=== PATIENT | female | born 1950 | race Caucasian/White ===

== ENCOUNTER → 2016-06-14 | Outpatient (CLI) | payer OTHER ==
[2016-06-14 14:27] LABS: CH 29.3; CHCM 32.6; HCT 40.3 % (34.0-46.0); HDW 2.41; HGB 13.4 gm/dL (11.4-16.0); MCHC 33.2 g/dL (31.0-37.0); MCV 90.3 fL (80.0-100.0); Mean Platelet Volume 7.6; RBC 4.46 m/uL (3.80-5.40); RDW 13.7 % (11.5-15.5); WBC 10.2 k/uL (3.8-10.6)
[2016-06-14 14:44] LABS: Calcium 10.2 mg/dL (8.4-10.2); Potassium 5.1 mmol/L (3.5-5.1); Total Bilirubin 0.4 mg/dL (0.2-1.3)
[2016-06-14 14:48] LABS: Appearance,Urine Clear (Clear); Bilirubin,Urine Negative (Negative); Glucose,Urine (UA) Negative (Negative); Ketones,Urine Negative (Negative); Leukocyte Esterase,Urine Negative (Negative); Nitrite,Urine Negative (Negative); PH, Urine 6.5 (5.0-8.0); Protein,Urine Negative (Negative); Specific Gravity,Urine 1.012 (1.001-1.035); UA Billing (MACRO vs. MICRO) CHEM; Urobilinogen,Urine <2.0 mg/dL (<2.0)
== END | disposition home or self-care (01) ==
LOC: LABWHC1 13:50
PROVIDERS: ATTEND Internal Medicine Nephrology
DX: D64.9 Anemia, unspecified (principal); E83.39 Other disorders of phosphorus metabolism; N89.0 Mild vaginal dysplasia
CPT/HCPCS: 36415; 80053; 81003; 84100; 85027

== ENCOUNTER → 2016-09-05 | Outpatient (CLI) | payer OTHER ==
[2016-09-05 16:43] LABS: Calcium 10.8 mg/dL (8.4-10.2); Magnesium 1.5 mg/dL (1.6-2.3); Phosphorous 2.8 mg/dL (2.5-4.5); Potassium 4.1 mmol/L (3.5-5.1); Total Bilirubin 0.3 mg/dL (0.2-1.3); Total Protein 7.3 g/dL (6.3-8.2); Uric Acid 9.3 mg/dL (3.7-7.4)
== END | disposition home or self-care (01) ==
LOC: LABWHC1 16:04
PROVIDERS: ATTEND Internal Medicine
DX: N18.3 Chronic kidney disease, stage 3 (moderate) (principal); E21.3 Hyperparathyroidism, unspecified; E55.9 Vitamin D deficiency, unspecified; M10.9 Gout, unspecified
CPT/HCPCS: 36415; 80053; 82306; 83735; 83970; 84100; 84550

== ENCOUNTER → 2017-01-26 | Outpatient (CLI) | payer OTHER ==
[2017-01-26 16:27] LABS: Calcium 10.7 mg/dL (8.4-10.2); Magnesium 1.5 mg/dL (1.6-2.3); Phosphorous 3.4 mg/dL (2.5-4.5); Potassium 4.5 mmol/L (3.5-5.1); Uric Acid 8.9 mg/dL (3.7-7.4)
== END | disposition home or self-care (01) ==
LOC: LABWHC1 15:46
PROVIDERS: ATTEND Nurse Practitioner Family
DX: E55.9 Vitamin D deficiency, unspecified (principal); N18.3 Chronic kidney disease, stage 3 (moderate); E79.0 Hyperuricemia without signs of inflammatory arthritis and tophaceous disease
CPT/HCPCS: 36415; 80048; 82040; 82306; 83735; 83970; 84100; 84550

== ENCOUNTER → 2017-06-08 | Outpatient (CLI) | payer MEDICARE, OTHER ==
[2017-06-08 16:36] LABS: HCT 39.1 % (34.0-46.0); HGB 12.9 gm/dL (11.4-16.0); MCH 28.7 pg (25.0-35.0); MCHC 33.1 g/dL (31.0-37.0); MCV 86.9 fL (80.0-100.0); Mean Platelet Volume 8.1; Platelet Count 309 k/uL (150-450); RBC 4.49 m/uL (3.80-5.40); RDW 14.1 % (11.5-15.5); WBC 12.2 k/uL (3.8-10.6)
[2017-06-08 16:38] LABS: Appearance,Urine Clear (Clear); Bilirubin,Urine Negative (Negative); Blood,Urine Negative (Negative); Color,Urine Light Yellow; Glucose,Urine (UA) Negative (Negative); Ketones,Urine Negative (Negative); Leukocyte Esterase,Urine Negative (Negative); Nitrite,Urine Negative (Negative); PH, Urine 6.5 (5.0-8.0); Protein,Urine Negative (Negative); Specific Gravity,Urine 1.008 (1.001-1.035); Urobilinogen,Urine <2.0 mg/dL (<2.0)
[2017-06-08 16:56] LABS: Albumin 4.3 g/dL (3.5-5.0); Calcium 10.9 mg/dL (8.4-10.2); Magnesium 1.8 mg/dL (1.6-2.3); Potassium 4.4 mmol/L (3.5-5.1); Uric Acid 5.4 mg/dL (3.7-7.4)
[2017-06-09 01:36] LABS: Parathyroid Hormone Intact 31.3 pg/mL (14.0-72.0)
[2017-06-09 01:51] LABS: Vitamin D 25 Hydroxy 12.8 ng/mL (30.0-100.0)
== END | disposition home or self-care (01) ==
LOC: LABWHC1 15:48
PROVIDERS: ATTEND Nurse Practitioner Family
DX: N39.0 Urinary tract infection, site not specified (principal); D63.1 Anemia in chronic kidney disease; N18.3 Chronic kidney disease, stage 3 (moderate); R80.9 Proteinuria, unspecified; E55.9 Vitamin D deficiency, unspecified; E79.0 Hyperuricemia without signs of inflammatory arthritis and tophaceous disease; E11.22 Type 2 diabetes mellitus with diabetic chronic kidney disease
CPT/HCPCS: 36415; 80048; 81003; 82040; 82164; 82306; 83036; 83735; 83883; 83970; 84100; 84166; 84550; 85027; 86334; 86335

== ENCOUNTER → 2017-07-11 | Outpatient (CLI) | payer MEDICARE, OTHER ==
--- NOTE | 2017-07-11 16:28 | NM ---
EXAMINATION TYPE: NM parathyroid DATE OF EXAM: 07/11/2017 COMPARISON: NONE HISTORY: Hypercalcemia, E 83.52 TECHNIQUE: Following administration of 24.9 mCi Tc99m Sestamibi. Anterior projection images of the neck and ches t were obtained 10 minutes and 3 hours post injection FINDINGS: Exam is limited, SPECT exam was unable to be performed. Thyroid tracer washout: Delayed images demonstrate near-complete tracer washout from the thyroid. Parathyroid uptake: None. The two-hour delayed images do not demonstrate any focal abnormal persisten t uptake in the region of the parathyroid glands to suggest parathyroid adenoma. Normal uptake: There is physiological tracer uptake in the salivary glands and thyroid gland. IMPRESSION: Normal parathyroid imaging study. No evidence for mediastinal uptake to suggest mediastinal parathyro id adenoma
== END | disposition home or self-care (01) ==
LOC: RADNMMAIN 11:41
PROVIDERS: ATTEND Internal Medicine
DX: E83.52 Hypercalcemia (principal)
CPT/HCPCS: 78070; A9500

== ENCOUNTER → 2017-07-20 | Outpatient (CLI) | payer MEDICARE, OTHER ==
[2017-07-20 17:05] LABS: HCT 40.2 % (34.0-46.0); HGB 13.6 gm/dL (11.4-16.0); MCH 29.2 pg (25.0-35.0); MCHC 33.7 g/dL (31.0-37.0); MCV 86.5 fL (80.0-100.0); Mean Platelet Volume 7.9; Platelet Count 291 k/uL (150-450); RBC 4.65 m/uL (3.80-5.40); RDW 13.9 % (11.5-15.5); WBC 11.9 k/uL (3.8-10.6)
[2017-07-20 17:20] LABS: Albumin 4.2 g/dL (3.5-5.0); Calcium 10.8 mg/dL (8.4-10.2); Phosphorus 4.1 mg/dL (2.5-4.5); Total Bilirubin 0.2 mg/dL (0.2-1.3); Uric Acid 5.4 mg/dL (3.7-7.4)
[2017-07-20 17:26] LABS: Potassium 4.4 mmol/L (3.5-5.1)
[2017-07-20 17:34] LABS: Appearance,Urine Cloudy (Clear); Bacteria,Urine Occasional /hpf; Bilirubin,Urine Negative (Negative); Blood,Urine Negative (Negative); Color,Urine Yellow; Glucose,Urine (UA) Negative (Negative); Hyaline Casts,Urine 26 /lpf (0-2); Ketones,Urine Negative (Negative); Leukocyte Esterase,Urine Trace (Negative); Mucus,Urine Rare /hpf; Nitrite,Urine Negative (Negative); PH, Urine 5.5 (5.0-8.0); Protein,Urine Trace (Negative); RBC,Urine 1 /hpf (0-5); Specific Gravity,Urine 1.011 (1.001-1.035); Squamous Epithelial Cell,Urine 4 /hpf (0-4); Urobilinogen,Urine <2.0 mg/dL (<2.0); WBC,Urine 5 /hpf (0-5)
[2017-07-21 00:26] LABS: Iron Saturation 17.28 (12.00-45.00)
[2017-07-21 00:35] LABS: Vitamin D 25 Hydroxy 20.3 ng/mL (30.0-100.0)
[2017-07-21 01:07] LABS: Parathyroid Hormone Intact 37.9 pg/mL (14.0-72.0)
== END | disposition home or self-care (01) ==
LOC: LABWHC1 16:13
PROVIDERS: ATTEND Internal Medicine
DX: E83.52 Hypercalcemia (principal); D63.1 Anemia in chronic kidney disease; N18.3 Chronic kidney disease, stage 3 (moderate); M10.9 Gout, unspecified; E55.9 Vitamin D deficiency, unspecified
CPT/HCPCS: 36415; 80053; 81001; 82306; 82652; 82728; 83540; 83550; 83735; 83970; 84100; 84550; 85027

== ENCOUNTER → 2017-07-26 | Outpatient (CLI) | payer MEDICARE, OTHER ==
[2017-07-26 15:52] LABS: Calcium 10.4 mg/dL (8.4-10.2); Magnesium 2.1 mg/dL (1.6-2.3); Potassium 4.8 mmol/L (3.5-5.1)
== END | disposition home or self-care (01) ==
LOC: LABWHC1 14:54
PROVIDERS: ATTEND Internal Medicine
DX: D64.9 Anemia, unspecified (principal); N18.3 Chronic kidney disease, stage 3 (moderate); E83.52 Hypercalcemia
CPT/HCPCS: 36415; 80048; 83735

== ENCOUNTER → 2017-07-26 | Outpatient (CLI) | payer MEDICARE, OTHER ==
--- NOTE | 2017-07-26 15:41 | CT ---
EXAMINATION TYPE: CT chest wo con DATE OF EXAM: 07/26/2017 COMPARISON: Chest x-ray July 20, 2017 HISTORY: Hypercalcemia CT DLP: 731 mGycm. Automated Exposure Control for Dose Reduction was Utilized. TECHNIQUE: CT scan of the thorax is performed without IV contrast. FINDINGS: LUNGS: There are some scattered areas of linear scarring most pronounced anteriorly in both lung base s. Subcentimeter peripheral scarlike opacity in the right upper lobe anterolateral aspect axial image 21 is noted. No pleural effusion or pneumothorax is seen bilaterally. No suspicious greater than 5 m m parenchymal nodules are identified. Note is made of a 5 x 4 mm semisolid nodule right upper lobe ax ial image 19. Tracheobronchial tree is patent. MEDIASTINUM: Lack of IV contrast is noted to limit evaluation for mediastinal and especially hilar a denopathy. There are no definitive greater than 1 cm hilar or mediastinal lymph nodes. No cardiomeg jade or pericardial effusion is seen. Visualized portion of thyroid gland is unremarkable. Ascending a maribel measures 3.6 cm in diameter. Coronary artery calcification is present which is noted marker for coronary artery disease. OTHER: No adrenal masses are noted. No renal calculi are seen in visualized portion of both kidneys. There is slight S-shaped scoliotic curvature with moderate multilevel spurring. There is multilevel vacuum disc phenomenon in the lower thoracic spine. IMPRESSION: No suspicious mass or adenopathy is present. Incidental 5 mm right upper lobe nodule, con educational guidance counselor CT follow-up in one year's time to reassess.
== END | disposition home or self-care (01) ==
LOC: RADCTMAIN 14:22
PROVIDERS: ATTEND Internal Medicine Critical Care Medicine
DX: R91.1 Solitary pulmonary nodule (principal)
CPT/HCPCS: 71250

== ENCOUNTER → 2017-09-22 | Outpatient (CLI) | payer MEDICARE, OTHER ==
[2017-09-22 15:22] LABS: Appearance,Urine Clear (Clear); Bilirubin,Urine Negative (Negative); Blood,Urine Negative (Negative); Color,Urine Light Yellow; Glucose,Urine (UA) Negative (Negative); Ketones,Urine Negative (Negative); Leukocyte Esterase,Urine Negative (Negative); Nitrite,Urine Negative (Negative); PH, Urine 5.5 (5.0-8.0); Protein,Urine Negative (Negative); Specific Gravity,Urine 1.007 (1.001-1.035); Urobilinogen,Urine <2.0 mg/dL (<2.0)
[2017-09-22 15:23] LABS: HCT 43.8 % (34.0-46.0); MCH 28.2 pg (25.0-35.0); MCV 88.2 fL (80.0-100.0); Mean Platelet Volume 8.2; Platelet Count 269 k/uL (150-450); RBC 4.97 m/uL (3.80-5.40); WBC 9.9 k/uL (3.8-10.6)
[2017-09-22 15:39] LABS: Albumin 4.2 g/dL (3.5-5.0); Calcium 10.4 mg/dL (8.4-10.2); Magnesium 1.8 mg/dL (1.6-2.3); Phosphorus 3.8 mg/dL (2.5-4.5); Potassium 4.6 mmol/L (3.5-5.1); Total Bilirubin 0.2 mg/dL (0.2-1.3); Total Protein 6.9 g/dL (6.3-8.2); Uric Acid 5.1 mg/dL (3.7-7.4)
[2017-09-22 19:03] LABS: Iron Saturation 17.43 (12.00-45.00)
== END | disposition home or self-care (01) ==
LOC: LABWHC1 14:55
PROVIDERS: ATTEND Nurse Practitioner Family
DX: N18.3 Chronic kidney disease, stage 3 (moderate) (principal); D64.9 Anemia, unspecified; N39.0 Urinary tract infection, site not specified; E21.3 Hyperparathyroidism, unspecified; M10.9 Gout, unspecified
CPT/HCPCS: 36415; 80053; 81003; 82728; 83540; 83550; 83735; 83970; 84100; 84550; 85027

== ENCOUNTER → 2018-01-31 | Outpatient (CLI) | payer MEDICARE, OTHER ==
[2018-01-31 16:44] LABS: HCT 42.5 % (34.0-46.0); HGB 13.8 gm/dL (11.4-16.0); MCH 29.7 pg (25.0-35.0); MCHC 32.5 g/dL (31.0-37.0); MCV 91.3 fL (80.0-100.0); Mean Platelet Volume 7.9; Platelet Count 255 k/uL (150-450); RBC 4.66 m/uL (3.80-5.40); RDW 13.8 % (11.5-15.5); WBC 10.6 k/uL (3.8-10.6)
[2018-01-31 16:49] LABS: Appearance,Urine Clear (Clear); Bilirubin,Urine Negative (Negative); Blood,Urine Negative (Negative); Color,Urine Light Yellow; Glucose,Urine (UA) Trace (Negative); Ketones,Urine Negative (Negative); Leukocyte Esterase,Urine Negative (Negative); Nitrite,Urine Negative (Negative); PH, Urine 6.5 (5.0-8.0); Protein,Urine Negative (Negative); Specific Gravity,Urine 1.007 (1.001-1.035); Urobilinogen,Urine <2.0 mg/dL (<2.0)
[2018-01-31 17:00] LABS: Calcium 10.3 mg/dL (8.4-10.2); Magnesium 1.9 mg/dL (1.6-2.3); Potassium 4.4 mmol/L (3.5-5.1); Total Bilirubin 0.2 mg/dL (0.2-1.3); Total Protein 6.9 g/dL (6.3-8.2); Uric Acid 4.9 mg/dL (3.7-7.4)
[2018-02-01 04:21] LABS: Iron Saturation 25.36 (12.00-45.00)
== END ==
LOC: LABWHC1 15:49
PROVIDERS: ATTEND Nurse Practitioner Family
DX: N18.3 Chronic kidney disease, stage 3 (moderate) (principal); D63.1 Anemia in chronic kidney disease; N39.0 Urinary tract infection, site not specified; E21.3 Hyperparathyroidism, unspecified; M10.9 Gout, unspecified
CPT/HCPCS: 36415; 80053; 81003; 82728; 83540; 83550; 83735; 83970; 84100; 84550; 85027

== ENCOUNTER → 2018-08-08 | Outpatient (CLI) | payer MEDICARE ==
[2018-08-08 17:31] LABS: Appearance,Urine Clear (Clear); Bilirubin,Urine Negative (Negative); Blood,Urine Negative (Negative); Color,Urine Light Yellow; Glucose,Urine (UA) Negative (Negative); Ketones,Urine Negative (Negative); Leukocyte Esterase,Urine Negative (Negative); Nitrite,Urine Negative (Negative); Protein,Urine Negative (Negative); Specific Gravity,Urine 1.007 (1.001-1.035); Urobilinogen,Urine <2.0 mg/dL (<2.0)
[2018-08-08 17:35] LABS: HCT 41.1 % (34.0-46.0); HGB 13.9 gm/dL (11.4-16.0); MCH 29.2 pg (25.0-35.0); MCV 85.8 fL (80.0-100.0); Mean Platelet Volume 8.3; Platelet Count 302 k/uL (150-450); RBC 4.78 m/uL (3.80-5.40); RDW 13.7 % (11.5-15.5); WBC 11.4 k/uL (3.8-10.6)
[2018-08-09 01:41] LABS: Iron Saturation 20.67 (12.00-45.00)
[2018-08-09 02:01] LABS: Albumin 4.4 g/dL (3.80-4.90); Anion Gap 7.3 mmol/L (4.00-12.00); Calcium 9.8 mg/dL (8.7-10.3); Carbon Dioxide 28.7 mmol/L (21.6-31.8); Globulin 2.2 g/dL (1.6-3.3); Magnesium 1.8 mg/dL (1.5-2.4); Phosphorus 3.5 mg/dL (2.4-5.1); Potassium 4.2 mmol/L (3.5-5.5); Total Bilirubin 0.2 mg/dL (0.3-1.2); Total Protein 6.6 g/dL (6.2-8.2); Uric Acid 4.9 mg/dL (2.9-7.7)
== END ==
LOC: LABWHC1 16:53
PROVIDERS: ATTEND Internal Medicine
DX: N39.0 Urinary tract infection, site not specified (principal); E21.3 Hyperparathyroidism, unspecified; D63.1 Anemia in chronic kidney disease; N18.3 Chronic kidney disease, stage 3 (moderate)
CPT/HCPCS: 36415; 80053; 81003; 82728; 83540; 83550; 83735; 83970; 84100; 84550; 85027

== ENCOUNTER → 2018-08-22 | Outpatient (CLI) | payer MEDICARE ==
--- NOTE | 2018-08-23 11:57 | MM ---
Reason for exam: screening (asymptomatic). Last mammogram was performed 8 years ago. History: Patient is postmenopausal. Took estrogen for 4 years beginning at age 52. Took progesterone for 4 years beginning at age 52. Physical Findings: A clinical breast exam by your physician is recommended on an annual basis and results should be correlated with mammographic findings. MG Screening Mammo w CAD Bilateral CC and MLO view(s) were taken. Prior study comparison: August 25, 2010, bilateral digital screening mammo w/CAD. July 18, 2008, bilateral digital screening mammogram. The breast tissue is heterogeneously dense. This may lower the sensitivity of mammography. Nodule upper outer quadrant left breast 6.2cm from nipple. ASSESSMENT: Incomplete: need additional imaging evaluation, BI-RAD 0 RECOMMENDATION: Special view mammogram and ultrasound of the left breast. [facility] will attempt to contact patient to return for supplemental views and ultrasound.
== END ==
LOC: RADMAMWWP 14:43
PROVIDERS: ATTEND Family Medicine
DX: Z12.31 Encounter for screening mammogram for malignant neoplasm of breast (principal)
CPT/HCPCS: 77067

== ENCOUNTER → 2018-08-29 | Outpatient (CLI) | payer MEDICARE ==
--- NOTE | 2018-08-29 15:49 | US ---
EXAMINATION TYPE: US renals and bladder DATE OF EXAM: 08/29/2018 COMPARISON: NONE CLINICAL HISTORY: ABN MAMMO. EXAM MEASUREMENTS: Right Kidney: 10.3 X 3.9 X 4.4 cm Left Kidney: 10.6 X 5.2 X 4.6 cm Right Kidney: No hydronephrosis or masses seen Left Kidney: No hydronephrosis or masses seen Bladder: WNL Bilateral Jets seen: Yes There is no evidence for hydronephrosis at this point in time. No nephrolithiasis is seen. No jaspal s are identified. The urinary bladder is anechoic. Bilateral ureteral jets are seen. IMPRESSION: Unremarkable exam. No sonographic evidence of hydronephrosis or nephrolithiasis.
--- NOTE | 2018-08-30 08:37 | MM ---
Reason for exam: additional evaluation requested from abnormal screening. Last mammogram was performed less than 1 month ago. History: Patient is postmenopausal. Took estrogen for 4 years beginning at age 52. Took progesterone for 4 years beginning at age 52. Physical Findings: Nurse did not find any significant physical abnormalities on exam. MG 3D Work Up W/Cad LT Spot compression CC, spot compression MLO, and LM view(s) were taken of the left breast. Prior study comparison: August 22, 2018, bilateral MG screening mammo w CAD. August 25, 2010, bilateral digital screening mammo w/CAD. The breast tissue is heterogeneously dense. This may lower the sensitivity of mammography. The upper outer quadrant left mass is seen on the exam of 2010 on the CC view and appears similar. These results were verbally communicated with the patient and result sheet given to the patient on 08/29/18. ASSESSMENT: Benign, BI-RAD 2 RECOMMENDATION: Return to routine screening mammogram schedule for both breasts.
== END | disposition home or self-care (01) ==
LOC: RADUSWWP 14:26
PROVIDERS: ATTEND Internal Medicine Nephrology
DX: R92.8 Other abnormal and inconclusive findings on diagnostic imaging of breast (principal)
CPT/HCPCS: 77065; 76770; G0279; 77061

== ENCOUNTER → 2018-08-29 | Outpatient (CLI) | payer MEDICARE | END | disposition home or self-care (01) | LOC: RADMAMWWP 14:19 | PROVIDERS: ATTEND Family Medicine | DX: Z53.9 Procedure and treatment not carried out, unspecified reason (principal) ==

== ENCOUNTER → 2018-12-04 | Outpatient (CLI) | payer MEDICARE ==
[2018-12-04 16:37] LABS: Basophils # (A) 0.2 k/uL (0-0.2); Basophils % (A) 2 %; Eosinophils # (A) 0.2 k/uL (0-0.7); Eosinophils % (A) 2 %; HCT 43.7 % (34.0-46.0); HGB 13.9 gm/dL (11.4-16.0); Lymphocytes # (A) 3.3 k/uL (1.0-4.8); Lymphocytes % (A) 33 %; MCHC 31.8 g/dL (31.0-37.0); MCV 91.4 fL (80.0-100.0); Mean Platelet Volume 8.3; Monocytes # (A) 0.8 k/uL (0-1.0); Monocytes % (A) 8 %; Neutrophils # (A) 5.3 k/uL (1.3-7.7); Neutrophils % (A) 52 %; Platelet Count 249 k/uL (150-450); RBC 4.79 m/uL (3.80-5.40); RDW 14.6 % (11.5-15.5); WBC 10.1 k/uL (3.8-10.6)
[2018-12-04 16:49] LABS: Appearance,Urine Clear (Clear); Bilirubin,Urine Negative (Negative); Blood,Urine Negative (Negative); Color,Urine Light Yellow; Glucose,Urine (UA) 3+ (Negative); Ketones,Urine Negative (Negative); Leukocyte Esterase,Urine Negative (Negative); Nitrite,Urine Negative (Negative); Protein,Urine Negative (Negative); Specific Gravity,Urine 1.008 (1.001-1.035); Urobilinogen,Urine <2.0 mg/dL (<2.0)
[2018-12-05 03:19] LABS: African American GFR (CKD) 60.2 (60.0-200.0); Albumin 4.1 g/dL (3.80-4.90); Albumin/Globulin Ratio 2.05 (1.60-3.17); Anion Gap 9.6 mmol/L (4.00-12.00); BUN/Creat Ratio 17.27 Ratio (12.00-20.00); Calcium 9.7 mg/dL (8.7-10.3); Carbon Dioxide 27.4 mmol/L (21.6-31.8); Magnesium 1.8 mg/dL (1.5-2.4); Non-African American GFR(CKD) 51.9 (60.0-200.0); Phosphorus 2.7 mg/dL (2.4-5.1); Potassium 4.6 mmol/L (3.5-5.5); Total Bilirubin 0.2 mg/dL (0.3-1.2); Total Protein 6.1 g/dL (6.2-8.2)
[2018-12-05 03:25] LABS: Iron Saturation 26.71 (12.00-45.00)
[2018-12-05 03:34] LABS: Ferritin 146.4 ng/mL (10.0-291.0)
[2018-12-05 04:34] LABS: Vitamin D 25 Hydroxy 11.3 ng/mL (30.0-100.0)
== END ==
LOC: LABWHC1 15:49
PROVIDERS: ATTEND Nurse Practitioner Family
DX: N18.3 Chronic kidney disease, stage 3 (moderate) (principal); D63.1 Anemia in chronic kidney disease; N39.0 Urinary tract infection, site not specified; E83.39 Other disorders of phosphorus metabolism; N25.81 Secondary hyperparathyroidism of renal origin; E55.9 Vitamin D deficiency, unspecified; M10.9 Gout, unspecified
CPT/HCPCS: 36415; 80053; 81003; 82306; 82728; 83540; 83550; 83735; 83970; 84100; 84550; 85025

== ENCOUNTER 2019-09-06 09:59 | Emergency (ER) | payer MEDICARE ==
[2019-09-06 10:05] LABS: Glucose,Whole Blood 502 mg/dL (75-99)
[2019-09-06 10:09] VITALS: TEMP 98.3
[2019-09-06] MEDS ORDERED: INSULIN REGULAR 100 UNIT/ML VIAL IV ONE (10:20)
[2019-09-06] MEDS ORDERED: SODIUM CHLORIDE 0.9% 1,000 ML IV ONE (10:20)
[2019-09-06] MEDS ORDERED: SODIUM CHLORIDE 0.9% 500 ML 500 ML IV ONE (10:20)
[2019-09-06 10:52] LABS: Basophils # (A) 0.3 k/uL (0-0.2); Basophils % (A) 3 %; Eosinophils # (A) 0.3 k/uL (0-0.7); Eosinophils % (A) 3 %; HCT 50.1 % (34.0-46.0); HGB 16.3 gm/dL (11.4-16.0); Lymphocytes # (A) 3.7 k/uL (1.0-4.8); Lymphocytes % (A) 34 %; MCH 29.8 pg (25.0-35.0); MCHC 32.5 g/dL (31.0-37.0); MCV 91.6 fL (80.0-100.0); Mean Platelet Volume 9.9; Monocytes # (A) 0.6 k/uL (0-1.0); Monocytes % (A) 6 %; Neutrophils # (A) 5.6 k/uL (1.3-7.7); Neutrophils % (A) 52 %; Platelet Count 250 k/uL (150-450); RBC 5.47 m/uL (3.80-5.40); RDW 13.1 % (11.5-15.5); WBC 10.8 k/uL (3.8-10.6)
[2019-09-06 10:55] LABS: Appearance,Urine Clear (Clear); Bilirubin,Urine Negative (Negative); Blood,Urine Negative (Negative); Color,Urine Light Yellow; Glucose,Urine (UA) 4+ (Negative); Ketones,Urine 1+ (Negative); Leukocyte Esterase,Urine Negative (Negative); Nitrite,Urine Negative (Negative); Protein,Urine Negative (Negative); Specific Gravity,Urine 1.032 (1.001-1.035); Urobilinogen,Urine <2.0 mg/dL (<2.0)
--- NOTE | 2019-09-06 11:02 | ED ---
Recheck HPI - General Chief Complaint: Recheck/Abnormal Lab/Rx Stated Complaint: sugar is high Time Seen by Provider: 09/06/19 10:11 Source: patient, RN notes reviewed Mode of arrival: ambulatory Limitations: no limitations - History of Present Illness Initial Comments: 69-year-old female presents emergency Department chief complaint of hyperglycemia. Patient states that she received a phone call from her nephrologists stating that her blood sugar was severely elevated. Patient states she has not eaten today she did not take her diabetic meds today. She doesn't admit that she's had no recent dietary changes though she states that she needs a large amount of fruit, starches. Patient does not follow a strict diabetic diet. Patient is on Lantus and glipizide. Patient has no complaints of URI symptoms no fevers or chills no chest pain or shortness of breath. Has no abdominal discomfort. - Related Data Allergies Allergy/AdvReac Type Severity Reaction Status Date / Time Unable to Assess Allergy Verified 09/06/19 10:09 Review of Systems ROS Statement: Those systems with pertinent positive or pertinent negative responses have been documented in the HPI. ROS Other: All systems not noted in ROS Statement are negative. Past Medical History Past Medical History: Diabetes Mellitus, Hyperlipidemia, Hypertension, Osteoarthritis (OA) Additional Past Medical History / Comment(s): gout History of Any Multi-Drug Resistant Organisms: None Reported Past Surgical History: Section Additional Past Surgical History / Comment(s): D&C, hemerhoid, eye Past Psychological History: No Psychological Hx Reported Smoking Status: Current every day smoker Past Alcohol Use History: None Reported Past Drug Use History: None Reported General Exam Limitations: no limitations General appearance: alert, in no apparent distress Head exam: Present: atraumatic, normocephalic, normal inspection Eye exam: Present: normal appearance, PERRL, EOMI. Absent: scleral icterus, conjunctival injection, periorbital swelling ENT exam: Present: normal exam, normal oropharynx, mucous membranes moist, TM's normal bilaterally Neck exam: Present: normal inspection. Absent: tenderness, meningismus, lymphadenopathy Respiratory exam: Present: normal lung sounds bilaterally. Absent: respiratory distress, wheezes, rales, rhonchi, stridor Cardiovascular Exam: Present: normal rhythm, tachycardia (Heart rate 110), normal heart sounds. Absent: systolic murmur, diastolic murmur, rubs, gallop, clicks GI/Abdominal exam: Present: soft, normal bowel sounds. Absent: distended, tenderness, guarding, rebound, rigid Neurological exam: Present: alert, oriented X3, CN II-XII intact Skin exam: Present: warm, dry, intact, normal color. Absent: rash Course Vital Signs 09/06/19 10:00 Temperature 98.3 F Pulse Rate 110 H Respiratory 18 Rate Blood Pressure 103/62 O2 Sat by Pulse 95 Oximetry Medical Decision Making - Medical Decision Making 61-year-old female presented for hyperglycemia. Patient's blood sugar was over 500. Patient's blood sugar is under 300. Patient is requesting be discharged that she feels better this time. She is advised take oral medications. Patient stated on lab results return parameters were discussed. - Lab Data Result diagrams: 09/06/19 10:20 09/06/19 10:20 Lab Results 09/06/19 09/06/19 09/06/19 Range/Units 10:04 10:20 10:20 WBC 10.8 H (3.8-10.6) k/uL RBC 5.47 H (3.80-5.40) m/uL Hgb 16.3 H (11.4-16.0) gm/dL Hct 50.1 H (34.0-46.0) % MCV 91.6 (80.0-100.0) fL MCH 29.8 (25.0-35.0) pg MCHC 32.5 (31.0-37.0) g/dL RDW 13.1 (11.5-15.5) % Plt Count 250 (150-450) k/uL Neutrophils % 52 % Lymphocytes % 34 % Monocytes % 6 % Eosinophils % 3 % Basophils % 3 % Neutrophils # 5.6 (1.3-7.7) k/uL Lymphocytes # 3.7 (1.0-4.8) k/uL Monocytes # 0.6 (0-1.0) k/uL Eosinophils # 0.3 (0-0.7) k/uL Basophils # 0.3 H (0-0.2) k/uL Sodium 133 L (137-145) mmol/L Potassium 4.5 (3.5-5.1) mmol/L Chloride 98 (98-107) mmol/L Carbon Dioxide 23 (22-30) mmol/L Anion Gap 12 mmol/L BUN 23 H (7-17) mg/dL Creatinine 0.92 (0.52-1.04) mg/dL Est GFR (CKD-EPI)AfAm 74 (>60 ml/min/1.73 sqM) Est GFR (CKD-EPI)NonAf 64 (>60 ml/min/1.73 sqM) Glucose 403 H (74-99) mg/dL POC Glucose (mg/dL) 502 H (75-99) mg/dL POC Glu Hat Lining Paster ID Hannah Ramirez Plasma Lactic Acid Mario (0.7-2.0) mmol/L Calcium 9.4 (8.4-10.2) mg/dL Total Bilirubin 0.5 (0.2-1.3) mg/dL AST 36 (14-36) U/L ALT 29 (4-34) U/L Alkaline Phosphatase 119 (38-126) U/L Total Protein 7.0 (6.3-8.2) g/dL Albumin 4.2 (3.5-5.0) g/dL Urine Color Urine Appearance (Clear) Urine pH (5.0-8.0) Ur Specific Meally (1.001-1.035) Urine Protein (Negative) Urine Glucose (UA) (Negative) Urine Ketones (Negative) Urine Blood (Negative) Urine Nitrite (Negative) Urine Bilirubin (Negative) Urine Urobilinogen (<2.0) mg/dL Ur Leukocyte Esterase (Negative) Acetone, Qual Negative (Negative) 09/06/19 09/06/19 09/06/19 Range/Units 10:20 10:26 11:29 WBC (3.8-10.6) k/uL RBC (3.80-5.40) m/uL Hgb (11.4-16.0) gm/dL Hct (34.0-46.0) % MCV (80.0-100.0) fL MCH (25.0-35.0) pg MCHC (31.0-37.0) g/dL RDW (11.5-15.5) % Plt Count (150-450) k/uL Neutrophils % % Lymphocytes % % Monocytes % % Eosinophils % % Basophils % % Neutrophils # (1.3-7.7) k/uL Lymphocytes # (1.0-4.8) k/uL Monocytes # (0-1.0) k/uL Eosinophils # (0-0.7) k/uL Basophils # (0-0.2) k/uL Sodium (137-145) mmol/L Potassium (3.5-5.1) mmol/L Chloride (98-107) mmol/L Carbon Dioxide (22-30) mmol/L Anion Gap mmol/L BUN (7-17) mg/dL Creatinine (0.52-1.04) mg/dL Est GFR (CKD-EPI)AfAm (>60 ml/min/1.73 sqM) Est GFR (CKD-EPI)NonAf (>60 ml/min/1.73 sqM) Glucose (74-99) mg/dL POC Glucose (mg/dL) 342 H (75-99) mg/dL POC Glu Hat Lining Paster ID Radha Treviño Plasma Lactic Acid Mario 1.8 (0.7-2.0) mmol/L Calcium (8.4-10.2) mg/dL Total Bilirubin (0.2-1.3) mg/dL AST (14-36) U/L ALT (4-34) U/L Alkaline Phosphatase (38-126) U/L Total Protein (6.3-8.2) g/dL Albumin (3.5-5.0) g/dL Urine Color Light Yellow Urine Appearance Clear (Clear) Urine pH 5.0 (5.0-8.0) Ur Specific Meally 1.032 (1.001-1.035) Urine Protein Negative (Negative) Urine Glucose (UA) 4+ H (Negative) Urine Ketones 1+ H (Negative) Urine Blood Negative (Negative) Urine Nitrite Negative (Negative) Urine Bilirubin Negative (Negative) Urine Urobilinogen <2.0 (<2.0) mg/dL Ur Leukocyte Esterase Negative (Negative) Acetone, Qual (Negative) 09/06/19 Range/Units 12:08 WBC (3.8-10.6) k/uL RBC (3.80-5.40) m/uL Hgb (11.4-16.0) gm/dL Hct (34.0-46.0) % MCV (80.0-100.0) fL MCH (25.0-35.0) pg MCHC (31.0-37.0) g/dL RDW (11.5-15.5) % Plt Count (150-450) k/uL Neutrophils % % Lymphocytes % % Monocytes % % Eosinophils % % Basophils % % Neutrophils # (1.3-7.7) k/uL Lymphocytes # (1.0-4.8) k/uL Monocytes # (0-1.0) k/uL Eosinophils # (0-0.7) k/uL Basophils # (0-0.2) k/uL Sodium (137-145) mmol/L Potassium (3.5-5.1) mmol/L Chloride (98-107) mmol/L Carbon Dioxide (22-30) mmol/L Anion Gap mmol/L BUN (7-17) mg/dL Creatinine (0.52-1.04) mg/dL Est GFR (CKD-EPI)AfAm (>60 ml/min/1.73 sqM) Est GFR (CKD-EPI)NonAf (>60 ml/min/1.73 sqM) Glucose (74-99) mg/dL POC Glucose (mg/dL) 292 H (75-99) mg/dL POC Glu Hat Lining Paster ID Ese Guthrie Plasma Lactic Acid Mario (0.7-2.0) mmol/L Calcium (8.4-10.2) mg/dL Total Bilirubin (0.2-1.3) mg/dL AST (14-36) U/L ALT (4-34) U/L Alkaline Phosphatase (38-126) U/L Total Protein (6.3-8.2) g/dL Albumin (3.5-5.0) g/dL Urine Color Urine Appearance (Clear) Urine pH (5.0-8.0) Ur Specific Meally (1.001-1.035) Urine Protein (Negative) Urine Glucose (UA) (Negative) Urine Ketones (Negative) Urine Blood (Negative) Urine Nitrite (Negative) Urine Bilirubin (Negative) Urine Urobilinogen (<2.0) mg/dL Ur Leukocyte Esterase (Negative) Acetone, Qual (Negative) Disposition Clinical Impression: Hyperglycemia Disposition: HOME SELF-CARE Condition: Stable Instructions (If sedation given, give patient instructions): Diabetic Hyp erglycemia (ED) Additional Instructions: Please return to the Emergency Department if symptoms worsen or any other concerns. Is patient prescribed a controlled substance at d/c from ED?: No Referrals: Ángel Turner DO [Primary Care Provider] - 1-2 days Time of Disposition: 12:17
[2019-09-06 11:04] LABS: ALT 29 U/L (4-34); AST 36 U/L (14-36); African American GFR (CKD) 74 (>60 ml/min/1.73 sqM); Albumin 4.2 g/dL (3.5-5.0); Alkaline Phosphatase 119 U/L (38-126); Anion Gap 12 mmol/L; Blood Urea Nitrogen 23 mg/dL (7-17); Calcium 9.4 mg/dL (8.4-10.2); Carbon Dioxide 23 mmol/L (22-30); Chloride 98 mmol/L (98-107); Glucose 403 mg/dL (74-99); Non-African American GFR(CKD) 64 (>60 ml/min/1.73 sqM); Potassium 4.5 mmol/L (3.5-5.1); Sodium 133 mmol/L (137-145); Total Bilirubin 0.5 mg/dL (0.2-1.3)
[2019-09-06 11:30] LABS: Glucose,Whole Blood 342 mg/dL (75-99)
[2019-09-06] MEDS ORDERED: INSULIN ASPART (NovoLOG) 100 UNIT/ML VIAL SQ ONE (11:32)
[2019-09-06 12:10] LABS: Glucose,Whole Blood 292 mg/dL (75-99)
[2019-09-06 12:24] VITALS: BP 142/76; PULSE 80; RESP 16
== END 2019-09-06 12:22 | disposition home or self-care (01) ==
LOC: EC 09:59
DX: E11.65 Type 2 diabetes mellitus with hyperglycemia (principal); I10 Essential (primary) hypertension; F17.200 Nicotine dependence, unspecified, uncomplicated; Z79.4 Long term (current) use of insulin
CPT/HCPCS: 36415; 80053; 81003; 82009; 83605; 85025; 96360; 99283

== ENCOUNTER 2019-09-09 21:51 | Emergency (ER) | payer MEDICARE ==
[2019-09-09] MEDS ORDERED: PROPARACAINE 0.5% OPHTH DROPS 15 ML BTL RIGHT EYE STA (22:20)
[2019-09-09 22:26] LABS: Glucose,Whole Blood 471 mg/dL (75-99)
[2019-09-09] MEDS ORDERED: diphenhydrAMINE 50 MG/ML 1 ML VIAL IVP STA (22:26)
[2019-09-09] MEDS ORDERED: METOCLOPRAMIDE 5 MG/ML 2 ML VIAL IVP STA (22:26)
[2019-09-09] MEDS ORDERED: DEXAMETHASONE SOD PHOSPHATE 10 MG/ML 1 ML VIAL IV STA (22:27)
[2019-09-09 22:36] LABS: Basophils # (A) 0.3 k/uL (0-0.2); Basophils % (A) 2 %; Eosinophils # (A) 0.3 k/uL (0-0.7); Eosinophils % (A) 2 %; HCT 51.8 % (34.0-46.0); HGB 16.2 gm/dL (11.4-16.0); Lymphocytes % (A) 30 %; MCHC 31.3 g/dL (31.0-37.0); MCV 92.5 fL (80.0-100.0); Mean Platelet Volume 9.5; Monocytes # (A) 0.8 k/uL (0-1.0); Monocytes % (A) 6 %; Neutrophils # (A) 7.5 k/uL (1.3-7.7); Neutrophils % (A) 57 %; Platelet Count 258 k/uL (150-450); WBC 13.3 k/uL (3.8-10.6)
[2019-09-09 22:43] LABS: Appearance,Urine Clear (Clear); Bilirubin,Urine Negative (Negative); Blood,Urine Negative (Negative); Color,Urine Light Yellow; Glucose,Urine (UA) 4+ (Negative); Ketones,Urine Negative (Negative); Leukocyte Esterase,Urine Negative (Negative); Nitrite,Urine Negative (Negative); PH, Urine 6.5 (5.0-8.0); Protein,Urine Negative (Negative); Specific Gravity,Urine 1.028 (1.001-1.035); Urobilinogen,Urine <2.0 mg/dL (<2.0)
[2019-09-09 22:45] LABS: ALT 30 U/L (4-34); AST 30 U/L (14-36); African American GFR (CKD) 72 (>60 ml/min/1.73 sqM); Albumin 4.3 g/dL (3.5-5.0); Alkaline Phosphatase 118 U/L (38-126); Anion Gap 9 mmol/L; Blood Urea Nitrogen 23 mg/dL (7-17); Calcium 10.4 mg/dL (8.4-10.2); Carbon Dioxide 31 mmol/L (22-30); Chloride 92 mmol/L (98-107); Glucose 464 mg/dL (74-99); Non-African American GFR(CKD) 62 (>60 ml/min/1.73 sqM); Potassium 4.3 mmol/L (3.5-5.1); Sodium 132 mmol/L (137-145); Total Bilirubin 0.3 mg/dL (0.2-1.3); Total Protein 7.1 g/dL (6.3-8.2)
[2019-09-09 22:57] LABS: INR 0.9 (<1.2); Partial Thromboplastin Time 21.1 sec (22.0-30.0); Prothrombin Time 9.5 sec (9.0-12.0)
--- NOTE | 2019-09-09 23:03 | CT ---
EXAMINATION TYPE: CT brain wo con DATE OF EXAM: 09/09/2019 HISTORY: headache, nausea CT DLP: 1117.9 mGycm. Automated Exposure Control for Dose Reduction was Utilized. TECHNIQUE: CT scan of the head is performed without contrast. COMPARISON: None. FINDINGS: There is no acute intracranial hemorrhage or midline shift identified. There is diffuse v entricular and sulcal prominence consistent with diffuse age-related cerebral atrophy. There is low- attenuation in the periventricular white matter consistent with chronic small vessel ischemic change. Hyperostosis frontalis is present. The globes are intact and the visualized sinuses are clear. IMPRESSION: No acute intracranial hemorrhage or midline shift. There is mild diffuse age-related ce rebral atrophy and moderate probable chronic small vessel ischemic change noted.
[2019-09-09] MEDS ORDERED: SODIUM CHLORIDE 0.9% 1,000 ML IV ONE (23:19)
--- NOTE | 2019-09-09 23:23 | CT ---
EXAMINATION TYPE: CT angio head neck DATE OF EXAM: 09/09/2019 HISTORY: headache, nausea COMPARISON: NONE CT DLP: 505.4 mGycm. Automated Exposure Control for Dose Reduction was Utilized. TECHNIQUE: CTA scan of the head and neck are performed with IV Contrast, patient injected with 65cc mL of Isovue 370, axial images are obtained, coronal and sagittal reformatted images are reviewed. Th ree-D reconstructed images are created on an independent workstation and reviewed. FINDINGS: Carotid/Vascular Structures: Normal three-vessel origin from aortic arch. Right common carotid artery shows normal origin from right brachiocephalic artery. Mild plaque bilateral carotid bulb level with out significant stenosis in visualized portion of common or internal carotid arteries bilaterally. Mi ld calcified plaque supraclinoid segments bilaterally. Patent external carotid arteries without signi ficant stenosis bilaterally. Codominant vertebrobasilar system. Vertebral arteries are patent to basilar junction. Hypoplastic zully ateral posterior communicating arteries. No significant focal stenosis or aneurysmal change and poste rior circulation. Anterior circulation shows hypoplastic intercommunicating artery. No significant fo chantell stenosis or aneurysmal change and anterior circulation is seen. Other: No significant incidental finding is seen. IMPRESSION: No significant stenosis in common or internal carotid arteries bilaterally. No significa nt stenosis or aneurysmal change at the level of the [place].
[2019-09-09] MEDS ORDERED: acetaZOLAMIDE 250 MG TAB PO STA (23:41)
[2019-09-10 00:20] LABS: Glucose,Whole Blood 375 mg/dL (75-99)
--- NOTE | 2019-09-10 00:49 | ED ---
General Adult HPI - General Source: patient Mode of arrival: ambulatory Limitations: no limitations <Sherie Flower - Last Filed: 09/10/19 00:40> <Vinay Aiken - Last Filed: 09/10/19 08:34> <Elan Rosales - Last Filed: 09/11/19 00:19> - General Chief complaint: Neuro Symptoms/Deficit Stated complaint: High Blood Sugar - History of Present Illness Initial comments: The patient is a 69-year-old female with past history of hypertension, hyperlipidemia and diabetes who presents emergency room with reported right- sided headache and acute visual disturbance. The patient states her symptoms started around 8 PM. She had sudden onset of blurred vision in her right eye accompanied by a right-sided headache. No history of similar in the past. She does not take any medications for her symptoms prior to coming into the emergency room. She denies any ocular trauma. Denies frequent migraines. No neck pain or stiffness. Denies any fevers or chills. The patient also took her blood sugar measurement and it was noted to be 530 at home. She has been seen previously in the emergency department in the past several days for hyp erglycemia. States that she takes her insulin around 8 PM is also on oral medications. Denies any recent changes to her regimen. She denies unilateral numbness or weakness. No speech difficulties. There are no alleviating, Perceptin or modifying factors (Sherie Flower) - Related Data Allergies Allergy/AdvReac Type Severity Reaction Status Date / Time Unable to Assess Allergy Verified 09/09/19 21:59 Review of Systems ROS Other: All systems not noted in ROS Statement are negative. <Sherie Flower - Last Filed: 09/10/19 00:40> ROS Other: All systems not noted in ROS Statement are negative. <Vinay Aiken - Last Filed: 09/10/19 08:34> ROS Other: All systems not noted in ROS Statement are negative. <Elan Rosales - Last Filed: 09/11/19 00:19> ROS Statement: Those systems with pertinent positive or pertinent negative responses have been documented in the HPI. Past Medical History Past Medical History: Diabetes Mellitus, Hyperlipidemia, Hypertension, Osteoarthritis (OA) Additional Past Medical History / Comment(s): gout History of Any Multi-Drug Resistant Organisms: None Reported Past Surgical History: Section Additional Past Surgical History / Comment(s): D&C, hemerhoid, eye Past Psychological History: No Psychological Hx Reported Smoking Status: Current every day smoker Past Alcohol Use History: None Reported Past Drug Use History: None Reported <Sherie Flower - Last Filed: 09/10/19 00:40> General Exam Limitations: no limitations <Sherie Flower - Last Filed: 09/10/19 00:40> General appearance: alert, in no apparent distress Head exam: Present: atraumatic, normocephalic, normal inspection Eye exam: Present: normal appearance, PERRL, EOMI. Absent: scleral icterus, conjunctival injection, periorbital swelling ENT exam: Present: normal exam, mucous membranes moist Neck exam: Present: normal inspection. Absent: tenderness, meningismus, lymphadenopathy Respiratory exam: Present: normal lung sounds bilaterally. Absent: respiratory distress, wheezes, rales, rhonchi, stridor Cardiovascular Exam: Present: regular rate, normal rhythm, normal heart sounds. Absent: systolic murmur, diastolic murmur, rubs, gallop, clicks GI/Abdominal exam: Present: soft, normal bowel sounds. Absent: distended, tenderness, guarding, rebound, rigid Extremities exam: Present: normal inspection, full ROM, normal capillary refill. Absent: tenderness, pedal edema, joint swelling, calf tenderness Back exam: Present: normal inspection Neurological exam: Present: alert, oriented X3, CN II-XII intact Psychiatric exam: Present: normal affect, normal mood Skin exam: Present: warm, dry, intact, normal color. Absent: rash <Elan Rosales - Last Filed: 09/11/19 00:19> Course <Vinay Aiken - Last Filed: 09/10/19 08:34> <Elan Rosales - Last Filed: 09/11/19 00:19> Vital Signs 09/09/19 09/09/19 09/10/19 21:52 23:40 01:09 Temperature 98.4 F 98.0 F 99.4 F Pulse Rate 106 H 95 87 Respiratory 18 16 18 Rate Blood Pressure 159/102 140/99 126/82 O2 Sat by Pulse 96 99 94 L Oximetry 09/10/19 09/10/19 09/10/19 02:41 04:47 06:10 Temperature 97.8 F 98.6 F Pulse Rate 103 H 94 84 Respiratory 19 19 17 Rate Blood Pressure 145/92 145/80 126/83 O2 Sat by Pulse 94 L 95 96 Oximetry 09/10/19 08:50 Temperature 98.4 F Pulse Rate 94 Respiratory 18 Rate Blood Pressure 137/91 O2 Sat by Pulse 100 Oximetry - Reevaluation(s) Reevaluation #1: 09/10/19 05:23 Medical records reviewed (Elan Rosales) Reevaluation #2: 09/10/19 05:23 Patient reevaluated at 1 AM with significantly improved IOP, right eye at this time was 31, no headache, vision improved, vision changes resolved (Elan Rosales) Reevaluation #3: 09/10/19 05:24 Spoke with patient who is refusing transfer, patient understands possible loss of vision, decision is made to try and re-attempt to get ahold of ophthalmology in the morning (Elan Rosales) Reevaluation #4: 09/10/19 08:35 The patient was resting comfortably in the emergency department throughout the morning she was endorsed to me by Dr. Rosales who received the patient endorsed from Dr. Flower. Patient will follow-up with Dr. Begum the patient's patient will follow up immediately. The intraocular pressure initially was 73 days 3 went on to 31 after treatment. Sensation is vision has improved. aissatou this morning. He did call back. (Vinay Aiken) - Consultations Consultation #1: Spoke with Dr. valadez we'll continue to attempt ophthalmology (Lorne Rosales) Medical Decision Making - Lab Data Result diagrams: 09/09/19 22:26 09/09/19 22:26 <Sherie Flower - Last Filed: 09/10/19 00:40> - Lab Data Result diagrams: 09/09/19 22:26 09/09/19 22:26 <Vinay Aiken - Last Filed: 09/10/19 08:34> - Lab Data Result diagrams: 09/09/19 22:26 09/09/19 22:26 <Elan Rosales - Last Filed: 09/11/19 00:19> - Medical Decision Making Upon arrival the patient is placed into room 4. A thorough history and physical exam was performed. Visual acuity is performed and the patient does have 20/70 vision with both eyes, 20/50 in the left eye and 20/200 in the right eye. Peripheral IV was established patient was given 10 mg of Decadron, 10 mg of Reglan and 25 mg of Benadryl. The patient was sent over for CT of her brain which demonstrates no acute crit of hemorrhage or midline shift. Mild diffuse age-related cerebral atrophy and moderate probable chronic small vessel ischemic change. CT angios demonstrates no significant stenosis in the common or internal carotid arteries bilaterally. No significant stenosis or aneurysmal change. I did obtain pressures in the patient's bilateral eyes. Pressure in the left eye is 17-18 of the right eye measures 73-83. The patient was given a dose of Acetazolamide. Dr. Mercado has been paged and called multiple times, starting at 11:33 pm. We are currently awaiting callback. The case is transferred to Dr. 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, will attempt to admit for medicine with ophthalmology consult, patient does have significant improvement in both vision pain in symptoms here in the ER, did get ahold of Opthalmology and will see patient in the office immediately, patient discharged with reliable transport to the office (Elan Rosales) - Lab Data Lab Results 09/09/19 09/09/19 09/09/19 Range/Units 22:24 22:26 22:26 WBC 13.3 H (3.8-10.6) k/uL RBC 5.60 H (3.80-5.40) m/uL Hgb 16.2 H (11.4-16.0) gm/dL Hct 51.8 H (34.0-46.0) % MCV 92.5 (80.0-100.0) fL MCH 29.0 (25.0-35.0) pg MCHC 31.3 (31.0-37.0) g/dL RDW 13.0 (11.5-15.5) % Plt Count 258 (150-450) k/uL Neutrophils % 57 % Lymphocytes % 30 % Monocytes % 6 % Eosinophils % 2 % Basophils % 2 % Neutrophils # 7.5 (1.3-7.7) k/uL Lymphocytes # 4.0 (1.0-4.8) k/uL Monocytes # 0.8 (0-1.0) k/uL Eosinophils # 0.3 (0-0.7) k/uL Basophils # 0.3 H (0-0.2) k/uL PT (9.0-12.0) sec INR (<1.2) APTT (22.0-30.0) sec Sodium (137-145) mmol/L Potassium (3.5-5.1) mmol/L Chloride (98-107) mmol/L Carbon Dioxide (22-30) mmol/L Anion Gap mmol/L BUN (7-17) mg/dL Creatinine (0.52-1.04) mg/dL Est GFR (CKD-EPI)AfAm (>60 ml/min/1.73 sqM) Est GFR (CKD-EPI)NonAf (>60 ml/min/1.73 sqM) Glucose (74-99) mg/dL POC Glucose (mg/dL) 471 H (75-99) mg/dL POC Glu Environmental Maintenance Worker ID Em Hopkins Lactic Ac Sepsis Rflx Plasma Lactic Acid Mario (0.7-2.0) mmol/L Calcium (8.4-10.2) mg/dL Total Bilirubin (0.2-1.3) mg/dL AST (14-36) U/L ALT (4-34) U/L Alkaline Phosphatase (38-126) U/L Total Protein (6.3-8.2) g/dL Albumin (3.5-5.0) g/dL TSH (0.465-4.680) mIU/L Urine Color Light Yellow Urine Appearance Clear (Clear) Urine pH 6.5 (5.0-8.0) Ur Specific [place] 1.028 (1.001-1.035) Urine Protein Negative (Negative) Urine Glucose (UA) 4+ H (Negative) Urine Ketones Negative (Negative) Urine Blood Negative (Negative) Urine Nitrite Negative (Negative) Urine Bilirubin Negative (Negative) Urine Urobilinogen <2.0 (<2.0) mg/dL Ur Leukocyte Esterase Negative (Negative) Acetone, Qual (Negative) Coronavirus (PCR) (Not Detectd) 0509/09/19 09/09/19 Range/Units 22:26 22:26 22:26 WBC (3.8-10.6) k/uL RBC (3.80-5.40) m/uL Hgb (11.4-16.0) gm/dL Hct (34.0-46.0) % MCV (80.0-100.0) fL MCH (25.0-35.0) pg MCHC (31.0-37.0) g/dL RDW (11.5-15.5) % Plt Count (150-450) k/uL Neutrophils % % Lymphocytes % % Monocytes % % Eosinophils % % Basophils % % Neutrophils # (1.3-7.7) k/uL Lymphocytes # (1.0-4.8) k/uL Monocytes # (0-1.0) k/uL Eosinophils # (0-0.7) k/uL Basophils # (0-0.2) k/uL PT 9.5 (9.0-12.0) sec INR 0.9 (<1.2) APTT 21.1 L (22.0-30.0) sec Sodium 132 L (137-145) mmol/L Potassium 4.3 (3.5-5.1) mmol/L Chloride 92 L (98-107) mmol/L Carbon Dioxide 31 H (22-30) mmol/L Anion Gap 9 mmol/L BUN 23 H (7-17) mg/dL Creatinine 0.95 (0.52-1.04) mg/dL Est GFR (CKD-EPI)AfAm 72 (>60 ml/min/1.73 sqM) Est GFR (CKD-EPI)NonAf 62 (>60 ml/min/1.73 sqM) Glucose 464 H (74-99) mg/dL POC Glucose (mg/dL) (75-99) mg/dL POC Glu Environmental Maintenance Worker ID Lactic Ac Sepsis Rflx Plasma Lactic Acid Mario 2.1 H* (0.7-2.0) mmol/L Calcium 10.4 H (8.4-10.2) mg/dL Total Bilirubin 0.3 (0.2-1.3) mg/dL AST 30 (14-36) U/L ALT 30 (4-34) U/L Alkaline Phosphatase 118 (38-126) U/L Total Protein 7.1 (6.3-8.2) g/dL Albumin 4.3 (3.5-5.0) g/dL TSH 1.650 (0.465-4.680) mIU/L Urine Color Urine Appearance (Clear) Urine pH (5.0-8.0) Ur Specific [place] (1.001-1.035) Urine Protein (Negative) Urine Glucose (UA) (Negative) Urine Ketones (Negative) Urine Blood (Negative) Urine Nitrite (Negative) Urine Bilirubin (Negative) Urine Urobilinogen (<2.0) mg/dL Ur Leukocyte Esterase (Negative) Acetone, Qual Negative (Negative) Coronavirus (PCR) (Not Detectd) 09/09/19 09/10/19 09/10/19 Range/Units 22:46 00:18 01:23 WBC (3.8-10.6) k/uL RBC (3.80-5.40) m/uL Hgb (11.4-16.0) gm/dL Hct (34.0-46.0) % MCV (80.0-100.0) fL MCH (25.0-35.0) pg MCHC (31.0-37.0) g/dL RDW (11.5-15.5) % Plt Count (150-450) k/uL Neutrophils % % Lymphocytes % % Monocytes % % Eosinophils % % Basophils % % Neutrophils # (1.3-7.7) k/uL Lymphocytes # (1.0-4.8) k/uL Monocytes # (0-1.0) k/uL Eosinophils # (0-0.7) k/uL Basophils # (0-0.2) k/uL PT (9.0-12.0) sec INR (<1.2) APTT (22.0-30.0) sec Sodium (137-145) mmol/L Potassium (3.5-5.1) mmol/L Chloride (98-107) mmol/L Carbon Dioxide (22-30) mmol/L Anion Gap mmol/L BUN (7-17) mg/dL Creatinine (0.52-1.04) mg/dL Est GFR (CKD-EPI)AfAm (>60 ml/min/1.73 sqM) Est GFR (CKD-EPI)NonAf (>60 ml/min/1.73 sqM) Glucose (74-99) mg/dL POC Glucose (mg/dL) 375 H (75-99) mg/dL POC Glu Environmental Maintenance Worker ID Em Hopkins Lactic Ac Sepsis Rflx Y Plasma Lactic Acid Mario (0.7-2.0) mmol/L Calcium (8.4-10.2) mg/dL Total Bilirubin (0.2-1.3) mg/dL AST (14-36) U/L ALT (4-34) U/L Alkaline Phosphatase (38-126) U/L Total Protein (6.3-8.2) g/dL Albumin (3.5-5.0) g/dL TSH (0.465-4.680) mIU/L Urine Color Urine Appearance (Clear) Urine pH (5.0-8.0) Ur Specific [place] (1.001-1.035) Urine Protein (Negative) Urine Glucose (UA) (Negative) Urine Ketones (Negative) Urine Blood (Negative) Urine Nitrite (Negative) Urine Bilirubin (Negative) Urine Urobilinogen (<2.0) mg/dL Ur Leukocyte Esterase (Negative) Acetone, Qual (Negative) Coronavirus (PCR) Not Detected (Not Detectd) Critical Care Time Critical Care Time: Yes Total Critical Care Time: 31 <Elan Rosales - Last Filed: 09/11/19 00:19> Disposition <Sherie Flower - Last Filed: 09/10/19 00:40> Is patient prescribed a controlled substance at d/c from ED?: No <Vinay Aiken - Last Filed: 09/10/19 08:34> Is patient prescribed a controlled substance at d/c from ED?: No <Elan Rosales - Last Filed: 09/11/19 00:19> Clinical Impression: Acute angle-closure glaucoma, right eye, Hyperglycemia Disposition: HOME SELF-CARE Condition: Stable Instructions (If sedation given, give patient instructions): Glaucoma (ED) Additional Instructions: Go immediately to Dr. Mercado's office Referrals: Ángel Turner DO [Primary Care Provider] - 1-2 days Alec Mercado MD [STAFF PHYSICIAN] - 1-2 days
[2019-09-10] MEDS ORDERED: TIMOLOL 0.5% OPHTH DROPS 5 ML BTL RIGHT EYE STA (00:52)
[2019-09-10] MEDS ORDERED: PILOCARPINE 2% OPHTH DROPS 15 ML BTL RIGHT EYE STA (00:52)
[2019-09-10] MEDS ORDERED: APRACLONIDINE 1% RIGHT EYE STA (00:52)
[2019-09-10] MEDS ORDERED: PILOCARPINE 2% OPHTH DROPS 15 ML BTL RIGHT EYE SCH (04:00)
[2019-09-10 08:52] VITALS: BP 137/91; PULSE 94; RESP 18; TEMP 98.4
[2019-09-10] MEDS ORDERED: TIMOLOL 0.5% OPHTH DROPS 5 ML BTL RIGHT EYE SCH (09:00)
== END 2019-09-10 09:32 | disposition home or self-care (01) ==
LOC: EC 21:51
DX: E11.65 Type 2 diabetes mellitus with hyperglycemia (principal); E11.39 Type 2 diabetes mellitus with other diabetic ophthalmic complication; H40.211 Acute angle-closure glaucoma, right eye; H42 Glaucoma in diseases classified elsewhere; G31.1 Senile degeneration of brain, not elsewhere classified; F17.200 Nicotine dependence, unspecified, uncomplicated; Z20.828 Contact with and (suspected) exposure to other viral communicable diseases
CPT/HCPCS: 99285; 96374; 96375 ×2; 96361; 36415 ×2; 80053; 84443; 82009; 83605; 85025; 85610; 85730; 81003; 87635; 70496; 70450; 70498; J1200; J1100; J2765; Q9967

== ENCOUNTER 2021-01-04 14:07 | Observation (INO) | payer MEDICARE ==
--- NOTE | 2021-01-04 18:13 | ED ---
Lower Extremity Injury HPI - General Chief Complaint: Extremity Injury, Lower Stated Complaint: L leg swollen Time Seen by Provider: 01/04/21 17:41 Source: patient Mode of arrival: ambulatory Limitations: no limitations - History of Present Illness Initial Comments: 70-year-old female with history of chronic kidney disease presenting to the emergency department with a chief complaint of leg swelling. Patient reports she sees a research/program director and takes febuxostat daily but has not been able to take the medication for the last 3 months due to issues with the pharmacy. Patient reports now over the last 2 days she has developed swelling and redness in her left leg. Patient reports this is likely due to gout which she states that her research/program director advised that he may occur if she does not take that medication. She denies any fevers or chills at home. - Related Data Home Medications Medication Instructions Recorded Confirmed Cetirizine HCl [Zyrtec] 10 mg PO HS 01/04/21 01/04/21 Cholecalciferol [Vitamin D3 (25 50 mcg PO DAILY 01/04/21 01/04/21 Mcg = 1000 Iu)] Citrucel 500mg Tabs 1 tab PO BID 01/04/21 01/04/21 Dulaglutide [Trulicity] 1.5 mg SQ SA 01/04/21 01/04/21 Ezetimibe [Zetia] 10 mg PO DAILY 01/04/21 01/04/21 Febuxostat [Uloric] 40 mg PO DAILY 01/04/21 01/04/21 Ferrous Sulfate [Feosol] 325 mg PO DAILY 01/04/21 01/04/21 Furosemide [Lasix] 40 mg PO DAILY 01/04/21 01/04/21 Ginkgo Biloba Scammon Extract [Ginkgo] 120 mg PO DAILY 01/04/21 01/04/21 Glimepiride [Amaryl] 2 mg PO BID 01/04/21 01/04/21 Glucosamine/Msm 1500mg 1 tab PO DAILY 01/04/21 01/04/21 Icosapent Ethyl [Vascepa] 1 gm PO BID 01/04/21 01/04/21 Insulin Glargine,Hum.rec.anlog 22 units SQ HS 01/04/21 01/04/21 [Kaveh Armendariz] Losartan Potassium 50 mg PO DAILY 01/04/21 01/04/21 Magnesium Oxide [Kim] 500 mg PO BID 01/04/21 01/04/21 Vitamin C/Biotin [Hair, Skin and 1 tab PO DAILY 01/04/21 01/04/21 Nails Chew] Vitamin E (Dl,Tocopheryl Acet) 400 unit PO BID 01/04/21 01/04/21 [Vitamin E (400 Iu = 180 mg)] traMADol HCL 100 mg PO Q6H PRN 01/04/21 01/04/21 Allergies Allergy/AdvReac Type Severity Reaction Status Date / Time bee venom protein (honey bee) Allergy Rash/Hives Verified 01/04/21 18:50 Antihistamines - Piperidine AdvReac lethargic Verified 01/04/21 18:50 codeine AdvReac lethargic/h Verified 01/04/21 18:50 ot Review of Systems ROS Statement: Those systems with pertinent positive or pertinent negative responses have been documented in the HPI. ROS Other: All systems not noted in ROS Statement are negative. Past Medical History Past Medical History: Diabetes Mellitus, Hyperlipidemia, Hypertension, Osteoarthritis (OA) Additional Past Medical History / Comment(s): gout History of Any Multi-Drug Resistant Organisms: None Reported Past Surgical History: Section Additional Past Surgical History / Comment(s): D&C, hemerhoid, eye Past Psychological History: No Psychological Hx Reported Smoking Status: Current every day smoker Past Alcohol Use History: None Reported Past Drug Use History: None Reported General Exam Limitations: no limitations General appearance: alert, in no apparent distress, obese Head exam: Present: atraumatic, normocephalic, normal inspection Eye exam: Present: normal appearance Pupils: Present: normal accommodation ENT exam: Present: normal exam, normal oropharynx, mucous membranes moist Neck exam: Present: normal inspection, full ROM. Absent: tenderness Respiratory exam: Present: normal lung sounds bilaterally. Absent: respiratory distress, wheezes, rales, rhonchi, stridor Cardiovascular Exam: Present: regular rate, normal rhythm, normal heart sounds. Absent: systolic murmur Extremities exam: Present: full ROM, normal capillary refill, calf tenderness (Positive tenderness in the popliteal region and calf), other (. Palpable DP and PT bilaterally). Absent: normal inspection (Swelling of the entire left leg. Some erythema along the leg but does not appear to be infectious in nature.), tenderness, pedal edema, joint swelling Back exam: Present: normal inspection, full ROM. Absent: tenderness Neurological exam: Present: alert, oriented X3 Psychiatric exam: Present: normal affect, normal mood Skin exam: Present: warm, dry, intact, normal color Course Vital Signs 01/04/21 16:05 Temperature 98.1 F Pulse Rate 74 Respiratory 18 Rate Blood Pressure 121/69 O2 Sat by Pulse 98 Oximetry Medical Decision Making - Medical Decision Making 70-year-old female presenting to the emergency room with a chief complaint of left leg swelling. On physical examination there is swelling of the entire left lower extremity with some erythema but it does not appear to be infectious in nature. She has stable vital signs. No shortness of breath. Ultrasound reveals a DVT in the popliteal and femoral vein. Patient will be started on low intensity heparin per request of Ulises Mejia NP who will admit for Dr. Medrano. Case Discussed with Dr. Bucrh. Disposition Clinical Impression: DVT (deep venous thrombosis) Disposition: HOME SELF-CARE Condition: Fair Is patient prescribed a controlled substance at d/c from ED?: No Referrals: Ángel Turenr DO [Primary Care Provider] - 1-2 days Time of Disposition: 19:15
--- NOTE | 2021-01-04 18:51 | US ---
EXAMINATION TYPE: US venous doppler duplex LE LT DATE OF EXAM: 01/04/2021 6:46 PM COMPARISON: NONE CLINICAL HISTORY: left leg swelling. SIDE PERFORMED: Left TECHNIQUE: The lower extremity deep venous system is examined utilizing real time linear array sonog kev with graded compression, doppler sonography and color-flow sonography. VESSELS IMAGED: Common Femoral Vein Deep Femoral Vein Greater Saphenous Vein * Femoral Vein Popliteal Vein Small Saphenous Vein * (* superficial vessels) Left Leg: Positive for DVT from the CFV to the distal popliteal vein. Unable to visualized distal fe moral or prox calf veins IMPRESSION: There is evidence of acute deep vein thrombosis involving the left leg in the femoral vei n and popliteal vein.
[2021-01-04] MEDS ORDERED: HEPARIN SODIUM 1,000 UN/ML (10ML VL) IV ONE (19:12)
[2021-01-04] MEDS ORDERED: NALOXONE 0.4 MG/ML 1 ML VIAL IV PRN (19:17)
[2021-01-04] MEDS: SODIUM CHLORIDE 0.9% 1,000 ML IV SCH (20:08)
[2021-01-04] MEDS: HEPARIN SOD,PORK IN 0.45% NACL 25,000 UNIT in 0.45% NACL 1 250ML.BAG IV SCH (20:09)
[2021-01-04 20:22] LABS: Basophils # (A) 0.2 k/uL (0-0.2); Basophils % (A) 1 %; Eosinophils # (A) 0.4 k/uL (0-0.7); Eosinophils % (A) 3 %; HCT 43.4 % (34.0-46.0); HGB 14.5 gm/dL (11.4-16.0); Lymphocytes # (A) 2.8 k/uL (1.0-4.8); Lymphocytes % (A) 17 %; MCH 30.2 pg (25.0-35.0); MCHC 33.4 g/dL (31.0-37.0); MCV 90.4 fL (80.0-100.0); Mean Platelet Volume 9.1; Monocytes # (A) 0.7 k/uL (0-1.0); Monocytes % (A) 5 %; Neutrophils # (A) 12.1 k/uL (1.3-7.7); Neutrophils % (A) 73 %; Platelet Count 242 k/uL (150-450); WBC 16.6 k/uL (3.8-10.6)
[2021-01-04 20:39] LABS: INR 0.9 (<1.2); Partial Thromboplastin Time 23.3 sec (22.0-30.0); Prothrombin Time 10.2 sec (9.0-12.0)
[2021-01-05 01:41] LABS: Basophils # (A) 0.2 k/uL (0-0.2); Basophils % (A) 1 %; Eosinophils # (A) 0.4 k/uL (0-0.7); Eosinophils % (A) 2 %; HCT 41.4 % (34.0-46.0); HGB 13.7 gm/dL (11.4-16.0); Hypochromasia Slight; Lymphocytes # (A) 3.3 k/uL (1.0-4.8); Lymphocytes % (A) 19 %; Mean Platelet Volume 8.9; Monocytes # (A) 1.2 k/uL (0-1.0); Monocytes % (A) 7 %; Neutrophils # (A) 11.6 k/uL (1.3-7.7); Neutrophils % (A) 69 %; Platelet Count 219 k/uL (150-450); RBC 4.55 m/uL (3.80-5.40); RDW 14.2 % (11.5-15.5); WBC 16.9 k/uL (3.8-10.6)
[2021-01-05 01:51] LABS: INR 1.1 (<1.2); Prothrombin Time 11.1 sec (9.0-12.0)
[2021-01-05] MEDS: HEPARIN SODIUM 1,000 UN/ML (10ML VL) IV PRN ×2 (02:32→09:52)
[2021-01-05] MEDS: SODIUM CHLORIDE 0.9% 1,000 ML IV SCH (06:09)
[2021-01-05 06:54] LABS: Glucose,Whole Blood 161 mg/dL (75-99)
[2021-01-05] MEDS: EZETIMIBE 10 MG TAB PO SCH (08:04)
[2021-01-05] MEDS: LOSARTAN 50 MG TAB PO SCH (08:04)
[2021-01-05] MEDS: FUROSEMIDE 40 MG TAB PO SCH (08:04)
[2021-01-05] MEDS: traMADol 50 MG TAB PO PRN ×3 (08:04→22:18)
[2021-01-05] MEDS: MAGNESIUM OXIDE 400 MG TAB PO SCH ×2 (08:04→21:39)
[2021-01-05] MEDS: INSULIN ASPART (NovoLOG) 100 UNIT/ML VIAL SQ SCH ×4 (08:04→22:19)
[2021-01-05] MEDS: VITAMIN E (DL,TOCOPHERYL ACET) 400 UNIT (180 MG) CAP PO SCH ×2 (08:04→22:17)
[2021-01-05] MEDS: FERROUS SULFATE 325 MG TAB PO SCH (08:05)
[2021-01-05] MEDS: CHOLECALCIFEROL 25 MCG (1000 IU) TABLET PO SCH (08:05)
[2021-01-05] MEDS: allopurinoL 100 MG TAB PO SCH (08:05)
[2021-01-05] MEDS: GLIMEPIRIDE 2 MG TAB PO SCH ×2 (10:07→21:39)
[2021-01-05 11:25] LABS: Glucose,Whole Blood 140 mg/dL (75-99)
[2021-01-05] MEDS: HEPARIN SOD,PORK IN 0.45% NACL 25,000 UNIT in 0.45% NACL 1 250ML.BAG IV SCH (16:03)
[2021-01-05 16:51] LABS: Glucose,Whole Blood 124 mg/dL (75-99)
[2021-01-05 20:56] LABS: Glucose,Whole Blood 99 mg/dL (75-99)
[2021-01-05] MEDS: INSULIN DETEMIR (LEVEMIR) 100 UNIT/ML SYR SQ SCH (21:38)
[2021-01-05] MEDS: LORATADINE 10 MG TAB PO SCH (21:39)
--- NOTE | 2021-01-05 22:54 | P.HPIM ---
History of Present Illness H&P Date: 01/05/21 Chief Complaint: left leg swelling Patient is a 70-year-old female with a known history of hypertension, hyperlipidemia, diabetes type 2 insulin-dependent, osteoarthritis, gout and currently everyday smoker presents to ER with complaints left lower extremity swelling mainly in the thigh region worsening for the past 3 days. Also complaining of pain. Denies any complaints of fever or chills. Patient states that she used to take febuxostat for her gout and is on follow-up with her home care and home health aides teacher. Patient has not been taking this medication for the past 3 months and thought she is having gout exacerbation. Otherwise no complaints of chest pain or shortness of breath. No headache or dizziness or lightheadedness. Patient states that she is usually active. Denies any recent illnesses. Denies any recent Covid infection. Patient denied any hematemesis or melena. No change in bowel habits. Denied any unintentional weight loss. Patient states that she is trying to lose weight by diet control. Denies any taking medication for weight loss. Laboratory data showed WBC 16.6 hemoglobin 14.4 and platelets 242 Lower extremity duplex scan showed there is evidence of acute DVT involving the left leg in the femoral vein and popliteal vein. Review of Systems Constitutional: Patient denies any fever or chills . No generalized weakness or weight loss. Abdomen: Patient denied nausea vomiting and diarrhea and abdominal pain. Cardiovascular: Patient denies any chest pain or short of breath no palpitations. Respiratory: patient denied any cough or sputum production. No shortness of breath Neurologic: Patient denied any numbness or tingling headache. Musculoskeletal: Patient denies any complaints of joint swelling or deformity. l eft leg swelling Skin: Negative Psychiatric: Negative Endocrine: No heat or cold intolerance. No recent weight gain. Genitourinary: No dysuria or hematuria. All other 14 point ROS negative except the above Past Medical History Past Medical History: Diabetes Mellitus, Hyperlipidemia, Hypertension, Osteoarthritis (OA) Additional Past Medical History / Comment(s): gout History of Any Multi-Drug Resistant Organisms: None Reported Past Surgical History: Section Additional Past Surgical History / Comment(s): D&C, hemerhoid, eye Past Psychological History: No Psychological Hx Reported Smoking Status: Current every day smoker Past Alcohol Use History: None Reported Past Drug Use History: None Reported Medications and Allergies Home Medications Medication Instructions Recorded Confirmed Type Cetirizine HCl [Zyrtec] 10 mg PO HS 01/04/21 01/04/21 History Cholecalciferol [Vitamin D3 (25 50 mcg PO DAILY 01/04/21 01/04/21 History Mcg = 1000 Iu)] Citrucel 500mg Tabs 1 tab PO BID 01/04/21 01/04/21 History Dulaglutide [Trulicity] 1.5 mg SQ SA 01/04/21 01/04/21 History Ezetimibe [Zetia] 10 mg PO DAILY 01/04/21 01/04/21 History Febuxostat [Uloric] 40 mg PO DAILY 01/04/21 01/04/21 History Ferrous Sulfate [Feosol] 325 mg PO DAILY 01/04/21 01/04/21 History Furosemide [Lasix] 40 mg PO DAILY 01/04/21 01/04/21 History Ginkgo Biloba [place] Extract [Ginkgo] 120 mg PO DAILY 01/04/21 01/04/21 History Glimepiride [Amaryl] 2 mg PO BID 01/04/21 01/04/21 History Glucosamine/Msm 1500mg 1 tab PO DAILY 01/04/21 01/04/21 History Icosapent Ethyl [Vascepa] 1 gm PO BID 01/04/21 01/04/21 History Insulin Glargine,Hum.rec.anlog 22 units SQ 01/04/21 01/04/21 History [Tojohann Solostar] Losartan Potassium 50 mg PO DAILY 01/04/21 01/04/21 History Magnesium Oxide [Kim] 500 mg PO BID 01/04/21 01/04/21 History Vitamin C/Biotin [Hair, Skin and 1 tab PO DAILY 01/04/21 01/04/21 History Nails Chew] Vitamin E (Dl,Tocopheryl Acet) 400 unit PO BID 01/04/21 01/04/21 History [Vitamin E (400 Iu = 180 mg)] traMADol HCL 100 mg PO Q6H PRN 01/04/21 01/04/21 History Allergies Allergy/AdvReac Type Severity Reaction Status Date / Time bee venom protein (honey bee) Allergy Rash/Hives Verified 01/04/21 18:50 Antihistamines - Piperidine AdvReac lethargic Verified 08/30/21 18:50 codeine AdvReac lethargic/h Verified 01/04/21 18:50 ot Physical Exam Vitals: Vital Signs Temp Pulse Pulse Resp BP BP Pulse Ox 01/05/21 07:09 98.7 F 101 H 17 138/79 97 01/05/21 00:18 98.9 F 113 H 16 155/72 97 01/04/21 22:00 64 18 120/72 98 01/04/21 19:25 98.1 F 74 18 121/69 98 01/04/21 16:05 98.1 F 74 18 121/69 98 Intake and Output 01/04/21 01/05/21 01/05/21 22:59 06:59 14:59 Intake Total 140.184 Balance 140.184 Intake: Intake, IV Titration 140.184 Amount Heparin Sod,Pork in 0.45% 140.184 NaCl 25,000 unit In 0.45 % NaCl 1 250ml.bag @ 10. 021 UNITS/KG/HR 10 mls/hr IV .Q24H [facility] Rx#: [id number] Other: # Voids 1 Weight 99.79 kg 99.79 kg PHYSICAL EXAMINATION: Patient is lying in the bed comfortably, no acute distress, awake alert and oriented.. HEENT: Normocephalic. Neck is supple. Pupils reactive. Nostrils clear. Oral cavity is moist. Neck reveals no JVD, carotid bruits, or thyromegaly. CHEST EXAMINATION: Trachea is central. Symmetrical expansion. Lung menendez clear to auscultation and percussion. CARDIAC: Normal S1, S2 with no gallops. No murmurs ABDOMEN: Soft. Bowel sounds normal. No organomegaly. No abdominal bruits. Extremities: Left thigh swelling with minimal redness and tenderness.. No club dany or cyanosis Neurologically awake, alert, oriented x3 with well-coordinated movements. No focal deficits noted Skin: No rash or skin lesions. Psychiatric: Coperative. Nonsuicidal Musculoskeletal: No joint swelling or deformity. Normal range of motion. Results CBC & Chem 7: 01/05/21 01:21 Labs: Abnormal Lab Results - Last 24 Hours (Table) 01/04/21 01/05/21 01/05/21 Range/Units 20:15 01:21 01:21 WBC 16.6 H 16.9 H (3.8-10.6) k/uL Neutrophils # 12.1 H 11.6 H (1.3-7.7) k/uL Monocytes # 1.2 H (0-1.0) k/uL APTT 32.7 H (22.0-30.0) sec POC Glucose (mg/dL) (75-99) mg/dL 01/05/21 01/05/21 Range/Units 06:52 08:34 WBC (3.8-10.6) k/uL Neutrophils # (1.3-7.7) k/uL Monocytes # (0-1.0) k/uL APTT 34.6 H (22.0-30.0) sec POC Glucose (mg/dL) 161 H (75-99) mg/dL Thrombosis Risk Factor Assmnt - DVT/VTE Prophylaxis DVT/VTE Prophylaxis: Pharmacologic Prophylaxis ordered - Choose All That Apply Each Factor Represents 1 point: Swollen legs (current) Each Risk Factor Represents 2 Points: Age 61-74 years Each Risk Factor Represents 3 Points: History of DVT/PE Thrombosis Risk Factor Assessment Total Risk Factor Score: 6 Thrombosis Risk Factor Assessment Level: High Risk Assessment and Plan Assessment: Acute left lower extremity DVT likely unprovoked. Obesity Hypertension Hyperlipidemia Diabetes type 2 insulin-dependent History of gout Currently everyday smoker Osteoarthritis Plan: Patient will be continued on heparin drip. Monitor CBC and BMP daily. Continue with home medications and insulin regimen. Titrate insulin dose for better blood sugar control. Patient may need malignancy work-up as an outpatient. Continue to follow closely. Time with Patient: Greater than 30
[2021-01-06] MEDS: traMADol 50 MG TAB PO PRN ×3 (04:27→21:23)
[2021-01-06] MEDS: SODIUM CHLORIDE 0.9% 1,000 ML IV SCH (06:42)
[2021-01-06 07:11] LABS: Glucose,Whole Blood 79 mg/dL (75-99)
[2021-01-06] MEDS: INSULIN ASPART (NovoLOG) 100 UNIT/ML VIAL SQ SCH ×4 (07:44→21:26)
[2021-01-06] MEDS: HEPARIN SOD,PORK IN 0.45% NACL 25,000 UNIT in 0.45% NACL 1 250ML.BAG IV SCH ×2 (08:08→21:26)
[2021-01-06] MEDS: VITAMIN E (DL,TOCOPHERYL ACET) 400 UNIT (180 MG) CAP PO SCH ×2 (08:09→21:23)
[2021-01-06] MEDS: GLIMEPIRIDE 2 MG TAB PO SCH ×2 (08:09→21:23)
[2021-01-06] MEDS: FUROSEMIDE 40 MG TAB PO SCH (08:09)
[2021-01-06] MEDS: allopurinoL 100 MG TAB PO SCH (08:09)
[2021-01-06] MEDS: MAGNESIUM OXIDE 400 MG TAB PO SCH ×2 (08:09→21:23)
[2021-01-06] MEDS: CHOLECALCIFEROL 25 MCG (1000 IU) TABLET PO SCH (08:09)
[2021-01-06] MEDS: LOSARTAN 50 MG TAB PO SCH (08:09)
[2021-01-06] MEDS: EZETIMIBE 10 MG TAB PO SCH (08:09)
[2021-01-06] MEDS: FERROUS SULFATE 325 MG TAB PO SCH (08:09)
--- NOTE | 2021-01-06 09:25 | XR ---
EXAMINATION TYPE: XR chest 1V DATE OF EXAM: 01/06/2021 COMPARISON: Chest x-ray 07/20/[address] chest 07/26/2017 HISTORY: Shortness of breath TECHNIQUE: Single frontal view of the chest is obtained. FINDINGS: Ill-defined area of increased attenuation is present in the right upper lobe superimposed at the level of the anterior right third rib. There is no evident pneumothorax or pleural effusion. C ardiac mediastinal silhouette is within normal limits. IMPRESSION: Abnormal density as described, recommend chest CT or apical lordotic chest x-ray
[2021-01-06 10:56] LABS: HGB 11.6 g/dL (12.0-15.0); MCH 28.7 pg (27.0-32.0); MCHC 31.4 g/dL (32.0-37.0); MCV 91.6 fL (80.0-97.0); Mean Platelet Volume 11.8 fL (9.5-12.2); Platelet Count 241 X 10*3/uL (140-440); RBC 4.04 X 10*6/uL (4.10-5.20); RDW 14.3 % (11.5-14.5)
[2021-01-06 11:34] LABS: Glucose,Whole Blood 119 mg/dL (75-99)
[2021-01-06 11:49] LABS: Basophils # (A) 0.25 X 10*3/uL (0.00-0.10); Basophils % (A) 1.5 %; Eosinophils # (A) 0.39 X 10*3/uL (0.04-0.35); Eosinophils % (A) 2.4 %; Lymphocytes # (A) 3.77 X 10*3/uL (0.90-5.00); Monocytes # (A) 1.64 X 10*3/uL (0.20-1.00); Neutrophils # (A) 10.22 X 10*3/uL (1.80-7.70); Neutrophils % (A) 62.3 %
[2021-01-06 13:57] LABS: African American GFR (CKD) 66.6 (60.0-200.0); Anion Gap 6.9 mmol/L (4.00-12.00); Calcium 8.8 mg/dL (8.7-10.3); Carbon Dioxide 28.1 mmol/L (21.6-31.8); Non-African American GFR(CKD) 57.4 (60.0-200.0); Potassium 4.2 mmol/L (3.5-5.5)
[2021-01-06 16:28] LABS: Appearance,Urine Cloudy (Clear); Bacteria,Urine Moderate /hpf; Bilirubin,Urine Negative (Negative); Blood,Urine Negative (Negative); Color,Urine Light Yellow; Glucose,Urine (UA) Negative (Negative); Ketones,Urine Negative (Negative); Leukocyte Esterase,Urine Negative (Negative); Mucus,Urine Rare /hpf; Nitrite,Urine Negative (Negative); Protein,Urine Negative (Negative); RBC,Urine <1 /hpf (0-5); Squamous Epithelial Cell,Urine 4 /hpf (0-4); Urobilinogen,Urine <2.0 mg/dL (<2.0); WBC,Urine 2 /hpf (0-5)
[2021-01-06 16:50] LABS: Glucose,Whole Blood 147 mg/dL (75-99)
[2021-01-06 20:48] LABS: Glucose,Whole Blood 140 mg/dL (75-99)
[2021-01-06] MEDS: LORATADINE 10 MG TAB PO SCH (21:23)
[2021-01-06] MEDS: INSULIN DETEMIR (LEVEMIR) 100 UNIT/ML SYR SQ SCH (21:25)
--- NOTE | 2021-01-06 22:38 | P.PN ---
Subjective Progress Note Date: 01/06/21 Principal diagnosis: Acute left lower extremity DVT Patient is a 70-year-old female with a known history of hypertension, hyperlipidemia, diabetes type 2 insulin-dependent, osteoarthritis, gout and currently everyday smoker presents to ER with complaints left lower extremity swelling mainly in the thigh region worsening for the past 3 days. Also complaining of pain. Denies any complaints of fever or chills. Patient states that she used to take febuxostat for her gout and is on follow-up with her molecular genetic pathologist. Patient has not been taking this medication for the past 3 months and thought she is having gout exacerbation. Otherwise no complaints of chest pain or shortness of breath. No headache or dizziness or lightheadedness. Patient states that she is usually active. Denies any recent illnesses. Denies any recent Covid infection. Patient denied any hematemesis or melena. No change in bowel habits. Denied any unintentional weight loss. Patient states that she is trying to lose weight by diet control. Denies any taking medication for weight loss. Laboratory data showed WBC 16.6 hemoglobin 14.4 and platelets 242 Lower extremity duplex scan showed there is evidence of acute DVT involving the left leg in the femoral vein and popliteal vein. 01/06/2021 Patient is currently lying in the bed. Awake alert oriented x3. Left lower extremity swelling is still present but but patient states that it is more flexible compared to yesterday.. Denied any chest pain or shortness breath. Laboratory showed WBC 16.4 hemoglobin 11.6 and platelets 241 Patient is being continued heparin drip. Chest x-ray showed abnormal density ill-defined area of increased attenuation is present in the right upper lobe superimposed at the level of the anterior right third rib. No pneumothorax or pleural effusion. CT chest was recommended. Pulmonary was consulted for evaluation. Current medications reviewed. Objective - Vital Signs Vital signs: Vital Signs Temp 99.4 F 01/06/21 14:00 Pulse 93 01/06/21 14:00 Resp 18 01/06/21 14:00 BP 106/68 01/06/21 14:00 Pulse Ox 92 L 01/06/21 14:00 Intake & Output 01/06/21 01/06/21 01/07/21 06:59 18:59 06:59 Intake Total 836.933 212.8 Balance 836.933 212.8 Intake: Intake, IV Titration 836.933 212.8 Amount Heparin Sod,Pork in 0.45% 236.933 212.8 NaCl 25,000 unit In 0.45 % NaCl 1 250ml.bag @ 10. 021 UNITS/KG/HR 10 mls/hr IV .Q24H [facility] Rx#: [id number] Sodium Chloride 0.9% 1, 600 000 ml @ 75 mls/hr IV . [id number] [facility] Rx#:[id number] Other: Voiding Method Bedside Commode # Voids 3 1 # Bowel Movements 1 1 - Exam PHYSICAL EXAMINATION: Patient is lying in the bed comfortably, no acute distress, awake alert and oriented.. HEENT: Normocephalic. Neck is supple. Pupils reactive. Nostrils clear. Oral cavity is moist. Neck reveals no JVD, carotid bruits, or thyromegaly. CHEST EXAMINATION: Trachea is central. Symmetrical expansion. Lung menendez clear to auscultation and percussion. CARDIAC: Normal S1, S2 with no gallops. No murmurs ABDOMEN: Soft. Bowel sounds normal. No organomegaly. No abdominal bruits. Extremities: Left thigh swelling with minimal redness and tenderness.. No club dany or cyanosis Neurologically awake, alert, oriented x3 with well-coordinated movements. No focal deficits noted Skin: No rash or skin lesions. Psychiatric: Coperative. Nonsuicidal Musculoskeletal: No joint swelling or deformity. Normal range of motion. - Labs CBC & Chem 7: 01/06/21 06:54 01/06/21 06:54 Labs: Abnormal Lab Results - Last 24 Hours (Table) 01/06/21 01/06/21 01/06/21 Range/Units 06:54 06:54 06:54 WBC 16.40 H (4.50-10.00) X 10*3/uL RBC 4.04 L (4.10-5.20) X 10*6/uL Hgb 11.6 L (12.0-15.0) g/dL Hct 37.0 L (37.2-46.3) % MCHC 31.4 L (32.0-37.0) g/dL Immature Gran # 0.13 H (0.00-0.04) X 10*3/uL Neutrophils # 10.22 H (1.80-7.70) X 10*3/uL Monocytes # 1.64 H (0.20-1.00) X 10*3/uL Eosinophils # 0.39 H (0.04-0.35) X 10*3/uL Basophils # 0.25 H (0.00-0.10) X 10*3/uL APTT 49.1 H (22.0-30.0) sec Est GFR (CKD-EPI)NonAf 57.4 L (60.0-200.0) BUN/Creatinine Ratio 22.00 H (12.00-20.00) Ratio POC Glucose (mg/dL) (75-99) mg/dL Urine Appearance (Clear) Urine Bacteria (None) /hpf Urine Mucus (None) /hpf 01/06/21 01/06/21 01/06/21 Range/Units 11:33 16:16 16:49 WBC (4.50-10.00) X 10*3/uL RBC (4.10-5.20) X 10*6/uL Hgb (12.0-15.0) g/dL Hct (37.2-46.3) % MCHC (32.0-37.0) g/dL Immature Gran # (0.00-0.04) X 10*3/uL Neutrophils # (1.80-7.70) X 10*3/uL Monocytes # (0.20-1.00) X 10*3/uL Eosinophils # (0.04-0.35) X 10*3/uL Basophils # (0.00-0.10) X 10*3/uL APTT (22.0-30.0) sec Est GFR (CKD-EPI)NonAf (60.0-200.0) BUN/Creatinine Ratio (12.00-20.00) Ratio POC Glucose (mg/dL) 119 H 147 H (75-99) mg/dL Urine Appearance Cloudy H (Clear) Urine Bacteria Moderate H (None) /hpf Urine Mucus Rare H (None) /hpf 01/06/21 Range/Units 20:46 WBC (4.50-10.00) X 10*3/uL RBC (4.10-5.20) X 10*6/uL Hgb (12.0-15.0) g/dL Hct (37.2-46.3) % MCHC (32.0-37.0) g/dL Immature Gran # (0.00-0.04) X 10*3/uL Neutrophils # (1.80-7.70) X 10*3/uL Monocytes # (0.20-1.00) X 10*3/uL Eosinophils # (0.04-0.35) X 10*3/uL Basophils # (0.00-0.10) X 10*3/uL APTT (22.0-30.0) sec Est GFR (CKD-EPI)NonAf (60.0-200.0) BUN/Creatinine Ratio (12.00-20.00) Ratio POC Glucose (mg/dL) 140 H (75-99) mg/dL Urine Appearance (Clear) Urine Bacteria (None) /hpf Urine Mucus (None) /hpf Assessment and Plan Assessment: Acute left lower extremity DVT likely unprovoked. Right upper lobe abnormal density. Obesity Hypertension Hyperlipidemia Diabetes type 2 insulin-dependent History of gout Currently everyday smoker Osteoarthritis Plan: Patient will be continued on heparin drip. Monitor CBC and BMP daily. Continue with home medications and insulin regimen. Titrate insulin dose for better blood sugar control. Patient may need malignancy work-up as an outpatient. Continue to follow closely.
[2021-01-06] MEDS ORDERED: RX INFO: IV CONTRAST WAS GIVEN 1 EACH MISC MISCELLANE PRN (23:22)
[2021-01-07] MEDS: traMADol 50 MG TAB PO PRN ×2 (03:19→10:22)
[2021-01-07 06:55] LABS: Glucose,Whole Blood 76 mg/dL (75-99)
[2021-01-07] MEDS: INSULIN ASPART (NovoLOG) 100 UNIT/ML VIAL SQ SCH ×2 (07:00→12:04)
[2021-01-07 07:26] VITALS: BP 143/80; PULSE 94; RESP 18; TEMP 97.3
[2021-01-07] MEDS: LOSARTAN 50 MG TAB PO SCH (08:31)
[2021-01-07] MEDS: CHOLECALCIFEROL 25 MCG (1000 IU) TABLET PO SCH (08:31)
[2021-01-07] MEDS: allopurinoL 100 MG TAB PO SCH (08:31)
[2021-01-07] MEDS: EZETIMIBE 10 MG TAB PO SCH (08:31)
[2021-01-07] MEDS: GLIMEPIRIDE 2 MG TAB PO SCH (08:31)
[2021-01-07] MEDS: MAGNESIUM OXIDE 400 MG TAB PO SCH (08:31)
[2021-01-07] MEDS: VITAMIN E (DL,TOCOPHERYL ACET) 400 UNIT (180 MG) CAP PO SCH (08:31)
[2021-01-07] MEDS: FUROSEMIDE 40 MG TAB PO SCH (08:31)
[2021-01-07] MEDS: FERROUS SULFATE 325 MG TAB PO SCH (08:31)
[2021-01-07] MEDS ORDERED: APIXABAN 5 MG TAB PO SCH ×2 (09:00→21:00)
--- NOTE | 2021-01-07 10:43 | CT ---
EXAMINATION TYPE: CT chest w con DATE OF EXAM: 01/07/2021 COMPARISON: Chest CT July 26, 2017. Chest x-ray from yesterday. HISTORY: Right upper lobe density CT DLP: 411 mGycm. Automated Exposure Control for Dose Reduction was Utilized. TECHNIQUE: CT scan of the thorax is performed following with IV Contrast, patient injected with 100 ml mL of Isovue 370. FINDINGS: LUNGS: There is confirmation of new suspicious nodule or nodular consolidation, former is favored, sp iculated margins is present measuring 2.6 x 2.1 cm axial image 22. Craniocaudal dimension of 2.3 cm s agittal image 44. This extends or abuts the pleural surface. Stable mild bibasilar linear scarring an teriorly. Stable 3 to 4 mm anterior right upper lung nodule axial image 11. No pleural effusion or pn eumothorax seen bilaterally. MEDIASTINUM: There are no new greater than 1 cm hilar or mediastinal lymph nodes. No cardiomegaly o r pericardial effusion is seen. OTHER: There is S-shaped scoliosis. Multilevel spurring in the spine is present. IMPRESSION: Confirmation of new suspicious spiculated 2.6 cm inferior anterior right upper lobe nodul e or much less likely nodular consolidation. Finding worrisome for neoplasm. Advise PET CT follow-up to confirm.
--- NOTE | 2021-01-07 11:17 | P.CNPUL ---
History of Present Illness Consult date: 01/07/21 Requesting physician: Jovita Medrano Reason for consult: other Chief complaint: Left leg swelling. History of present illness: Pulmonary consult dated 01/07/2021. 70-year-old female with a history of chronic kidney disease, who presents to the emergency department complaining of left leg swelling and pain. It been going on for about 2-3 days prior to admission. Anyway, the patient was evaluated and found to have a DVT in the left leg. We were consulted primarily because of an abnormal chest x-ray. She apparently had a CAT scan a couple years ago which showed a small nodule about 5 mm in size in the right upper lobe. The chest x- ray done on this admission showed a abnormality in the right upper lobe, much larger than what was seen on the CAT scan a few years back. For that reason, we were consulted and we ordered a computed tomography scan of the chest. The patient does have a history of tobacco use. In addition, she has a history of diabetes, hyperlipidemia, hypertension, DJD, and gout. The patient really denies any pulmonary complaints including chest pain, chest pressure, shortness of breath, cough, wheezing, phlegm production, chest congestion, or hemoptysis. She smoked currently. She denies alcohol use or illicit drug use. White count 16.4, hemoglobin 11.6, hematocrit 37, and platelet count 241,000. PTT is 45. Sodium potassium chloride CO2 anion gap BUN and creatinine are all normal. Urine is cloudy with moderate bacteria. Leukocyte esterase and nitrite were negative. Doppler of the left leg showed a DVT from the common femoral vein to the popliteal vein. Chest x-ray showed a density in the right upper lobe. Computed tomography scan of the chest showed a speculated density in the right upper lobe measuring about 2-1/2 cm. Review of Systems REVIEW OF SYSTEMS: CONSTITUTIONAL: Pain and swelling in the left lower extremity. NEUROLOGIC: [ Negative.] HEENT: [ Negative.] CARDIAC: [Negative.] PULMONARY: [Negative.] GI: [Negative.] : [Negative.] RHEUMATOLOGIC: [ Negative.] IMMUNOLOGIC: [ Negative.] ENDOCRINE: [Negative. ] DERMATOLOGIC: [Negative.] Past Medical History Past Medical History: Diabetes Mellitus, Hyperlipidemia, Hypertension, Osteoarthritis (OA) Additional Past Medical History / Comment(s): gout History of Any Multi-Drug Resistant Organisms: None Reported Past Surgical History: Section Additional Past Surgical History / Comment(s): D&C, hemerhoid, eye Past Psychological History: No Psychological Hx Reported Smoking Status: Current every day smoker Past Alcohol Use History: None Reported Past Drug Use History: None Reported Medications and Allergies Home Medications Medication Instructions Recorded Confirmed Type Cetirizine HCl [Zyrtec] 10 mg PO HS 01/04/21 01/04/21 History Cholecalciferol [Vitamin D3 (25 50 mcg PO DAILY 01/04/21 01/04/21 History Mcg = 1000 Iu)] Citrucel 500mg Tabs 1 tab PO BID 01/04/21 01/04/21 History Dulaglutide [Trulicity] 1.5 mg SQ 01/04/21 01/04/21 History Ezetimibe [Zetia] 10 mg PO DAILY 01/04/21 01/04/21 History Febuxostat [Uloric] 40 mg PO DAILY 01/04/21 01/04/21 History Ferrous Sulfate [Feosol] 325 mg PO DAILY 01/04/21 01/04/21 History Furosemide [Lasix] 40 mg PO DAILY 01/04/21 01/04/21 History Ginkgo Biloba [place] Extract [Ginkgo] 120 mg PO DAILY 01/04/21 01/04/21 History Glimepiride [Amaryl] 2 mg PO BID 01/04/21 01/04/21 History Glucosamine/Msm 1500mg 1 tab PO DAILY 01/04/21 01/04/21 History Icosapent Ethyl [Vascepa] 1 gm PO BID 01/04/21 01/04/21 History Insulin Glargine,Hum.rec.anlog 22 units SQ 01/04/21 01/04/21 History [Toujeo Solostar] Losartan Potassium 50 mg PO DAILY 01/04/21 01/04/21 History Magnesium Oxide [Kim] 500 mg PO BID 01/04/21 01/04/21 History Vitamin C/Biotin [Hair, Skin and 1 tab PO DAILY 01/04/21 01/04/21 History Nails Chew] Vitamin E (Dl,Tocopheryl Acet) 400 unit PO BID 01/04/21 01/04/21 History [Vitamin E (400 Iu = 180 mg)] traMADol HCL 100 mg PO Q6H PRN 01/04/21 01/04/21 History Apixaban [Eliquis Starter Pack 5 - 10 mg PO DIRECTED 30 Days 01/07/21 Rx (for VTE)] #1 each Allergies Allergy/AdvReac Type Severity Reaction Status Date / Time bee venom protein (honey bee) Allergy Rash/Hives Verified 01/04/21 18:50 Antihistamines - Piperidine AdvReac lethargic Verified 01/04/21 18:50 codeine AdvReac lethargic/h Verified 01/04/21 18:50 ot Physical Exam Osteopathic Statement: *. No significant issues noted on an osteopathic structural exam other than those noted in the History and Physical/Consult. Vitals: Vital Signs Temp Pulse Resp BP Pulse Ox 01/07/21 07:25 97.3 F L 94 18 143/80 93 L 01/07/21 02:41 99.0 F 90 15 120/75 95 01/06/21 20:00 98.9 F 102 H 20 112/70 98 01/06/21 14:00 99.4 F 93 18 106/68 92 L Intake and Output 01/06/21 01/07/21 01/07/21 22:59 06:59 14:59 Intake Total 212.8 158.933 Output Total 225 125 Balance -12.2 -125 158.933 Intake: Intake, IV Titration 212.8 158.933 Amount Heparin Sod,Pork in 0.45% 212.8 158.933 NaCl 25,000 unit In 0.45 % NaCl 1 250ml.bag @ 10. 021 UNITS/KG/HR 10 mls/hr IV .Q24H [facility] Rx#: [id number] Output: Urine 225 125 Other: Voiding Method Bedside Commode # Voids 1 5 # Bowel Movements 1 1 No acute distress, oriented 3. HEENT examination is grossly unremarkable. Neck supple. Full range of motion. No adenopathy thyromegaly or neck vein distention. Cardiovascular examination reveals regular rhythm rate. S1-S2 normal. No S3 or S4. No discernible murmur noted. Heart rate 94 bpm. Lungs reveal clear breath sounds. Breath sounds are equal bilaterally. No adventitious lung sounds including wheezes rhonchi or crackles. Abdomen soft bowel sounds are heard. No masses or tenderness. Extremities reveal pain and swelling the left lower extremity. It goes from the mid thigh all the way down to the mid calf. There is tenderness on palpation. Skin is without rash or lesion. Neurologic examination is brief but nonfocal. Results - Laboratory Findings CBC and BMP: 01/06/21 06:54 01/06/21 06:54 PT/INR, D-dimer PT 11.1 sec (9.0-12.0) 01/05/21 01:21 INR 1.1 (<1.2) 01/05/21 01:21 Abnormal lab findings: Abnormal Labs 01/04/21 01/05/21 01/05/21 20:15 01:21 01:21 WBC 16.6 H 16.9 H RBC Hgb Hct MCHC Immature Gran # Neutrophils # 12.1 H 11.6 H Monocytes # 1.2 H Eosinophils # Basophils # APTT 32.7 H Est GFR (CKD-EPI)NonAf BUN/Creatinine Ratio POC Glucose (mg/dL) Urine Appearance Urine Bacteria Urine Mucus 01/05/21 01/05/21 01/05/21 06:52 08:34 11:23 WBC RBC Hgb Hct MCHC Immature Gran # Neutrophils # Monocytes # Eosinophils # Basophils # APTT 34.6 H Est GFR (CKD-EPI)NonAf BUN/Creatinine Ratio POC Glucose (mg/dL) 161 H 140 H Urine Appearance Urine Bacteria Urine Mucus 01/05/21 01/05/21 01/06/21 16:21 16:45 06:54 WBC RBC Hgb Hct MCHC Immature Gran # Neutrophils # Monocytes # Eosinophils # Basophils # APTT 48.9 H 49.1 H Est GFR (CKD-EPI)NonAf BUN/Creatinine Ratio POC Glucose (mg/dL) 124 H Urine Appearance Urine Bacteria Urine Mucus 01/06/21 01/06/21 01/06/21 06:54 06:54 11:33 WBC 16.40 H RBC 4.04 L Hgb 11.6 L Hct 37.0 L MCHC 31.4 L Immature Gran # 0.13 H Neutrophils # 10.22 H Monocytes # 1.64 H Eosinophils # 0.39 H Basophils # 0.25 H APTT Est GFR (CKD-EPI)NonAf 57.4 L BUN/Creatinine Ratio 22.00 H POC Glucose (mg/dL) 119 H Urine Appearance Urine Bacteria Urine Mucus 01/06/21 01/06/21 01/06/21 16:16 16:49 20:46 WBC RBC Hgb Hct MCHC Immature Gran # Neutrophils # Monocytes # Eosinophils # Basophils # APTT Est GFR (CKD-EPI)NonAf BUN/Creatinine Ratio POC Glucose (mg/dL) 147 H 140 H Urine Appearance Cloudy H Urine Bacteria Moderate H Urine Mucus Rare H 01/07/21 06:30 WBC RBC Hgb Hct MCHC Immature Gran # Neutrophils # Monocytes # Eosinophils # Basophils # APTT 45.0 H Est GFR (CKD-EPI)NonAf BUN/Creatinine Ratio POC Glucose (mg/dL) Urine Appearance Urine Bacteria Urine Mucus - Diagnostic Findings Chest x-ray: image reviewed CT scan - chest: image reviewed Assessment and Plan Assessment: Left lower extremity DVT, extending from the common femoral vein to the popliteal vein. Enlarging spiculated mass, right upper lobe, suspicious for bronchogenic carcinoma. History of ongoing tobacco use and nicotine addiction. History of diabetes mellitus. History of hyperlipidemia. History of hypertension. History of osteoarthritis. Plan: Plan dated 01/07/2021. We will go back and speak to the patient about possibly having a navigational bronchoscopy tomorrow. Therefore, we can keep the patient on IV heparin until the procedure. If she refuses, the patient will need an outpatient evaluation with PET scan, and subsequent biopsy. And suggestions are forthcoming. Prognosis is guarded. Computed tomography scan is reviewed. Time with Patient: Greater than 30
[2021-01-07] MEDS ORDERED: HEPARIN SODIUM 1,000 UN/ML (10ML VL) IV PRN (11:19)
[2021-01-07 11:24] LABS: Glucose,Whole Blood 123 mg/dL (75-99)
[2021-01-07] MEDS ORDERED: HEPARIN SOD,PORK IN 0.45% NACL 25,000 UNIT in 0.45% NACL 1 250ML.BAG IV SCH (11:30)
[2021-01-07 12:08] LABS: Basophils # (A) 0.24 X 10*3/uL (0.00-0.10); Basophils % (A) 1.6 %; Eosinophils # (A) 0.45 X 10*3/uL (0.04-0.35); HGB 11.7 g/dL (12.0-15.0); Lymphocytes # (A) 3.98 X 10*3/uL (0.90-5.00); Lymphocytes % (A) 26.9 %; MCH 28.3 pg (27.0-32.0); MCHC 31.6 g/dL (32.0-37.0); MCV 89.6 fL (80.0-97.0); Mean Platelet Volume 11.9 fL (9.5-12.2); Monocytes # (A) 1.55 X 10*3/uL (0.20-1.00); Monocytes % (A) 10.5 %; Neutrophils % (A) 56.8 %; Platelet Count 275 X 10*3/uL (140-440); RBC 4.13 X 10*6/uL (4.10-5.20)
[2021-01-07 18:37] LABS: African American GFR (CKD) 75.6 (60.0-200.0); BUN/Creat Ratio 18.89 Ratio (12.00-20.00); Calcium 8.6 mg/dL (8.7-10.3); Non-African American GFR(CKD) 65.2 (60.0-200.0); Potassium 4.4 mmol/L (3.5-5.5)
== END 2021-01-07 13:34 | disposition home or self-care (01) ==
LOC: EC 14:07 → 6NMEDSUR 21:01 → 4SSUR 23:04 → OBSVTOIN 01-05 10:19 → INTOOBSV 01-05 10:19 → UNDODISIN 01-07 13:34
PROVIDERS: ADMIT Hospitalist; ATTEND Hospitalist
DX: I82.412 Acute embolism and thrombosis of left femoral vein (principal); I12.9 Hypertensive chronic kidney disease with stage 1 through stage 4 chronic kidney disease, or unspecified chronic kidney disease; E11.22 Type 2 diabetes mellitus with diabetic chronic kidney disease; N18.9 Chronic kidney disease, unspecified; I82.432 Acute embolism and thrombosis of left popliteal vein; R91.8 Other nonspecific abnormal finding of lung field; M10.9 Gout, unspecified; M19.90 Unspecified osteoarthritis, unspecified site; E78.5 Hyperlipidemia, unspecified; E66.9 Obesity, unspecified; Z68.34 Body mass index [BMI] 34.0-34.9, adult; Z79.899 Other long term (current) drug therapy; Z79.4 Long term (current) use of insulin; Z91.030 Bee allergy status; Z88.5 Allergy status to narcotic agent; Z88.8 Allergy status to other drugs, medicaments and biological substances; Z98.891 History of uterine scar from previous surgery; Z98.890 Other specified postprocedural states; Z87.19 Personal history of other diseases of the digestive system
CPT/HCPCS: 96376 ×2; 96366 ×4; 96365; 99284; 36415; 80048 ×2; 85025 ×4; 85610 ×2; 85730 ×4; 81001; 71045; 93971; 71260; G0378 ×5; J1644 ×5; Q9967

== ENCOUNTER → 2021-04-09 | Outpatient (CLI) | payer MEDICARE ==
--- NOTE | 2021-04-12 07:45 | PE ---
EXAMINATION TYPE: PET CT fusion skull to thigh DATE OF EXAM: 04/09/2021 COMPARISON: Chest CT January 07, 2021 HISTORY: Solitary pulmonary nodule, abnormal CT TECHNIQUE: Following the intravenous administration of 7.83 mCi of F-18 FDG, whole body images are p erformed from the skull base to the midthigh. Images are reviewed on the computer in the coronal, ax ial, and sagittal planes. Reconstructed rotating images are created on independent workstation and r eviewed on the computer. A localization and attenuation correction CT is performed in conjunction w ith the PET scan. Blood glucose level equals 89. SCAN: Initial Scan FINDINGS: SKULL BASE AND NECK: Symmetric posterior and lateral cervical muscular uptake presumed postinflammat ory. No suspicious abnormal hypermetabolic uptake in the neck. CHEST, MEDIASTINUM, AND HILAR REGION: Enlarging lateral right upper to midlung mass now measures 4.9 x 4.3 cm versus 2.6 x 2.1 cm prior study with abnormal hypermetabolic uptake, max SUV is 14.72 on axi al image 84. There is some surrounding groundglass opacities present. There are new groundglass opacities in the medial aspect of the left upper lung and in the left lung apex. With mild hypermetabolic uptake. Developing infectious process or pneumonia needs to be conside red. Subcentimeter hypermetabolic right hilar lymph node anteriorly on axial image 96, max SUV is 3.57. Fi nding nonspecific. Neoplastic involvement at this level cannot be excluded. ABDOMEN AND PELVIS: No adrenal masses. Normal excretion. Anteverted uterus. Hypermetabolic uptake in the lower uterine segment/cervix axial image 223 could reflect artifact from adjacent bladder, follow -up pelvic exam and Pap smear correlation is advised to rule out neoplasm at this level. No additiona l abnormal hypermetabolic uptake. OSSEOUS STRUCTURES: No suspicious abnormal hypermetabolic uptake. OTHER CT: Visualized brain parenchyma shows age related cerebral atrophy. Mild to moderate calcified plaque bilateral carotid bulb level. There is ascending aortic aneurysm up to 3.8 cm. There is moderate coronary artery calcification. Gallbladder not seen suspected surgically absent. There are bilateral There are near 1.0 cm peripheral hyperdense round lesions in the kidneys favoring proteinaceous or he morrhagic cysts IMPRESSION: 1. Enlarged right lung mass from prior CT with doubling in size and has abnormal hypermetabolic uptak e consistent with neoplasm. Cannot exclude right hilar adenopathy as detailed above. 2. Abnormal uptake in the lower uterine segment/cervix should be correlated clinically and with pelvi c exam along with Pap smear to rule out second neoplasm at this level. 3. Developing left upper and apical lung infectious process is suspected, correlate clinically.
== END | disposition home or self-care (01) ==
LOC: RADPETMAIN 11:05
PROVIDERS: ATTEND Internal Medicine Critical Care Medicine
DX: R91.8 Other nonspecific abnormal finding of lung field (principal); R93.89 Abnormal findings on diagnostic imaging of other specified body structures
CPT/HCPCS: 78815; A9552

== ENCOUNTER 2021-04-22 08:24 | Day surgery (SDC) | payer MEDICARE ==
[2021-04-21 13:05] VITALS: BMI 36.0
[~2021-04-22 08:24] MED LIST: ALBUTEROL NEB (CONC) 2.5 MG/0.5 ML INHALATION ONE; ATROPINE SULFATE 0.4 MG/ML 1 ML VIAL IM ONE; LACTATED RINGERS 1,000 ML IV SCH; LIDOCAINE 1% (10MG/ML) FOR IV START INTRADERMA PRN; LIDOCAINE 2% (PF) 20 MG/ML 5 ML VIAL INHALATION ONE; LIDOCAINE VISCOUS 300 MG/15 ML CUP MUCOUS MEM ONE; SODIUM CHLORIDE 0.9% 1,000 ML IV SCH
[2021-04-22 09:08] LABS: Glucose,Whole Blood 135 mg/dL (75-99)
--- NOTE | 2021-04-22 10:17 | CT ---
EXAMINATION TYPE: CT Chest jaxon Petresen Protocol DATE OF EXAM: 04/22/2021 COMPARISON: 04/09/2021, 01/07/2021 HISTORY: Bronchial Navigation with Dr. Zak DEJESUS DLP: 509 mGycm Automated exposure control for dose reduction was used. FINDINGS: There is suspicious nodule or nodular consolidation, former is favored, spiculated margins is present measuring 4.9 x 4.3 cm. This extends or abuts the pleural surface. Stable mild bibasilar linear scar ring anteriorly. Stable 3 to 4 mm anterior right upper lung nodule axial image 11. No pleural effusio n or pneumothorax seen bilaterally. 5 mm nodule in the anterior segment left upper lobe axial image 2 8 could be postinflammatory. Subpleural nodule measuring 5 mm superior segment left lower lobe. Multilevel degenerative change with scoliosis. No definite pericardial effusion. The previously noted pathologic lymph nodes seen in the right hilum by PET scan again noted. Coronary artery calcificatio n. Heart size normal. IMPRESSION: 4.9 CM RIGHT UPPER LOBE MASS.
[2021-04-22] MEDS ORDERED: SUCCINYLCHOLINE CHLORIDE 100 MG/5 ML SYR IV ONE (10:36)
[2021-04-22] MEDS ORDERED: ROCURONIUM 10 MG/ML (5 ML VIAL) IV ONE (10:36)
[2021-04-22] MEDS ORDERED: LIDOCAINE 1% INJ 10MG/ML (20 ML MDV) ONE (10:36)
[2021-04-22] MEDS ORDERED: PROPOFOL 10 MG/ML 20 ML VIAL IV ONE (10:36)
[2021-04-22] MEDS ORDERED: .fentaNYL (PF) 50 MCG/ML 2 ML AMP ONE (10:36)
[2021-04-22] MEDS ORDERED: SODIUM CHLORIDE 0.9% 500 ML 500 ML IV ONE (11:14)
[2021-04-22 12:38] LABS: Glucose,Whole Blood 114 mg/dL (75-99)
--- NOTE | 2021-04-22 12:46 | XR ---
EXAMINATION TYPE: XR chest 1V portable DATE OF EXAM: 04/22/2021 COMPARISON: 01/06/2021 HISTORY: Post bronchoscopy TECHNIQUE: Single frontal view of the chest is obtained. FINDINGS: There is increasing density in size and mass right upper lobe. No sizable pneumothorax. He art size normal. No overt failure. IMPRESSION: Interval increase in size of the area of consolidation or mass in the right upper lobe c orrelate clinically. No pneumothorax.
[2021-04-22 12:55] VITALS: RESP 16
[2021-04-22 13:09] VITALS: BP 98/66; PULSE 90
--- NOTE | 2021-04-22 14:15 | PCN ---
PROCEDURE NOTE PULMONARY/CRITICAL CARE PROCEDURE: Navigational bronchoscopy. PREOPERATIVE DIAGNOSIS: Mass, right upper lobe. POSTOPERATIVE DIAGNOSIS: Mass, right upper lobe. There was informed consent. There was universal timeout. OPERATORS: 1. Dr. Crespo. 2. Dr. Vega. PROCEDURE DETAILS: The procedure took place [facility] Anesthesia provided general anesthesia for the patient. After the patient was intubated and connected to the anesthesia machine, the bronchoscope was inserted through the bronchoscope adapter connected to the endotracheal tube. We used the [email or web address] electromagnetic navigational system to isolate the lesion in the right upper lobe. Initially, we did transbronchial and endobronchial biopsies of the right upper lobe. Secondly, we did a needle biopsies in the right upper lobe. Next, we did brushes and biopsies in the right upper lobe. Finally, we did a BAL right upper lobe. The patient tolerated the procedure well. There was minimal bleeding. There was no major complication, and the patient was stable throughout the entire procedure on the anesthesia machine. The patient will have a chest x-ray post procedure. The patient will be recovered. There was no immediate complication. I will have a conversation with the patient's , who actually brought the patient to the hospital today. MMODL / IJN: [id number] /
[2021-04-22 19:26] LABS: Appearance,BF Hazy; Color,BF Pink; Nucleated Cells, Body Fluid 10 /uL; RBC, Body Fluid 10350 /uL
== END 2021-04-22 13:28 ==
LOC: ORWHC2ENDO 08:24
PROVIDERS: ATTEND Internal Medicine Critical Care Medicine
DX: R91.8 Other nonspecific abnormal finding of lung field (principal); E11.9 Type 2 diabetes mellitus without complications; E55.9 Vitamin D deficiency, unspecified; E78.5 Hyperlipidemia, unspecified; M10.9 Gout, unspecified; I10 Essential (primary) hypertension; Z86.718 Personal history of other venous thrombosis and embolism; I12.9 Hypertensive chronic kidney disease with stage 1 through stage 4 chronic kidney disease, or unspecified chronic kidney disease; E11.22 Type 2 diabetes mellitus with diabetic chronic kidney disease; N18.30 Chronic kidney disease, stage 3 unspecified; E83.52 Hypercalcemia; M19.90 Unspecified osteoarthritis, unspecified site; Z98.891 History of uterine scar from previous surgery; Z98.890 Other specified postprocedural states; E66.9 Obesity, unspecified; Z68.35 Body mass index [BMI] 35.0-35.9, adult; K21.9 Gastro-esophageal reflux disease without esophagitis; Z79.01 Long term (current) use of anticoagulants; Z79.899 Other long term (current) drug therapy; Z79.84 Long term (current) use of oral hypoglycemic drugs; Z88.8 Allergy status to other drugs, medicaments and biological substances; Z88.1 Allergy status to other antibiotic agents; Z91.038 Other insect allergy status; Z88.2 Allergy status to sulfonamides
CPT/HCPCS: 88104; 88108; 88305; 89050; 71045; 71250; 31629; 31625; 31623; 31624; 31627; J2001; J3010; J0330; J2704

== ENCOUNTER → 2021-05-20 | Outpatient (CLI) | payer MEDICARE ==
--- NOTE | 2021-05-20 15:41 | MR ---
EXAMINATION TYPE: MR brain wo/w con DATE OF EXAM: 05/20/2021 COMPARISON: Correlation PET/CT 04/09/2021 HISTORY: 70-year-old female C34.11, Headaches, lung ca TECHNIQUE: Multiplanar, multisequence images of the brain and brainstem were acquired before and aft er administration of 10 mL IV Gadavist. Diffusion weighted imaging is performed. FINDINGS: No evidence for acute infarction, hemorrhage, mass, mass effect, midline shift, herniation, effacemen t of basal cisterns, or extra-axial fluid collection. There is mild ventricular prominence with Man's ratio calculated at 0.33. Major intracranial flow voids are intact. T2/FLAIR weighted sequences show moderate scattered burden of T2 bright white matter change subcortic al, deep white matter, periventricular regions of both cerebral hemispheres. Additional patchy bright signal change within the bilateral paramedian girma. Midline structures demonstrate normal morphology. The craniocervical junction is normal. Post contrast images demonstrate no evidence of pathologic enhancement. Dural venous sinuses are pat ent. Mild mucosal thickening ethmoid air cells. Globes are intact. IMPRESSION: 1. No acute intracranial abnormality or evidence for brain metastases. 2. Mild ventriculomegaly probably due to central cerebral atrophy. Man's ratio 0.33. Correlate to ex clude NPH. 3. Chronic T2 bright white matter change with moderate overall burden. Findings may reflect changes o f chronic small vessel ischemic disease but can also be seen with chronic migraines. 4. Mild chronic ethmoid sinus disease.
== END | disposition home or self-care (01) ==
LOC: RADMRIMAIN 11:34
PROVIDERS: ATTEND Internal Medicine Hematology & Oncology
DX: C34.11 Malignant neoplasm of upper lobe, right bronchus or lung (principal); G31.89 Other specified degenerative diseases of nervous system; R90.82 White matter disease, unspecified; J32.2 Chronic ethmoidal sinusitis
CPT/HCPCS: 70553; A9585

== ENCOUNTER 2021-06-10 11:35 | Emergency (ER) | payer MEDICARE ==
[2021-06-10 11:56] VITALS: RESP 18; TEMP 98.1
[2021-06-10] MEDS ORDERED: SODIUM CHLORIDE 0.9% 500 ML 500 ML IV STA (12:20)
[2021-06-10 12:46] LABS: Appearance,Urine Clear (Clear); Bilirubin,Urine Negative (Negative); Blood,Urine Negative (Negative); Color,Urine Light Yellow; Glucose,Urine (UA) Negative (Negative); Ketones,Urine Negative (Negative); Leukocyte Esterase,Urine Negative (Negative); Nitrite,Urine Negative (Negative); Protein,Urine Negative (Negative); Specific Gravity,Urine 1.009 (1.001-1.035); Urobilinogen,Urine <2.0 mg/dL (<2.0)
[2021-06-10 12:53] LABS: Basophils # (A) 0.2 k/uL (0-0.2); Basophils % (A) 2 %; Eosinophils # (A) 0.7 k/uL (0-0.7); Eosinophils % (A) 6 %; HCT 40.6 % (34.0-46.0); Lymphocytes # (A) 1.8 k/uL (1.0-4.8); Lymphocytes % (A) 16 %; MCH 27.5 pg (25.0-35.0); MCV 86.1 fL (80.0-100.0); Mean Platelet Volume 8.3; Monocytes # (A) 0.7 k/uL (0-1.0); Monocytes % (A) 6 %; Neutrophils # (A) 7.6 k/uL (1.3-7.7); Neutrophils % (A) 68 %; Platelet Count 325 k/uL (150-450); RBC 4.72 m/uL (3.80-5.40); RDW 14.5 % (11.5-15.5); WBC 11.3 k/uL (3.8-10.6)
[2021-06-10 12:55] LABS: Albumin 3.7 g/dL (3.5-5.0); Calcium 9.5 mg/dL (8.4-10.2); INR 0.9 (<1.2); Partial Thromboplastin Time 24.1 sec (22.0-30.0); Potassium 4.5 mmol/L (3.5-5.1); Prothrombin Time 10.1 sec (9.0-12.0); Total Bilirubin 0.4 mg/dL (0.2-1.3); Total Protein 6.5 g/dL (6.3-8.2)
--- NOTE | 2021-06-10 13:38 | ED ---
General Adult HPI - General Chief complaint: Abdominal Pain Stated complaint: Poss Bladder Infection Time Seen by Provider: 06/10/21 12:00 Source: patient Mode of arrival: ambulatory Limitations: no limitations - History of Present Illness Initial comments: This 70-year-old female with past medical history of lung cancer presents to the emergency department with bilateral lower back pain x3 days. Patient states she has been experiencing lower back pain when going from lying to sitting or sitting to standing position over the last 2 days. Patient states that she started chemotherapy and radiation 1 week ago for lung cancer. Patient states she is here because she is worried she has a UTI because she has had back pain in the past with UTIs. Patient denies any chest pain, shortness of breath, abdominal pain, nausea, vomiting, dizziness, change in vision, headache, change in bowel or bladder, bowel or bladder retention/incontinence, saddle an esthesia.. - Related Data Home Medications Medication Instructions Recorded Confirmed Cholecalciferol [Vitamin D3 (25 50 mcg PO DAILY 01/04/21 04/22/21 Mcg = 1000 Iu)] Dulaglutide [Trulicity] 1.5 mg SQ SA 01/04/21 04/22/21 Ezetimibe [Zetia] 10 mg PO DAILY 01/04/21 04/22/21 Febuxostat [Uloric] 40 mg PO DAILY 01/04/21 04/22/21 Ferrous Sulfate [Iron (65 MG 325 mg PO DAILY 01/04/21 04/22/21 Elemental)] Furosemide [Lasix] 20 mg PO DAILY 01/04/21 04/22/21 Ginkgo Biloba Cavalero Extract [Ginkgo] 120 mg PO DAILY 01/04/21 04/22/21 Glimepiride [Amaryl] 2 mg PO BID 01/04/21 04/22/21 Icosapent Ethyl [Vascepa] 1 gm PO DAILY 01/04/21 04/22/21 Insulin Glargine,Hum.rec.anlog 28 units SQ HS 01/04/21 04/22/21 [Kaveh Armendariz] Losartan Potassium 50 mg PO DAILY 01/04/21 04/22/21 Vitamin C/Biotin [Hair, Skin and 1 tab PO DAILY 01/04/21 04/22/21 Nails Chew] Vitamin E (Dl,Tocopheryl Acet) 400 unit PO BID 01/04/21 04/22/21 [Vitamin E (400 Iu = 180 mg)] Allergy -24 Hr 1 tab PO HS 04/21/21 04/22/21 Apixaban [Eliquis Starter Pack 5 mg PO BID 04/21/21 04/22/21 (for VTE)] Fiber Supplement 1 tab PO BID 04/21/21 04/22/21 Magnesium 400 mg PO BID 04/21/21 04/22/21 Msm (Unknown Dose) 1 tab PO DAILY 04/21/21 04/22/21 Previous Rx's Medication Instructions Recorded traMADol HCL 50 mg PO Q6H PRN 3 Days #12 tab 01/07/21 Allergies Allergy/AdvReac Type Severity Reaction Status Date / Time bee venom protein (honey bee) Allergy Rash/Hives Verified 04/22/21 08:41 omeprazole [From Prilosec] AdvReac Unknown unable to Verified 04/22/21 08:41 take due to kidneys. Antihistamines - Piperidine AdvReac lethargic Verified 04/22/21 08:41 codeine AdvReac lethargic/h Verified 04/22/21 08:41 ot Review of Systems ROS Statement: Those systems with pertinent positive or pertinent negative responses have been documented in the HPI. ROS Other: All systems not noted in ROS Statement are negative. Past Medical History Past Medical History: Diabetes Mellitus, Deep Vein Thrombosis (DVT), GERD/Reflux, Hyperlipidemia, Hypertension, Osteoarthritis (OA), Renal Disease Additional Past Medical History / Comment(s): gout, DVT lower extremity December 2020 , states arthritis all over-knees,hips,shoulders & fingers, states kidney function 50%., spot on lung. History of Any Multi-Drug Resistant Organisms: None Reported Past Surgical History: Section Additional Past Surgical History / Comment(s): D&C, Hemorrhoids, belly button o peration as a baby., cataracts, eyelid surgery. Past Anesthesia/Blood Transfusion Reactions: No Reported Reaction Additional Past Anesthesia/Blood Transfusion Reaction / Comment(s): spinal with childbirth and paralized 36 hrs. Past Psychological History: No Psychological Hx Reported Smoking Status: Current every day smoker Past Alcohol Use History: None Reported Past Drug Use History: None Reported General Exam Limitations: no limitations General appearance: alert, in no apparent distress Head exam: Present: atraumatic, normocephalic Eye exam: Present: PERRL, EOMI Neck exam: Present: full ROM. Absent: tenderness, meningismus Respiratory exam: Present: normal lung sounds bilaterally. Absent: respiratory distress, wheezes, rales, rhonchi, stridor Cardiovascular Exam: Present: regular rate, normal rhythm, normal heart sounds. Absent: systolic murmur, diastolic murmur, rubs, gallop, clicks GI/Abdominal exam: Present: soft, normal bowel sounds, other (Mild abdominal distention, patient states that is her normal.). Absent: distended, tenderness, guarding, rebound, rigid Extremities exam: Present: full ROM, pedal edema (Patient states she has had bilateral leg edema for years.). Absent: tenderness, calf tenderness Back exam: Present: full ROM, paraspinal tenderness (Lumbar paraspinal tenderness to palpation). Absent: CVA tenderness (R), CVA tenderness (L), vertebral tenderness Neurological exam: Present: alert, oriented X3, CN II-XII intact Psychiatric exam: Present: normal affect, normal mood Skin exam: Present: warm, dry, intact, normal color. Absent: rash Course Vital Signs 06/10/21 11:54 Temperature 98.1 F Pulse Rate 110 H Respiratory 18 Rate Blood Pressure 139/79 O2 Sat by Pulse 96 Oximetry Medical Decision Making - Medical Decision Making This 70-year-old female with past medical history of lung cancer presents to the emergency department with lower back pain with movement [address] lumbar spine impression no acute findings evident and lumbar spine. Multilevel degenerative changes are present as detailed above. CT abdomen and pelvis showed suspicious bilateral adrenal masses worrisome for metastatic disease. Possible ingestion of metallic foreign body due to a new 1.2 cm metallic density present throughout dependently in the cecum, however, patient states she has not had any recent surgeries and does not recall swallowing anything metallic. After fluids were given patient states she is no longer in any pain. Patient stated she did not want to have any pain medication due to her back only hurting when she moved positions or when her back was palpated. Patient informed to follow-up with her oncologist and primary care provider next 24-48 hours. Strict return precautions were discussed and patient verbally agreed to the plan. Patient to return to emergency department with any concerning, new, or worsening symptoms. Patient sent home in stable condition. Discussed this case with my attending, Dr. Luevano. - Lab Data Result diagrams: 06/10/21 12:30 06/10/21 12:30 Lab Results 06/10/21 06/10/21 06/10/21 Range/Units 12:30 12:30 12:30 WBC 11.3 H (3.8-10.6) k/uL RBC 4.72 (3.80-5.40) m/uL Hgb 13.0 (11.4-16.0) gm/dL Hct 40.6 (34.0-46.0) % MCV 86.1 (80.0-100.0) fL MCH 27.5 (25.0-35.0) pg MCHC 32.0 (31.0-37.0) g/dL RDW 14.5 (11.5-15.5) % Plt Count 325 (150-450) k/uL MPV 8.3 Neutrophils % 68 % Lymphocytes % 16 % Monocytes % 6 % Eosinophils % 6 % Basophils % 2 % Neutrophils # 7.6 (1.3-7.7) k/uL Lymphocytes # 1.8 (1.0-4.8) k/uL Monocytes # 0.7 (0-1.0) k/uL Eosinophils # 0.7 (0-0.7) k/uL Basophils # 0.2 (0-0.2) k/uL PT 10.1 (9.0-12.0) sec INR 0.9 (<1.2) APTT 24.1 (22.0-30.0) sec Sodium (137-145) mmol/L Potassium (3.5-5.1) mmol/L Chloride (98-107) mmol/L Carbon Dioxide (22-30) mmol/L Anion Gap mmol/L BUN (7-17) mg/dL Creatinine (0.52-1.04) mg/dL Est GFR (CKD-EPI)AfAm (>60 ml/min/1.73 sqM) Est GFR (CKD-EPI)NonAf (>60 ml/min/1.73 sqM) Glucose (74-99) mg/dL Plasma Lactic Acid Mario (0.7-2.0) mmol/L Calcium (8.4-10.2) mg/dL Total Bilirubin (0.2-1.3) mg/dL AST (14-36) U/L ALT (4-34) U/L Alkaline Phosphatase (38-126) U/L Total Protein (6.3-8.2) g/dL Albumin (3.5-5.0) g/dL Lipase (23-300) U/L Urine Color Light Yellow Urine Appearance Clear (Clear) Urine pH 7.0 (5.0-8.0) Ur Specific [place] 1.009 (1.001-1.035) Urine Protein Negative (Negative) Urine Glucose (UA) Negative (Negative) Urine Ketones Negative (Negative) Urine Blood Negative (Negative) Urine Nitrite Negative (Negative) Urine Bilirubin Negative (Negative) Urine Urobilinogen <2.0 (<2.0) mg/dL Ur Leukocyte Esterase Negative (Negative) 06/10/21 06/10/21 Range/Units 12:30 12:30 WBC (3.8-10.6) k/uL RBC (3.80-5.40) m/uL Hgb (11.4-16.0) gm/dL Hct (34.0-46.0) % MCV (80.0-100.0) fL MCH (25.0-35.0) pg MCHC (31.0-37.0) g/dL RDW (11.5-15.5) % Plt Count (150-450) k/uL MPV Neutrophils % % Lymphocytes % % Monocytes % % Eosinophils % % Basophils % % Neutrophils # (1.3-7.7) k/uL Lymphocytes # (1.0-4.8) k/uL Monocytes # (0-1.0) k/uL Eosinophils # (0-0.7) k/uL Basophils # (0-0.2) k/uL PT (9.0-12.0) sec INR (<1.2) APTT (22.0-30.0) sec Sodium 132 L (137-145) mmol/L Potassium 4.5 (3.5-5.1) mmol/L Chloride 99 (98-107) mmol/L Carbon Dioxide 28 (22-30) mmol/L Anion Gap 5 mmol/L BUN 19 H (7-17) mg/dL Creatinine 1.02 (0.52-1.04) mg/dL Est GFR (CKD-EPI)AfAm 65 (>60 ml/min/1.73 sqM) Est GFR (CKD-EPI)NonAf 57 (>60 ml/min/1.73 sqM) Glucose 165 H (74-99) mg/dL Plasma Lactic Acid Mario 1.7 (0.7-2.0) mmol/L Calcium 9.5 (8.4-10.2) mg/dL Total Bilirubin 0.4 (0.2-1.3) mg/dL AST 22 (14-36) U/L ALT 17 (4-34) U/L Alkaline Phosphatase 92 (38-126) U/L Total Protein 6.5 (6.3-8.2) g/dL Albumin 3.7 (3.5-5.0) g/dL Lipase 190 (23-300) U/L Urine Color Urine Appearance (Clear) Urine pH (5.0-8.0) Ur Specific [place] (1.001-1.035) Urine Protein (Negative) Urine Glucose (UA) (Negative) Urine Ketones (Negative) Urine Blood (Negative) Urine Nitrite (Negative) Urine Bilirubin (Negative) Urine Urobilinogen (<2.0) mg/dL Ur Leukocyte Esterase (Negative) Disposition Clinical Impression: Adrenal mass, History of lung cancer, Low back pain, Degenerative lumbar disc Disposition: HOME SELF-CARE Condition: Stable Instructions (If sedation given, give patient instructions): Acute Low Back Pain (ED) Additional Instructions: Please follow up with primary care provider and oncologist in the next 24-48 hours. Please return to the emergency department with any concerning, new, worsening symptoms. Is patient prescribed a controlled substance at d/c from ED?: No Referrals: Ángel Turner DO [Primary Care Provider] - 1-2 days Time of Disposition: 15:13
--- NOTE | 2021-06-10 13:48 | CT ---
EXAMINATION TYPE: CT abdomen pelvis w con, CT lumbar spine w con DATE OF EXAM: 06/10/2021 HISTORY: pain, newly diagnosed lung cancer CT DLP: 3061.4mGycm Automated Exposure Control for Dose Reduction was Utilized. CONTRAST: CT scan of the abdomen and pelvis and lumbar spine are all11 performed without oral but with IV Contr ast, patient injected with 80 mL of Isovue 300. COMPARISON: PET/CT April 09, 2021 FINDINGS: LUNG BASES: No significant abnormality is appreciated. LIVER/GB: Gallbladder not identified presumed surgically absent. PANCREAS: No significant abnormality is seen. SPLEEN: No significant abnormality is seen. ADRENALS: New 1.8 x 1.5 cm left adrenal mass axial image 15. New 1.7 x 1.3 cm right adrenal mass axia l image 14. KIDNEYS: No significant abnormality is seen. BOWEL: New 1.2 cm metallic density causing streak artifact in the cecum axial image 56. There is art cent normal size appendix with central phlebolith on axial image 51 seen on current study. Some hyper density or phleboliths on recent PET/CT thought present. No surrounding fat stranding noted. UTERUS/ADNEXA: Anteverted uterus redemonstrated. LYMPH NODES: No greater than 1cm abdominal or pelvic lymph nodes are appreciated. OTHER: Mild atherosclerotic plaque of the distal abdominal aorta extends into iliac branch vessels. Lumbar spine: There are 5 lumbar type vertebra redemonstrated Moderate to severe disc space narrowing with vacuum disc phenomenon and spurring along with endplate sclerosis left L4-L5 level redemonstrat ed. [id number] disc space narrowing secondary phenomenon L1-L2 level redemonstrated. Vertebra l body heights are maintained. Review of axial images shows [id number] broad disc bulge effaces the anterior thecal sac at L1- L2 level with right foraminal component causing moderate inferior neural foraminal narrowing. Axial images at L3-L4 level show mild/moderate broad disc bulge effacing anterior thecal sac. There i s moderate facet degenerative changes and ligamentum flavum hypertrophy effacing posterior thecal sac . There is mild to moderate left greater than right bilateral anterior inferior neural foraminal narr owing. Axial images at L4-L5 level show poit-ax-ccxreyah facet arthropathy and ligamentum flavum hypertrophy effacing posterior lateral thecal sac. There is broad-based left paracentral/foraminal disc protrusi on effacing anterolateral thecal sac and causing moderate inferior neural foraminal narrowing. Right- sided neural foramina is patent. Axial images at L5-S1 level show mild/moderate facet arthropathy. IMPRESSION: 1. No acute findings evident in the lumbar spine. Multilevel degenerative changes are present as deta iled above. 2. No acute findings evident to account for new pain. New Suspicious bilateral adrenal masses worrisome for metastatic disease given history of newly diagnosed aggressive lung cancer.
[2021-06-10 15:37] VITALS: BP 134/67; PULSE 79
== END 2021-06-10 15:36 | disposition home or self-care (01) ==
LOC: EC 11:35
DX: M51.36 Other intervertebral disc degeneration, lumbar region (principal); E27.9 Disorder of adrenal gland, unspecified; Z85.118 Personal history of other malignant neoplasm of bronchus and lung; E11.9 Type 2 diabetes mellitus without complications; E78.5 Hyperlipidemia, unspecified; I10 Essential (primary) hypertension; M19.90 Unspecified osteoarthritis, unspecified site; M10.9 Gout, unspecified; F17.200 Nicotine dependence, unspecified, uncomplicated; Z86.718 Personal history of other venous thrombosis and embolism; Z79.4 Long term (current) use of insulin
CPT/HCPCS: 99284; 36415; 80053; 83605; 83690; 85025; 85610; 85730; 81003; 72132; 74177; Q9967

== ENCOUNTER → 2021-06-25 | Outpatient (CLI) | payer MEDICARE ==
--- NOTE | 2021-06-29 10:51 | PE ---
Nuclear medicine PET/CT HISTORY: C 34.11, right lung carcinoma, subsequent Correlation to nuclear medicine PET/CT 04/09/2021 Patient received 8.2 mCi F-18 FDG intravenously and delayed scanning was performed from the skull bas e to the mid thighs. Localization and attenuation correction CT scan was performed Chest and neck: There is a destructive mass involving the chest wall likely extension from patient's right upper lobe lung mass, there is extension of abnormal soft tissue from the right upper lobe with cortical destruction of the anterior right third rib, extensive abnormal soft tissue through the anupama st wall, overall the abnormal soft tissue somewhat irregular and measures approximately 5.2 x 6.8 cm but is irregular and extends somewhat medially more inferiorly. SUV 7.1. Internal mammary adenopathy is suspected, SUV 4. There is no mediastinal, axillary, or hilar adenopathy. Airspace disease is pres ent in the right upper lobe, progression compared to prior. No pleural, pericardial effusion evident. There is some abnormal soft tissue present at the medial left lower lobe, axial image #127, some ass ociated hypermetabolic uptake is present, SUV 5.2. Some new subpleural nodularity is present in the l eft lower lobe and I do not see associated hypermetabolic activity, subcentimeter nodules aren't inte rval finding. ABDOMEN: Bilateral adrenal nodules shows associated hypermetabolic uptake, SUV 4.1 on the left, 3.5 o n the right. There is no ascites. No pelvic adenopathy. No evident liver mass. There is no retroperit davis adenopathy. Osseous structures: Multiple foci of abnormal uptake are present within the bones to include the righ t sacrum, L4 the right third rib, sternum posterior elements of T2 on the left. Some muscular uptake is noted within the neck. IMPRESSION: Metastatic disease.
== END | disposition home or self-care (01) ==
LOC: RADPETMAIN 09:35
PROVIDERS: ATTEND Internal Medicine Hematology & Oncology
DX: C34.11 Malignant neoplasm of upper lobe, right bronchus or lung (principal)
CPT/HCPCS: 78815; A9552

== ENCOUNTER 2021-07-23 20:43 | Inpatient (IN) | payer MEDICARE ==
[2021-07-23] MEDS ORDERED: ACETAMINOPHEN TAB 500 MG TAB PO STA (21:49)
[2021-07-23] MEDS ORDERED: IBUPROFEN 600 MG TAB PO STA (21:49)
[2021-07-23] MEDS ORDERED: SODIUM CHLORIDE 0.9% 1,000 ML IV STA (21:49)
--- NOTE | 2021-07-23 21:50 | ED ---
Fever HPI - General Chief Complaint: Extremity Problem,Nontraumatic Stated Complaint: knee pain hip pain Time Seen by Provider: 07/23/21 21:46 Source: patient, EMS, RN notes reviewed, old records reviewed Mode of arrival: EMS Limitations: physical limitation - History of Present Illness Initial Comments: This is a 71-year-old female to the emergency department with multiple complaints joint pain hip pain leg pain knee pain generalized body aches and p ains back pain. Symptoms for a few days now. Symptoms worse today. Lower extremity swelling as well. No travel history no sick contacts no nausea no vomiting. No shortness of breath cough no congestion MD Complaint: fever, malaise, weakness -: week(s) Temperature Source: subjective Context: multiple patients with similar symptoms Associated Symptoms: denies other symptoms Treatments Prior to Arrival: none - Related Data Home Medications Medication Instructions Recorded Confirmed Cholecalciferol [Vitamin D3 (25 50 mcg PO DAILY 01/04/21 07/24/21 Mcg = 1000 Iu)] Dulaglutide [Trulicity] 1.5 mg SQ 01/04/21 07/24/21 Ezetimibe [Zetia] 10 mg PO DAILY 01/04/21 07/24/21 Febuxostat [Uloric] 40 mg PO DAILY 01/04/21 07/24/21 Ferrous Sulfate [Iron (65 MG 325 mg PO DAILY 01/04/21 07/24/21 Elemental)] Furosemide [Lasix] 40 mg PO DAILY 01/04/21 07/24/21 Ginkgo Biloba [place] Extract [Ginkgo] 120 mg PO DAILY 01/04/21 07/24/21 Glimepiride [Amaryl] 2 mg PO BID 01/04/21 07/24/21 Insulin Glargine,Hum.rec.anlog 26 units SQ HS 01/04/21 07/24/21 [[place] Solostar] Losartan Potassium 50 mg PO DAILY 01/04/21 07/24/21 Vitamin C/Biotin [Hair, Skin and 1 tab PO DAILY 01/04/21 07/24/21 Nails Chew] Fiber Supplement 1 tab PO BID 04/21/21 07/24/21 Acetaminophen [Tylenol 8 Hour] 650 mg PO HS 07/24/21 07/24/21 Apixaban [Eliquis] 5 mg PO BID 07/24/21 07/24/21 Calcium Carbonate [Calcium] 600 mg PO BID 07/24/21 07/24/21 Cetirizine HCl [Zyrtec] 10 mg PO DAILY 07/24/21 07/24/21 Cyclobenzaprine [Flexeril] 10 mg PO HS 07/24/21 07/24/21 Docusate [Colace] 100 mg PO DAILY 07/24/21 07/24/21 Glucosamine 1500mg 1,500 mg PO DAILY 07/24/21 07/24/21 Magnesium Oxide [Mag-Ox] 400 mg PO BID 07/24/21 07/24/21 Melatonin 3 mg PO HS PRN 07/24/21 07/24/21 Vitamin E [Vitamin E (1000 Iu = 1,000 unit PO BID 07/24/21 07/24/21 450 MG)] icosapent ethyL [Icosapent Ethyl] 1 gm PO BID 07/24/21 07/24/21 traMADol HCL 100 mg PO Q6H PRN 07/24/21 07/24/21 Allergies Allergy/AdvReac Type Severity Reaction Status Date / Time bee venom protein (honey bee) Allergy Rash/Hives Verified 07/24/21 11:38 omeprazole [From Prilosec] AdvReac Unknown unable to Verified 07/24/21 11:38 take due to kidneys. Antihistamines - Piperidine AdvReac lethargic Verified 07/24/21 11:38 codeine AdvReac lethargic/h Verified 07/24/21 11:38 ot Review of Systems ROS Statement: Those systems with pertinent positive or pertinent negative responses have been documented in the HPI. ROS Other: All systems not noted in ROS Statement are negative. Past Medical History Past Medical History: Diabetes Mellitus, Deep Vein Thrombosis (DVT), NEL D/Reflux, Hyperlipidemia, Hypertension, Osteoarthritis (OA), Renal Disease Additional Past Medical History / Comment(s): gout, DVT lower extremity December 2020 , states arthritis all over-knees,hips,shoulders & fingers, states kidney function 50%., spot on lung. History of Any Multi-Drug Resistant Organisms: None Reported Past Surgical History: Section Additional Past Surgical History / Comment(s): D&C, Hemorrhoids, belly button operation as a baby., cataracts, eyelid surgery. Past Anesthesia/Blood Transfusion Reactions: No Reported Reaction Additional Past Anesthesia/Blood Transfusion Reaction / Comment(s): spinal with childbirth and paralized 36 hrs. Past Psychological History: No Psychological Hx Reported Smoking Status: Current every day smoker Past Alcohol Use History: None Reported Past Drug Use History: None Reported General Exam Limitations: physical limitation General appearance: alert, in no apparent distress Head exam: Present: atraumatic, normocephalic, normal inspection Eye exam: Present: normal appearance, PERRL, EOMI. Absent: scleral icterus, conjunctival injection, periorbital swelling ENT exam: Present: normal exam, mucous membranes moist Neck exam: Present: normal inspection. Absent: tenderness, meningismus, lymphadenopathy Respiratory exam: Present: normal lung sounds bilaterally. Absent: respiratory distress, wheezes, rales, rhonchi, stridor Cardiovascular Exam: Present: normal rhythm, tachycardia, normal heart sounds. Absent: systolic murmur, diastolic murmur, rubs, gallop, clicks GI/Abdominal exam: Present: soft, normal bowel sounds. Absent: distended, tenderness, guarding, rebound, rigid Extremities exam: Present: normal inspection, full ROM, normal capillary refill. Absent: tenderness, pedal edema, joint swelling, calf tenderness Back exam: Present: normal inspection Neurological exam: Present: alert, oriented X3, CN II-XII intact Psychiatric exam: Present: normal affect, normal mood Skin exam: Present: warm, dry, intact, normal color. Absent: rash Course Vital Signs 07/23/21 07/24/21 07/24/21 20:48 00:02 06:48 Temperature 100.9 F H 98.2 F 98.3 F Pulse Rate 128 H 102 H 85 Respiratory 18 18 19 Rate Blood Pressure 135/77 105/65 109/67 O2 Sat by Pulse 94 L 96 96 Oximetry - Reevaluation(s) Reevaluation #1: 07/24/21 Medical records reviewed Reevaluation #2: 07/24/21 Patient informed of results and questions are answered Reevaluation #3: 07/24/21 Patient symptoms are improved here in the ER - Consultations Consultation #1: Spoke with sound physicians agreeable to admit this patient Medical Decision Making - Medical Decision Making 71 female to the emergency department with chronic pain. Positive fever positive pneumonia. Patient be admitted for pain control and treatment of fever and pneumonia - Lab Data Result diagrams: 07/23/21 22:35 07/23/21 22:35 Lab Results 07/23/21 07/23/21 07/23/21 Range/Units 22:35 22:35 22:35 WBC 10.0 (3.8-10.6) k/uL RBC 4.40 (3.80-5.40) m/uL Hgb 12.5 (11.4-16.0) gm/dL Hct 38.4 (34.0-46.0) % MCV 87.2 (80.0-100.0) fL MCH 28.3 (25.0-35.0) pg MCHC 32.5 (31.0-37.0) g/dL RDW 17.1 H (11.5-15.5) % Plt Count 169 (150-450) k/uL MPV 7.8 Neutrophils % Not Reportable Neutrophils % (Manual) 60 % Band Neuts % (Manual) 26 % Lymphocytes % Not Reportable Lymphocytes % (Manual) 7 % Monocytes % Not Reportable Monocytes % (Manual) 5 % Eosinophils % Not Reportable Eosinophils % (Manual) 2 % Basophils % Not Reportable Neutrophils # Not Reportable Neutrophils # (Manual) 8.60 H (1.3-7.7) k/uL Lymphocytes # Not Reportable Lymphocytes # (Manual) 0.70 L (1.0-4.8) k/uL Monocytes # Not Reportable Monocytes # (Manual) 0.50 (0-1.0) k/uL Eosinophils # Not Reportable Eosinophils # (Manual) 0.20 (0-0.7) k/uL Basophils # Not Reportable Nucleated RBCs 0 (0-0) /100 WBC Manual Slide Review Performed Toxic Granulation Present Toxic Vacuolation Present Anisocytosis Slight PT 10.5 (9.0-12.0) sec INR 1.0 (<1.2) APTT 23.6 (22.0-30.0) sec Sodium (137-145) mmol/L Potassium (3.5-5.1) mmol/L Chloride (98-107) mmol/L Carbon Dioxide (22-30) mmol/L Anion Gap mmol/L BUN (7-17) mg/dL Creatinine (0.52-1.04) mg/dL Est GFR (CKD-EPI)AfAm (>60 ml/min/1.73 sqM) Est GFR (CKD-EPI)NonAf (>60 ml/min/1.73 sqM) Glucose (74-99) mg/dL Calcium (8.4-10.2) mg/dL Phosphorus (2.5-4.5) mg/dL Magnesium (1.6-2.3) mg/dL Total Bilirubin (0.2-1.3) mg/dL AST (14-36) U/L ALT (4-34) U/L Alkaline Phosphatase (38-126) U/L Troponin I (0.000-0.034) ng/mL NT-Pro-B Natriuret Pep pg/mL Total Protein (6.3-8.2) g/dL Albumin (3.5-5.0) g/dL Urine Color Yellow Urine Appearance Clear (Clear) Urine pH 7.5 (5.0-8.0) Ur Specific [place] 1.014 (1.001-1.035) Urine Protein Trace H (Negative) Urine Glucose (UA) 2+ H (Negative) Urine Ketones 1+ H (Negative) Urine Blood Negative (Negative) Urine Nitrite Negative (Negative) Urine Bilirubin Negative (Negative) Urine Urobilinogen <2.0 (<2.0) mg/dL Ur Leukocyte Esterase Small H (Negative) Urine RBC 2 (0-5) /hpf Urine WBC 13 H (0-5) /hpf Ur Squamous Epith Cells 3 (0-4) /hpf Urine Bacteria Rare H (None) /hpf Influenza Type A (PCR) (Not Detectd) Influenza Type B (PCR) (Not Detectd) RSV (PCR) (Not Detectd) SARS-CoV-2 (PCR) (Not Detectd) 07/23/21 07/23/21 07/23/21 Range/Units 22:35 22:35 22:35 WBC (3.8-10.6) k/uL RBC (3.80-5.40) m/uL Hgb (11.4-16.0) gm/dL Hct (34.0-46.0) % MCV (80.0-100.0) fL MCH (25.0-35.0) pg MCHC (31.0-37.0) g/dL RDW (11.5-15.5) % Plt Count (150-450) k/uL MPV Neutrophils % Neutrophils % (Manual) % Band Neuts % (Manual) % Lymphocytes % Lymphocytes % (Manual) % Monocytes % Monocytes % (Manual) % Eosinophils % Eosinophils % (Manual) % Basophils % Neutrophils # Neutrophils # (Manual) (1.3-7.7) k/uL Lymphocytes # Lymphocytes # (Manual) (1.0-4.8) k/uL Monocytes # Monocytes # (Manual) (0-1.0) k/uL Eosinophils # Eosinophils # (Manual) (0-0.7) k/uL Basophils # Nucleated RBCs (0-0) /100 WBC Manual Slide Review Toxic Granulation Toxic Vacuolation Anisocytosis PT (9.0-12.0) sec INR (<1.2) APTT (22.0-30.0) sec Sodium 131 L (137-145) mmol/L Potassium 4.2 (3.5-5.1) mmol/L Chloride 102 (98-107) mmol/L Carbon Dioxide 24 (22-30) mmol/L Anion Gap 5 mmol/L BUN 17 (7-17) mg/dL Creatinine 0.80 (0.52-1.04) mg/dL Est GFR (CKD-EPI)AfAm 87 (>60 ml/min/1.73 sqM) Est GFR (CKD-EPI)NonAf 75 (>60 ml/min/1.73 sqM) Glucose 147 H (74-99) mg/dL Calcium 7.6 L (8.4-10.2) mg/dL Phosphorus 2.2 L (2.5-4.5) mg/dL Magnesium 1.9 (1.6-2.3) mg/dL Total Bilirubin 0.4 (0.2-1.3) mg/dL AST 24 (14-36) U/L ALT 28 (4-34) U/L Alkaline Phosphatase 110 (38-126) U/L Troponin I 0.013 (0.000-0.034) ng/mL NT-Pro-B Natriuret Pep 520 pg/mL Total Protein 5.3 L (6.3-8.2) g/dL Albumin 2.8 L (3.5-5.0) g/dL Urine Color Urine Appearance (Clear) Urine pH (5.0-8.0) Ur Specific [place] (1.001-1.035) Urine Protein (Negative) Urine Glucose (UA) (Negative) Urine Ketones (Negative) Urine Blood (Negative) Urine Nitrite (Negative) Urine Bilirubin (Negative) Urine Urobilinogen (<2.0) mg/dL Ur Leukocyte Esterase (Negative) Urine RBC (0-5) /hpf Urine WBC (0-5) /hpf Ur Squamous Epith Cells (0-4) /hpf Urine Bacteria (None) /hpf Influenza Type A (PCR) (Not Detectd) Influenza Type B (PCR) (Not Detectd) RSV (PCR) (Not Detectd) SARS-CoV-2 (PCR) (Not Detectd) 07/24/21 Range/Units 00:07 WBC (3.8-10.6) k/uL RBC (3.80-5.40) m/uL Hgb (11.4-16.0) gm/dL Hct (34.0-46.0) % MCV (80.0-100.0) fL MCH (25.0-35.0) pg MCHC (31.0-37.0) g/dL RDW (11.5-15.5) % Plt Count (150-450) k/uL MPV Neutrophils % Neutrophils % (Manual) % Band Neuts % (Manual) % Lymphocytes % Lymphocytes % (Manual) % Monocytes % Monocytes % (Manual) % Eosinophils % Eosinophils % (Manual) % Basophils % Neutrophils # Neutrophils # (Manual) (1.3-7.7) k/uL Lymphocytes # Lymphocytes # (Manual) (1.0-4.8) k/uL Monocytes # Monocytes # (Manual) (0-1.0) k/uL Eosinophils # Eosinophils # (Manual) (0-0.7) k/uL Basophils # Nucleated RBCs (0-0) /100 WBC Manual Slide Review Toxic Granulation Toxic Vacuolation Anisocytosis PT (9.0-12.0) sec INR (<1.2) APTT (22.0-30.0) sec Sodium (137-145) mmol/L Potassium (3.5-5.1) mmol/L Chloride (98-107) mmol/L Carbon Dioxide (22-30) mmol/L Anion Gap mmol/L BUN (7-17) mg/dL Creatinine (0.52-1.04) mg/dL Est GFR (CKD-EPI)AfAm (>60 ml/min/1.73 sqM) Est GFR (CKD-EPI)NonAf (>60 ml/min/1.73 sqM) Glucose (74-99) mg/dL Calcium (8.4-10.2) mg/dL Phosphorus (2.5-4.5) mg/dL Magnesium (1.6-2.3) mg/dL Total Bilirubin (0.2-1.3) mg/dL AST (14-36) U/L ALT (4-34) U/L Alkaline Phosphatase (38-126) U/L Troponin I (0.000-0.034) ng/mL NT-Pro-B Natriuret Pep pg/mL Total Protein (6.3-8.2) g/dL Albumin (3.5-5.0) g/dL Urine Color Urine Appearance (Clear) Urine pH (5.0-8.0) Ur Specific [place] (1.001-1.035) Urine Protein (Negative) Urine Glucose (UA) (Negative) Urine Ketones (Negative) Urine Blood (Negative) Urine Nitrite (Negative) Urine Bilirubin (Negative) Urine Urobilinogen (<2.0) mg/dL Ur Leukocyte Esterase (Negative) Urine RBC (0-5) /hpf Urine WBC (0-5) /hpf Ur Squamous Epith Cells (0-4) /hpf Urine Bacteria (None) /hpf Influenza Type A (PCR) Not Detected (Not Detectd) Influenza Type B (PCR) Not Detected (Not Detectd) RSV (PCR) Not Detected (Not Detectd) SARS-CoV-2 (PCR) Not Detected (Not Detectd) - EKG Data -: EKG Interpreted by Me (EKG is sinus tachycardia 123 MA 167 QRS 72 QTC 368) - Radiology Data Radiology results: report reviewed (CT abdomen and pelvis was pleural effusions left LL pneumoina), image reviewed Disposition Clinical Impression: Pleural effusion on left, Fever, Chronic pain, Left lower lobe pneumonia Disposition: ADMITTED IP TO THIS HOSP Condition: Good Is patient prescribed a controlled substance at d/c from ED?: No
--- NOTE | 2021-07-23 22:27 | XR ---
EXAMINATION TYPE: XR chest 1V portable DATE OF EXAM: 07/23/2021 COMPARISON: 04/22/2021 HISTORY: Short of breath TECHNIQUE: Single view FINDINGS: There is some airspace infiltrate right upper lobe and also left lower lobe. There is no he art failure. Heart size is normal. There is no definite pleural effusion. There are chest leads. Medi astinum is normal. IMPRESSION: Bilateral pneumonia is increased compared to old exam. No heart failure.
--- NOTE | 2021-07-23 22:28 | XR ---
EXAMINATION TYPE: XR pelvis AP view DATE OF EXAM: 07/23/2021 COMPARISON: NONE HISTORY: Pain TECHNIQUE: Single view FINDINGS: Pelvic ring is intact. Proximal femurs are intact. Sacroiliac joints appear normal. No frac ture seen. Hip joint spaces are fairly normal IMPRESSION: Negative pelvis x-ray exam.
[2021-07-23 22:52] LABS: Anisocytosis Slight; HCT 38.4 % (34.0-46.0); HGB 12.5 gm/dL (11.4-16.0); MCH 28.3 pg (25.0-35.0); MCHC 32.5 g/dL (31.0-37.0); MCV 87.2 fL (80.0-100.0); Mean Platelet Volume 7.8; Platelet Count 169 k/uL (150-450); RDW 17.1 % (11.5-15.5)
[2021-07-23 22:55] LABS: Partial Thromboplastin Time 23.6 sec (22.0-30.0); Prothrombin Time 10.5 sec (9.0-12.0)
[2021-07-23 23:06] LABS: Albumin 2.8 g/dL (3.5-5.0); Calcium 7.6 mg/dL (8.4-10.2); Magnesium 1.9 mg/dL (1.6-2.3); Phosphorus 2.2 mg/dL (2.5-4.5); Potassium 4.2 mmol/L (3.5-5.1); Total Bilirubin 0.4 mg/dL (0.2-1.3); Total Protein 5.3 g/dL (6.3-8.2)
[2021-07-23 23:10] LABS: Appearance,Urine Clear (Clear); Bacteria,Urine Rare /hpf; Bilirubin,Urine Negative (Negative); Blood,Urine Negative (Negative); Color,Urine Yellow; Glucose,Urine (UA) 2+ (Negative); Ketones,Urine 1+ (Negative); Leukocyte Esterase,Urine Small (Negative); Nitrite,Urine Negative (Negative); PH, Urine 7.5 (5.0-8.0); Protein,Urine Trace (Negative); RBC,Urine 2 /hpf (0-5); Specific Gravity,Urine 1.014 (1.001-1.035); Squamous Epithelial Cell,Urine 3 /hpf (0-4); Urobilinogen,Urine <2.0 mg/dL (<2.0); WBC,Urine 13 /hpf (0-5)
[2021-07-23 23:21] LABS: Band Neutrophils % 26 %; Neutrophils % (M) 60 %; Nucleated Red Blood Cells 0 /100 WBC (0-0); Total Cells Counted 200
[2021-07-23 23:22] LABS: Toxic Granulation Present; Toxic Vacuolation Present
[2021-07-23] MEDS ORDERED: cefTRIAXone IN SWFI 1,000 MG/10 ML SYRINGE IVP STA (23:30)
[2021-07-23] MEDS ORDERED: HYDROmorphone 1 MG/ML 1 ML SYRINGE IVP STA (23:31)
[2021-07-24 01:25] LABS: Influenza A Not Detected (Not Detectd); Influenza B Not Detected (Not Detectd)
--- NOTE | 2021-07-24 02:19 | CT ---
EXAMINATION TYPE: CT abdomen pelvis w con DATE OF EXAM: 07/24/2021 COMPARISON: PET CT scan 06/25/2021 HISTORY: pain CT DLP: 1346.3 mGycm Automated exposure control for dose reduction was used. CONTRAST: Performed with IV Contrast, patient injected with 100 mL of Isovue 300. Images obtained from the diaphragm to the floor of the pelvis with IV contrast. There is left pleural effusion. There is some infiltrate and atelectasis left lower lobe. There is 4 x 3 cm irregular low-density mass in the posterior wall and right lateral wall of the right atrium. H eart size is normal. The liver is intact. The bile ducts are not dilated. There are multiple cholesterol gallstones. Splee n is intact. There is no pancreatic mass. The stomach is intact. The bile ducts are not dilated. There are bilateral 3 cm intermediate density adrenal masses. The kidneys have normal size. There is no hydronephrosis. Ureters are not dilated. Delayed images show normal renal excretion. There is no r etroperitoneal adenopathy. Bladder distends smoothly. There is no inguinal hernia. Uterus is antevert ed. There is no free fluid in the pelvis. There is some osteosclerosis in the L4 vertebral body with mild compression deformity. There is some posterior mild expansion into the spinal canal. There is mi ld depression of the T11 vertebral body superior endplate of 15%. The bony pelvis is intact. The prox imal femurs and hip joints are intact. Sacroiliac joints appear normal. There is a mild relative spin al stenosis. There is no bowel obstruction. Appendix appears normal. There is no mesenteric edema. There is no asc ites or free air. IMPRESSION: Osteoblastic changes with mild pathologic fracture of L4 vertebral body and mild spinal stenosis due to posterior extension. This is probably slightly worse than last CT scan. Bilateral adrenal metastatic disease. Left pleural effusion and mild infiltrate and atelectasis left lower lobe which is mostly new compared to last exam.
[2021-07-24] MEDS ORDERED: PNEUMONIA PROTOCOL UTILIZED 1 EACH MISC PO PRN (03:23)
[2021-07-24] MEDS ORDERED: IPRATROPIUM-ALBUTEROL 3 ML NEB INHALATION PRN (03:23)
[2021-07-24] MEDS ORDERED: HYDROmorphone 1 MG/ML 1 ML SYRINGE IVP STA (04:11)
[2021-07-24 11:16] LABS: Glucose,Whole Blood 207 mg/dL (75-99)
[2021-07-24] MEDS: INSULIN ASPART (NovoLOG) 100 UNIT/ML VIAL SQ SCH ×3 (11:20→21:06)
[2021-07-24] MEDS ORDERED: MELATONIN 3 MG TABLET PO PRN (12:22)
[2021-07-24] MEDS: ACETAMINOPHEN TAB 325 MG TAB PO PRN (12:41)
[2021-07-24] MEDS: traMADol 50 MG TAB PO PRN ×2 (12:41→22:40)
[2021-07-24] MEDS: AZITHROMYCIN 500 MG TAB PO SCH (13:44)
[2021-07-24] MEDS: HYDROmorphone 0.5 MG/0.5 ML SYRINGE IVP PRN ×2 (14:58→21:32)
[2021-07-24 16:03] LABS: Glucose,Whole Blood 160 mg/dL (75-99)
[2021-07-24] MEDS: HYDROcodone/APAP 5-325MG 1 EACH TAB PO PRN (17:45)
[2021-07-24 21:00] LABS: Glucose,Whole Blood 126 mg/dL (75-99)
[2021-07-24] MEDS: CYCLOBENZAPRINE 10 MG TAB PO SCH (21:31)
[2021-07-24] MEDS: CALCIUM CARBONATE 500 MG CHEWABLE PO SCH (21:31)
[2021-07-24] MEDS: APIXABAN 5 MG TAB PO SCH (21:31)
[2021-07-24] MEDS: MAGNESIUM OXIDE 400 MG TAB PO SCH (21:31)
[2021-07-24] MEDS: INSULIN DETEMIR (LEVEMIR) 100 UNIT/ML SYR SQ SCH (21:32)
[2021-07-25] MEDS: ACETAMINOPHEN TAB 325 MG TAB PO PRN (00:40)
[2021-07-25] MEDS: HYDROmorphone 0.5 MG/0.5 ML SYRINGE IVP PRN ×5 (00:51→21:44)
[2021-07-25 07:00] LABS: Glucose,Whole Blood 96 mg/dL (75-99)
[2021-07-25] MEDS: MAGNESIUM OXIDE 400 MG TAB PO SCH ×2 (07:02→20:40)
[2021-07-25] MEDS: FUROSEMIDE 40 MG TAB PO SCH (07:02)
[2021-07-25] MEDS: FERROUS SULFATE 325 MG TAB PO SCH (07:02)
[2021-07-25] MEDS: LOSARTAN 50 MG TAB PO SCH (07:02)
[2021-07-25] MEDS: CHOLECALCIFEROL 25 MCG (1000 IU) TABLET PO SCH (07:02)
[2021-07-25] MEDS: EZETIMIBE 10 MG TAB PO SCH (07:03)
[2021-07-25] MEDS: LORATADINE 10 MG TAB PO SCH (07:03)
[2021-07-25] MEDS: allopurinoL 100 MG TAB PO SCH (07:03)
[2021-07-25] MEDS: DOCUSATE 100 MG CAP PO SCH (07:03)
[2021-07-25] MEDS: AZITHROMYCIN 500 MG TAB PO SCH (07:04)
[2021-07-25] MEDS: HYDROcodone/APAP 5-325MG 1 EACH TAB PO PRN ×3 (07:04→19:40)
[2021-07-25] MEDS: APIXABAN 5 MG TAB PO SCH ×2 (07:04→20:40)
--- NOTE | 2021-07-25 07:11 | XR ---
EXAMINATION TYPE: XR chest 2V DATE OF EXAM: 07/25/2021 COMPARISON: Chest x-ray 2 days ago and older studies including PET/CT June 25, 2021. HISTORY: Pneumonia. History of right lung cancer. TECHNIQUE: Frontal and lateral views of the chest are obtained. FINDINGS: There is persistent anterior inferior right upper lung opacity. Stable left basilar opacit y corresponds to small left pleural effusion on lateral x-ray The cardiac silhouette size is stable a nd upper limits of normal. The osseous structures are intact. IMPRESSION: New small left pleural effusion. There is associated left basilar atelectasis and/or infi ltrate. Background chronic emphysematous change with persistent anterior-inferior right upper lung op acity corresponds to site of known neoplasm, associated atelectasis and/or infiltrate cannot be exclu ded. No new infiltrate identified. No significant change from most recent chest x-ray.
[2021-07-25] MEDS: INSULIN ASPART (NovoLOG) 100 UNIT/ML VIAL SQ SCH ×4 (07:41→20:40)
[2021-07-25] MEDS: CALCIUM CARBONATE 500 MG CHEWABLE PO SCH ×2 (09:00→19:38)
--- NOTE | 2021-07-25 10:14 | P.CONS ---
History of Present Illness - Reason for Consult Consult date: 07/25/21 Progressive low back pain, pneumonia - History of Present Illness The patient is a 71-year-old white female well known to our service. She follows with Dr. See in the office. Her oncology history is as follows: She initially presented with extensive LLE DVT in 12/2020,at that time,she had a CT scan of chest which revealed a suspicious RUL lung nodule. PET scan done on 04/09/2021 revealed suspicious uptake in 5.9 cm RUL mass,which increased in size compared to 01/07/2021 CT scan of chest,a suspicious uptake in a small right hilar node. On 04/22/2021,she had navigational bronchoscopy,transbronchial biopsy of RUL was positive for poorly differentiated carcinoma consistent with lung primary. She was evaluated by Dr Crespo and felt not a surgical candidate due to co- morbidities and PS. Brain MRI on 05/20/2021 was negative for metastatic disease. PDL-1 was 99%. NGS revealed KRAS G12C mutation. On 06/03/2021,she started concurrent chemoradiation therapy with weekly taxol/carboplatin. However,on 06/09/2021,she developed significant acute lower back pain after her XRT,went to ER on 06/10/2021,had a CT of lumbar spine which revealed degenerative disc disease,CT scan of abdomen/pelvis revealed new small bilateral adrenal lesions.(were not present on prior PET scan). Chemoradiation was stopped. Repeat PET scan on 06/25/2021 revealed evidence of disease progression,multiple osseous lesions,bilateral adrenal gland lesions. She started Keytruda on 07/16/21, and is s/p 1 cycle The patient did receive radiation to the back as she was having significant pain in that area. She states that she completed that last week. However her back pain subsequently became worse with radiation down the right leg to the knee. She states that this was the main reason for her coming to the ER. She is also complaining of bilateral hip pain and left for her pain. In the ER showed a fever of 100.9. Chest x-ray showed left lower lobe pleural effusion with possible adjacent infiltrate. Pelvis x-ray was negative. Her computed tomography scan of the abdomen and pelvis showed possible progression of pathologic fracture in L4. She was admitted for further management, and consult placed. Review of Systems Constitutional: Reports chronic pain, Reports weakness Eyes: denies blurred vision, denies pain Ears: deny: decreased hearing, ear discharge, earache, tinnitus Ears, nose, mouth and throat: Denies headache, Denies sore throat Cardiovascular: Reports decreased exercise tolerance Respiratory: Reports dyspnea Gastrointestinal: Denies abdominal pain, Denies diarrhea, Denies nausea, Denies vomiting Genitourinary: Denies dysuria, Denies hematuria Menstruation: Reports postmenopausal Musculoskeletal: Reports as per HPI, Reports shooting leg pain Musculoskeletal: left: shoulder pain, bilateral: hip pain Integumentary: Denies pruritus, Denies rash Neurological: Denies numbness, Denies weakness Psychiatric: Denies anxiety, Denies depression Endocrine: Reports fatigue Hematologic/Lymphatic: Reports as per HPI Past Medical History Past Medical History: Diabetes Mellitus, Deep Vein Thrombosis (DVT), GERD/Reflux, Hyperlipidemia, Hypertension, Osteoarthritis (OA), Renal Disease Additional Past Medical History / Comment(s): gout, DVT lower extremity December 2020 , states arthritis all over-knees,hips,shoulders & fingers, states kidney function 50%., spot on lung. History of Any Multi-Drug Resistant Organisms: None Reported Past Surgical History: Section Additional Past Surgical History / Comment(s): D&C, Hemorrhoids, belly button operation as a baby., cataracts, eyelid surgery. Past Anesthesia/Blood Transfusion Reactions: No Reported Reaction Additional Past Anesthesia/Blood Transfusion Reaction / Comm: spinal with childbirth and paralized 36 hrs. Past Psychological History: No Psychological Hx Reported Smoking Status: Current every day smoker Past Alcohol Use History: None Reported Past Drug Use History: None Reported Medications and Allergies Home Medications Medication Instructions Recorded Confirmed Type Cholecalciferol [Vitamin D3 (25 50 mcg PO DAILY 01/04/21 07/24/21 History Mcg = 1000 Iu)] Dulaglutide [Trulicity] 1.5 mg SQ SA 01/04/21 07/24/21 History Ezetimibe [Zetia] 10 mg PO DAILY 01/04/21 07/24/21 History Febuxostat [Uloric] 40 mg PO DAILY 01/04/21 07/24/21 History Ferrous Sulfate [Iron (65 MG 325 mg PO DAILY 01/04/21 07/24/21 History Elemental)] Furosemide [Lasix] 40 mg PO DAILY 01/04/21 07/24/21 History Ginkgo Biloba [place] Extract [Ginkgo] 120 mg PO DAILY 01/04/21 07/24/21 History Glimepiride [Amaryl] 2 mg PO BID 01/04/21 07/24/21 History Insulin Glargine,Hum.rec.anlog 26 units SQ HS 01/04/21 07/24/21 History [Tourosalioo Solostar] Losartan Potassium 50 mg PO DAILY 01/04/21 07/24/21 History Vitamin C/Biotin [Hair, Skin and 1 tab PO DAILY 01/04/21 07/24/21 History Nails Chew] Fiber Supplement 1 tab PO BID 04/21/21 07/24/21 History Acetaminophen [Tylenol 8 Hour] 650 mg PO HS 07/24/21 07/24/21 History Apixaban [Eliquis] 5 mg PO BID 07/24/21 07/24/21 History Calcium Carbonate [Calcium] 600 mg PO BID 07/24/21 07/24/21 History Cetirizine HCl [Zyrtec] 10 mg PO DAILY 07/24/21 07/24/21 History Cyclobenzaprine [Flexeril] 10 mg PO HS 07/24/21 07/24/21 History Docusate [Colace] 100 mg PO DAILY 07/24/21 07/24/21 History Glucosamine 1500mg 1,500 mg PO DAILY 07/24/21 07/24/21 History Magnesium Oxide [Mag-Ox] 400 mg PO BID 07/24/21 07/24/21 History Melatonin 3 mg PO HS PRN 07/24/21 07/24/21 History Vitamin E [Vitamin E (1000 Iu = 1,000 unit PO BID 07/24/21 07/24/21 History 450 MG)] icosapent ethyL [Icosapent Ethyl] 1 gm PO BID 07/24/21 07/24/21 History traMADol HCL 100 mg PO Q6H PRN 07/24/21 07/24/21 History Allergies Allergy/AdvReac Type Severity Reaction Status Date / Time bee venom protein (honey bee) Allergy Rash/Hives Verified 07/24/21 11:38 omeprazole [From Prilosec] AdvReac Unknown unable to Verified 07/24/21 11:38 take due to kidneys. Antihistamines - Piperidine AdvReac lethargic Verified 07/24/21 11:38 codeine AdvReac lethargic/h Verified 07/24/21 11:38 ot Physical Exam Vitals: Vital Signs Temp Pulse Pulse Resp BP BP Pulse Ox 07/24/21 20:00 98.9 F 111 H 16 149/82 95 07/24/21 19:13 16 07/24/21 14:00 111 H 18 146/79 96 07/24/21 07:41 97.5 F L 96 12 140/74 100 07/24/21 06:48 98.3 F 85 19 109/67 96 Intake and Output 07/24/21 07/24/21 07/25/21 14:59 22:59 06:59 Other: Voiding Method Bedside Commode # Voids 1 2 # Bowel Movements 1 Weight 99.337 kg - Constitutional General appearance: no acute distress - EENT Eyes: EOMI, PERRLA ENT: hearing grossly normal, normal oropharynx - Neck Neck: no lymphadenopathy Thyroid: bilateral: normal size - Respiratory Respiratory: left: diminished, rales - Cardiovascular Rhythm: regular Heart sounds: normal: S1, S2 - Gastrointestinal General gastrointestinal: normal bowel sounds, soft - Integumentary Integumentary: normal - Neurologic Neurologic: CNII-XII intact - Musculoskeletal Strength and sensation in right lower extremity is maintained Musculoskeletal: generalized weakness, strength equal bilaterally - Psychiatric Psychiatric: A&O x's 3, appropriate affect Results CBC & Chem 7: 07/23/21 22:35 07/23/21 22:35 Labs: Abnormal Lab Results - Last 24 Hours (Table) 07/24/21 07/24/21 07/24/21 Range/Units 11:14 16:01 20:58 POC Glucose (mg/dL) 207 H 160 H 126 H (75-99) mg/dL Microbiology - Last 24 Hours (Table) 07/23/21 22:35 Blood Culture - Preliminary Blood No Growth after 24 hours 07/23/21 22:35 Urine Culture - Preliminary Urine,Voided Comments: pelvic xray report reviewed Chest x-ray: report reviewed CT scan - abdomen: report reviewed CT scan - pelvis: report reviewed Assessment and Plan (1) Left lower lobe pneumonia Narrative/Plan: This is somewhat of an incidental finding, as the patient denied any fever or change in respiratory status at home. She remains fairly stable in terms of her respiratory status and symptoms. Continue treatment per the admitting service. The patient has no neutropenia Current Visit: Yes Status: Acute Code(s): J18.9 - PNEUMONIA, UNSPECIFIED ORGANISM SNOMED Code(s): 192166784 (2) Chronic pain Narrative/Plan: This is due to bony metastatic disease, as well as fairly extensive benign degenerative joint disease. The patient states that she received radiation to her lower back, but pain has worsened since then with radicular symptoms involving the right lower extremity. CT of the abdomen and pelvis shows possible worsening at L4. Orthopedic spine surgery will be consulted. Patient states that she has seen Dr. Sanchez previously - Continue when necessary pain medications Current Visit: Yes Status: Acute Code(s): G89.29 - OTHER CHRONIC PAIN SNOMED Code(s): 85949177 (3) Non-small cell carcinoma of right lung, stage 4 Narrative/Plan: Therapeutic and diagnosis circumstances as described. The patient has just started on new treatment. She will continue on the same post discharge Current Visit: Yes Status: Acute Code(s): C34.91 - MALIGNANT NEOPLASM OF UNSP PART OF RIGHT BRONCHUS OR LUNG SNOMED Code(s): 092988777
[2021-07-25 11:47] LABS: Glucose,Whole Blood 155 mg/dL (75-99)
[2021-07-25 12:36] LABS: HCT 37.7 % (37.2-46.3); HGB 11.5 g/dL (12.0-15.0); MCH 27.2 pg (27.0-32.0); MCHC 30.5 g/dL (32.0-37.0); MCV 89.1 fL (80.0-97.0); Mean Platelet Volume 10.8 fL (9.5-12.2); NRBC Per 100 WBC 0.2 /100 WBCS (0.0-0.0); Platelet Count 195 X 10*3/uL (140-440); RBC 4.23 X 10*6/uL (4.10-5.20); RDW 18.6 % (11.5-14.5); WBC 8.01 X 10*3/uL (4.50-10.00)
[2021-07-25 12:47] LABS: African American GFR (CKD) 92.9 (60.0-200.0); Anion Gap 11.2 mmol/L (10.00-18.00); BUN/Creat Ratio 13.64 Ratio (12.00-20.00); Blood Urea Nitrogen 10.3 mg/dL (9.0-27.0); Calcium 7.8 mg/dL (8.7-10.3); Carbon Dioxide 21.6 mmol/L (20.0-27.5); Non-African American GFR(CKD) 80.1 (60.0-200.0); Potassium 4.3 mmol/L (3.5-5.5)
[2021-07-25 13:50] LABS: Basophils # (A) 0.03 X 10*3/uL (0.00-0.10); Basophils % (A) 0.4 %; Eosinophils # (A) 0.39 X 10*3/uL (0.04-0.35); Eosinophils % (A) 4.9 %; Lymphocytes # (A) 0.88 X 10*3/uL (0.90-5.00); Monocytes # (A) 0.23 X 10*3/uL (0.20-1.00); Monocytes % (A) 2.9 %; Neutrophils % (A) 79.8 %; RBC Morphology NORMAL
--- NOTE | 2021-07-25 15:29 | P.HPIM ---
History of Present Illness H&P Date: 07/24/21 Chief Complaint: Uncontrolled pain 71-year-old female with history of diabetes mellitus, hypertension, hyperlipidemia and DVT, presents to the emergency department with multiple complaints joint pain hip pain leg pain knee pain generalized body aches and pains back pain. Symptoms for a few days now. Symptoms worse today. Lower extremity swelling as well. No travel history no sick contacts no nausea no vomiting. No shortness of breath cough no congestion She initially presented with extensive LLE DVT in 12/2020,at that time,she had a CT scan of chest which revealed a suspicious RUL lung nodule. PET scan done on 04/09/2021 revealed suspicious uptake in 5.9 cm RUL mass,which increased in size compared to 01/07/2021 CT scan of chest,a suspicious uptake in a small right hilar node. On 04/22/2021,she had navigational bronchoscopy,transbronchial biopsy of RUL was positive for poorly differentiated carcinoma consistent with lung primary. She was evaluated by Dr Crespo and felt not a surgical candidate due to co- morbidities Workup in ED reveals Chest x-ray showed left lower lobe pleural effusion with possible adjacent infiltrate. Pelvis x-ray was negative. Her computed tomography scan of the abdomen and pelvis showed possible progression of pathologic fracture in L4. Review of Systems REVIEW OF SYSTEMS: CONSTITUTIONAL: No fever, no malaise, no fatigue. HEENT: No recent visual problems or hearing problems. Denied any sore throat. CARDIOVASCULAR: No chest pain, orthopnea, PND, no palpitations, no syncope. PULMONARY: No shortness of breath, no cough, no hemoptysis. GASTROINTESTINAL: No diarrhea, no nausea, no vomiting, no abdominal pain. NEUROLOGICAL: No headaches, no weakness, no numbness. HEMATOLOGICAL: Denies any bleeding or petechiae. GENITOURINARY: Denies any burning micturition, frequency, or urgency. MUSCULOSKELETAL/RHEUMATOLOGICAL: Denies any joint pain, swelling, or any muscle pain. ENDOCRINE: Denies any polyuria or polydipsia. The rest of the 14-point review of systems is negative. Past Medical History Past Medical History: Diabetes Mellitus, Deep Vein Thrombosis (DVT), GERD/Reflux, Hyperlipidemia, Hypertension, Osteoarthritis (OA), Renal Disease Additional Past Medical History / Comment(s): gout, DVT lower extremity December 2020 , states arthritis all over-knees,hips,shoulders & fingers, states kidney function 50%., spot on lung. History of Any Multi-Drug Resistant Organisms: None Reported Past Surgical History: Section Additional Past Surgical History / Comment(s): D&C, Hemorrhoids, belly button op eration as a baby., cataracts, eyelid surgery. 3 c sections Past Anesthesia/Blood Transfusion Reactions: No Reported Reaction Additional Past Anesthesia/Blood Transfusion Reaction / Comment(s): spinal with childbirth and paralized 36 hrs. Past Psychological History: No Psychological Hx Reported Smoking Status: Current every day smoker Past Alcohol Use History: None Reported Additional Past Alcohol Use History / Comment(s): quit smoking this year, hx of 8 cigarettes /day, started smoking as teenager Past Drug Use History: None Reported Medications and Allergies Home Medications Medication Instructions Recorded Confirmed Type Cholecalciferol [Vitamin D3 (25 50 mcg PO DAILY 01/04/21 07/24/21 History Mcg = 1000 Iu)] Dulaglutide [Trulicity] 1.5 mg SQ SA 01/04/21 07/24/21 History Ezetimibe [Zetia] 10 mg PO DAILY 01/04/21 07/24/21 History Febuxostat [Uloric] 40 mg PO DAILY 01/04/21 07/24/21 History Ferrous Sulfate [Iron (65 MG 325 mg PO DAILY 01/04/21 07/24/21 History Elemental)] Furosemide [Lasix] 40 mg PO DAILY 01/04/21 07/24/21 History Ginkgo Biloba [place] Extract [Ginkgo] 120 mg PO DAILY 01/04/21 07/24/21 History Glimepiride [Amaryl] 2 mg PO BID 01/04/21 07/24/21 History Insulin Glargine,Hum.rec.anlog 26 units SQ HS 01/04/21 07/24/21 History [Toujeo Solostar] Losartan Potassium 50 mg PO DAILY 01/04/21 07/24/21 History Vitamin C/Biotin [Hair, Skin and 1 tab PO DAILY 01/04/21 07/24/21 History Nails Chew] Fiber Supplement 1 tab PO BID 04/21/21 07/24/21 History Acetaminophen [Tylenol 8 Hour] 650 mg PO HS 07/24/21 07/24/21 History Apixaban [Eliquis] 5 mg PO BID 07/24/21 07/24/21 History Calcium Carbonate [Calcium] 600 mg PO BID 07/24/21 07/24/21 History Cetirizine HCl [Zyrtec] 10 mg PO DAILY 07/24/21 07/24/21 History Cyclobenzaprine [Flexeril] 10 mg PO HS 07/24/21 07/24/21 History Docusate [Colace] 100 mg PO DAILY 07/24/21 07/24/21 History Glucosamine 1500mg 1,500 mg PO DAILY 07/24/21 07/24/21 History Magnesium Oxide [Mag-Ox] 400 mg PO BID 07/24/21 07/24/21 History Melatonin 3 mg PO HS PRN 07/24/21 07/24/21 History Vitamin E [Vitamin E (1000 Iu = 1,000 unit PO BID 07/24/21 07/24/21 History 450 MG)] icosapent ethyL [Icosapent Ethyl] 1 gm PO BID 07/24/21 07/24/21 History traMADol HCL 100 mg PO Q6H PRN 07/24/21 07/24/21 History Allergies Allergy/AdvReac Type Severity Reaction Status Date / Time bee venom protein (honey bee) Allergy Rash/Hives Verified 07/24/21 11:38 omeprazole [From Prilosec] AdvReac Unknown unable to Verified 07/24/21 11:38 take due to kidneys. Antihistamines - Piperidine AdvReac lethargic Verified 07/24/21 11:38 codeine AdvReac lethargic/h Verified 07/24/21 11:38 ot Physical Exam Vitals: Vital Signs Temp Pulse Pulse Resp BP BP Pulse Ox 07/24/21 07:41 97.5 F L 96 12 140/74 100 07/24/21 06:48 98.3 F 85 19 109/67 96 07/24/21 00:02 98.2 F 102 H 18 105/65 96 07/23/21 20:48 100.9 F H 128 H 18 135/77 94 L Intake and Output 07/23/21 07/24/21 07/24/21 22:59 06:59 14:59 Other: Weight 99.337 kg 99.337 kg General appearance: alert, in no apparent distress Head exam: Present: atraumatic, normocephalic, normal inspection Eye exam: Present: normal appearance, PERRL, EOMI. Absent: scleral icterus, conjunctival injection, periorbital swelling ENT exam: Present: normal exam, mucous membranes moist Neck exam: Present: normal inspection. Absent: tenderness, meningismus, lymphadenopathy Respiratory exam: Present: normal lung sounds bilaterally. Absent: respiratory distress, wheezes, rales, rhonchi, stridor Cardiovascular Exam: Present: normal rhythm, tachycardia, normal heart sounds. Absent: systolic murmur, diastolic murmur, rubs, gallop, clicks GI/Abdominal exam: Present: soft, normal bowel sounds. Absent: distended, tenderness, guarding, rebound, rigid Extremities exam: Present: normal inspection, full ROM, normal capillary refill. Absent: tenderness, pedal edema, joint swelling, calf tenderness Back exam: Present: normal inspection Neurological exam: Present: alert, oriented X3, CN II-XII intact Psychiatric exam: Present: normal affect, normal mood Skin exam: Present: warm, dry, intact, normal color. Absent: rash Results CBC & Chem 7: 07/25/21 04:53 07/25/21 04:53 Labs: Abnormal Lab Results - Last 24 Hours (Table) 07/23/21 07/23/21 07/23/21 Range/Units 22:35 22:35 22:35 RDW 17.1 H (11.5-15.5) % Neutrophils # (Manual) 8.60 H (1.3-7.7) k/uL Lymphocytes # (Manual) 0.70 L (1.0-4.8) k/uL Sodium 131 L (137-145) mmol/L Glucose 147 H (74-99) mg/dL Calcium 7.6 L (8.4-10.2) mg/dL Phosphorus 2.2 L (2.5-4.5) mg/dL Total Protein 5.3 L (6.3-8.2) g/dL Albumin 2.8 L (3.5-5.0) g/dL Urine Protein Trace H (Negative) Urine Glucose (UA) 2+ H (Negative) Urine Ketones 1+ H (Negative) Ur Leukocyte Esterase Small H (Negative) Urine WBC 13 H (0-5) /hpf Urine Bacteria Rare H (None) /hpf Thrombosis Risk Factor Assmnt - Choose All That Apply Any of the Below Risk Factors Present?: Yes Each Factor Represents 1 point: Obesity (BMI >25) Other Risk Factors: Yes Each Risk Factor Represents 2 Points: Age 61-74 years Each Risk Factor Represents 3 Points: History of DVT/PE Other congenital or acquired thrombophilia - If yes, enter type in comment: Yes Thrombosis Risk Factor Assessment Total Risk Factor Score: 6 Thrombosis Risk Factor Assessment Level: High Risk Assessment and Plan Assessment: 1. Left lower lobe pneumonia - Patient has been placed on IV Rocephin 2 g daily along with azithromycin; we will monitor CBC, CRP and pro-calcitonin - Consult pulmonary for further recommendations 2. Pathological fracture at L4; continue with pain control as indicated; Orthopedic spine surgery will be consulted. Patient states that she has seen Dr. Sanchez previously 3. Uncontrolled pain; patient has been placed on Ultram 100 mg by mouth every 6 hours along with IV Dilaudid for breakthrough pain 4. Non-small cell carcinoma of right lung; stage IV 5. Hypertension; losartan 50 mg daily 6. Hyperlipidemia; Zetia 10 mg daily 7. Diabetes mellitus; continue with home dose of Levemir 26 units subcu daily at bedtime; monitor Accu-Cheks every before meals and at bedtime with insulin sliding scale 8. History of DVT; patient remains on Eliquis 5 mg by mouth twice a day DVT prophylaxis; SCDs/systemic anticoagulation CODE STATUS; full code
[2021-07-25 16:26] LABS: Glucose,Whole Blood 141 mg/dL (75-99)
--- NOTE | 2021-07-25 16:41 | P.CNPUL ---
History of Present Illness Consult date: 07/25/21 Reason for consult: pneumonia History of present illness: The patient is a 71-year-old white female with known history of metastatic lung cancer. The patient has been followed up through our service and oncology. I was estimated at this patient because of a pneumonia. The most recent CAT scan of the abdomen and pelvis showed some atelectatic changes and small effusion the lung bases bilaterally. For that reason, Pulmicort station was requested suspecting pneumonia. In summary, the patient initially presented with extensive LLE DVT in 12/2020,at that time,she had a CT scan of chest which revealed a suspicious RUL lung nodule. PET scan done on 04/09/2021 revealed suspicious uptake in 5.9 cm RUL mass,which increased in size compared to 01/07/2021 CT scan of chest,a suspicious uptake in a small right hilar node.On 04/22/2021,she had navigational bronchoscopy,transbronchial biopsy of RUL was positive for poorly differentiated carcinoma consistent with lung primary. She was evaluated by Dr Crespo and felt not a surgical candidate due to co- morbidities and PS.Brain MRI on 05/20/2021 was negative for metastatic disease. PDL-1 was 99%. NGS revealed KRAS G12C mutation. On 06/03/2021,she started concurrent chemoradiation therapy with weekly taxol/carboplatin. However,on 06/09/2021,she developed significant acute lower back pain after her XRT,went to ER on 06/10/2021,had a CT of lumbar spine which revealed degenerative disc disease,CT scan of abdomen/pelvis revealed new small bilateral adrenal lesions.(were not present on prior PET scan). Chemoradiation was stopped. Repeat PET scan on 06/25/2021 revealed evidence of disease progression,multiple osseous lesions,bilateral adrenal gland lesions. She started Keytruda on 07/16/21, and is s/p 1 cycle For now, the patient denies having any significant shortness of breath. No c ough sputum production chest answer wheezing. Nevertheless, the patient is having pain in her back radiating to her left lower extremity and she is having difficulty with mobility. This may be related to recent finding of a pathologic fracture of the L4 vertebral body and mild spinal stenosis due to posterior extension. As evident, the patient also has bilateral adrenal metastases and a left-sided pleural effusion with some atelectatic changes and left lower lobe. She did have a bout of fever at time of admission, currently afebrile. Pelvic x-ray is negative. The patient is currently on room air oxygen. White cell count is at 8.0. Resident the blood work and electrodes are all within normal limits. Pro-calcitonin level is at 0.45. The patient was started on examination Rocephin and Zithromax. Review of Systems CONSTITUTIONAL: No fever, no malaise, no fatigue. HEENT: No recent visual problems or hearing problems. Denied any sore throat. CARDIOVASCULAR: No chest pain, orthopnea, PND, no palpitations, no syncope. PULMONARY: No shortness of breath, no cough, no hemoptysis. GASTROINTESTINAL: No diarrhea, no nausea, no vomiting, no abdominal pain. NEUROLOGICAL: No headaches, no weakness, no numbness. HEMATOLOGICAL: Denies any bleeding or petechiae. GENITOURINARY: Denies any burning micturition, patient is having back pain radiating to her left lower extremity and difficulty with mobility and gait and difficulty with applying weight on her hips bilaterally. ENDOCRINE: Denies any polyuria or polydipsia. Past Medical History Past Medical History: Diabetes Mellitus, Deep Vein Thrombosis (DVT), GERD/Reflux, Hyperlipidemia, Hypertension, Osteoarthritis (OA), Renal Disease Additional Past Medical History / Comment(s): gout, DVT lower extremity December 2020 , states arthritis all over-knees,hips,shoulders & fingers, states kidney function 50%., spot on lung. History of Any Multi-Drug Resistant Organisms: None Reported Past Surgical History: Section Additional Past Surgical History / Comment(s): D&C, Hemorrhoids, belly button operation as a baby., cataracts, eyelid surgery. 3 c sections Past Anesthesia/Blood Transfusion Reactions: No Reported Reaction Additional Past Anesthesia/Blood Transfusion Reaction / Comment(s): spinal with childbirth and paralized 36 hrs. Past Psychological History: No Psychological Hx Reported Smoking Status: Current every day smoker Past Alcohol Use History: None Reported Additional Past Alcohol Use History / Comment(s): quit smoking this year, hx of 8 cigarettes /day, started smoking as teenager Past Drug Use History: None Reported Medications and Allergies Home Medications Medication Instructions Recorded Confirmed Type Cholecalciferol [Vitamin D3 (25 50 mcg PO DAILY 01/04/21 07/24/21 History Mcg = 1000 Iu)] Dulaglutide [Trulicity] 1.5 mg SQ SA 01/04/21 07/24/21 History Ezetimibe [Zetia] 10 mg PO DAILY 01/04/21 07/24/21 History Febuxostat [Uloric] 40 mg PO DAILY 01/04/21 07/24/21 History Ferrous Sulfate [Iron (65 MG 325 mg PO DAILY 01/04/21 07/24/21 History Elemental)] Furosemide [Lasix] 40 mg PO DAILY 01/04/21 07/24/21 History Ginkgo Biloba Neshanic Extract [Ginkgo] 120 mg PO DAILY 01/04/21 07/24/21 History Glimepiride [Amaryl] 2 mg PO BID 01/04/21 07/24/21 History Insulin Glargine,Hum.rec.anlog 26 units SQ HS 01/04/21 07/24/21 History [Toujeo Solostar] Losartan Potassium 50 mg PO DAILY 01/04/21 07/24/21 History Vitamin C/Biotin [Hair, Skin and 1 tab PO DAILY 01/04/21 07/24/21 History Nails Chew] Fiber Supplement 1 tab PO BID 04/21/21 07/24/21 History Acetaminophen [Tylenol 8 Hour] 650 mg PO HS 07/24/21 07/24/21 History Apixaban [Eliquis] 5 mg PO BID 07/24/21 07/24/21 History Calcium Carbonate [Calcium] 600 mg PO BID 07/24/21 07/24/21 History Cetirizine HCl [Zyrtec] 10 mg PO DAILY 07/24/21 07/24/21 History Cyclobenzaprine [Flexeril] 10 mg PO HS 07/24/21 07/24/21 History Docusate [Colace] 100 mg PO DAILY 07/24/21 07/24/21 History Glucosamine 1500mg 1,500 mg PO DAILY 07/24/21 07/24/21 History Magnesium Oxide [Mag-Ox] 400 mg PO BID 07/24/21 07/24/21 History Melatonin 3 mg PO HS PRN 07/24/21 07/24/21 History Vitamin E [Vitamin E (1000 Iu = 1,000 unit PO BID 07/24/21 07/24/21 History 450 MG)] icosapent ethyL [Icosapent Ethyl] 1 gm PO BID 07/24/21 07/24/21 History traMADol HCL 100 mg PO Q6H PRN 07/24/21 07/24/21 History Allergies Allergy/AdvReac Type Severity Reaction Status Date / Time bee venom protein (honey bee) Allergy Rash/Hives Verified 07/24/21 11:38 omeprazole [From Prilosec] AdvReac Unknown unable to Verified 07/24/21 11:38 take due to kidneys. Antihistamines - Piperidine AdvReac lethargic Verified 07/24/21 11:38 codeine AdvReac lethargic/h Verified 07/24/21 11:38 ot Physical Exam Vitals: Vital Signs Temp Pulse Resp BP Pulse Ox 07/25/21 14:00 97.8 F 106 H 19 104/71 95 07/25/21 08:33 97.8 F 115 H 18 130/83 95 07/25/21 02:00 99.3 F 130 H 17 116/73 94 L 07/24/21 20:00 98.9 F 111 H 16 149/82 95 07/24/21 19:13 16 Intake and Output 07/25/21 07/25/21 07/25/21 06:59 14:59 22:59 Other: # Voids 7 General appearance: alert, in no apparent distress the patient is a currently on room air oxygen. The patient does not look toxic. The patient is not having any significant respiratory difficulties., Head exam: Present: atraumatic, normocephalic, normal inspection Eye exam: Present: normal appearance, PERRL, EOMI. Absent: scleral icterus, conjunctival injection, periorbital swelling ENT exam: Present: normal exam, mucous membranes moist Neck exam: Present: normal inspection. Absent: tenderness, meningismus, lymphadenopathy Respiratory exam: Present: normal lung sounds bilaterally. Absent: respiratory distress, wheezes, rales, rhonchi, stridor Cardiovascular Exam: Present: normal rhythm, tachycardia, normal heart sounds. Absent: systolic murmur, diastolic murmur, rubs, gallop, clicks GI/Abdominal exam: Present: soft, normal bowel sounds. Absent: distended, tenderness, guarding, rebound, rigid Extremities exam: Present: normal inspection, full ROM, normal capillary refill. Absent: tenderness, pedal edema, joint swelling, calf tenderness Back exam: Present: normal inspection Neurological exam: Present: alert, oriented X3, CN II-XII intact Psychiatric exam: Present: normal affect, normal mood Skin exam: Present: warm, dry, intact, normal color. Absent: rash Results - Laboratory Findings CBC and BMP: 07/25/21 04:53 07/25/21 04:53 PT/INR, D-dimer PT 10.5 sec (9.0-12.0) 07/23/21 22:35 INR 1.0 (<1.2) 07/23/21 22:35 Abnormal lab findings: Abnormal Labs 07/23/21 07/23/21 07/23/21 22:35 22:35 22:35 Hgb MCHC RDW 17.1 H Absolute Nucleated RBC Immature Gran # Neutrophils # (Manual) 8.60 H Lymphocytes # Lymphocytes # (Manual) 0.70 L Eosinophils # NRBC/100 WBC Diff Sodium 131 L Glucose 147 H POC Glucose (mg/dL) Calcium 7.6 L Phosphorus 2.2 L Total Protein 5.3 L Albumin 2.8 L Procalcitonin Urine Protein Trace H Urine Glucose (UA) 2+ H Urine Ketones 1+ H Ur Leukocyte Esterase Small H Urine WBC 13 H Urine Bacteria Rare H 07/24/21 07/24/21 07/24/21 11:14 16:01 20:58 Hgb MCHC RDW Absolute Nucleated RBC Immature Gran # Neutrophils # (Manual) Lymphocytes # Lymphocytes # (Manual) Eosinophils # NRBC/100 WBC Diff Sodium Glucose POC Glucose (mg/dL) 207 H 160 H 126 H Calcium Phosphorus Total Protein Albumin Procalcitonin Urine Protein Urine Glucose (UA) Urine Ketones Ur Leukocyte Esterase Urine WBC Urine Bacteria 07/25/21 07/25/21 07/25/21 04:53 04:53 04:53 Hgb 11.5 L MCHC 30.5 L RDW 18.6 H Absolute Nucleated RBC 0.02 H Immature Gran # 0.08 H Neutrophils # (Manual) Lymphocytes # 0.88 L Lymphocytes # (Manual) Eosinophils # 0.39 H NRBC/100 WBC Diff 0.2 H Sodium 134 L Glucose POC Glucose (mg/dL) Calcium 7.8 L Phosphorus Total Protein Albumin Procalcitonin 0.45 H Urine Protein Urine Glucose (UA) Urine Ketones Ur Leukocyte Esterase Urine WBC Urine Bacteria 07/25/21 07/25/21 11:45 16:24 Hgb MCHC RDW Absolute Nucleated RBC Immature Gran # Neutrophils # (Manual) Lymphocytes # Lymphocytes # (Manual) Eosinophils # NRBC/100 WBC Diff Sodium Glucose POC Glucose (mg/dL) 155 H 141 H Calcium Phosphorus Total Protein Albumin Procalcitonin Urine Protein Urine Glucose (UA) Urine Ketones Ur Leukocyte Esterase Urine WBC Urine Bacteria - Diagnostic Findings Chest x-ray: image reviewed Assessment and Plan Plan: 1 metastatic non-small cell lung cancer, currently on immunotherapy with Keytruda 2 small left-sided pleural effusion/compressive atelectasis. Highly doubt pneumonia. Based on fever and mildly progressed on a level, treatment with antibiotics is reasonable 3 back pain and pathologic fracture of the L4 spine. The patient is having difficulty with mobility. The patient has received radiation therapy to her spine, Exact treatment, dose unknown location is not known. Nevertheless, the patient seems to have had progression of the pathologic fractures and she would benefit from orthopedic spine surgery evaluation. She is having ongoing pain currently on a combination of Ultram and Dilaudid. 4 hypertension 5 hyperlipidemia 6 diabetes mellitus 7 previous history of DVT maintained on long-term anticoagulation with Eliquis. Plan Agree on the current treatment Consult spine surgery May need to consult also radiation therapy regarding this pathologic bone involvement Consult medical oncology Patient is not toxic. Patient is currently on room air oxygen. Monitor the pleural effusion on the left. Based on my review of the images, this looks to be more subacute compressive atelectasis small effusion. Pneumonia is less likely. Reasonable to cover with antibiotics for a brief period of time based on her comorbidities. We'll continue to follow.
--- NOTE | 2021-07-25 20:21 | P.PN ---
Subjective Progress Note Date: 07/25/21 Principal diagnosis: Left-sided pleural effusion/pneumonia Metastatic non-small cell lung cancer Back pain/pathological fracture of L4 spine 71-year-old female with history of diabetes mellitus, hypertension, hyperlipidemia and DVT, presents to the emergency department with multiple complaints joint pain hip pain leg pain knee pain generalized body aches and pains back pain. Symptoms for a few days now. Symptoms worse today. Lower extremity swelling as well. No travel history no sick contacts no nausea no vomiting. No shortness of breath cough no congestion She initially presented with extensive LLE DVT in 12/2020,at that time,she had a CT scan of chest which revealed a suspicious RUL lung nodule. PET scan done on 04/09/2021 revealed suspicious uptake in 5.9 cm RUL mass,which increased in size compared to 01/07/2021 CT scan of chest,a suspicious uptake in a small right hilar node. On 04/22/2021,she had navigational bronchoscopy,transbronchial biopsy of RUL was positive for poorly differentiated carcinoma consistent with lung primary. She was evaluated by Dr Crespo and felt not a surgical candidate due to co- morbidities Workup in ED reveals Chest x-ray showed left lower lobe pleural effusion with possible adjacent infiltrate. Pelvis x-ray was negative. Her computed tomography scan of the abdomen and pelvis showed possible progression of pathologic fracture in L4. Objective - Vital Signs Vital signs: Vital Signs Temp 97.8 F 07/25/21 14:00 Pulse 106 H 07/25/21 14:00 Resp 19 07/25/21 14:00 BP 104/71 07/25/21 14:00 Pulse Ox 95 07/25/21 14:00 Intake & Output 07/24/21 07/25/21 07/25/21 18:59 06:59 18:59 Weight 99.337 kg Other: Voiding Method Bedside Commode # Voids 2 7 # Bowel Movements 1 - Exam General appearance: alert, in no apparent distress Head exam: Present: atraumatic, normocephalic, normal inspection Eye exam: Present: normal appearance, PERRL, EOMI. Absent: scleral icterus, con junctival injection, periorbital swelling ENT exam: Present: normal exam, mucous membranes moist Neck exam: Present: normal inspection. Absent: tenderness, meningismus, lymphadenopathy Respiratory exam: Present: normal lung sounds bilaterally. Absent: respiratory distress, wheezes, rales, rhonchi, stridor Cardiovascular Exam: Present: normal rhythm, tachycardia, normal heart sounds. Absent: systolic murmur, diastolic murmur, rubs, gallop, clicks GI/Abdominal exam: Present: soft, normal bowel sounds. Absent: distended, tenderness, guarding, rebound, rigid Extremities exam: Present: normal inspection, full ROM, normal capillary refill. Absent: tenderness, pedal edema, joint swelling, calf tenderness Back exam: Present: normal inspection Neurological exam: Present: alert, oriented X3, CN II-XII intact Psychiatric exam: Present: normal affect, normal mood Skin exam: Present: warm, dry, intact, normal color. Absent: rash - Labs CBC & Chem 7: 07/25/21 04:53 07/25/21 04:53 Labs: Abnormal Lab Results - Last 24 Hours (Table) 07/24/21 07/24/21 07/25/21 Range/Units 16:01 20:58 04:53 Hgb (12.0-15.0) g/dL MCHC (32.0-37.0) g/dL RDW (11.5-14.5) % Absolute Nucleated RBC (0.00-0.00) X 10*3/uL Immature Gran # (0.00-0.04) X 10*3/uL Lymphocytes # (0.90-5.00) X 10*3/uL Eosinophils # (0.04-0.35) X 10*3/uL NRBC/100 WBC Diff (0.0-0.0) /100 WBCS Sodium (135-145) mmol/L POC Glucose (mg/dL) 160 H 126 H (75-99) mg/dL Calcium (8.7-10.3) mg/dL Procalcitonin 0.45 H (0.02-0.09) ng/mL 07/25/21 07/25/21 07/25/21 Range/Units 04:53 04:53 11:45 Hgb 11.5 L (12.0-15.0) g/dL MCHC 30.5 L (32.0-37.0) g/dL RDW 18.6 H (11.5-14.5) % Absolute Nucleated RBC 0.02 H (0.00-0.00) X 10*3/uL Immature Gran # 0.08 H (0.00-0.04) X 10*3/uL Lymphocytes # 0.88 L (0.90-5.00) X 10*3/uL Eosinophils # 0.39 H (0.04-0.35) X 10*3/uL NRBC/100 WBC Diff 0.2 H (0.0-0.0) /100 WBCS Sodium 134 L (135-145) mmol/L POC Glucose (mg/dL) 155 H (75-99) mg/dL Calcium 7.8 L (8.7-10.3) mg/dL Procalcitonin (0.02-0.09) ng/mL Microbiology - Last 24 Hours (Table) 07/23/21 22:35 Urine Culture - Final Urine,Voided 07/23/21 22:35 Blood Culture - Preliminary Blood No Growth after 24 hours Assessment and Plan Assessment: 1. Left lower lobe pneumonia - Patient has been placed on IV Rocephin 2 g daily along with azithromycin; we will monitor CBC, CRP and pro-calcitonin - Consult pulmonary for further recommendations 2. Pathological fracture at L4; continue with pain control as indicated; Orthopedic spine surgery will be consulted. Patient states that she has seen Dr. Sanchez previously 3. Uncontrolled pain; patient has been placed on Ultram 100 mg by mouth every 6 hours along with IV Dilaudid for breakthrough pain 4. Non-small cell carcinoma of right lung; stage IV 5. Hypertension; losartan 50 mg daily 6. Hyperlipidemia; Zetia 10 mg daily 7. Diabetes mellitus; continue with home dose of Levemir 26 units subcu daily at bedtime; monitor Accu-Cheks every before meals and at bedtime with insulin sliding scale 8. History of DVT; patient remains on Eliquis 5 mg by mouth twice a day DVT prophylaxis; SCDs/systemic anticoagulation CODE STATUS; full code
[2021-07-25 20:32] LABS: Glucose,Whole Blood 209 mg/dL (75-99)
[2021-07-25] MEDS: CYCLOBENZAPRINE 10 MG TAB PO SCH (20:40)
[2021-07-25] MEDS: INSULIN DETEMIR (LEVEMIR) 100 UNIT/ML SYR SQ SCH (20:40)
[2021-07-26] MEDS: HYDROmorphone 0.5 MG/0.5 ML SYRINGE IVP PRN ×4 (02:43→21:40)
[2021-07-26 05:16] LABS: Glucose,Whole Blood 224 mg/dL (75-99)
[2021-07-26] MEDS: HYDROcodone/APAP 5-325MG 1 EACH TAB PO PRN ×3 (06:04→16:46)
[2021-07-26 06:54] LABS: Glucose,Whole Blood 174 mg/dL (75-99)
[2021-07-26] MEDS: CALCIUM CARBONATE 500 MG CHEWABLE PO SCH ×2 (07:40→21:39)
[2021-07-26] MEDS: FUROSEMIDE 40 MG TAB PO SCH (07:40)
[2021-07-26] MEDS: LORATADINE 10 MG TAB PO SCH (07:41)
[2021-07-26] MEDS: APIXABAN 5 MG TAB PO SCH ×2 (07:41→21:39)
[2021-07-26] MEDS: MAGNESIUM OXIDE 400 MG TAB PO SCH ×2 (07:41→21:39)
[2021-07-26] MEDS: LOSARTAN 50 MG TAB PO SCH (07:41)
[2021-07-26] MEDS: allopurinoL 100 MG TAB PO SCH (07:41)
[2021-07-26] MEDS: CHOLECALCIFEROL 25 MCG (1000 IU) TABLET PO SCH (07:42)
[2021-07-26] MEDS: EZETIMIBE 10 MG TAB PO SCH (07:42)
[2021-07-26] MEDS: DOCUSATE 100 MG CAP PO SCH (07:42)
[2021-07-26] MEDS: FERROUS SULFATE 325 MG TAB PO SCH (07:42)
[2021-07-26] MEDS: AZITHROMYCIN 500 MG TAB PO SCH (07:43)
[2021-07-26] MEDS: INSULIN ASPART (NovoLOG) 100 UNIT/ML VIAL SQ SCH ×4 (07:43→21:40)
[2021-07-26 09:02] LABS: Basophils # (A) 0.05 X 10*3/uL (0.00-0.10); Basophils % (A) 0.6 %; Eosinophils % (A) 5.1 %; HCT 35.6 % (37.2-46.3); HGB 10.9 g/dL (12.0-15.0); Immature Grans, Automated 0.6 %; Lymphocytes # (A) 0.84 X 10*3/uL (0.90-5.00); Lymphocytes % (A) 10.7 %; MCH 26.9 pg (27.0-32.0); MCHC 30.6 g/dL (32.0-37.0); MCV 87.9 fL (80.0-97.0); Mean Platelet Volume 10.2 fL (9.5-12.2); Monocytes % (A) 3.8 %; NRBC Per 100 WBC 0 /100 WBCS (0.0-0.0); Neutrophils % (A) 79.2 %; Platelet Count 216 X 10*3/uL (140-440); RBC 4.05 X 10*6/uL (4.10-5.20); RDW 18.4 % (11.5-14.5); WBC 7.84 X 10*3/uL (4.50-10.00)
[2021-07-26 09:31] LABS: Anion Gap 8.5 mmol/L (10.00-18.00); BUN/Creat Ratio 14.17 Ratio (12.00-20.00); Blood Urea Nitrogen 8.5 mg/dL (9.0-27.0); Calcium 8.2 mg/dL (8.7-10.3); Carbon Dioxide 24.5 mmol/L (20.0-27.5); Non-African American GFR(CKD) 92.4 (60.0-200.0)
[2021-07-26 11:14] LABS: Glucose,Whole Blood 125 mg/dL (75-99)
--- NOTE | 2021-07-26 12:11 | P.CNOR ---
History of Present Illness - HPI Consult date: 07/26/21 Consult reason: low back pain History of present illness: Patient is very pleasant 71-year-old female who has been having see if it back pain over the past several weeks. Patient denies any specific injury or trauma to her lower back. She says the pain extends from her lower back onto her left gluteal area and behind her left thigh. She denies prior symptoms like this in the past. She denies any specific trauma or change to her lower back. She says she has history of lung cancer and has had radiation to her back but she is unsure of which specific area. She says she is awaiting chemotherapy. She den ies changes in her bowel bladder function. She feels it is very difficult for her to move around as her back is giving her significant pain. She denies any chest pain. Denies any nausea or vomiting currently. Review of Systems As stated per HPI. Denies any acute trauma at her lower back. Denies any recent falls. She feels globally weak in her lower extremities but is difficult to determine if it is due to pain. Past Medical History Past Medical History: Cancer, Diabetes Mellitus, Deep Vein Thrombosis (DVT), GERD/Reflux, Hyperlipidemia, Hypertension, Osteoarthritis (OA), Renal Disease Additional Past Medical History / Comment(s): gout, DVT lower extremity December 2020 , states arthritis all over-knees,hips,shoulders & fingers, states kidney function 50%., spot on lung. History of non-small cell lung cancer with metastasis History of Any Multi-Drug Resistant Organisms: None Reported Past Surgical History: Section Additional Past Surgical History / Comment(s): D&C, Hemorrhoids, belly button operation as a baby., cataracts, eyelid surgery. 3 c sections Past Anesthesia/Blood Transfusion Reactions: No Reported Reaction Additional Past Anesthesia/Blood Transfusion Reaction / Comm: spinal with childbirth and paralized 36 hrs. Past Psychological History: No Psychological Hx Reported Smoking Status: Current every day smoker Past Alcohol Use History: None Reported Additional Past Alcohol Use History / Comment(s): quit smoking this year, hx of 8 cigarettes /day, started smoking as teenager Past Drug Use History: None Reported Medications and Allergies Home Medications Medication Instructions Recorded Confirmed Type Cholecalciferol [Vitamin D3 (25 50 mcg PO DAILY 01/04/21 07/24/21 History Mcg = 1000 Iu)] Dulaglutide [Trulicity] 1.5 mg SQ SA 01/04/21 07/24/21 History Ezetimibe [Zetia] 10 mg PO DAILY 01/04/21 07/24/21 History Febuxostat [Uloric] 40 mg PO DAILY 01/04/21 07/24/21 History Ferrous Sulfate [Iron (65 MG 325 mg PO DAILY 01/04/21 07/24/21 History Elemental)] Furosemide [Lasix] 40 mg PO DAILY 01/04/21 07/24/21 History Ginkgo Biloba [place] Extract [Ginkgo] 120 mg PO DAILY 01/04/21 07/24/21 History Glimepiride [Amaryl] 2 mg PO BID 01/04/21 07/24/21 History Insulin Glargine,Hum.rec.anlog 26 units SQ HS 01/04/21 07/24/21 History [Toujeo Solostar] Losartan Potassium 50 mg PO DAILY 01/04/21 07/24/21 History Vitamin C/Biotin [Hair, Skin and 1 tab PO DAILY 01/04/21 07/24/21 History Nails Chew] Fiber Supplement 1 tab PO BID 04/21/21 07/24/21 History Acetaminophen [Tylenol 8 Hour] 650 mg PO HS 07/24/21 07/24/21 History Apixaban [Eliquis] 5 mg PO BID 07/24/21 07/24/21 History Calcium Carbonate [Calcium] 600 mg PO BID 07/24/21 07/24/21 History Cetirizine HCl [Zyrtec] 10 mg PO DAILY 07/24/21 07/24/21 History Cyclobenzaprine [Flexeril] 10 mg PO HS 07/24/21 07/24/21 History Docusate [Colace] 100 mg PO DAILY 07/24/21 07/24/21 History Glucosamine 1500mg 1,500 mg PO DAILY 07/24/21 07/24/21 History Magnesium Oxide [Mag-Ox] 400 mg PO BID 07/24/21 07/24/21 History Melatonin 3 mg PO HS PRN 07/24/21 07/24/21 History Vitamin E [Vitamin E (1000 Iu = 1,000 unit PO BID 07/24/21 07/24/21 History 450 MG)] icosapent ethyL [Icosapent Ethyl] 1 gm PO BID 07/24/21 07/24/21 History traMADol HCL 100 mg PO Q6H PRN 07/24/21 07/24/21 History Allergies Allergy/AdvReac Type Severity Reaction Status Date / Time bee venom protein (honey bee) Allergy Rash/Hives Verified 07/24/21 11:38 omeprazole [From Prilosec] AdvReac Unknown unable to Verified 07/24/21 11:38 take due to kidneys. Antihistamines - Piperidine AdvReac lethargic Verified 07/24/21 11:38 codeine AdvReac lethargic/h Verified 07/24/21 11:38 ot Physical Examination Osteopathic Statement: *. No significant issues noted on an osteopathic struc tural exam other than those noted in the History and Physical/Consult. - L Spine: dermatomal strength & reflexes bilateral Strength: hip flexion: 5/5 (Her legs have good motion with dorsal flexion plantar flexion and extensor hallucis longus in flexion-extension with fiber 5 strength. There is no pain with internal/external rotation of her hips. Her thighs nontender. She has pain in her back with mobilization and rolling and sitting up) Strength: hip extension: 5/5 (There is no specific skin breakdown at her back. Her abdomen is soft nontender.) Results - Labs Labs: Abnormal Lab Results - Last 24 Hours (Table) 07/25/21 07/25/21 07/25/21 Range/Units 04:53 04:53 04:53 RBC (4.10-5.20) X 10*6/uL Hgb 11.5 L (12.0-15.0) g/dL Hct (37.2-46.3) % MCH (27.0-32.0) pg MCHC 30.5 L (32.0-37.0) g/dL RDW 18.6 H (11.5-14.5) % Absolute Nucleated RBC 0.02 H (0.00-0.00) X 10*3/uL Immature Gran # 0.08 H (0.00-0.04) X 10*3/uL Lymphocytes # 0.88 L (0.90-5.00) X 10*3/uL Eosinophils # 0.39 H (0.04-0.35) X 10*3/uL NRBC/100 WBC Diff 0.2 H (0.0-0.0) /100 WBCS Sodium 134 L (135-145) mmol/L Anion Gap (10.00-18.00) mmol/L BUN (9.0-27.0) mg/dL Glucose (70-110) mg/dL POC Glucose (mg/dL) (75-99) mg/dL Calcium 7.8 L (8.7-10.3) mg/dL Procalcitonin 0.45 H (0.02-0.09) ng/mL 07/25/21 07/25/21 07/26/21 Range/Units 16:24 20:29 05:12 RBC (4.10-5.20) X 10*6/uL Hgb (12.0-15.0) g/dL Hct (37.2-46.3) % MCH (27.0-32.0) pg MCHC (32.0-37.0) g/dL RDW (11.5-14.5) % Absolute Nucleated RBC (0.00-0.00) X 10*3/uL Immature Gran # (0.00-0.04) X 10*3/uL Lymphocytes # (0.90-5.00) X 10*3/uL Eosinophils # (0.04-0.35) X 10*3/uL NRBC/100 WBC Diff (0.0-0.0) /100 WBCS Sodium (135-145) mmol/L Anion Gap (10.00-18.00) mmol/L BUN (9.0-27.0) mg/dL Glucose (70-110) mg/dL POC Glucose (mg/dL) 141 H 209 H 224 H (75-99) mg/dL Calcium (8.7-10.3) mg/dL Procalcitonin (0.02-0.09) ng/mL 07/26/21 07/26/21 07/26/21 Range/Units 06:01 06:01 06:52 RBC 4.05 L (4.10-5.20) X 10*6/uL Hgb 10.9 L (12.0-15.0) g/dL Hct 35.6 L (37.2-46.3) % MCH 26.9 L (27.0-32.0) pg MCHC 30.6 L (32.0-37.0) g/dL RDW 18.4 H (11.5-14.5) % Absolute Nucleated RBC (0.00-0.00) X 10*3/uL Immature Gran # 0.05 H (0.00-0.04) X 10*3/uL Lymphocytes # 0.84 L (0.90-5.00) X 10*3/uL Eosinophils # 0.40 H (0.04-0.35) X 10*3/uL NRBC/100 WBC Diff (0.0-0.0) /100 WBCS Sodium 133 L (135-145) mmol/L Anion Gap 8.50 L (10.00-18.00) mmol/L BUN 8.5 L (9.0-27.0) mg/dL Glucose 173 H (70-110) mg/dL POC Glucose (mg/dL) 174 H (75-99) mg/dL Calcium 8.2 L (8.7-10.3) mg/dL Procalcitonin (0.02-0.09) ng/mL 07/26/21 Range/Units 11:13 RBC (4.10-5.20) X 10*6/uL Hgb (12.0-15.0) g/dL Hct (37.2-46.3) % MCH (27.0-32.0) pg MCHC (32.0-37.0) g/dL RDW (11.5-14.5) % Absolute Nucleated RBC (0.00-0.00) X 10*3/uL Immature Gran # (0.00-0.04) X 10*3/uL Lymphocytes # (0.90-5.00) X 10*3/uL Eosinophils # (0.04-0.35) X 10*3/uL NRBC/100 WBC Diff (0.0-0.0) /100 WBCS Sodium (135-145) mmol/L Anion Gap (10.00-18.00) mmol/L BUN (9.0-27.0) mg/dL Glucose (70-110) mg/dL POC Glucose (mg/dL) 125 H (75-99) mg/dL Calcium (8.7-10.3) mg/dL Procalcitonin (0.02-0.09) ng/mL Microbiology - Last 24 Hours (Table) 07/23/21 22:35 Blood Culture - Preliminary Blood No Growth after 48 hours 07/23/21 22:35 Urine Culture - Final Urine,Voided H & H 07/23/21 07/25/21 07/26/21 Range/Units 22:35 04:53 06:01 Hgb 12.5 11.5 L 10.9 L (11.4-16.0) gm/dL Hct 38.4 37.7 35.6 L (34.0-46.0) % Coagulation 07/23/21 Range/Units 22:35 INR 1.0 (<1.2) Result Diagrams: 07/26/21 06:01 07/26/21 06:01 - Diagnostic results CT Scan - lumbar: report reviewed (Prior computed tomography scan in June 2021 shows the endplate compression deformity at L4 with about 10% height loss. There is also compression deformity at T11 with about 10% height loss. Her new computed tomography scan shows progression of the deformity at L4 and stable deformity at T11), image reviewed (Computed tomography scan lumbar spine. In terms of her lower back. She has evidence of a compression deformity on her July computed tomography scan with decompression at L4 about 40%. There is some bony sclerosis at the area and evidence of stenosis L3 4 L4 5. Prior computed tomography scan in ) Assessment and Plan Assessment: L4 compression fracture with further collapse over the past 6 weeks Low back pain with history of metastatic lung cancer Lower extremity radiculopathy with stenosis L3 4 L4 5 T 11 superior endplate compression deformity which appears stable Non-small cell lung cancer with metastasis Plan: L4 compression fracture with further collapse over the past 6 weeks Low back pain with history of metastatic lung cancer Lower extremity radiculopathy with stenosis L3 4 L4 5 T 11 superior endplate compression deformity which appears stable Non-small cell lung cancer with metastasis The patient's low back pain has been worsening over the past few weeks and she has evidence of further collapse of her L4 vertebral compression fracture. There is no specific trauma and with her history of metastatic lung cancer this is certainly very specific suspicious for pathologic fracture. I think that she we need an MRI to further evaluate the fracture and potential bony change as well as the stenosis L3 4 and L4 5. This can also help show the fracture at T11. She does not seem to be having acute neurologic change. I think she could be a candidate for conservative treatment as well as surgical intervention. We will order her an LSO brace to see if this gives her some stability for her low back and pelvis alleviate some of her pain symptoms. She can start to try to mobilize with the brace on. She would be a candidate for possibility of vertebral kyphoplasty with cement augmentation which could help alleviate pain at her lower back. We'll have to evaluate further with imaging particular at the MRI L3 4 L4 5 to see if further surgery be warranted at this point as well. I discussed this with her and answered her questions as well as her . We'll continue to follow them closely particularly with new MRI.
--- NOTE | 2021-07-26 16:09 | P.PN ---
Subjective Progress Note Date: 07/26/21 Principal diagnosis: Metastatic non-small cell lung cancer, small left-sided pleural effusion and compressive atelectasis The patient is a 71-year-old white female with known history of metastatic lung cancer. The patient has been followed up through our service and oncology. I was estimated at this patient because of a pneumonia. The most recent CAT scan of the abdomen and pelvis showed some atelectatic changes and small effusion the lung bases bilaterally. For that reason, Pulmicort station was requested suspecting pneumonia. In summary, the patient initially presented with extensive LLE DVT in 12/2020,at that time,she had a CT scan of chest which revealed a suspicious RUL lung nodule. PET scan done on 04/09/2021 revealed suspicious uptake in 5.9 cm RUL mass,which increased in size compared to 01/07/2021 CT scan of chest,a suspicious uptake in a small right hilar node.On 04/22/2021,she had navigational bronchoscopy,transbronchial biopsy of RUL was positive for poorly differentiated carcinoma consistent with lung primary. She was evaluated by Dr Crespo and felt not a surgical candidate due to co- morbidities and PS.Brain MRI on 05/20/2021 was negative for metastatic disease. PDL-1 was 99%. NGS revealed KRAS G12C mutation. On 06/03/2021,she started concu rrent chemoradiation therapy with weekly taxol/carboplatin. However,on 06/09/2021,she developed significant acute lower back pain after her XRT,went to ER on 06/10/2021,had a CT of lumbar spine which revealed degenerative disc disease,CT scan of abdomen/pelvis revealed new small bilateral adrenal lesions.(were not present on prior PET scan). Chemoradiation was stopped. Repeat PET scan on 06/25/2021 revealed evidence of disease progression,multiple osseous lesions,bilateral adrenal gland lesions. She started Keytruda on 07/16/21, and is s/p 1 cycle For now, the patient denies having any significant shortness of breath. No cough sputum production chest answer wheezing. Nevertheless, the patient is having pain in her back radiating to her left lower extremity and she is having difficulty with mobility. This may be related to recent finding of a pathologic fracture of the L4 vertebral body and mild spinal stenosis due to posterior extension. As evident, the patient also has bilateral adrenal metastases and a left-sided pleural effusion with some atelectatic changes and left lower lobe. She did have a bout of fever at time of admission, currently afebrile. Pelvic x-ray is negative. The patient is currently on room air oxygen. White cell count is at 8.0. Resident the blood work and electrodes are all within normal limits. Pro-calcitonin level is at 0.45. The patient was started on examination Rocephin and Zithromax. On 07/26/2021 patient seen in follow-up on medical surgical floor, she is awake and alert, in no acute distress, room air pulse ox is 95%, she denies any difficulty breathing, no cough, no chest discomfort. She is oriented 3, her lungs are clear to auscultation. She states her thoracic spine pain is better. She is awaiting MRI of the lumbar spine. No fever or chills, no cough, no chest congestion. No wheezing. Remains on Rocephin and azithromycin for empiric antibody coverage. Pro-calcitonin level was 0.45. Objective - Vital Signs Vital signs: Vital Signs Temp 97.8 F 07/26/21 14:00 Pulse 106 H 07/26/21 14:00 Resp 17 07/26/21 14:00 BP 112/71 07/26/21 14:00 Pulse Ox 95 07/26/21 14:00 Intake & Output 07/25/21 07/26/21 07/26/21 18:59 06:59 18:59 Intake Total 1080 Balance 1080 Intake: Oral 1080 Other: Voiding Method Bedside Commode Bedside Commode Bedpan Bedpan # Voids 6 5 # Bowel Movements 1 0 - Exam GENERAL EXAM: Alert, very pleasant, 71-year-old white female, resting comfortably in bed, on room air with pulse ox of 95% comfortable in no apparent distress. HEAD: Normocephalic/atraumatic. EYES: Normal reaction of pupils, equal size. Conjunctiva pink, sclera white. NOSE: Clear with pink turbinates. THROAT: No erythema or exudates. NECK: No masses, no JVD, no thyroid enlargement, no adenopathy. CHEST: No chest wall deformity. Symmetrical expansion. LUNGS: Equal air entry with no crackles, wheeze, rhonchi or dullness. CVS: Regular rate and rhythm, normal S1 and S2, no gallops, no murmurs, no rubs ABDOMEN: Soft, nontender. No hepatosplenomegaly, normal bowel sounds, no guarding or rigidity. EXTREMITIES: No clubbing, no edema, no cyanosis, 2+ pulses and upper and lower extremities. MUSCULOSKELETAL: Muscle strength and tone normal. SPINE: No scoliosis or deformity SKIN: No rashes CENTRAL NERVOUS SYSTEM: Alert and oriented -3. No focal deficits, tone is normal in all 4 extremities. PSYCHIATRIC: Alert and oriented -3. Appropriate affect. Intact judgment and insight. - Labs CBC & Chem 7: 07/26/21 06:01 07/26/21 06:01 Labs: Abnormal Lab Results - Last 24 Hours (Table) 07/25/21 07/25/21 07/26/21 Range/Units 16:24 20:29 05:12 RBC (4.10-5.20) X 10*6/uL Hgb (12.0-15.0) g/dL Hct (37.2-46.3) % MCH (27.0-32.0) pg MCHC (32.0-37.0) g/dL RDW (11.5-14.5) % Immature Gran # (0.00-0.04) X 10*3/uL Lymphocytes # (0.90-5.00) X 10*3/uL Eosinophils # (0.04-0.35) X 10*3/uL Sodium (135-145) mmol/L Anion Gap (10.00-18.00) mmol/L BUN (9.0-27.0) mg/dL Glucose (70-110) mg/dL POC Glucose (mg/dL) 141 H 209 H 224 H (75-99) mg/dL Calcium (8.7-10.3) mg/dL 07/26/21 07/26/21 07/26/21 Range/Units 06:01 06:01 06:52 RBC 4.05 L (4.10-5.20) X 10*6/uL Hgb 10.9 L (12.0-15.0) g/dL Hct 35.6 L (37.2-46.3) % MCH 26.9 L (27.0-32.0) pg MCHC 30.6 L (32.0-37.0) g/dL RDW 18.4 H (11.5-14.5) % Immature Gran # 0.05 H (0.00-0.04) X 10*3/uL Lymphocytes # 0.84 L (0.90-5.00) X 10*3/uL Eosinophils # 0.40 H (0.04-0.35) X 10*3/uL Sodium 133 L (135-145) mmol/L Anion Gap 8.50 L (10.00-18.00) mmol/L BUN 8.5 L (9.0-27.0) mg/dL Glucose 173 H (70-110) mg/dL POC Glucose (mg/dL) 174 H (75-99) mg/dL Calcium 8.2 L (8.7-10.3) mg/dL 07/26/21 Range/Units 11:13 RBC (4.10-5.20) X 10*6/uL Hgb (12.0-15.0) g/dL Hct (37.2-46.3) % MCH (27.0-32.0) pg MCHC (32.0-37.0) g/dL RDW (11.5-14.5) % Immature Gran # (0.00-0.04) X 10*3/uL Lymphocytes # (0.90-5.00) X 10*3/uL Eosinophils # (0.04-0.35) X 10*3/uL Sodium (135-145) mmol/L Anion Gap (10.00-18.00) mmol/L BUN (9.0-27.0) mg/dL Glucose (70-110) mg/dL POC Glucose (mg/dL) 125 H (75-99) mg/dL Calcium (8.7-10.3) mg/dL Microbiology - Last 24 Hours (Table) 07/23/21 22:35 Blood Culture - Preliminary Blood No Growth after 48 hours Assessment and Plan Plan: Assessment: #1. Metastatic non-small cell lung cancer, currently on immunotherapy with Keytruda #2. Small left-sided pleural effusion/compressive atelectasis. Highly doubt pneumonia. Based on fever and mildly progressed on a level, treatment with antibiotics is reasonable #3. Back pain and pathologic fracture of the L4 spine. The patient is having difficulty with mobility. The patient has received radiation therapy to her spine, Exact treatment, dose unknown location is not known. Nevertheless, the patient seems to have had progression of the pathologic fractures and she would benefit from orthopedic spine surgery evaluation. She is having ongoing pain currently on a combination of Ultram and Dilaudid. #4. Hypertension #5. Hyperlipidemia #6. Diabetes mellitus #7. Previous history of DVT maintained on long-term anticoagulation with Eliquis. Plan: Labs, and procalcitonin level noted Patient is nontoxic, denies any shortness of breath, no cough, patient is afebrile She continues on antibiotics Send sputum culture if able Continue current medical treatment Orthopedic surgery recommendations Continue to follow I have personally seen and examined the patient, performed the documentation and the assessment and plan as written. Number of minutes spent on the visit: [10] Time with Patient: Less than 30
[2021-07-26 16:27] LABS: Glucose,Whole Blood 124 mg/dL (75-99)
[2021-07-26 20:45] LABS: Glucose,Whole Blood 199 mg/dL (75-99)
[2021-07-26] MEDS: CYCLOBENZAPRINE 10 MG TAB PO SCH (21:39)
[2021-07-26] MEDS: INSULIN DETEMIR (LEVEMIR) 100 UNIT/ML SYR SQ SCH (21:39)
--- NOTE | 2021-07-26 22:59 | P.PN ---
Subjective Progress Note Date: 07/26/21 07/26/2021 Patient evaluated today resting in bed. Plan for MRI lumbar spine at some time today. She was evaluated by orthopedics, LSO brace will be ordered and will make further recommendations regarding surgical intervention after review of MRI. Pulmonary is also on the case. Hemoglobin stable at 10.9. Sodium today 133, BUN 8.5, creatinine 0.6, blood glucose in the 120s. Pro-calcitonin level was checked and it is 0.45. She continues on no complaints of shortness of breath or cough today pressure maintained afebrile, heart 92, blood pressure on the lower side at 99/63, 95% room air. IV Rocephin. She did complete 5 days of oral azithromycin. Monitor blood pressure closely and changed losartan to 25 mg po daily from 50. Review of Systems Constitutional: Denied any fatigue denied any fever. Cardio vascular: denied any chest pain, palpitations Gastrointestinal: denied any nausea, vomiting, diarrhea Pulmonary: Denied any shortness of breath cough Neurologic denied any new focal deficits All inpatient medications were reviewed and appropriate changes in these medications as dictated in the interval history and assessment and plan. PHYSICAL EXAMINATION: GENERAL: The patient is alert and oriented x3, not in any acute distress. Well developed, well nourished. HEENT: Pupils are round and equally reacting to light. EOMI. No scleral icterus. No conjunctival pallor. Normocephalic, atraumatic. No pharyngeal erythema. No thyromegaly. CARDIOVASCULAR: S1 and S2 present. No murmurs, rubs, or gallops. PULMONARY: Chest is clear to auscultation, no wheezing or crackles. ABDOMEN: Soft, nontender, nondistended, normoactive bowel sounds. No palpable organomegaly. MUSCULOSKELETAL: No joint swelling or deformity. EXTREMITIES: No cyanosis, clubbing, or pedal edema. NEUROLOGICAL: Gross neurological examination did not reveal any focal deficits. SKIN: No rashes. Assessment and plan Assessment Left lower lobe pneumonia Pathological fracture at L4, pain control, MRI pending Uncontrolled pain Non-small cell carcinoma of right lung stage IV Hypertension Hyperlipidemia Diabetes mellitus History of DVT GI prophylaxis DVT prophylaxis Full code Plan Continue IV antibiotics Continue pain management Adjust blood pressure medications MRI pending Recommendations from surgery and pulmonary Repeat labs in a.m. The impression and plan of care has been dictated by Shahida Kim, Nurse Practitioner as directed. Dr. Naun MD I have performed a history and physical examination and medical decision making of this patient, discussed the same with the dictator, and agree with the dictators assessment and plan as written, documented as a scribe. Based on total visit time, I have performed more than 50% of this visit. Objective - Vital Signs Vital signs: Vital Signs Temp 98.7 F 07/26/21 08:00 Pulse 92 07/26/21 08:00 Resp 17 07/26/21 08:00 BP 99/63 07/26/21 08:00 Pulse Ox 95 07/26/21 08:00 Intake & Output 07/25/21 07/26/21 07/26/21 18:59 06:59 18:59 Intake Total 1080 Balance 1080 Intake: Oral 1080 Other: Voiding Method Bedside Commode Bedside Commode Bedpan Bedpan # Voids 6 5 # Bowel Movements 1 0 - Labs CBC & Chem 7: 07/26/21 06:01 07/26/21 06:01 Labs: Abnormal Lab Results - Last 24 Hours (Table) 07/25/21 07/25/21 07/25/21 Range/Units 04:53 16:24 20:29 RBC (4.10-5.20) X 10*6/uL Hgb (12.0-15.0) g/dL Hct (37.2-46.3) % MCH (27.0-32.0) pg MCHC (32.0-37.0) g/dL RDW (11.5-14.5) % Immature Gran # 0.08 H (0.00-0.04) X 10*3/uL Lymphocytes # 0.88 L (0.90-5.00) X 10*3/uL Eosinophils # 0.39 H (0.04-0.35) X 10*3/uL Sodium (135-145) mmol/L Anion Gap (10.00-18.00) mmol/L BUN (9.0-27.0) mg/dL Glucose (70-110) mg/dL POC Glucose (mg/dL) 141 H 209 H (75-99) mg/dL Calcium (8.7-10.3) mg/dL 07/26/21 07/26/21 07/26/21 Range/Units 05:12 06:01 06:01 RBC 4.05 L (4.10-5.20) X 10*6/uL Hgb 10.9 L (12.0-15.0) g/dL Hct 35.6 L (37.2-46.3) % MCH 26.9 L (27.0-32.0) pg MCHC 30.6 L (32.0-37.0) g/dL RDW 18.4 H (11.5-14.5) % Immature Gran # 0.05 H (0.00-0.04) X 10*3/uL Lymphocytes # 0.84 L (0.90-5.00) X 10*3/uL Eosinophils # 0.40 H (0.04-0.35) X 10*3/uL Sodium 133 L (135-145) mmol/L Anion Gap 8.50 L (10.00-18.00) mmol/L BUN 8.5 L (9.0-27.0) mg/dL Glucose 173 H (70-110) mg/dL POC Glucose (mg/dL) 224 H (75-99) mg/dL Calcium 8.2 L (8.7-10.3) mg/dL 07/26/21 07/26/21 Range/Units 06:52 11:13 RBC (4.10-5.20) X 10*6/uL Hgb (12.0-15.0) g/dL Hct (37.2-46.3) % MCH (27.0-32.0) pg MCHC (32.0-37.0) g/dL RDW (11.5-14.5) % Immature Gran # (0.00-0.04) X 10*3/uL Lymphocytes # (0.90-5.00) X 10*3/uL Eosinophils # (0.04-0.35) X 10*3/uL Sodium (135-145) mmol/L Anion Gap (10.00-18.00) mmol/L BUN (9.0-27.0) mg/dL Glucose (70-110) mg/dL POC Glucose (mg/dL) 174 H 125 H (75-99) mg/dL Calcium (8.7-10.3) mg/dL Microbiology - Last 24 Hours (Table) 07/23/21 22:35 Blood Culture - Preliminary Blood No Growth after 48 hours 07/23/21 22:35 Urine Culture - Final Urine,Voided Assessment and Plan Time with Patient: Less than 30
[2021-07-27] MEDS: HYDROcodone/APAP 5-325MG 1 EACH TAB PO PRN ×4 (00:04→19:11)
[2021-07-27] MEDS: HYDROmorphone 0.5 MG/0.5 ML SYRINGE IVP PRN ×4 (01:13→21:44)
[2021-07-27 07:21] LABS: Glucose,Whole Blood 80 mg/dL (75-99)
[2021-07-27] MEDS: INSULIN ASPART (NovoLOG) 100 UNIT/ML VIAL SQ SCH ×4 (07:28→21:20)
--- NOTE | 2021-07-27 08:02 | P.PN ---
Progress Note - Text Progress Note Date: 07/27/21 The patient is seen and examined at bedside. She says she feels okay as long she does not move. She tried using her LSO brace yesterday while sitting up in bed. She had great pain sitting up in bed and the brace was not giving her any relief. She denies any problems in her lower extremities. She says the pain is mainly at her back and radiates down her left gluteal to the back of her thigh but does not couple her knee. She denies any weakness in her legs. On exam she has sustained dorsal flexion plantar flexion and EHL. She has significant pain in his lower back with any sort of motion at her back. Her thighs and calves soft nontender. Assessment and plan L4 vertebral compression fracture, possibly pathologic Severe low back pain with motion with some left lower extremity radiculopathy Stenosis L3 4 L4 5 Metastatic lung cancer The patient is scheduled to have her MRI of her lumbar spine done today. This will help determine the potential chronicity of the fracture L4 as well as the degree of stenosis around the area. I think the patient is a candidate for a lumbar L4 kyphoplasty which could help alleviate significant portions of her back pain but would not particularly address the radicular symptoms. If stabilization of the fracture does not alleviate all of her symptoms she would be a candidate for other intervention and possibly interventional pain management or even further surgical intervention but we would need to have stability of the fracture initially. I discussed this with her again this morning. We will await the MRI results and have further conditions to follow. We could consider vertebral kyphoplasty of L4 as early as tomorrow on Monday if the MRI confirms our suspicion.
[2021-07-27 10:00] LABS: African American GFR (CKD) 103.5 (60.0-200.0); BUN/Creat Ratio 18.22 Ratio (12.00-20.00); Blood Urea Nitrogen 12.1 mg/dL (9.0-27.0); Calcium 8.5 mg/dL (8.7-10.3); Carbon Dioxide 22.9 mmol/L (20.0-27.5); Non-African American GFR(CKD) 89.3 (60.0-200.0)
[2021-07-27] MEDS: APIXABAN 5 MG TAB PO SCH ×2 (10:01→16:33)
[2021-07-27] MEDS: allopurinoL 100 MG TAB PO SCH (10:01)
[2021-07-27] MEDS: CALCIUM CARBONATE 500 MG CHEWABLE PO SCH ×2 (10:02→19:12)
[2021-07-27] MEDS: DOCUSATE 100 MG CAP PO SCH (10:02)
[2021-07-27] MEDS: CHOLECALCIFEROL 25 MCG (1000 IU) TABLET PO SCH (10:02)
[2021-07-27] MEDS: EZETIMIBE 10 MG TAB PO SCH (10:02)
[2021-07-27] MEDS: FERROUS SULFATE 325 MG TAB PO SCH (10:03)
[2021-07-27] MEDS: FUROSEMIDE 40 MG TAB PO SCH (10:03)
[2021-07-27] MEDS: MAGNESIUM OXIDE 400 MG TAB PO SCH ×2 (10:10→19:12)
[2021-07-27] MEDS: LOSARTAN 25 MG TAB PO SCH (10:10)
[2021-07-27] MEDS: LORATADINE 10 MG TAB PO SCH (10:10)
--- NOTE | 2021-07-27 10:40 | P.PN ---
Subjective Progress Note Date: 07/27/21 Principal diagnosis: Metastatic non-small cell lung cancer, small left-sided pleural effusion and compressive atelectasis The patient is a 71-year-old white female with known history of metastatic lung cancer. The patient has been followed up through our service and oncology. I was estimated at this patient because of a pneumonia. The most recent CAT scan of the abdomen and pelvis showed some atelectatic changes and small effusion the lung bases bilaterally. For that reason, Pulmicort station was requested suspecting pneumonia. In summary, the patient initially presented with extensive LLE DVT in 12/2020,at that time,she had a CT scan of chest which revealed a suspicious RUL lung nodule. PET scan done on 04/09/2021 revealed suspicious uptake in 5.9 cm RUL mass,which increased in size compared to 01/07/2021 CT scan of chest,a suspicious uptake in a small right hilar node.On 04/22/2021,she had navigational bronchoscopy,transbronchial biopsy of RUL was positive for poorly differentiated carcinoma consistent with lung primary. She was evaluated by Dr Crespo and felt not a surgical candidate due to co- morbidities and PS.Brain MRI on 05/20/2021 was negative for metastatic disease. PDL-1 was 99%. NGS revealed KRAS G12C mutation. On 06/03/2021,she started concu rrent chemoradiation therapy with weekly taxol/carboplatin. However,on 06/09/2021,she developed significant acute lower back pain after her XRT,went to ER on 06/10/2021,had a CT of lumbar spine which revealed degenerative disc disease,CT scan of abdomen/pelvis revealed new small bilateral adrenal lesions.(were not present on prior PET scan). Chemoradiation was stopped. Repeat PET scan on 06/25/2021 revealed evidence of disease progression,multiple osseous lesions,bilateral adrenal gland lesions. She started Keytruda on 07/16/21, and is s/p 1 cycle For now, the patient denies having any significant shortness of breath. No cough sputum production chest answer wheezing. Nevertheless, the patient is having pain in her back radiating to her left lower extremity and she is having difficulty with mobility. This may be related to recent finding of a pathologic fracture of the L4 vertebral body and mild spinal stenosis due to posterior extension. As evident, the patient also has bilateral adrenal metastases and a left-sided pleural effusion with some atelectatic changes and left lower lobe. She did have a bout of fever at time of admission, currently afebrile. Pelvic x-ray is negative. The patient is currently on room air oxygen. White cell count is at 8.0. Resident the blood work and electrodes are all within normal limits. Pro-calcitonin level is at 0.45. The patient was started on examination Rocephin and Zithromax. On 07/26/2021 patient seen in follow-up on medical surgical floor, she is awake and alert, in no acute distress, room air pulse ox is 95%, she denies any difficulty breathing, no cough, no chest discomfort. She is oriented 3, her lungs are clear to auscultation. She states her thoracic spine pain is better. She is awaiting MRI of the lumbar spine. No fever or chills, no cough, no chest congestion. No wheezing. Remains on Rocephin and azithromycin for empiric antibody coverage. Pro-calcitonin level was 0.45. On 07/27/2021 patient seen in follow-up on medical surgical floor. She is awake and alert, in no acute distress, denies any dyspnea, no cough no chest pain. She still complains of thoracic spine pain. She is awaiting MRI of the lumbar spine today possibly at 1240. Her lungs are clear to auscultation, she is on room air with pulse ox of 95%, breathing is nonlabored. No fever or chills, her pro-calcitonin level was a bit elevated to 0.45, and for that reason patient is on empiric antibiotics with Rocephin. Urine and blood cultures have been negative. Today's labs have been reviewed, electrolytes and renal profile are all within normal limits. Objective - Vital Signs Vital signs: Vital Signs Temp 98.2 F 07/27/21 07:33 Pulse 99 07/27/21 07:33 Resp 16 07/27/21 07:33 BP 123/76 07/27/21 07:33 Pulse Ox 95 07/27/21 07:18 Intake & Output 07/26/21 07/27/21 07/27/21 18:59 06:59 18:59 Other: Voiding Method Bedside Commode Bedside Commode Toilet Bedpan Bedpan # Voids 8 7 # Bowel Movements 1 0 - Exam GENERAL EXAM: Alert, very pleasant, 71-year-old white female, resting comfortably in bed, on room air with pulse ox of 95% comfortable in no apparent distress. HEAD: Normocephalic/atraumatic. EYES: Normal reaction of pupils, equal size. Conjunctiva pink, sclera white. NOSE: Clear with pink turbinates. THROAT: No erythema or exudates. NECK: No masses, no JVD, no thyroid enlargement, no adenopathy. CHEST: No chest wall deformity. Symmetrical expansion. LUNGS: Equal air entry with no crackles, wheeze, rhonchi or dullness. CVS: Regular rate and rhythm, normal S1 and S2, no gallops, no murmurs, no rubs ABDOMEN: Soft, nontender. No hepatosplenomegaly, normal bowel sounds, no guarding or rigidity. EXTREMITIES: No clubbing, no edema, no cyanosis, 2+ pulses and upper and lower extremities. MUSCULOSKELETAL: Muscle strength and tone normal. SPINE: No scoliosis or deformity SKIN: No rashes CENTRAL NERVOUS SYSTEM: Alert and oriented -3. No focal deficits, tone is normal in all 4 extremities. PSYCHIATRIC: Alert and oriented -3. Appropriate affect. Intact judgment and insight. - Labs CBC & Chem 7: 07/26/21 06:01 07/27/21 04:52 Labs: Abnormal Lab Results - Last 24 Hours (Table) 07/26/21 07/26/21 07/26/21 Range/Units 11:13 16:23 20:43 POC Glucose (mg/dL) 125 H 124 H 199 H (75-99) mg/dL Calcium (8.7-10.3) mg/dL 07/27/21 Range/Units 04:52 POC Glucose (mg/dL) (75-99) mg/dL Calcium 8.5 L (8.7-10.3) mg/dL Microbiology - Last 24 Hours (Table) 07/23/21 22:35 Blood Culture - Preliminary Blood No Growth after 72 hours Assessment and Plan Plan: Assessment: #1. Metastatic non-small cell lung cancer, currently on immunotherapy with Keytruda #2. Small left-sided pleural effusion/compressive atelectasis. Highly doubt pneumonia. Based on fever and mildly progressed on a level, treatment with antibiotics is reasonable #3. Back pain and pathologic fracture of the L4 spine. The patient is having difficulty with mobility. The patient has received radiation therapy to her spine, Exact treatment, dose unknown location is not known. Nevertheless, the patient seems to have had progression of the pathologic fractures and she would benefit from orthopedic spine surgery evaluation. She is having ongoing pain currently on a combination of Ultram and Dilaudid. #4. Hypertension #5. Hyperlipidemia #6. Diabetes mellitus #7. Previous history of DVT maintained on long-term anticoagulation with Eliquis. Plan: Patient continues to deny any pulmonary complaints She is on room air Breathing comfortably Continues on empiric antibiotics Provide incentive spirometer Further recommendations from orthopedic surgery for possibility of lumbar spine kyphoplasty We'll follow the patient in the postoperative period I have personally seen and examined the patient, performed the documentation and the assessment and plan as written. Number of minutes spent on the visit: [10] Time with Patient: Less than 30
[2021-07-27 11:43] LABS: Glucose,Whole Blood 162 mg/dL (75-99)
--- NOTE | 2021-07-27 13:39 | MR ---
EXAMINATION TYPE: MR lumbar spine wo con DATE OF EXAM: 07/27/2021 COMPARISON: CT abdomen and pelvis from 3 days ago and older studies HISTORY: L4 compression fracture with history of lung cancer TECHNIQUE: Multiplanar, multisequence imaging of the lumbar spine is performed without IV contrast. FINDINGS: Sagittal images of the lumbar spine shows [id number] compression type fracture at the L4 vertebra with slight posterior retropulsion measuring up to 6 mm sagittal image 9. There is diffu se decreased T1 and T2 signal at this level. There is some extension into the left pedicle at this le gus. Multilevel disc desiccation is present. Moderate disc space narrowing L4-L5 level is redemonstra zachary. Mild to moderate disc space narrowing L1-L2 level again seen.. The conus medullaris is normal i n position and signal ending at superior L1 level. Additional round foci of low T1 and T2 signal invo lving the superior L1 vertebra sagittal image 10 and posterior-superior T11 vertebra sagittal image 9 are noted suspicious for additional metastatic lesions. Axial images show T12-L1 level to appear within normal limits. Axial images at L1-L2 level show mild/moderate broad disc bulge mildly effaces the anterior thecal sa c. Patent bilateral neural foramina. Axial images at L2-L3 level show mild broad disc bulge along with facet arthropathy with ligamentum f lavum hypertrophy. Minimal effacement of anterior thecal sac and mild effacement of the posterior lat eral thecal sac bilaterally. Axial images at the L3-L4 level shows mild to moderate broad disc bulge effacing anterior thecal sac with moderate facet arthropathy and ligament flavum hypertrophy effacing posterior lateral thecal sac . In addition posterior retropulsion causes more prominent spinal canal stenosis at the superior to m id L4 vertebral body level. Bilateral neural foramina are patent. Axial images at the L4-L5 level show mild/moderate facet arthropathy and ligamentous hypertrophy effa cing posterior lateral thecal sac. There is mild to moderate broad-based posterior disc protrusion ef facing the anterior thecal sac. There is asymmetric moderate to severe left-sided neural foraminal na rrowing due to left-sided bony retropulsion and degenerative changes. Right-sided neural foramen is p atent. Axial images at L5-S1 level show [id number] facet arthropathy bilaterally. Focal central disc p rotrusion is seen but spinal canal is preserved. Patent bilateral neural foramina. Dependent gallstones are seen in gallbladder. Paraspinal muscle bulk is preserved. IMPRESSION: Suspected pathologic fracture L4 level with most prominent spinal canal stenosis at this level confirmed as detailed above. Findings correlate with rapidly progressive metastatic lung cancer when correlating with most recent CTs and PET CTs.
[2021-07-27] MEDS ORDERED: chlorproMAZINE 25 MG TAB PO SCH (16:15)
--- NOTE | 2021-07-27 16:23 | P.PN ---
Subjective Progress Note Date: 07/27/21 07/26/2021 Patient evaluated today resting in bed. Plan for MRI lumbar spine at some time today. She was evaluated by orthopedics, LSO brace will be ordered and will make further recommendations regarding surgical intervention after review of MRI. Pulmonary is also on the case. Hemoglobin stable at 10.9. Sodium today 133, BUN 8.5, creatinine 0.6, blood glucose in the 120s. Pro-calcitonin level was checked and it is 0.45. She continues on no complaints of shortness of breath or cough today pressure maintained afebrile, heart 92, blood pressure on the lower side at 99/63, 95% room air. IV Rocephin. She did complete 5 days of oral azithromycin. Monitor blood pressure closely and changed losartan to 25 mg po daily from 50. 07/27/2021 Patient evaluated today resting in bed. MRI lumbar spine showed suspected pathologic fracture L4 level with most prominent spinal canal stenosis at this level confirmed. Findings clear with rapidly progressive metastatic lung cancer when correlating with most recent CTs and PET CTs. Patient does not tolerate LSO brace very well states that she had a significant back pain while wearing. Currently she rates pain a 5 out of 10 while she is moving it as a 10 out of 10. It is sharp and radiates down her thigh. Sodium improved to 136. Afebrile, heart rate 115, blood pressure 121/81, 98% room air. Continues on IV antibiotics. Tramadol, norco, and dilaudid for pain control. Per Dr Cook note would consider surgery as early as tomorrow, which it is scheduled for tomorrow at 4pm for kyphoplasty and biopsy of L4. Discuss with surgery about holding el iquis, which she is on for history of DVT. Review of Systems Constitutional: Denied any fatigue denied any fever. Cardio vascular: denied any chest pain, palpitations Gastrointestinal: denied any nausea, vomiting, diarrhea Pulmonary: Denied any shortness of breath cough Neurologic denied any new focal deficits All inpatient medications were reviewed and appropriate changes in these medications as dictated in the interval history and assessment and plan. PHYSICAL EXAMINATION: GENERAL: The patient is alert and oriented x3, not in any acute distress. Well developed, well nourished. HEENT: Pupils are round and equally reacting to light. EOMI. No scleral icterus. No conjunctival pallor. Normocephalic, atraumatic. No pharyngeal erythema. No thyromegaly. CARDIOVASCULAR: S1 and S2 present. No murmurs, rubs, or gallops. PULMONARY: Chest is clear to auscultation, no wheezing or crackles. ABDOMEN: Soft, nontender, nondistended, normoactive bowel sounds. No palpable organomegaly. MUSCULOSKELETAL: No joint swelling or deformity. Limited range of motion with pain lumbar spine. EXTREMITIES: No cyanosis, clubbing, or pedal edema. NEUROLOGICAL: Gross neurological examination did not reveal any focal deficits. SKIN: No rashes. Assessment and plan Assessment Left lower lobe pneumonia, elevated procalcitonin on IV rocephin Pathological fracture at L4, scheduled to undergo kyphoplasty and biopsy of L4 tomorrow with Dr Sanchez Uncontrolled pain Non-small cell carcinoma of right lung stage IV, metastatic currently on keytruda Hypertension Hyperlipidemia Diabetes mellitus History of DVT on eliquis GI prophylaxis DVT prophylaxis Full code Plan Continue IV antibiotics Continue pain management Adjust blood pressure medications Surgery with Dr Sanchez tomorrow Incentive spirometry PT/OT consult The impression and plan of care has been dictated by Shahida Kim, Nurse Practitioner as directed. Dr. Naun MD I have performed a history and physical examination and medical decision making of this patient, discussed the same with the dictator, and agree with the dictators assessment and plan as written, documented as a scribe. Based on total visit time, I have performed more than 50% of this visit. Objective - Vital Signs Vital signs: Vital Signs Temp 98.2 F 07/27/21 07:33 Pulse 99 07/27/21 07:33 Resp 16 07/27/21 07:33 BP 123/76 07/27/21 07:33 Pulse Ox 95 07/27/21 07:18 Intake & Output 07/26/21 07/27/21 07/27/21 18:59 06:59 18:59 Other: Voiding Method Bedside Commode Bedside Commode Toilet Bedpan Bedpan # Voids 8 7 # Bowel Movements 1 0 - Labs CBC & Chem 7: 07/26/21 06:01 07/27/21 04:52 Labs: Abnormal Lab Results - Last 24 Hours (Table) 07/26/21 07/26/21 07/27/21 Range/Units 16:23 20:43 04:52 POC Glucose (mg/dL) 124 H 199 H (75-99) mg/dL Calcium 8.5 L (8.7-10.3) mg/dL 07/27/21 Range/Units 11:40 POC Glucose (mg/dL) 162 H (75-99) mg/dL Calcium (8.7-10.3) mg/dL Microbiology - Last 24 Hours (Table) 07/23/21 22:35 Blood Culture - Preliminary Blood No Growth after 72 hours Assessment and Plan Time with Patient: Less than 30
[2021-07-27 16:29] LABS: Glucose,Whole Blood 273 mg/dL (75-99)
--- NOTE | 2021-07-27 16:37 | P.PN ---
Subjective Progress Note Date: 07/27/21 Principal diagnosis: intractable back pain in follow-up today patient has no complaints other than back pain. The back pain at times can radiate down the legs. She denies any incontinence of urine or stool, she does maintain the strength in her lower extremities. Objective - Vital Signs Vital signs: Vital Signs Temp 98.7 F 07/27/21 14:00 Pulse 115 H 07/27/21 14:00 Resp 19 07/27/21 14:00 BP 121/81 07/27/21 14:00 Pulse Ox 95 07/27/21 14:00 Intake & Output 07/26/21 07/27/21 07/27/21 18:59 06:59 18:59 Other: Voiding Method Bedside Commode Bedside Commode Toilet Bedpan Bedpan # Voids 8 7 # Bowel Movements 1 0 - Constitutional General appearance: Present: average body habitus, cooperative, no acute distress - EENT Eyes: Present: anicteric sclerae, EOMI ENT: Present: hearing grossly normal - Respiratory Respiratory: bilateral: CTA - Cardiovascular Rhythm: regular Heart sounds: normal: S1, S2 Abnormal Heart Sounds: Absent: systolic murmur, diastolic murmur, rub, S3 Gallop, S4 Gallop, click, other - Peripheral edema leg Peripheral Edema: bilateral: None - Gastrointestinal General gastrointestinal: Present: normal bowel sounds, soft - Integumentary Integumentary: Present: normal - Neurologic Neurologic: Present: CNII-XII intact - Musculoskeletal Musculoskeletal Comment(s): flexion of the thigh, extension at the knee and plantar flexion of the feet-mild weakness but strength equal bilaterally - Psychiatric Psychiatric: Present: A&O x's 3, appropriate affect, intact judgment & insight - Labs CBC & Chem 7: 07/26/21 06:01 07/27/21 04:52 Labs: Abnormal Lab Results - Last 24 Hours (Table) 07/26/21 07/27/21 07/27/21 Range/Units 20:43 04:52 11:40 POC Glucose (mg/dL) 199 H 162 H (75-99) mg/dL Calcium 8.5 L (8.7-10.3) mg/dL 07/27/21 Range/Units 16:27 POC Glucose (mg/dL) 273 H (75-99) mg/dL Calcium (8.7-10.3) mg/dL Microbiology - Last 24 Hours (Table) 07/23/21 22:35 Blood Culture - Preliminary Blood No Growth after 72 hours Assessment and Plan (1) Intractable back pain Narrative/Plan: Secondary to malignancy. Patient has had radiation to the spine. She is on bisphosphonate therapy. Patient has been seen by Ortho Spine. Pending MRI results and recommendations. Current Visit: Yes Status: Acute Priority: High Code(s): M54.9 - DORSALG IA, UNSPECIFIED SNOMED Code(s): 720370511 (2) Non-small cell carcinoma of right lung, stage 4 Narrative/Plan: Recent imaging studies showing progression of disease. She has had 1 dose of palliative pembrolizumab. Due early August for cycle 2. Will cont with this plan for now. Will see if pt has any procedures or needs rehab that treatment dates would have to be adjusted. Current Visit: No Status: Chronic Priority: Medium Code(s): C34.91 - MALIGNANT NEOPLASM OF UNSP PART OF RIGHT BRONCHUS OR LUNG SNOMED Code(s): 774169510
[2021-07-27] MEDS: CYCLOBENZAPRINE 10 MG TAB PO SCH (19:12)
[2021-07-27 21:14] LABS: Glucose,Whole Blood 202 mg/dL (75-99)
[2021-07-27] MEDS: INSULIN DETEMIR (LEVEMIR) 100 UNIT/ML SYR SQ SCH (21:21)
[2021-07-28] MEDS: HYDROcodone/APAP 5-325MG 1 EACH TAB PO PRN ×3 (01:22→23:22)
[2021-07-28] MEDS: HYDROmorphone 0.5 MG/0.5 ML SYRINGE IVP PRN ×4 (03:06→14:37)
[2021-07-28] MEDS: ACETAMINOPHEN TAB 325 MG TAB PO PRN (05:01)
[2021-07-28 06:57] LABS: Glucose,Whole Blood 137 mg/dL (75-99)
[2021-07-28] MEDS: INSULIN ASPART (NovoLOG) 100 UNIT/ML VIAL SQ SCH ×4 (08:05→22:40)
[2021-07-28] MEDS: CALCIUM CARBONATE 500 MG CHEWABLE PO SCH ×2 (08:07→22:41)
[2021-07-28] MEDS: APIXABAN 5 MG TAB PO SCH ×2 (08:07→22:30)
[2021-07-28] MEDS: CHOLECALCIFEROL 25 MCG (1000 IU) TABLET PO SCH (08:08)
[2021-07-28] MEDS: MAGNESIUM OXIDE 400 MG TAB PO SCH ×2 (08:08→22:40)
[2021-07-28] MEDS: LORATADINE 10 MG TAB PO SCH (08:08)
[2021-07-28] MEDS: DOCUSATE 100 MG CAP PO SCH (08:08)
[2021-07-28] MEDS: FERROUS SULFATE 325 MG TAB PO SCH (08:08)
[2021-07-28] MEDS: LOSARTAN 25 MG TAB PO SCH (08:22)
[2021-07-28] MEDS: allopurinoL 100 MG TAB PO SCH (08:22)
[2021-07-28] MEDS: EZETIMIBE 10 MG TAB PO SCH (08:22)
[2021-07-28] MEDS: FUROSEMIDE 40 MG TAB PO SCH (08:22)
[2021-07-28] MEDS ORDERED: HYDROmorphone 0.5 MG/0.5 ML SYRINGE IVP ONE ×6 (09:21→21:31)
[2021-07-28 11:30] LABS: Glucose,Whole Blood 141 mg/dL (75-99)
--- NOTE | 2021-07-28 11:48 | P.PN ---
Subjective Progress Note Date: 07/28/21 Principal diagnosis: Metastatic non-small cell lung cancer, small left pleural effusion and compressive atelectasis The patient is a 71-year-old white female with known history of metastatic lung cancer. The patient has been followed up through our service and oncology. I was estimated at this patient because of a pneumonia. The most recent CAT scan of the abdomen and pelvis showed some atelectatic changes and small effusion the lung bases bilaterally. For that reason, Pulmicort station was requested suspecting pneumonia. In summary, the patient initially presented with extensive LLE DVT in 12/2020,at that time,she had a CT scan of chest which revealed a suspicious RUL lung nodule. PET scan done on 04/09/2021 revealed suspicious uptake in 5.9 cm RUL mass,which increased in size compared to 01/07/2021 CT scan of chest,a suspicious uptake in a small right hilar node.On 04/22/2021,she had navigational bronchoscopy,transbronchial biopsy of RUL was positive for poorly differentiated carcinoma consistent with lung primary. She was evaluated by Dr Crespo and felt not a surgical candidate due to co- morbidities and PS.Brain MRI on 05/20/2021 was negative for metastatic disease. PDL-1 was 99%. NGS revealed KRAS G12C mutation. On 06/03/2021,she started concurrent chemoradiation therapy with weekly taxol/carboplatin. However,on 06/09/2021,she developed significant acute lower back pain after her XRT,went to ER on 06/10/2021,had a CT of lumbar spine which revealed degenerative disc disease,CT scan of abdomen/pelvis revealed new small bilateral adrenal lesions.(were not present on prior PET scan). Chemoradiation was stopped. Repeat PET scan on 06/25/2021 revealed evidence of disease progression,multiple osseous lesions,bilateral adrenal gland lesions. She started Keytruda on 07/16/21, and is s/p 1 cycle For now, the patient denies having any significant shortness of breath. No cough sputum production chest answer wheezing. Nevertheless, the patient is having pain in her back radiating to her left lower extremity and she is having difficulty with mobility. This may be related to recent finding of a pathologic fracture of the L4 vertebral body and mild spinal stenosis due to posterior extension. As evident, the patient also has bilateral adrenal metastases and a left-sided pleural effusion with some atelectatic changes and left lower lobe. She did have a bout of fever at time of admission, currently afebrile. Pelvic x-ray is negative. The patient is currently on room air oxygen. White cell count is at 8.0. Resident the blood work and electrodes are all within normal limits. Pro-calcitonin level is at 0.45. The patient was started on examination Rocephin and Zithromax. On 07/26/2021 patient seen in follow-up on medical surgical floor, she is awake and alert, in no acute distress, room air pulse ox is 95%, she denies any diffic ulty breathing, no cough, no chest discomfort. She is oriented 3, her lungs are clear to auscultation. She states her thoracic spine pain is better. She is awaiting MRI of the lumbar spine. No fever or chills, no cough, no chest congestion. No wheezing. Remains on Rocephin and azithromycin for empiric antibody coverage. Pro-calcitonin level was 0.45. On 07/27/2021 patient seen in follow-up on medical surgical floor. She is awake and alert, in no acute distress, denies any dyspnea, no cough no chest pain. She still complains of thoracic spine pain. She is awaiting MRI of the lumbar spine today possibly at 1240. Her lungs are clear to auscultation, she is on room air with pulse ox of 95%, breathing is nonlabored. No fever or chills, her pro-calcitonin level was a bit elevated to 0.45, and for that reason patient is on empiric antibiotics with Rocephin. Urine and blood cultures have been negative. Today's labs have been reviewed, electrolytes and renal profile are all within normal limits. The patient is seen today 07/28/2021 in follow-up on the regular medical floor. She is currently resting fairly comfortably in bed. Awake and alert in no acute distress. She denies any worsening shortness of breath, cough or congestion. She is maintaining O2 saturations in the 90s on room air. MRI of the spine from yesterday revealed suspected pathologic fracture at L4 level with most prominent spinal canal stenosis. Correlate with rapidly progressive metastatic lung can cer. Blood culture reveals no growth. Urine culture reveals no growth. Blood glucose 141. She remains on DuoNeb inhalations, antibiotics in the form of ceftriaxone. Anticoagulated with all of chest. Pain is well controlled. Objective - Vital Signs Vital signs: Vital Signs Temp 98.4 F 07/28/21 07:20 Pulse 108 H 07/28/21 07:20 Resp 18 07/28/21 07:20 BP 111/74 07/28/21 07:20 Pulse Ox 94 L 07/28/21 07:20 Intake & Output 07/27/21 07/28/21 07/28/21 18:59 06:59 18:59 Intake Total 480 Balance 480 Intake: Oral 480 Other: Voiding Method Toilet Toilet # Voids 3 8 # Bowel Movements 1 0 - Exam GENERAL EXAM: Alert, very pleasant, 71-year-old female, resting comfortably in bed, on room air with pulse ox of 94% comfortable in no apparent distress. HEAD: Normocephalic/atraumatic. EYES: Normal reaction of pupils, equal size. Conjunctiva pink, sclera white. NOSE: Clear with pink turbinates. THROAT: No erythema or exudates. NECK: No masses, no JVD, no thyroid enlargement, no adenopathy. CHEST: No chest wall deformity. Symmetrical expansion. LUNGS: Equal air entry with no crackles, wheeze, rhonchi or dullness. CVS: Regular rate and rhythm, normal S1 and S2, no gallops, no murmurs, no rubs ABDOMEN: Soft, nontender. No hepatosplenomegaly, normal bowel sounds, no guarding or rigidity. EXTREMITIES: No clubbing, no edema, no cyanosis, 2+ pulses and upper and lower extremities. MUSCULOSKELETAL: Muscle strength and tone normal. SPINE: No scoliosis or deformity SKIN: No rashes CENTRAL NERVOUS SYSTEM: No focal deficits, tone is normal in all 4 extremities. PSYCHIATRIC: Alert and oriented -3. Appropriate affect. Intact judgment and insight. - Labs CBC & Chem 7: 07/26/21 06:01 07/27/21 04:52 Labs: Abnormal Lab Results - Last 24 Hours (Table) 07/27/21 07/27/21 07/27/21 Range/Units 11:40 16:27 21:11 POC Glucose (mg/dL) 162 H 273 H 202 H (75-99) mg/dL 07/28/21 07/28/21 Range/Units 06:55 11:28 POC Glucose (mg/dL) 137 H 141 H (75-99) mg/dL Microbiology - Last 24 Hours (Table) 07/23/21 22:35 Blood Culture - Preliminary Blood No Growth after 96 hours Assessment and Plan Assessment: 1 Metastatic non-small cell lung cancer, currently on immunotherapy with Keytruda 2 Small left-sided pleural effusion/compressive atelectasis. Highly doubt pneumonia. Based on fever and mildly progressed on a level, treatment with antibiotics is reasonable 3 Back pain and pathologic fracture of the L4 spine. The patient is having difficulty with mobility. The patient has received radiation therapy to her spine, Exact treatment, dose unknown location is not known. Nevertheless, the patient seems to have had progression of the pathologic fractures and she has been evaluated by orthopedics. She is having ongoing pain currently on a combination of Ultram and Dilaudid. 4 Hypertension 5 Hyperlipidemia 6 Diabetes mellitus 7 Previous history of DVT maintained on long-term anticoagulation with Eliquis. Plan: The patient was seen and evaluated Stable from the pulmonary standpoint MRI and labs reviewed Plan is for possible kyphoplasty of L4 We will continue to follow I have personally seen and examined the patient, performed the documentation and the assessment and plan as written. Number of minutes spent on the visit: 10.
--- NOTE | 2021-07-28 12:46 | P.PN ---
Subjective Progress Note Date: 07/28/21 Principal diagnosis: Metastatic Lung Cancer, back pain Awaiting Kypho today Objective - Vital Signs Vital signs: Vital Signs Temp 98.4 F 07/28/21 07:20 Pulse 108 H 07/28/21 07:20 Resp 18 07/28/21 07:20 BP 111/74 07/28/21 07:20 Pulse Ox 94 L 07/28/21 07:20 Intake & Output 07/27/21 07/28/21 07/28/21 18:59 06:59 18:59 Intake Total 480 Balance 480 Intake: Oral 480 Other: Voiding Method Toilet Toilet # Voids 3 8 # Bowel Movements 1 0 - Exam - Constitutional General appearance: Present: average body habitus, cooperative, no acute distress - EENT Eyes: Present: anicteric sclerae, EOMI ENT: Present: hearing grossly normal - Respiratory Respiratory: bilateral: CTA - Cardiovascular Rhythm: regular Heart sounds: normal: S1, S2 Abnormal Heart Sounds: Absent: systolic murmur, diastolic murmur, rub, S3 Gallop, S4 Gallop, click, other - Peripheral edema leg Peripheral Edema: bilateral: None - Gastrointestinal General gastrointestinal: Present: normal bowel sounds, soft - Integumentary Integumentary: Present: normal - Neurologic Neurologic: Present: CNII-XII intact - Musculoskeletal Musculoskeletal Comment(s): flexion of the thigh, extension at the knee and plantar flexion of the feet-mild weakness but strength equal bilaterally - Psychiatric Psychiatric: Present: A&O x's 3, appropriate affect, intact judgment & insight - Labs CBC & Chem 7: 07/26/21 06:01 07/27/21 04:52 Labs: Abnormal Lab Results - Last 24 Hours (Table) 07/27/21 07/27/21 07/28/21 Range/Units 16:27 21:11 06:55 POC Glucose (mg/dL) 273 H 202 H 137 H (75-99) mg/dL 07/28/21 Range/Units 11:28 POC Glucose (mg/dL) 141 H (75-99) mg/dL Microbiology - Last 24 Hours (Table) 07/23/21 22:35 Blood Culture - Preliminary Blood No Growth after 96 hours Assessment and Plan (1) Chronic pain Current Visit: Yes Status: Acute Code(s): G89.29 - OTHER CHRONIC PAIN SNOMED Code(s): 41922331 (2) Intractable back pain Current Visit: Yes Status: Acute Priority: High Code(s): M54.9 - DORSALGIA, UNSPECIFIED SNOMED Code(s): 652423201 (3) DVT (deep venous thrombosis) Current Visit: No Status: Acute Code(s): I82.409 - ACUTE EMBOLISM AND THOMBOS UNSP DEEP VN UNSP LOWER EXTREMITY SNOMED Code(s): 090850546 (4) Non-small cell carcinoma of right lung, stage 4 Current Visit: No Status: Chronic Priority: Medium Code(s): C34.91 - MALIGNANT NEOPLASM OF UNSP PART OF RIGHT BRONCHUS OR LUNG SNOMED Code(s): 781175632 Plan: Assessment and Plan (1) Intractable back pain Narrative/Plan: Secondary to malignancy. Patient has had radiation to the spine. She is on bisphosphonate therapy. Patient has been seen by Ortho Spine. - Plan is for kypho today Current Visit: Yes Status: Acute Priority: High Code(s): M54.9 - DORSALGIA, UNSPECIFIED SNOMED Code(s): 259466785 (2) Non-small cell carcinoma of right lung, stage 4 Narrative/Plan: Recent imaging studies showing progression of disease. She has had 1 dose of palliative pembrolizumab. Due early August for cycle 2. Will cont with this plan for now. Will see if pt has any procedures or needs rehab that treatment dates would have to be adjusted. Current Visit: No Status: Chronic Priority: Medium Code(s): C34.91 - MALIGNANT NEOPLASM OF UNSP PART OF RIGHT BRONCHUS OR LUNG SNOMED Code(s): 837534695
--- NOTE | 2021-07-28 15:48 | P.PN ---
Subjective Progress Note Date: 07/28/21 07/26/2021 Patient evaluated today resting in bed. Plan for MRI lumbar spine at some time today. She was evaluated by orthopedics, LSO brace will be ordered and will make further recommendations regarding surgical intervention after review of MRI. Pulmonary is also on the case. Hemoglobin stable at 10.9. Sodium today 133, BUN 8.5, creatinine 0.6, blood glucose in the 120s. Pro-calcitonin level was checked and it is 0.45. She continues on no complaints of shortness of breath or cough today pressure maintained afebrile, heart 92, blood pressure on the lower side at 99/63, 95% room air. IV Rocephin. She did complete 5 days of oral azithromycin. Monitor blood pressure closely and changed losartan to 25 mg po daily from 50. 07/27/2021 Patient evaluated today resting in bed. MRI lumbar spine showed suspected pathologic fracture L4 level with most prominent spinal canal stenosis at this level confirmed. Findings clear with rapidly progressive metastatic lung cancer when correlating with most recent CTs and PET CTs. Patient does not tolerate LSO brace very well states that she had a significant back pain while wearing. Currently she rates pain a 5 out of 10 while she is moving it as a 10 out of 10. It is sharp and radiates down her thigh. Sodium improved to 136. Afebrile, heart rate 115, blood pressure 121/81, 98% room air. Continues on IV antibiotics. Tramadol, norco, and dilaudid for pain control. Per Dr Cook note would consider surgery as early as tomorrow, which it is scheduled for tomorrow at 4pm for kyphoplasty and biopsy of L4. Discuss with surgery about holding el iquis, which she is on for history of DVT. 07/28/2021 Patient evaluated earlier today pending surgery with Dr Sanchez. Denies pain at time of my assessment. Denies cough or shortness of breath. Incentive spirometer at the bedside. Patient is being followed closely by pulmonary and hematology. Continues on IV rocephin. Cultures are all negative. Blood pressure more controlled today 111/74, HR 108, afebrile. 95% on room air. Eliquis has been on hold for surgery today. Review of Systems Constitutional: Denied any fatigue denied any fever. Cardio vascular: denied any chest pain, palpitations Gastrointestinal: denied any nausea, vomiting, diarrhea Pulmonary: Denied any shortness of breath cough Neurologic denied any new focal deficits All inpatient medications were reviewed and appropriate changes in these medications as dictated in the interval history and assessment and plan. PHYSICAL EXAMINATION: GENERAL: The patient is alert and oriented x3, not in any acute distress. Well developed, well nourished. HEENT: Pupils are round and equally reacting to light. EOMI. No scleral icterus. No conjunctival pallor. Normocephalic, atraumatic. No pharyngeal erythema. No thyromegaly. CARDIOVASCULAR: S1 and S2 present. No murmurs, rubs, or gallops. PULMONARY: Chest is clear to auscultation, no wheezing or crackles. ABDOMEN: Soft, nontender, nondistended, normoactive bowel sounds. No palpable organomegaly. MUSCULOSKELETAL: No joint swelling or deformity. Limited range of motion with pain lumbar spine. EXTREMITIES: No cyanosis, clubbing, or pedal edema. NEUROLOGICAL: Gross neurological examination did not reveal any focal deficits. SKIN: No rashes. Assessment and plan Assessment Left lower lobe pneumonia, elevated procalcitonin on IV rocephin Pathological fracture at L4, scheduled to undergo kyphoplasty and biopsy of L4 today Pain management Non-small cell carcinoma of right lung stage IV, metastatic currently on keytruda Hypertension Hyperlipidemia Diabetes mellitus History of DVT on eliquis GI prophylaxis DVT prophylaxis Full code Plan Continue IV antibiotics Continue pain management Adjust blood pressure medications Kyphoplasty today Incentive spirometry PT/OT consult The impression and plan of care has been dictated by Shahida Kim, Nurse Practitioner as directed. Dr. Naun MD I have performed a history and physical examination and medical decision making of this patient, discussed the same with the dictator, and agree with the dictators assessment and plan as written, documented as a scribe. Based on total visit time, I have performed more than 50% of this visit. Objective - Vital Signs Vital signs: Vital Signs Temp 98.4 F 07/28/21 07:20 Pulse 108 H 07/28/21 07:20 Resp 18 07/28/21 07:20 BP 111/74 07/28/21 07:20 Pulse Ox 94 L 07/28/21 07:20 Intake & Output 07/27/21 07/28/21 07/28/21 18:59 06:59 18:59 Intake Total 480 Balance 480 Intake: Oral 480 Other: Voiding Method Toilet Toilet # Voids 3 8 # Bowel Movements 1 0 - Labs CBC & Chem 7: 07/26/21 06:01 07/27/21 04:52 Labs: Abnormal Lab Results - Last 24 Hours (Table) 07/27/21 07/27/21 07/28/21 Range/Units 16:27 21:11 06:55 POC Glucose (mg/dL) 273 H 202 H 137 H (75-99) mg/dL 07/28/21 Range/Units 11:28 POC Glucose (mg/dL) 141 H (75-99) mg/dL Microbiology - Last 24 Hours (Table) 07/23/21 22:35 Blood Culture - Preliminary Blood No Growth after 96 hours Assessment and Plan Time with Patient: Less than 30
[2021-07-28 16:37] LABS: Glucose,Whole Blood 133 mg/dL (75-99)
[2021-07-28] MEDS ORDERED: LIDOCAINE 1% INJ 10MG/ML (20 ML MDV) ONE (20:07)
[2021-07-28] MEDS ORDERED: fentaNYL (PF) 50 MCG/ML 2 ML AMP ONE (20:07)
[2021-07-28] MEDS ORDERED: ONDANSETRON 4 MG/2 ML VIAL ONE (20:07)
[2021-07-28] MEDS ORDERED: SODIUM CHLORIDE 0.9% 100 ML BAG ONE (20:07)
[2021-07-28] MEDS ORDERED: ceFAZolin 1,000 MG VIAL ONE (20:07)
[2021-07-28] MEDS ORDERED: MIDAZOLAM 2 MG/2 ML VIAL ONE (20:07)
[2021-07-28] MEDS ORDERED: PROPOFOL 10 MG/ML 20 ML VIAL IV ONE (20:07)
[2021-07-28] MEDS ORDERED: SUCCINYLCHOLINE CHLORIDE 100 MG/5 ML SYR IV ONE (20:07)
[2021-07-28] MEDS ORDERED: LACTATED RINGERS 1,000 ML IV ONE ×2 (20:10→20:53)
[2021-07-28] MEDS ORDERED: IOPAMIDOL M200 10 ML VIAL MISCELLANE ONE ×2 (20:10→20:35)
[2021-07-28] MEDS ORDERED: SODIUM CHLORIDE 0.9% 50 ML IV ONE (20:25)
[2021-07-28] MEDS ORDERED: BUPIVACAIN-EPI 0.25%-1:200,000 30 ML VIAL SQ ONE (20:35)
[2021-07-28] MEDS ORDERED: BENZOCAINE/MENTHOL LOZENG 1 EACH LOZENGE MUCOUS MEM PRN (21:25)
--- NOTE | 2021-07-28 21:32 | P.OP ---
Date of Procedure: 07/28/21 Preoperative Diagnosis: L4 pathologic compression fracture, low back pain, failed conservative treatment, metastatic lung cancer Postoperative Diagnosis: Same Anesthesia: GETA Pathology: other (L4 vertebral body sent to pathology) Condition: stable Disposition: PACU Description of Procedure: BRIEF OPERATIVE NOTE Preoperative Diagnosis: L4 pathologic compression fracture, low back pain, failed conservative treatment, metastatic lung cancer Postoperative Diagnosis: Same Procedure: Kyphoplasty L4 Vertebral body biopsy L4 Use of biplanar fluoroscopic guidance Surgeon: Dr. Sanchez Circuit Tester: Anesthesia: General anesthesia Estimated blood loss: Less than 10 mL Specimen: Vertebral body of L4 biopsy sent to pathology in formalin Complications: None apparent Components implanted: Bone cement approximately 10-1/2 mL Disposition: To recovery room in good stable condition. OPERATIVE INDICATIONS The patient has been having issues in their back over the past couple weeks. The pain has been getting worse despite conservative treatment and bracing. Patient has history of metastatic cancer and his presumptive pathologic fracture at L4. She's not having particular neurologic dysfunction but she is having some radicular symptoms. She is having most significant pain whenever she tries to mobilize her sit up and walk with pain in her lower back which we believe is due to the fracture L4. There has been some further collapse of the fracture on imaging recently.. The patient has been through conservative treatment. They attempted conservative care with bracing however they're not having any benefit despite brace use. They continue to have significant pain and debility due to their fracture. We discussed various treatment options including surgery, and the patient wishes to proceed with surgery We discussed the risk, patient's alternatives and benefits of surgery including but not limited to, risk of bleeding risk of infection, risk of need for further surgery, risk of decreased, loss of motion, loss of function, cement extravasation, nerve damage, paralysis, heart attack, blindness and . OPERATIVE SUMMARY After discussing all the risks, patient alternatives and benefits at length, the patient elected to proceed with surgical intervention, signed informed consent, and presented for their procedure. The patient was seen and examined in the preoperative holding area and the surgical site was marked. The patient was given antibiotics and brought to the operating room. The patient was sedated and intubated by anesthesia in standard fashion. The patient was positioned on to the operating room table in a prone position on the appropriate well-padded and well molded bilateral chest rolls. We were careful to pad any bony prominences and pressure points. We were careful to maintain the patient's cervical spine and good neutral alignment and position throughout. We used 2 C-arm machines to establish biplanar fluoroscopic guidance in AP and lateral positions. We were able to localize the fractures appropriately. The patient was prepped and draped in a normal standard fashion. An appropriate timeout and keystone protocol performed. We were able to proceed with the surgery. The local wound area was infiltrated with local anesthetic. An incision was made over the lateral aspect of the pedicle over the appropriate levels at L4 bilaterally with a small 2 mm stab incision. Intraoperative fluoroscopy was taken which showed a marker at the appropriate level. With the appropriate level positively confirmed, I was able to position a sharp trocar over the lateral aspect of the pedicle. As able to advance the trocar into the pedicle and into the posterior aspect of vertebral body being careful to avoid penetration cephalad caudad or medially. The trocar was placed appropriately into the posterior aspect of vertebral body at the appropriate levels bila terally at L4. This was confirmed with C-arm guidance. With the trocar intact I was then able to take a bone biopsy with a biopsy punch or a bony drill. The biopsy specimen was passed off to be sent to pathology in formalin. I was then able to place the kyphoplasty balloons within the vertebral body. The position was checked on C-arm. I was able to inflate the balloon under low pressure and visualization with C-arm. The balloons were well enclosed within the vertebral body. The cement was prepared. With the cement at appropriate working condition the balloons were deflated and removed. I was able to place bony cement with trocar with the cement delivery device under low pressure. It had good fill within the vertebral body bilaterally. There is no evidence of any extravasation of the cement posteriorly toward the canal. The cement was well contained at the appropriate levels. The cement was allowed to cure appropriately. The trochars removed and final images were taken on C-arm. This showed the cement at the appropriate levels at L4. We were able to proceed with closure. The wound was cleaned and dried and dressed with the appropriate dressing. The drapes were broken down. The patient was gently rolled back onto their hospital bed being careful to maintain their cervical spine and good neutral alignment and position. They were woken up by anesthesia, extubated, and brought to the recovery room in good stable condition. The patient will be admitted to the hospital for observation and for appropriate postoperative care, medical management and monitoring. We will continue to follow them closely about the postoperative course.
--- NOTE | 2021-07-28 21:45 | XR ---
EXAMINATION TYPE: XR lumbar spine 2 or 3V DATE OF EXAM: 07/28/2021 9:28 PM INDICATION: Patient age:Female; 71 years old; Reason for study: L4 Kyphoplasty; [facility]. Intraoperative fluoroscopic services were provided for kyphoplasty. Total fluoroscopy time of 27.2 se conds and 23.9 seconds with a total of #4 submitted images to PACS. Please see the operative note for further details.
[2021-07-28 21:46] LABS: Glucose,Whole Blood 195 mg/dL (75-99)
[2021-07-28] MEDS ORDERED: HALOPERIDOL LACTATE 5 MG/ML 1 ML VIAL IVP STA (21:53)
[2021-07-28 22:38] LABS: Glucose,Whole Blood 161 mg/dL (75-99)
[2021-07-28] MEDS: CYCLOBENZAPRINE 10 MG TAB PO SCH (22:40)
[2021-07-28] MEDS: INSULIN DETEMIR (LEVEMIR) 100 UNIT/ML SYR SQ SCH (22:41)
[2021-07-28] MEDS: SODIUM CHLORIDE 0.9% 1,000 ML IV SCH (22:50)
[2021-07-29] MEDS: HYDROmorphone 1 MG/ML 1 ML SYRINGE IVP PRN ×2 (01:56→08:55)
[2021-07-29] MEDS: HYDROcodone/APAP 5-325MG 1 EACH TAB PO PRN ×3 (04:49→21:32)
[2021-07-29 06:57] LABS: Glucose,Whole Blood 165 mg/dL (75-99)
[2021-07-29] MEDS: SODIUM CHLORIDE 0.9% 1,000 ML IV SCH (07:58)
[2021-07-29] MEDS: INSULIN ASPART (NovoLOG) 100 UNIT/ML VIAL SQ SCH ×4 (08:09→21:31)
[2021-07-29] MEDS: SENNOSIDES-DOCUSATE SODIUM 1 EACH TAB PO SCH (08:10)
[2021-07-29] MEDS: CHOLECALCIFEROL 25 MCG (1000 IU) TABLET PO SCH (08:10)
[2021-07-29] MEDS: CALCIUM CARBONATE 500 MG CHEWABLE PO SCH ×2 (08:10→21:31)
[2021-07-29] MEDS: DOCUSATE 100 MG CAP PO SCH (08:10)
[2021-07-29] MEDS: allopurinoL 100 MG TAB PO SCH (08:10)
[2021-07-29] MEDS: APIXABAN 5 MG TAB PO SCH ×2 (08:10→21:31)
[2021-07-29] MEDS: LORATADINE 10 MG TAB PO SCH (08:10)
[2021-07-29] MEDS: FERROUS SULFATE 325 MG TAB PO SCH (08:10)
[2021-07-29] MEDS: MAGNESIUM OXIDE 400 MG TAB PO SCH ×2 (08:10→21:31)
[2021-07-29] MEDS: EZETIMIBE 10 MG TAB PO SCH (08:11)
[2021-07-29] MEDS: FUROSEMIDE 40 MG TAB PO SCH (08:11)
[2021-07-29] MEDS: LOSARTAN 25 MG TAB PO SCH (08:11)
[2021-07-29 09:03] LABS: Basophils # (A) 0.07 X 10*3/uL (0.00-0.10); Basophils % (A) 0.8 %; Eosinophils # (A) 0.47 X 10*3/uL (0.04-0.35); Eosinophils % (A) 5.7 %; HCT 38.5 % (37.2-46.3); HGB 11.6 g/dL (12.0-15.0); Immature Grans, Automated 0.8 %; Lymphocytes # (A) 1.07 X 10*3/uL (0.90-5.00); Lymphocytes % (A) 12.9 %; MCH 26.9 pg (27.0-32.0); MCHC 30.1 g/dL (32.0-37.0); MCV 89.1 fL (80.0-97.0); Mean Platelet Volume 10.1 fL (9.5-12.2); Monocytes # (A) 0.46 X 10*3/uL (0.20-1.00); Monocytes % (A) 5.5 %; NRBC Per 100 WBC 0 /100 WBCS (0.0-0.0); Neutrophils # (A) 6.16 X 10*3/uL (1.80-7.70); Neutrophils % (A) 74.3 %; Platelet Count 351 X 10*3/uL (140-440); RBC 4.32 X 10*6/uL (4.10-5.20); RDW 18.1 % (11.5-14.5)
--- NOTE | 2021-07-29 09:25 | FL ---
EXAMINATION TYPE: FL guidance operating room DATE OF EXAM: 07/28/2021 HISTORY: Fluoroscopy time 50 seconds of fluoroscopy provided. IMPRESSION: 1. Fluoroscopy time.
[2021-07-29 09:41] LABS: African American GFR (CKD) 86.6 (60.0-200.0); Albumin 3.2 g/dL (3.8-4.9); Albumin/Globulin Ratio 1.19 (1.60-3.17); Anion Gap 11.8 mmol/L (10.00-18.00); BUN/Creat Ratio 20.25 Ratio (12.00-20.00); Blood Urea Nitrogen 16.2 mg/dL (9.0-27.0); Calcium 8.4 mg/dL (8.7-10.3); Carbon Dioxide 25.2 mmol/L (20.0-27.5); Globulin 2.7 g/dL (1.6-3.3); Non-African American GFR(CKD) 74.7 (60.0-200.0); Potassium 4.3 mmol/L (3.5-5.5); Total Bilirubin 0.2 mg/dL (0.30-1.20); Total Protein 5.9 g/dL (6.2-8.2)
--- NOTE | 2021-07-29 11:17 | P.PN ---
Progress Note - Text Progress Note Date: 07/29/21 Postoperative day #1 Patient is seen and examined today at bedside. The patient has some pain around the surgical site as expected, but says that her back is feeling much better and not having any significant problems. She has a little bit of tingling in her left leg but that is improved as well. She is happy with results from surgery thus far. Pain is being controlled with medication. Physical Exam Afebrile with stable vital signs Abdomen is soft nontender. Chest has good excursion deep and space expiration The incision site is clean dry and intact. No erythema there is no purulence. Extremities have not had neurologic change from prior to surgery. She has sustained dorsal to plantar flexion and EHL at her lower extremities Calves and thighs were soft nontender without evidence of DVT. Assessment/Plan Postoperative day #1 status post L4 vertebral body biopsy and kyphoplasty cement augmentation Patient is progressing as expected from the surgery. She has had significant improvement in her back pain and leg pain with her surgery and is happy with results thus far. Her incision site seems to be healing appropriately. She has been ambulatory in her room and is planning to go home today. From a spine standpoint it is okay for her to be discharged home today if she is cleared with medicine and I can see her back in approximately 2 weeks or sooner if she is having problems. Usage of a brace with the optional for her. She may use a brace for comfort. The biopsy taken from the time of surgery has been sent to pathology and we will notify her for results as they become available over the next several days or at her follow-up. She may do light mobility and ambulation as she tolerates. She should avoid any heavy work or repetitive bending twisting or lifting
[2021-07-29 11:54] LABS: Glucose,Whole Blood 148 mg/dL (75-99)
--- NOTE | 2021-07-29 12:37 | P.PN ---
Subjective Progress Note Date: 07/29/21 Principal diagnosis: Metastatic Lung Cancer, back pain Status Post Kyphoplasty, seen in followup and feeling much better. No back pain Objective - Vital Signs Vital signs: Vital Signs Temp 98.5 F 07/29/21 06:58 Pulse 108 H 07/29/21 06:58 Resp 16 07/29/21 06:58 BP 132/83 07/29/21 06:58 Pulse Ox 94 L 07/29/21 06:58 Intake & Output 07/28/21 07/29/21 07/29/21 18:59 06:59 18:59 Intake Total 1650 Output Total 4 6 Balance -4 1644 Intake: IV 1650 Output: Urine 3 Stool 1 Estimated Blood Loss 6 Other: # Voids 1 - Exam - Constitutional General appearance: Present: average body habitus, cooperative, no acute distress - EENT Eyes: Present: anicteric sclerae, EOMI ENT: Present: hearing grossly normal - Respiratory Respiratory: bilateral: CTA - Cardiovascular Rhythm: regular Heart sounds: normal: S1, S2 Abnormal Heart Sounds: Absent: systolic murmur, diastolic murmur, rub, S3 Gallop, S4 Gallop, click, other - Peripheral edema leg Peripheral Edema: bilateral: None - Gastrointestinal General gastrointestinal: Present: normal bowel sounds, soft - Integumentary Integumentary: Present: normal - Neurologic Neurologic: Present: CNII-XII intact - Musculoskeletal Musculoskeletal Comment(s): flexion of the thigh, extension at the knee and plantar flexion of the feet-mild weakness but strength equal bilaterally - Psychiatric Psychiatric: Present: A&O x's 3, appropriate affect, intact judgment & insight - Labs CBC & Chem 7: 07/29/21 04:21 07/29/21 04:21 Labs: Abnormal Lab Results - Last 24 Hours (Table) 07/28/21 07/28/21 07/28/21 Range/Units 16:35 21:44 22:36 Hgb (12.0-15.0) g/dL MCH (27.0-32.0) pg MCHC (32.0-37.0) g/dL RDW (11.5-14.5) % Immature Gran # (0.00-0.04) X 10*3/uL Eosinophils # (0.04-0.35) X 10*3/uL BUN/Creatinine Ratio (12.00-20.00) Ratio Glucose (70-110) mg/dL POC Glucose (mg/dL) 133 H 195 H 161 H (75-99) mg/dL Calcium (8.7-10.3) mg/dL Total Bilirubin (0.30-1.20) mg/dL Alkaline Phosphatase (41-126) U/L Total Protein (6.2-8.2) g/dL Albumin (3.8-4.9) g/dL Albumin/Globulin Ratio (1.60-3.17) g/dL Vitamin D 25-Hydroxy (30.0-100.0) ng/mL 07/29/21 07/29/21 07/29/21 Range/Units 04:21 04:21 06:56 Hgb 11.6 L (12.0-15.0) g/dL MCH 26.9 L (27.0-32.0) pg MCHC 30.1 L (32.0-37.0) g/dL RDW 18.1 H (11.5-14.5) % Immature Gran # 0.07 H (0.00-0.04) X 10*3/uL Eosinophils # 0.47 H (0.04-0.35) X 10*3/uL BUN/Creatinine Ratio 20.25 H (12.00-20.00) Ratio Glucose 123 H (70-110) mg/dL POC Glucose (mg/dL) 165 H (75-99) mg/dL Calcium 8.4 L (8.7-10.3) mg/dL Total Bilirubin 0.20 L (0.30-1.20) mg/dL Alkaline Phosphatase 133 H (41-126) U/L Total Protein 5.9 L (6.2-8.2) g/dL Albumin 3.2 L (3.8-4.9) g/dL Albumin/Globulin Ratio 1.19 L (1.60-3.17) g/dL Vitamin D 25-Hydroxy 26.3 L (30.0-100.0) ng/mL 07/29/21 Range/Units 11:52 Hgb (12.0-15.0) g/dL MCH (27.0-32.0) pg MCHC (32.0-37.0) g/dL RDW (11.5-14.5) % Immature Gran # (0.00-0.04) X 10*3/uL Eosinophils # (0.04-0.35) X 10*3/uL BUN/Creatinine Ratio (12.00-20.00) Ratio Glucose (70-110) mg/dL POC Glucose (mg/dL) 148 H (75-99) mg/dL Calcium (8.7-10.3) mg/dL Total Bilirubin (0.30-1.20) mg/dL Alkaline Phosphatase (41-126) U/L Total Protein (6.2-8.2) g/dL Albumin (3.8-4.9) g/dL Albumin/Globulin Ratio (1.60-3.17) g/dL Vitamin D 25-Hydroxy (30.0-100.0) ng/mL Microbiology - Last 24 Hours (Table) 07/23/21 22:35 Blood Culture - Preliminary Blood No Growth after 120 hours Assessment and Plan (1) Chronic pain Current Visit: Yes Status: Acute Code(s): G89.29 - OTHER CHRONIC PAIN SNOMED Code(s): 22950921 (2) Intractable back pain Current Visit: Yes Status: Acute Priority: High Code(s): M54.9 - DORSALGIA, UNSPECIFIED SNOMED Code(s): 306692122 (3) DVT (deep venous thrombosis) Current Visit: No Status: Acute Code(s): I82.409 - ACUTE EMBOLISM AND THOMBOS UNSP DEEP VN UNSP LOWER EXTREMITY SNOMED Code(s): 087826516 (4) Non-small cell carcinoma of right lung, stage 4 Current Visit: No Status: Chronic Priority: Medium Code(s): C34.91 - MALIGNANT NEOPLASM OF UNSP PART OF RIGHT BRONCHUS OR LUNG SNOMED Code(s): 644727389 Plan: Assessment and Plan (1) Intractable back pain Narrative/Plan: Secondary to malignancy. Patient has had radiation to the spine. She is on bisphosphonate therapy. Patient has been seen by Ortho Spine. - Status post kypho 07/28/21 Current Visit: Yes Status: Acute Priority: High Code(s): M54.9 - DORSALGIA, UNSPECIFIED SNOMED Code(s): 060973472 (2) Non-small cell carcinoma of right lung, stage 4 Narrative/Plan: Recent imaging studies showing progression of disease. She has had 1 dose of palliative pembrolizumab. Due early August for cycle 2. Will cont with this plan for now. Will see if pt has any procedures or needs rehab that treatment dates would have to be adjusted. Current Visit: No Status: Chronic Priority: Medium Code(s): C34.91 - MALIGNANT NEOPLASM OF UNSP PART OF RIGHT BRONCHUS OR LUNG SNOMED Code(s): 304115229 Much better pain control since back procedure Plan to follow-up after discharge in 1-2 weeks to continue treatment plan Dr. Kennedy: I have completed the full history and physical and agree with above dictation, dictated as a scribe.
--- NOTE | 2021-07-29 13:46 | P.PN ---
Subjective Progress Note Date: 07/29/21 07/26/2021 Patient evaluated today resting in bed. Plan for MRI lumbar spine at some time today. She was evaluated by orthopedics, LSO brace will be ordered and will make further recommendations regarding surgical intervention after review of MRI. Pulmonary is also on the case. Hemoglobin stable at 10.9. Sodium today 133, BUN 8.5, creatinine 0.6, blood glucose in the 120s. Pro-calcitonin level was checked and it is 0.45. She continues on no complaints of shortness of breath or cough today pressure maintained afebrile, heart 92, blood pressure on the lower side at 99/63, 95% room air. IV Rocephin. She did complete 5 days of oral azithromycin. Monitor blood pressure closely and changed losartan to 25 mg po daily from 50. 07/27/2021 Patient evaluated today resting in bed. MRI lumbar spine showed suspected pathologic fracture L4 level with most prominent spinal canal stenosis at this level confirmed. Findings clear with rapidly progressive metastatic lung cancer when correlating with most recent CTs and PET CTs. Patient does not tolerate LSO brace very well states that she had a significant back pain while wearing. Currently she rates pain a 5 out of 10 while she is moving it as a 10 out of 10. It is sharp and radiates down her thigh. Sodium improved to 136. Afebrile, heart rate 115, blood pressure 121/81, 98% room air. Continues on IV antibiotics. Tramadol, norco, and dilaudid for pain control. Per Dr Cook note would consider surgery as early as tomorrow, which it is scheduled for tomorrow at 4pm for kyphoplasty and biopsy of L4. Discuss with surgery about holding el iquis, which she is on for history of DVT. 07/28/2021 Patient evaluated earlier today pending surgery with Dr Sanchez. Denies pain at time of my assessment. Denies cough or shortness of breath. Incentive spirometer at the bedside. Patient is being followed closely by pulmonary and hematology. Continues on IV rocephin. Cultures are all negative. Blood pressure more controlled today 111/74, HR 108, afebrile. 95% on room air. Eliquis has been on hold for surgery today. 07/29/2021 Patient is post op day 1 L4 kyphoplasty with cement augmentation. Reviewing notes she was agitated in post op but has since been alert and appropriate with no further episodes. Patient today states she had a bowel movement yesterday evening, has been passing gas. Overall states pain has improved and she is tolerating activitly fairly well. No chest pain, no shortness of breath. No numbness or tingling bilateral lower extremity, positive peripheral pulses. Plan to continue cancer treatment early august, oncology following. PT/OT on for possible rehab needs. Blood glucose in the 140s. Afebrile, slightly tachycardic 108, blood pressure 132/83. 94% on 2L nasal cannula. Continues on IV rocephin. Incentive spirometry at bedside. Review of Systems Constitutional: Denied any fatigue denied any fever. Cardio vascular: denied any chest pain, palpitations Gastrointestinal: denied any nausea, vomiting, diarrhea Pulmonary: Denied any shortness of breath cough Neurologic denied any new focal deficits All inpatient medications were reviewed and appropriate changes in these medications as dictated in the interval history and assessment and plan. PHYSICAL EXAMINATION: GENERAL: The patient is alert and oriented x3, not in any acute distress. Well developed, well nourished. HEENT: Pupils are round and equally reacting to light. EOMI. No scleral icterus. No conjunctival pallor. Normocephalic, atraumatic. No pharyngeal erythema. No thyromegaly. CARDIOVASCULAR: S1 and S2 present. No murmurs, rubs, or gallops. PULMONARY: Chest is clear to auscultation, no wheezing or crackles. ABDOMEN: Soft, nontender, nondistended, normoactive bowel sounds. No palpable organomegaly. MUSCULOSKELETAL: No joint swelling or deformity. Limited range of motion with pain lumbar spine. EXTREMITIES: No cyanosis, clubbing, or pedal edema. NEUROLOGICAL: Gross neurological examination did not reveal any focal deficits. SKIN: No rashes. Assessment and plan Assessment Left lower lobe pneumonia, elevated procalcitonin on IV rocephin Pathological fracture at L4, Post op day # 1 kyphoplasty with cementing and biopsy of L4 today, pain improved and patient has been able to tolerate more activity today Pain management Non-small cell carcinoma of right lung stage IV, metastatic currently on keytruda Hypertension Hyperlipidemia Diabetes mellitus History of DVT on eliquis GI prophylaxis DVT prophylaxis Full code Plan Continue IV antibiotics Eliquis resumed Continue pain management Incentive spirometry PT/OT consult Home with Homecare on discharge possibly next 24 to 48 hours The impression and plan of care has been dictated by Shahida Kim Nurse Practitioner as directed. Dr. Naun MD I have performed a history and physical examination and medical decision making of this patient, discussed the same with the dictator, and agree with the dictators assessment and plan as written, documented as a scribe. Based on total visit time, I have performed more than 50% of this visit. Objective - Vital Signs Vital signs: Vital Signs Temp 98.5 F 07/29/21 06:58 Pulse 108 H 07/29/21 06:58 Resp 16 07/29/21 06:58 BP 132/83 07/29/21 06:58 Pulse Ox 94 L 07/29/21 06:58 Intake & Output 07/28/21 07/29/21 07/29/21 18:59 06:59 18:59 Intake Total 1650 Output Total 4 6 Balance -4 1644 Intake: IV 1650 Output: Urine 3 Stool 1 Estimated Blood Loss 6 Other: # Voids 1 - Labs CBC & Chem 7: 07/29/21 04:21 07/29/21 04:21 Labs: Abnormal Lab Results - Last 24 Hours (Table) 07/28/21 07/28/21 07/28/21 Range/Units 16:35 21:44 22:36 Hgb (12.0-15.0) g/dL MCH (27.0-32.0) pg MCHC (32.0-37.0) g/dL RDW (11.5-14.5) % Immature Gran # (0.00-0.04) X 10*3/uL Eosinophils # (0.04-0.35) X 10*3/uL BUN/Creatinine Ratio (12.00-20.00) Ratio Glucose (70-110) mg/dL POC Glucose (mg/dL) 133 H 195 H 161 H (75-99) mg/dL Calcium (8.7-10.3) mg/dL Total Bilirubin (0.30-1.20) mg/dL Alkaline Phosphatase (41-126) U/L Total Protein (6.2-8.2) g/dL Albumin (3.8-4.9) g/dL Albumin/Globulin Ratio (1.60-3.17) g/dL Vitamin D 25-Hydroxy (30.0-100.0) ng/mL 07/29/21 07/29/21 07/29/21 Range/Units 04:21 04:21 06:56 Hgb 11.6 L (12.0-15.0) g/dL MCH 26.9 L (27.0-32.0) pg MCHC 30.1 L (32.0-37.0) g/dL RDW 18.1 H (11.5-14.5) % Immature Gran # 0.07 H (0.00-0.04) X 10*3/uL Eosinophils # 0.47 H (0.04-0.35) X 10*3/uL BUN/Creatinine Ratio 20.25 H (12.00-20.00) Ratio Glucose 123 H (70-110) mg/dL POC Glucose (mg/dL) 165 H (75-99) mg/dL Calcium 8.4 L (8.7-10.3) mg/dL Total Bilirubin 0.20 L (0.30-1.20) mg/dL Alkaline Phosphatase 133 H (41-126) U/L Total Protein 5.9 L (6.2-8.2) g/dL Albumin 3.2 L (3.8-4.9) g/dL Albumin/Globulin Ratio 1.19 L (1.60-3.17) g/dL Vitamin D 25-Hydroxy 26.3 L (30.0-100.0) ng/mL 07/29/21 Range/Units 11:52 Hgb (12.0-15.0) g/dL MCH (27.0-32.0) pg MCHC (32.0-37.0) g/dL RDW (11.5-14.5) % Immature Gran # (0.00-0.04) X 10*3/uL Eosinophils # (0.04-0.35) X 10*3/uL BUN/Creatinine Ratio (12.00-20.00) Ratio Glucose (70-110) mg/dL POC Glucose (mg/dL) 148 H (75-99) mg/dL Calcium (8.7-10.3) mg/dL Total Bilirubin (0.30-1.20) mg/dL Alkaline Phosphatase (41-126) U/L Total Protein (6.2-8.2) g/dL Albumin (3.8-4.9) g/dL Albumin/Globulin Ratio (1.60-3.17) g/dL Vitamin D 25-Hydroxy (30.0-100.0) ng/mL Microbiology - Last 24 Hours (Table) 07/23/21 22:35 Blood Culture - Preliminary Blood No Growth after 120 hours Assessment and Plan Time with Patient: Less than 30
[2021-07-29 14:08] VITALS: BMI 34.2
--- NOTE | 2021-07-29 14:23 | P.PN ---
Subjective Progress Note Date: 07/29/21 Principal diagnosis: Metastatic non-small cell lung cancer with pleural effusion and compressive atelectasis. The patient is a 71-year-old white female with known history of metastatic lung cancer. The patient has been followed up through our service and oncology. I was estimated at this patient because of a pneumonia. The most recent CAT scan of the abdomen and pelvis showed some atelectatic changes and small effusion the lung bases bilaterally. For that reason, Pulmicort station was requested suspecting pneumonia. In summary, the patient initially presented with e xtensive LLE DVT in 12/2020,at that time,she had a CT scan of chest which revealed a suspicious RUL lung nodule. PET scan done on 04/09/2021 revealed suspicious uptake in 5.9 cm RUL mass,which increased in size compared to 01/07/2021 CT scan of chest,a suspicious uptake in a small right hilar node.On 04/22/2021,she had navigational bronchoscopy,transbronchial biopsy of RUL was positive for poorly differentiated carcinoma consistent with lung primary. She was evaluated by Dr Crespo and felt not a surgical candidate due to co- morbidities and PS.Brain MRI on 05/20/2021 was negative for metastatic disease. PDL-1 was 99%. NGS revealed KRAS G12C mutation. On 06/03/2021,she started concurrent chemoradiation therapy with weekly taxol/carboplatin. However,on 06/09/2021,she developed significant acute lower back pain after her XRT,went to ER on 06/10/2021,had a CT of lumbar spine which revealed deg enerative disc disease,CT scan of abdomen/pelvis revealed new small bilateral adrenal lesions.(were not present on prior PET scan). Chemoradiation was stopped. Repeat PET scan on 06/25/2021 revealed evidence of disease progression,multiple osseous lesions,bilateral adrenal gland lesions. She started Keytruda on 07/16/21, and is s/p 1 cycle For now, the patient denies having any significant shortness of breath. No cough sputum production chest answer wheezing. Nevertheless, the patient is having pain in her back radiating to her left lower extremity and she is having difficulty with mobility. This may be related to recent finding of a pathologic fracture of the L4 vertebral body and mild spinal stenosis due to posterior extension. As evident, the patient also has bilateral adrenal metastases and a left-sided pleural effusion with some atelectatic changes and left lower lobe. She did have a bout of fever at time of admission, currently afebrile. Pelvic x-ray is negative. The patient is currently on room air oxygen. White cell count is at 8.0. Resident the blood work and electrodes are all within normal limits. Pro-calcitonin level is at 0.45. The patient was started on exa mination Rocephin and Zithromax. On 07/26/2021 patient seen in follow-up on medical surgical floor, she is awake and alert, in no acute distress, room air pulse ox is 95%, she denies any difficulty breathing, no cough, no chest discomfort. She is oriented 3, her lungs are clear to auscultation. She states her thoracic spine pain is better. She is awaiting MRI of the lumbar spine. No fever or chills, no cough, no chest congestion. No wheezing. Remains on Rocephin and azithromycin for empiric antibody coverage. Pro-calcitonin level was 0.45. On 07/27/2021 patient seen in follow-up on medical surgical floor. She is awake and alert, in no acute distress, denies any dyspnea, no cough no chest pain. She still complains of thoracic spine pain. She is awaiting MRI of the lumbar spine today possibly at 1240. Her lungs are clear to auscultation, she is on room air with pulse ox of 95%, breathing is nonlabored. No fever or chills, her pro-calcitonin level was a bit elevated to 0.45, and for that reason patient is on empiric antibiotics with Rocephin. Urine and blood cultures have been negative. Today's labs have been reviewed, electrolytes and renal profile are all within normal limits. The patient is seen today 07/28/2021 in follow-up on the regular medical floor. She is currently resting fairly comfortably in bed. Awake and alert in no acute distress. She denies any worsening shortness of breath, cough or congestion. She is maintaining O2 saturations in the 90s on room air. MRI of the spine from yesterday revealed suspected pathologic fracture at L4 level with most prominent spinal canal stenosis. Correlate with rapidly progressive metastatic lung cancer. Blood culture reveals no growth. Urine culture reveals no growth. Blood glucose 141. She remains on DuoNeb inhalations, antibiotics in the form of ceftriaxone. Anticoagulated . Pain is well controlled. Reevaluated today on 07/29/2021, patient is doing well, she underwent kyphoplasty of L4, vertebral body biopsy of L4 postoperative day #1. Pulmonary-barnes the patient continues to do well, denies any shortness of breath or cough or wheezing, patient is on room air. He remains on bronchodilators, remains on antibiotics. Objective - Vital Signs Vital signs: Vital Signs Temp 98.5 F 07/29/21 06:58 Pulse 108 H 07/29/21 06:58 Resp 16 07/29/21 06:58 BP 132/83 07/29/21 06:58 Pulse Ox 94 L 07/29/21 06:58 Intake & Output 07/28/21 07/29/21 07/29/21 18:59 06:59 18:59 Intake Total 1650 Output Total 4 6 Balance -4 1644 Weight 99.337 kg Intake: IV 1650 Output: Urine 3 Stool 1 Estimated Blood Loss 6 Other: # Voids 1 - Exam Physical Exam: Revealed 71-year-old female in no distress. Head: Atraumatic normocephalic. HEENT:[Neck is supple.] [No neck masses.] [No thyromegaly.] [No JVD.] Chest: [Clear throughout, no crackles, no rhonchi, no wheezes.] Cardiac Exam: [Normal S1 and S2, no S3 gallop, no murmur.] Abdomen: [Soft, nontender, no megaly, no rebound, no guarding, normal bowel sounds.] Extremities: [No clubbing, no edema, no cyanosis.] Neurological Exam: [No focal neurologic deficit.] Psychiatric: Normal mood affect and normal mental status examination. Skin: No rashes. - Labs CBC & Chem 7: 07/29/21 04:21 07/29/21 04:21 Labs: Abnormal Lab Results - Last 24 Hours (Table) 07/28/21 07/28/21 07/28/21 Range/Units 16:35 21:44 22:36 Hgb (12.0-15.0) g/dL MCH (27.0-32.0) pg MCHC (32.0-37.0) g/dL RDW (11.5-14.5) % Immature Gran # (0.00-0.04) X 10*3/uL Eosinophils # (0.04-0.35) X 10*3/uL BUN/Creatinine Ratio (12.00-20.00) Ratio Glucose (70-110) mg/dL POC Glucose (mg/dL) 133 H 195 H 161 H (75-99) mg/dL Calcium (8.7-10.3) mg/dL Total Bilirubin (0.30-1.20) mg/dL Alkaline Phosphatase (41-126) U/L Total Protein (6.2-8.2) g/dL Albumin (3.8-4.9) g/dL Albumin/Globulin Ratio (1.60-3.17) g/dL Vitamin D 25-Hydroxy (30.0-100.0) ng/mL 07/29/21 07/29/21 07/29/21 Range/Units 04:21 04:21 06:56 Hgb 11.6 L (12.0-15.0) g/dL MCH 26.9 L (27.0-32.0) pg MCHC 30.1 L (32.0-37.0) g/dL RDW 18.1 H (11.5-14.5) % Immature Gran # 0.07 H (0.00-0.04) X 10*3/uL Eosinophils # 0.47 H (0.04-0.35) X 10*3/uL BUN/Creatinine Ratio 20.25 H (12.00-20.00) Ratio Glucose 123 H (70-110) mg/dL POC Glucose (mg/dL) 165 H (75-99) mg/dL Calcium 8.4 L (8.7-10.3) mg/dL Total Bilirubin 0.20 L (0.30-1.20) mg/dL Alkaline Phosphatase 133 H (41-126) U/L Total Protein 5.9 L (6.2-8.2) g/dL Albumin 3.2 L (3.8-4.9) g/dL Albumin/Globulin Ratio 1.19 L (1.60-3.17) g/dL Vitamin D 25-Hydroxy 26.3 L (30.0-100.0) ng/mL 07/29/21 Range/Units 11:52 Hgb (12.0-15.0) g/dL MCH (27.0-32.0) pg MCHC (32.0-37.0) g/dL RDW (11.5-14.5) % Immature Gran # (0.00-0.04) X 10*3/uL Eosinophils # (0.04-0.35) X 10*3/uL BUN/Creatinine Ratio (12.00-20.00) Ratio Glucose (70-110) mg/dL POC Glucose (mg/dL) 148 H (75-99) mg/dL Calcium (8.7-10.3) mg/dL Total Bilirubin (0.30-1.20) mg/dL Alkaline Phosphatase (41-126) U/L Total Protein (6.2-8.2) g/dL Albumin (3.8-4.9) g/dL Albumin/Globulin Ratio (1.60-3.17) g/dL Vitamin D 25-Hydroxy (30.0-100.0) ng/mL Microbiology - Last 24 Hours (Table) 07/23/21 22:35 Blood Culture - Preliminary Blood No Growth after 120 hours Assessment and Plan Assessment: Impression: Metastatic non-small cell lung cancer Small left pleural effusion, no clear-cut evidence of pneumonia however the patient does have slight compressive atelectasis. Chronic back pain and pathological fracture of L4 requiring kyphoplasty and biopsy. Postoperative day #1 Benign essential hypertension Previous history of DVT maintained on anticoagulation therapy Dyslipidemia Type 2 diabetes. Recommendation: Continue present supportive care measures Continue bronchodilators Pain control post kyphoplasty We will continue to follow. We will clear the patient for discharge once she is cleared by other consultants. Time with Patient: Less than 30
[2021-07-29 16:55] LABS: Glucose,Whole Blood 177 mg/dL (75-99)
[2021-07-29 21:26] LABS: Glucose,Whole Blood 163 mg/dL (75-99)
[2021-07-29] MEDS: CYCLOBENZAPRINE 10 MG TAB PO SCH (21:31)
[2021-07-29] MEDS: INSULIN DETEMIR (LEVEMIR) 100 UNIT/ML SYR SQ SCH (22:12)
[2021-07-30] MEDS: SODIUM CHLORIDE 0.9% 1,000 ML IV SCH (02:13)
[2021-07-30] MEDS: HYDROcodone/APAP 5-325MG 1 EACH TAB PO PRN ×2 (02:29→11:06)
[2021-07-30] MEDS: HYDROmorphone 1 MG/ML 1 ML SYRINGE IVP PRN (04:49)
[2021-07-30] MEDS: traMADol 50 MG TAB PO PRN (05:47)
[2021-07-30] MEDS ORDERED: LACTATED RINGERS 1,000 ML IV SCH (06:37)
[2021-07-30] MEDS ORDERED: LIDOCAINE 1% (10MG/ML) FOR IV START INTRADERMA PRN (06:37)
[2021-07-30] MEDS ORDERED: fentaNYL (PF) 50 MCG/ML 2 ML AMP IV PRN (06:37)
[2021-07-30] MEDS ORDERED: ONDANSETRON 4 MG/2 ML VIAL IVP ONE (07:00)
[2021-07-30] MEDS ORDERED: DEXAMETHASONE SOD PHOSPHATE 4 MG/ML 1 ML VIAL IV ONE (07:00)
[2021-07-30 07:03] LABS: Glucose,Whole Blood 99 mg/dL (75-99)
[2021-07-30] MEDS: INSULIN ASPART (NovoLOG) 100 UNIT/ML VIAL SQ SCH ×2 (08:20→11:07)
[2021-07-30 08:27] VITALS: BP 134/65; PULSE 107; RESP 16
[2021-07-30] MEDS: FERROUS SULFATE 325 MG TAB PO SCH (08:27)
[2021-07-30] MEDS: LORATADINE 10 MG TAB PO SCH (08:27)
[2021-07-30] MEDS: allopurinoL 100 MG TAB PO SCH (08:27)
[2021-07-30] MEDS: FUROSEMIDE 40 MG TAB PO SCH (08:27)
[2021-07-30] MEDS: CHOLECALCIFEROL 25 MCG (1000 IU) TABLET PO SCH (08:27)
[2021-07-30] MEDS: DOCUSATE 100 MG CAP PO SCH (08:27)
[2021-07-30] MEDS: LOSARTAN 25 MG TAB PO SCH (08:27)
[2021-07-30] MEDS: SENNOSIDES-DOCUSATE SODIUM 1 EACH TAB PO SCH (08:27)
[2021-07-30] MEDS: EZETIMIBE 10 MG TAB PO SCH (08:27)
[2021-07-30] MEDS: CALCIUM CARBONATE 500 MG CHEWABLE PO SCH (08:27)
[2021-07-30] MEDS: APIXABAN 5 MG TAB PO SCH (08:27)
[2021-07-30] MEDS: MAGNESIUM OXIDE 400 MG TAB PO SCH (08:27)
--- NOTE | 2021-07-30 09:47 | P.PN ---
Subjective Progress Note Date: 07/30/21 Principal diagnosis: Metastatic non-small cell lung cancer, small left pleural effusion and compressive atelectasis The patient is a 71-year-old white female with known history of metastatic lung cancer. The patient has been followed up through our service and oncology. I was estimated at this patient because of a pneumonia. The most recent CAT scan of the abdomen and pelvis showed some atelectatic changes and small effusion the lung bases bilaterally. For that reason, Pulmicort station was requested suspecting pneumonia. In summary, the patient initially presented with extensive LLE DVT in 12/2020,at that time,she had a CT scan of chest which revealed a suspicious RUL lung nodule. PET scan done on 04/09/2021 revealed suspicious uptake in 5.9 cm RUL mass,which increased in size compared to 01/07/2021 CT scan of chest,a suspicious uptake in a small right hilar node.On 04/22/2021,she had navigational bronchoscopy,transbronchial biopsy of RUL was positive for poorly differentiated carcinoma consistent with lung primary. She was evaluated by Dr Crespo and felt not a surgical candidate due to co- morbidities and PS.Brain MRI on 05/20/2021 was negative for metastatic disease. PDL-1 was 99%. NGS revealed KRAS G12C mutation. On 06/03/2021,she started concurrent chemoradiation therapy with weekly taxol/carboplatin. However,on 06/09/2021,she developed significant acute lower back pain after her XRT,went to ER on 06/10/2021,had a CT of lumbar spine which revealed degenerative disc disease,CT scan of abdomen/pelvis revealed new small bilateral adrenal lesions.(were not present on prior PET scan). Chemoradiation was stopped. Repeat PET scan on 06/25/2021 revealed evidence of disease progression,multiple osseous lesions,bilateral adrenal gland lesions. She started Keytruda on 07/16/21, and is s/p 1 cycle For now, the patient denies having any significant shortness of breath. No cough sputum production chest answer wheezing. Nevertheless, the patient is having pain in her back radiating to her left lower extremity and she is having difficulty with mobility. This may be related to recent finding of a pathologic fracture of the L4 vertebral body and mild spinal stenosis due to posterior extension. As evident, the patient also has bilateral adrenal metastases and a left-sided pleural effusion with some atelectatic changes and left lower lobe. She did have a bout of fever at time of admission, currently afebrile. Pelvic x-ray is negative. The patient is currently on room air oxygen. White cell count is at 8.0. Resident the blood work and electrodes are all within normal limits. Pro-calcitonin level is at 0.45. The patient was started on examination Rocephin and Zithromax. On 07/26/2021 patient seen in follow-up on medical surgical floor, she is awake and alert, in no acute distress, room air pulse ox is 95%, she denies any diffic ulty breathing, no cough, no chest discomfort. She is oriented 3, her lungs are clear to auscultation. She states her thoracic spine pain is better. She is awaiting MRI of the lumbar spine. No fever or chills, no cough, no chest congestion. No wheezing. Remains on Rocephin and azithromycin for empiric antibody coverage. Pro-calcitonin level was 0.45. On 07/27/2021 patient seen in follow-up on medical surgical floor. She is awake and alert, in no acute distress, denies any dyspnea, no cough no chest pain. She still complains of thoracic spine pain. She is awaiting MRI of the lumbar spine today possibly at 1240. Her lungs are clear to auscultation, she is on room air with pulse ox of 95%, breathing is nonlabored. No fever or chills, her pro-calcitonin level was a bit elevated to 0.45, and for that reason patient is on empiric antibiotics with Rocephin. Urine and blood cultures have been negative. Today's labs have been reviewed, electrolytes and renal profile are all within normal limits. The patient is seen today 07/28/2021 in follow-up on the regular medical floor. She is currently resting fairly comfortably in bed. Awake and alert in no acute distress. She denies any worsening shortness of breath, cough or congestion. She is maintaining O2 saturations in the 90s on room air. MRI of the spine from yesterday revealed suspected pathologic fracture at L4 level with most prominent spinal canal stenosis. Correlate with rapidly progressive metastatic lung can cer. Blood culture reveals no growth. Urine culture reveals no growth. Blood glucose 141. She remains on DuoNeb inhalations, antibiotics in the form of ceftriaxone. Anticoagulated with Eliquis. Pain is well controlled. The patient is seen today 07/30/2021 in follow-up on the regular medical floor. She is currently sitting up in bed. Awake and alert in no acute distress. Continues to maintain good O2 saturations in the 90s on room air. She did undergo L4 kyphoplasty with biopsy secondary to an L4 pathologic compression fracture. Postoperative day #2. Pathology is pending. She does have metastatic lung cancer. She remains afebrile. Hemodynamically stable. The culture reveals no growth. Urine culture revealed no growth. Blood glucose 99. She remains anticoagulated with Eliquis. Objective - Vital Signs Vital signs: Vital Signs Temp 99.1 F 07/30/21 03:19 Pulse 107 H 07/30/21 08:26 Resp 16 07/30/21 08:26 BP 134/65 07/30/21 08:26 Pulse Ox 96 07/30/21 08:26 Intake & Output 07/29/21 07/30/21 07/30/21 18:59 06:59 18:59 Weight 99.337 kg Other: # Voids 1 1 - Exam GENERAL EXAM: Alert, very pleasant, 71-year-old female, resting comfortably in bed, on room air with pulse ox of 96% comfortable in no apparent distress. HEAD: Normocephalic/atraumatic. EYES: Normal reaction of pupils, equal size. Conjunctiva pink, sclera white. NOSE: Clear with pink turbinates. THROAT: No erythema or exudates. NECK: No masses, no JVD, no thyroid enlargement, no adenopathy. CHEST: No chest wall deformity. Symmetrical expansion. LUNGS: Equal air entry with no crackles, wheeze, rhonchi or dullness. CVS: Regular rate and rhythm, normal S1 and S2, no gallops, no murmurs, no rubs ABDOMEN: Soft, nontender. No hepatosplenomegaly, normal bowel sounds, no guarding or rigidity. EXTREMITIES: No clubbing, no edema, no cyanosis, 2+ pulses and upper and lower extremities. MUSCULOSKELETAL: Muscle strength and tone normal. SPINE: Surgical site clean dry and well approximated SKIN: No rashes CENTRAL NERVOUS SYSTEM: No focal deficits, tone is normal in all 4 extremities. PSYCHIATRIC: Alert and oriented -3. Appropriate affect. Intact judgment and insight. - Labs CBC & Chem 7: 07/29/21 04:21 07/29/21 04:21 Labs: Abnormal Lab Results - Last 24 Hours (Table) 07/29/21 07/29/21 07/29/21 Range/Units 04:21 11:52 16:54 BUN/Creatinine Ratio 20.25 H (12.00-20.00) Ratio Glucose 123 H (70-110) mg/dL POC Glucose (mg/dL) 148 H 177 H (75-99) mg/dL Calcium 8.4 L (8.7-10.3) mg/dL Total Bilirubin 0.20 L (0.30-1.20) mg/dL Alkaline Phosphatase 133 H (41-126) U/L Total Protein 5.9 L (6.2-8.2) g/dL Albumin 3.2 L (3.8-4.9) g/dL Albumin/Globulin Ratio 1.19 L (1.60-3.17) g/dL Vitamin D 25-Hydroxy 26.3 L (30.0-100.0) ng/mL 07/29/21 Range/Units 21:16 BUN/Creatinine Ratio (12.00-20.00) Ratio Glucose (70-110) mg/dL POC Glucose (mg/dL) 163 H (75-99) mg/dL Calcium (8.7-10.3) mg/dL Total Bilirubin (0.30-1.20) mg/dL Alkaline Phosphatase (41-126) U/L Total Protein (6.2-8.2) g/dL Albumin (3.8-4.9) g/dL Albumin/Globulin Ratio (1.60-3.17) g/dL Vitamin D 25-Hydroxy (30.0-100.0) ng/mL Microbiology - Last 24 Hours (Table) 07/23/21 22:35 Blood Culture - Final Blood No Growth after 144 hours Assessment and Plan Assessment: 1 Metastatic non-small cell lung cancer, currently on immunotherapy with Keytruda 2 Small left-sided pleural effusion/compressive atelectasis. Highly doubt pneumonia. Based on fever and mildly progressed on a level, treatment with antibiotics is reasonable 3 Back pain and pathologic fracture of the L4 spine. The patient is having difficulty with mobility. The patient has received radiation therapy to her spine, Exact treatment, dose unknown location is not known. Nevertheless, the patient seems to have had progression of the pathologic fractures. She did undergo kyphoplasty of L4 on 07/28/2021 secondary to compression fracture and pain. 4 Hypertension 5 Hyperlipidemia 6 Diabetes mellitus 7 Previous history of DVT maintained on long-term anticoagulation with Eliquis. Plan: The patient was seen and evaluated Stable from the pulmonary standpoint On room air and doing well Home once cleared by orthopedics I have personally seen and examined the patient, performed the documentation and the assessment and plan as written. Number of minutes spent on the visit: 10.
[2021-07-30 10:14] VITALS: TEMP 98.6
[2021-07-30 11:03] LABS: Glucose,Whole Blood 168 mg/dL (75-99)
--- NOTE | 2021-07-31 18:23 | P.DS ---
Providers Date of admission: 07/24/21 03:24 Expected date of discharge: 07/30/21 Attending physician: Jovita Medrano Consults: 07/24/21 18:16 Consult Physician Routine Consulting Provider: Vinay Crespo Consult Reason/Comments: Pneumonia/lung CA Do you want consulting provider notified?: Yes 07/24/21 18:17 Consult Physician Routine Consulting Provider: Silvino See Consult Reason/Comments: Lung mass/adrenal metastases Do you want consulting provider notified?: Yes 07/25/21 10:14 Consult Physician Routine Consulting Provider: Camille Sanchez Consult Reason/Comments: path compr fx L4, increasing radicluar pain Do you want consulting provider notified?: Yes Primary care physician: Ángel Turner [facility] Course: Final diagnosis Left lower lobe pneumonia Pathological fracture at L4, status post kyphoplasty with cementing and biopsy of L4 Pain management Non-small cell carcinoma of right lung stage IV, metastatic currently on keytruda Hypertension Hyperlipidemia Diabetes mellitus History of DVT on eliquis GI prophylaxis DVT prophylaxis Full code Discharge disposition Patient is being discharged in a stable condition with guarded prognosis to home. Patient will follow-up with Dr. Mehnaz Turner in the outpatient setting upon discharge. Patient is to also follow up with oncology and orthopedics as scheduled. Patient will continue on oral Ceftin 500mg BID for the next 4 days to complete the course. Total time taken is greater than 35 minutes. Hospital Course This is a 71-year-old male who was recently admitted with shortness of breath and found to have LLL pneumonia and was being closely monitored by pulmonary and oncology. Patient also followed by orthopedics and underwent kyphoplasty with biopsy of the L4. Patient is scheduled to receive another dose of chemotherapy soon and will follow with oncology this week. Patient is feeling much better and pain in the back is more manageable. Patient to continue with LSO brace while out of bed and will also follow up with orthopedics in 1-2 weeks. Patient is asking is she can go home today. Currently no reports of chest pain, shortness of breath, or palpitations. Patient is afebrile. No reports of nausea or vomiting and patient is tolerating diet. Patient will be discharged home today. Guarded prognosis. On exam vital signs are stable. Cardio S1, S2 are muffled. Respiratory system shows diminished breath sounds at the bases with no wheezing or rhonchi noted. Abdomen is soft and obese, and nontender. Nervous system shows no focal deficits. Please refer to medication reconciliation sheet for a list of medications. The impression and plan of care has been dictated by Cathryn Villanueva, Nurse Practitioner as directed. Dr. Mitchell MD I have performed a history and examination and MDM of this patient, discussed the same with the dictator, and agree with the dictator's assessment and plan as written ,documented as a scribe. Based on total visit time, I have performed more than 50% of the visit. Patient Condition at Discharge: Good Plan - Discharge Summary New Discharge Prescriptions: New HYDROcodone/APAP 5-325MG [[place] 5] 1 each PO Q6HR PRN #12 tab PRN Reason: Pain Cefuroxime Axetil [Ceftin] 500 mg PO BID 4 Days #8 tab Losartan [Cozaar] 25 mg PO DAILY 30 Days #30 tab Continue Cholecalciferol [Vitamin D3 (25 Mcg = 1000 Iu)] 50 mcg PO DAILY Dulaglutide [Trulicity] 1.5 mg SQ SA Ezetimibe [Zetia] 10 mg PO DAILY Ginkgo Biloba [place] Extract [Ginkgo] 120 mg PO DAILY Glimepiride [Amaryl] 2 mg PO BID Vitamin C/Biotin [Hair, Skin and Nails Chew] 1 tab PO DAILY Fiber Supplement 1 tab PO BID Apixaban [Eliquis] 5 mg PO BID Cetirizine HCl [Zyrtec] 10 mg PO DAILY Cyclobenzaprine [Flexeril] 10 mg PO HS Docusate [Colace] 100 mg PO DAILY icosapent ethyL [Icosapent Ethyl] 1 gm PO BID Magnesium Oxide [Mag-Ox] 400 mg PO BID Melatonin 3 mg PO HS PRN PRN Reason: Insomnia Vitamin E [Vitamin E (1000 Iu = 450 MG)] 1,000 unit PO BID Febuxostat [Uloric] 40 mg PO DAILY Ferrous Sulfate [Iron (65 MG Elemental)] 325 mg PO DAILY Furosemide [Lasix] 40 mg PO DAILY Insulin Glargine,Hum.rec.anlog [[place] Solostar] 26 units SQ HS Glucosamine 1500mg 1,500 mg PO DAILY Acetaminophen [Tylenol 8 Hour] 650 mg PO HS Calcium Carbonate [Calcium] 600 mg PO BID traMADol HCL 100 mg PO Q6H PRN PRN Reason: Pain Discontinued Losartan Potassium 50 mg PO DAILY Discharge Medication List Cholecalciferol [Vitamin D3 (25 Mcg = 1000 Iu)] 50 mcg PO DAILY 01/04/21 [History] Dulaglutide [Trulicity] 1.5 mg SQ SA 01/04/21 [History] Ezetimibe [Zetia] 10 mg PO DAILY 01/04/21 [History] Febuxostat [Uloric] 40 mg PO DAILY 01/04/21 [History] Ferrous Sulfate [Iron (65 MG Elemental)] 325 mg PO DAILY 01/04/21 [History] Furosemide [Lasix] 40 mg PO DAILY 01/04/21 [History] Ginkgo Biloba [place] Extract [Ginkgo] 120 mg PO DAILY 01/04/21 [History] Glimepiride [Amaryl] 2 mg PO BID 01/04/21 [History] Insulin Glargine,Hum.rec.anlog [[place] Solostar] 26 units SQ HS 01/04/21 [History] Vitamin C/Biotin [Hair, Skin and Nails Chew] 1 tab PO DAILY 01/04/21 [History] Fiber Supplement 1 tab PO BID 04/21/21 [History] Acetaminophen [Tylenol 8 Hour] 650 mg PO HS 07/24/21 [History] Apixaban [Eliquis] 5 mg PO BID 07/24/21 [History] Calcium Carbonate [Calcium] 600 mg PO BID 07/24/21 [History] Cetirizine HCl [Zyrtec] 10 mg PO DAILY 07/24/21 [History] Cyclobenzaprine [Flexeril] 10 mg PO HS 07/24/21 [History] Docusate [Colace] 100 mg PO DAILY 07/24/21 [History] Glucosamine 1500mg 1,500 mg PO DAILY 07/24/21 [History] Magnesium Oxide [Mag-Ox] 400 mg PO BID 07/24/21 [History] Melatonin 3 mg PO HS PRN 07/24/21 [History] Vitamin E [Vitamin E (1000 Iu = 450 MG)] 1,000 unit PO BID 07/24/21 [History] icosapent ethyL [Icosapent Ethyl] 1 gm PO BID 07/24/21 [History] traMADol HCL 100 mg PO Q6H PRN 07/24/21 [History] HYDROcodone/APAP 5-325MG [[place] 5] 1 each PO Q6HR PRN #12 tab 07/29/21 [Rx] Cefuroxime Axetil [Ceftin] 500 mg PO BID 4 Days #8 tab 07/30/21 [Rx] Losartan [Cozaar] 25 mg PO DAILY 30 Days #30 tab 07/30/21 [Rx] Follow up Appointment(s)/Referral(s): Tamara Charles NPC [Nurse Practitioner] - 08/04/21 2:15 pm Camille Sanchez DO [Doctor of Osteopathic Medicine] - 08/13/21 8:00 am () Ángel Turner DO [Primary Care Provider] - 08/06/21 1:00 pm Jesus Concepcion [NON-STAFF] - As Needed (LSO back brace ) Patient Instructions/Handouts: Community Acquired Pneumonia (DC), Kyphoplasty (DC) Activity/Diet/Wound Care/Special Instructions: Keep site clean. May shower with waterproof Tegaderm intact. Do not soak in a tub. After 72 hours postoperatively, patient May remove dressing and then may shower with area uncovered. Leave glue intact and allow it to fray off on its own. May ambulate as tolerated. Avoid heavy or rigorous activity. No repetitive bending twisting or lifting. No overhead work. Activity Limited until follow-up Follow-up primary care provider on discharge Follow-up with pulmonary outpatient Follow-up with oncology outpatient Follow-up orthopedics as scheduled Recommend continuing current diet of consistent carb and monitoring blood sugars closely Discharge Disposition: HOME SELF-CARE
== END 2021-07-30 14:14 | disposition home or self-care (01) | DRG 982 ==
LOC: EC 20:43 → 4SSUR 07-24 03:24
PROVIDERS: ADMIT Hospitalist; ATTEND Hospitalist
PROC: 0QB03ZX Excision of Lumbar Vertebra, Percutaneous Approach, Diagnostic (ICD-10-PCS; principal; 2021-07-28 07:30)
PROC: 0QS03ZZ Reposition Lumbar Vertebra, Percutaneous Approach (ICD-10-PCS; principal; 2021-07-28 07:30)
PROC: 0QU03JZ Supplement Lumbar Vertebra with Synthetic Substitute, Percutaneous Approach (ICD-10-PCS; principal; 2021-07-28 07:30)
DX: J18.9 Pneumonia, unspecified organism (principal); C79.51 Secondary malignant neoplasm of bone; C79.72 Secondary malignant neoplasm of left adrenal gland; C79.71 Secondary malignant neoplasm of right adrenal gland; J90 Pleural effusion, not elsewhere classified; M84.58XA Pathological fracture in neoplastic disease, other specified site, initial encounter for fracture; C34.11 Malignant neoplasm of upper lobe, right bronchus or lung; J98.11 Atelectasis; E11.9 Type 2 diabetes mellitus without complications; Z79.4 Long term (current) use of insulin; Z20.822 Contact with and (suspected) exposure to COVID-19; M48.061 Spinal stenosis, lumbar region without neurogenic claudication; M54.16 Radiculopathy, lumbar region; M51.36 Other intervertebral disc degeneration, lumbar region; K21.9 Gastro-esophageal reflux disease without esophagitis; E78.5 Hyperlipidemia, unspecified; I10 Essential (primary) hypertension; G89.29 Other chronic pain; M10.9 Gout, unspecified; R26.9 Unspecified abnormalities of gait and mobility; M15.9 Polyosteoarthritis, unspecified; E66.9 Obesity, unspecified; N28.9 Disorder of kidney and ureter, unspecified; Z68.34 Body mass index [BMI] 34.0-34.9, adult; F17.210 Nicotine dependence, cigarettes, uncomplicated; Z79.01 Long term (current) use of anticoagulants; Z79.84 Long term (current) use of oral hypoglycemic drugs; Z79.899 Other long term (current) drug therapy; Z86.718 Personal history of other venous thrombosis and embolism; Z98.891 History of uterine scar from previous surgery; Z98.42 Cataract extraction status, left eye; Z98.41 Cataract extraction status, right eye; Z87.42 Personal history of other diseases of the female genital tract; Z87.19 Personal history of other diseases of the digestive system; Z86.69 Personal history of other diseases of the nervous system and sense organs; Z92.3 Personal history of irradiation; Z98.890 Other specified postprocedural states; Z71.3 Dietary counseling and surveillance; Z88.5 Allergy status to narcotic agent; Z88.8 Allergy status to other drugs, medicaments and biological substances; Z91.030 Bee allergy status
CPT/HCPCS: 36415; 71045; 71046; 72100; 72148; 72170; 74177; 80048; 80053; 81001; 82306; 83605; 83735; 83880; 84100; 84145; 84484; 85025; 85610; 85730; 87040; 87086; 87636; 88307; 88311; 88341; 88342; 93005; 94760; 96361; 96374; 96375; 96376; 99285

== ENCOUNTER → 2021-09-03 | Outpatient (CLI) | payer MEDICARE ==
--- NOTE | 2021-09-07 14:23 | PE ---
Nuclear medicine PET/CT HISTORY: C 34.11, lung cancer right, subsequent Patient received 10.7 mCi F-18 FDG intravenously and delayed scanning was performed from the skull ba se to the mid thighs. A localization and attenuation correction CT scan was performed. Correlation to prior nuclear medicine PET/CT 06/25/2021 Average mediastinal uptake SUV is 1, average liver uptake SUV is 2.2. Chest and neck: The abnormal uptake associated with the anterior third rib lytic lesion and associate d soft tissue mass is present as decreased compared to prior, the abnormal soft tissue now only measu res approximately 4.6 x 3.3 cm as compared to prior when it was measured at 6.8 x 5.2 cm. SUV is 8.6. There is extension toward the fourth rib immediately adjacent which shows a lytic lesion and some as sociated uptake SUV 3.9. There is no evident pleural effusion. No pericardial effusion or evident maren g mass. No mediastinal, axillary, or hilar uptake. No cervical or supraclavicular adenopathy. ABDOMEN: The previously identified adrenal masses are no longer seen. There is no associated uptake. There is no retroperitoneal adenopathy. There is questionable hypodense lesion within the liver on ax ial image 126, there is associated hypermetabolic uptake, SUV is 3.1. There is no ascites. No pelvic adenopathy or free fluid. Osseous structures: The sternum shows sclerosis and associated uptake SUV 7.4. The right sacrum show foci of hypermetabolic uptake, SUV is 4.7, 4.3. Vertebral plasty changes present at L4, no associate d uptake. There is a focus of uptake present at the L1 vertebral body not seen on prior. IMPRESSION: Response as described
== END | disposition home or self-care (01) ==
LOC: RADPETMAIN 15:18
PROVIDERS: ATTEND Internal Medicine Hematology & Oncology
DX: C34.11 Malignant neoplasm of upper lobe, right bronchus or lung (principal); R22.2 Localized swelling, mass and lump, trunk
CPT/HCPCS: 78815; A9552

== ENCOUNTER 2021-09-13 14:39 | Emergency (ER) | payer MEDICARE ==
[2021-09-13 15:32] VITALS: TEMP 97.6
[2021-09-13] MEDS ORDERED: ONDANSETRON 4 MG/2 ML VIAL IVP STA (19:09)
[2021-09-13] MEDS ORDERED: MORPHINE SULFATE 4 MG/ML SYRINGE IV STA ×3 (19:09→21:24)
[2021-09-13] MEDS ORDERED: SODIUM CHLORIDE 0.9% 1,000 ML IV STA (19:09)
[2021-09-13] MEDS ORDERED: SODIUM CHLORIDE 0.9% 1,000 ML IV ONE (19:14)
--- NOTE | 2021-09-13 19:16 | ED ---
Lower Extremity Injury HPI - General Chief Complaint: Extremity Injury, Lower Stated Complaint: Right Knee Pain Time Seen by Provider: 09/13/21 19:01 Source: patient, EMS, RN notes reviewed Mode of arrival: EMS Limitations: no limitations - History of Present Illness Initial Comments: Patient was coming down some steps into her garage and felt a pop in her right thigh area and immediately sat down on her buttocks. There was no head or neck injury. Patient is on blood thinners. Patient complaining pain to the mid and distal aspect of the right femur area. Pain is sharp, exacerbated by any movement and palpation. Patient has no distal or proximal pain or abnormality. No distal numbness or tingling. No headache, no fever or chills, no changes in vision or hearing, no sore throat or difficulty with speech, no neck pain, no chest pain or shortness of breath, no abdominal pain, no nausea or vomiting, no changes in urination or bowel movements, no numbness or tingling, no skin rashes or lesions. - Related Data Home Medications Medication Instructions Recorded Confirmed Dulaglutide [Trulicity] 1.5 mg SQ SA 01/04/21 07/24/21 Ezetimibe [Zetia] 10 mg PO DAILY 01/04/21 07/24/21 Febuxostat [Uloric] 40 mg PO DAILY 01/04/21 07/24/21 Ferrous Sulfate [Iron (65 MG 325 mg PO DAILY 01/04/21 07/24/21 Elemental)] Ginkgo Biloba [place] Extract [Ginkgo] 120 mg PO DAILY 01/04/21 07/24/21 Glimepiride [Amaryl] 2 mg PO BID 01/04/21 07/24/21 Vitamin C/Biotin [Hair, Skin and 1 tab PO DAILY 01/04/21 07/24/21 Nails Chew] Fiber Supplement 1 tab PO BID 04/21/21 07/24/21 Apixaban [Eliquis] 5 mg PO BID 07/24/21 07/24/21 Calcium Carbonate [Calcium] 600 mg PO BID 07/24/21 07/24/21 Vitamin E [Vitamin E (1000 Iu = 1,000 unit PO BID 07/24/21 07/24/21 450 MG)] icosapent ethyL [Icosapent Ethyl] 1 gm PO BID 07/24/21 07/24/21 traMADol HCL 100 mg PO Q6H PRN 07/24/21 07/24/21 Ferrous Sulfate [Feosol] 325 mg PO DAILY 09/13/21 09/13/21 Furosemide [Lasix] 40 mg PO DAILY 09/13/21 09/13/21 Glucosam/Damir-Msm1/C/Oj/Bosw 1 tab PO DAILY 09/13/21 09/13/21 [Uexrcdmkdnm-Ldrnzmhiawx-OVL Tb] Insulin Glargine,Hum.rec.anlog 26 unit SQ HS 09/13/21 09/13/21 [Lantus Solostar Pen] Losartan [Cozaar] 50 mg PO DAILY 09/13/21 09/13/21 Ondansetron [Zofran ODT] 4 mg PO Q6H PRN 09/13/21 09/13/21 bisacodyL [Dulcolax] 5 mg PO DAILY 09/13/21 09/13/21 Allergies Allergy/AdvReac Type Severity Reaction Status Date / Time bee venom protein (honey bee) Allergy Rash/Hives Verified 09/13/21 20:55 omeprazole [From Prilosec] AdvReac Unknown unable to Verified 09/13/21 20:55 take due to kidneys. Antihistamines - Piperidine AdvReac lethargic Verified 09/13/21 20:55 codeine AdvReac lethargic/h Verified 09/13/21 20:55 ot Review of Systems ROS Statement: Those systems with pertinent positive or pertinent negative responses have been documented in the HPI. ROS Other: All systems not noted in ROS Statement are negative. Past Medical History Past Medical History: Cancer, Diabetes Mellitus, Deep Vein Thrombosis (DVT), GERD/Reflux, Hyperlipidemia, Hypertension, Osteoarthritis (OA), Renal Disease Additional Past Medical History / Comment(s): gout, DVT lower extremity December 2020 , states arthritis all over-knees,hips,shoulders & fingers, states kidney function 50%., spot on lung. History of non-small cell lung cancer with metastasis History of Any Multi-Drug Resistant Organisms: None Reported Past Surgical History: Section Additional Past Surgical History / Comment(s): D&C, Hemorrhoids, belly button operation as a baby., cataracts, eyelid surgery. 3 c sections Past Anesthesia/Blood Transfusion Reactions: No Reported Reaction Additional Past Anesthesia/Blood Transfusion Reaction / Comment(s): spinal with childbirth and paralized 36 hrs. Past Psychological History: No Psychological Hx Reported Smoking Status: Current every day smoker Past Alcohol Use History: None Reported Past Drug Use History: None Reported General Exam - General Exam Comments Initial Comments: This is a 71-year-old female who is in significant distress secondary to a right leg injury. Vital signs noted. Patient does not appear to be ill or toxic. Cranial nerves II through XII are intact.Alert and oriented 4, Noam Coma Scale is 15 Limitations: no limitations General appearance: alert, in distress Head exam: Present: atraumatic, normocephalic, normal inspection Eye exam: Present: normal appearance, PERRL, EOMI. Absent: scleral icterus, conjunctival injection, periorbital swelling ENT exam: Present: normal exam, normal oropharynx, mucous membranes dry, mucous membranes moist Neck exam: Present: normal inspection, full ROM. Absent: tenderness, meningismus, lymphadenopathy Respiratory exam: Present: normal lung sounds bilaterally. Absent: respiratory distress, wheezes, rales, rhonchi, stridor Cardiovascular Exam: Present: regular rate, normal rhythm, normal heart sounds. Absent: systolic murmur, diastolic murmur, rubs, gallop, clicks GI/Abdominal exam: Present: soft, normal bowel sounds. Absent: distended, tenderness, guarding, rebound, rigid Extremities exam: Present: tenderness, normal capillary refill. Absent: pedal edema, joint swelling, calf tenderness Right Hip exam: Present: normal inspection, full ROM. Absent: tenderness, swelling, abrasion, laceration, ecchymosis, deformity, crepitus, dislocation, erythema, external rotation, shortening, pelvic stability (Pelvic stability is normal) Upper Leg exam: Present: tenderness, swelling, deformity. Absent: ecchymosis, crepitus, dislocation, erythema Knee exam: Present: normal inspection. Absent: tenderness, swelling, ecchymosis, dislocation, erythema, effusion Lower Leg exam: Present: normal inspection. Absent: full ROM, tenderness, swel ling Ankle exam: Present: normal inspection. Absent: full ROM, tenderness, swelling Foot/Toe exam: Present: normal inspection, full ROM. Absent: tenderness, swelling, abrasion, laceration Neurovascular tendon exam: Present: no vascular compromise. Absent: pulse deficit, abnormal cap refill, motor deficit, sensory deficit, tendon deficit, extremity cold to touch, pallor, decreased fine/light touch, foot drop, peroneal nerve deficit Gait: not tested/not observed Back exam: Present: normal inspection Neurological exam: Present: alert, oriented X3, CN II-XII intact Psychiatric exam: Present: normal affect, normal mood Skin exam: Present: warm, dry, intact, normal color. Absent: rash Course Vital Signs 09/13/21 09/13/21 15:29 21:07 Temperature 97.6 F Pulse Rate 120 H 105 H Respiratory 16 18 Rate Blood Pressure 166/87 O2 Sat by Pulse 99 94 L Oximetry - Reevaluation(s) Reevaluation #1: 09/13/21 20:14 Noted the patient had been here for several hours by the time I saw her in the room. I discussed the case with the orthopedic physician assistant general manager and will discuss that with his on-call orthopedic surgeon. This was 8:14 PM. Reevaluation #2: 09/13/21 20:15 Medical record is reviewed Symptoms are unchanged no rashes status intact- Patient is informed of results and questions answered Patient in no distress Reevaluation #3: 09/13/21 21:01 ABC for orthopedics call back. 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 Reevaluated, neurovascular intact, pain much better. Reevaluation #4: 09/13/21 21:26 Patient was initially triaged to the waiting room. We then discussed the case with orthopedics intelligence operations specialist here who suggested transfer. Call was placed to [facility], they called back about 20 minutes later and said to transfer. Procedures - Orthopedic Splinting/Casting Injury #1 Side: right Lower Extremity Injury Location: long leg (Posterior splint to right leg from the proximal thigh to the foot, distal neurovascular status intact) Lower Extremity Immobilizer: Qasim wrap (Splint applied by Channing Canas PA-C), synthetic pre-padded splint Medical Decision Making - Medical Decision Making Patient presents with obvious deformity to the right femur area. Likely a femur fracture. Distal neurovascular status intact. No other apparent injuries. Patient to be transferred to [facility] trauma service for mid shaft, closed femur fracture. [facility] the patient. The case was discussed in detail with ED attending physician. Presentation, findings, treatment plan discussed in detail. Supervising physician is Dr. Luevano - Lab Data Result diagrams: 09/13/21 19:33 09/13/21 19:33 Lab Results 09/13/21 09/13/21 09/13/21 Range/Units 19:33 19:33 19:33 WBC 14.9 H (3.8-10.6) k/uL RBC 4.89 (3.80-5.40) m/uL Hgb 13.5 (11.4-16.0) gm/dL Hct 42.5 (34.0-46.0) % MCV 86.9 (80.0-100.0) fL MCH 27.6 (25.0-35.0) pg MCHC 31.7 (31.0-37.0) g/dL RDW 17.3 H (11.5-15.5) % Plt Count 404 D (150-450) k/uL MPV 7.9 Neutrophils % 76 % Lymphocytes % 14 % Monocytes % 5 % Eosinophils % 2 % Basophils % 1 % Neutrophils # 11.4 H (1.3-7.7) k/uL Lymphocytes # 2.1 (1.0-4.8) k/uL Monocytes # 0.7 (0-1.0) k/uL Eosinophils # 0.2 (0-0.7) k/uL Basophils # 0.1 (0-0.2) k/uL Hypochromasia Slight Anisocytosis Slight PT 10.3 (9.0-12.0) sec INR 0.9 (<1.2) APTT 24.1 (22.0-30.0) sec Sodium 134 L (137-145) mmol/L Potassium 5.0 (3.5-5.1) mmol/L Chloride 103 (98-107) mmol/L Carbon Dioxide 22 (22-30) mmol/L Anion Gap 9 mmol/L BUN 14 (7-17) mg/dL Creatinine 0.82 (0.52-1.04) mg/dL Est GFR (CKD-EPI)AfAm 84 (>60 ml/min/1.73 sqM) Est GFR (CKD-EPI)NonAf 73 (>60 ml/min/1.73 sqM) Glucose 134 H (74-99) mg/dL Calcium 10.1 (8.4-10.2) mg/dL Total Bilirubin 0.5 (0.2-1.3) mg/dL AST 28 (14-36) U/L ALT 16 (4-34) U/L Alkaline Phosphatase 164 H (38-126) U/L Total Protein 7.6 (6.3-8.2) g/dL Albumin 4.1 (3.5-5.0) g/dL Blood Type Blood Type Confirm Blood Type Recheck Bld Type Recheck Status Antibody Screen Spec Expiration Date 09/13/21 09/13/21 Range/Units 19:33 20:30 WBC (3.8-10.6) k/uL RBC (3.80-5.40) m/uL Hgb (11.4-16.0) gm/dL Hct (34.0-46.0) % MCV (80.0-100.0) fL MCH (25.0-35.0) pg MCHC (31.0-37.0) g/dL RDW (11.5-15.5) % Plt Count (150-450) k/uL MPV Neutrophils % % Lymphocytes % % Monocytes % % Eosinophils % % Basophils % % Neutrophils # (1.3-7.7) k/uL Lymphocytes # (1.0-4.8) k/uL Monocytes # (0-1.0) k/uL Eosinophils # (0-0.7) k/uL Basophils # (0-0.2) k/uL Hypochromasia Anisocytosis PT (9.0-12.0) sec INR (<1.2) APTT (22.0-30.0) sec Sodium (137-145) mmol/L Potassium (3.5-5.1) mmol/L Chloride (98-107) mmol/L Carbon Dioxide (22-30) mmol/L Anion Gap mmol/L BUN (7-17) mg/dL Creatinine (0.52-1.04) mg/dL Est GFR (CKD-EPI)AfAm (>60 ml/min/1.73 sqM) Est GFR (CKD-EPI)NonAf (>60 ml/min/1.73 sqM) Glucose (74-99) mg/dL Calcium (8.4-10.2) mg/dL Total Bilirubin (0.2-1.3) mg/dL AST (14-36) U/L ALT (4-34) U/L Alkaline Phosphatase (38-126) U/L Total Protein (6.3-8.2) g/dL Albumin (3.5-5.0) g/dL Blood Type O Positive Blood Type Confirm O Positive Blood Type Recheck No Previous Record Bld Type Recheck Status CABO Indicated Antibody Screen NEGATIVE Spec Expiration Date 09/16/20212332 Disposition Clinical Impression: Closed displaced transverse fracture of shaft of right femur Disposition: OTHER INSTITUTION NOT DEFINED Referrals: Ángel Turner DO [Primary Care Provider] - 1-2 days Time of Disposition: 21:02 - Out of Hospital Transfer - Req. Specs Out of Hospital Transfer - Requested Specifics: Other Emergency Center
[2021-09-13 19:47] LABS: Anisocytosis Slight; Basophils # (A) 0.1 k/uL (0-0.2); Basophils % (A) 1 %; Eosinophils # (A) 0.2 k/uL (0-0.7); Eosinophils % (A) 2 %; HCT 42.5 % (34.0-46.0); HGB 13.5 gm/dL (11.4-16.0); Hypochromasia Slight; Lymphocytes # (A) 2.1 k/uL (1.0-4.8); Lymphocytes % (A) 14 %; MCH 27.6 pg (25.0-35.0); MCHC 31.7 g/dL (31.0-37.0); MCV 86.9 fL (80.0-100.0); Mean Platelet Volume 7.9; Monocytes # (A) 0.7 k/uL (0-1.0); Monocytes % (A) 5 %; Neutrophils # (A) 11.4 k/uL (1.3-7.7); Neutrophils % (A) 76 %; RBC 4.89 m/uL (3.80-5.40); RDW 17.3 % (11.5-15.5); WBC 14.9 k/uL (3.8-10.6)
[2021-09-13 19:59] LABS: INR 0.9 (<1.2); Partial Thromboplastin Time 24.1 sec (22.0-30.0); Prothrombin Time 10.3 sec (9.0-12.0)
[2021-09-13 20:00] LABS: Platelet Count 404 k/uL (150-450)
--- NOTE | 2021-09-13 20:09 | XR ---
EXAMINATION TYPE: XR chest 1V DATE OF EXAM: 09/13/2021 COMPARISON: NONE HISTORY: Pneumonia TECHNIQUE: 2 view FINDINGS: Heart is normal. There are no hilar masses. Costophrenic angles are clear. There is a 4 cm infiltrate lateral aspect right upper lobe. The other lung menendez are clear. There is a small infiltr ate lateral left lung base. There are no hilar masses. No heart failure. IMPRESSION: There is a chronic infiltrate right upper lobe without change. There is small infiltrate left lower lobe mostly cleared compared to old exam. Follow-up is recommended.
[2021-09-13] MEDS ORDERED: DIAZEPAM 5 MG/ML 2 ML INJ IVP STA (20:10)
--- NOTE | 2021-09-13 20:11 | XR ---
EXAMINATION TYPE: XR pelvis AP view DATE OF EXAM: 09/13/2021 COMPARISON: 07/23/2021 HISTORY: Leg pain TECHNIQUE: Single view FINDINGS: Pelvic ring is intact. Proximal femurs and hip joints are intact. Sacroiliac joints are int act. IMPRESSION: No fracture seen. Normal hip joint spaces. No adverse change.
--- NOTE | 2021-09-13 20:13 | XR ---
EXAMINATION TYPE: XR femur RT DATE OF EXAM: 09/13/2021 COMPARISON: NONE HISTORY: Pain TECHNIQUE: 4 views FINDINGS: There is acute transverse fracture of the right femur between middle and distal thirds. The re is overriding of the fragments. There is posterior 100% displacement of the distal fragment on the lateral view. The knee joint is anatomic. Hip joint is intact. IMPRESSION: Acute displaced femoral shaft fracture.
--- NOTE | 2021-09-13 20:14 | XR ---
EXAMINATION TYPE: XR knee limited RT DATE OF EXAM: 09/13/2021 COMPARISON: NONE HISTORY: Pain TECHNIQUE: 2 views FINDINGS: I see no fracture nor dislocation. Knee joint spaces appear fairly normal. Exam limited by the projections. No sign of knee joint effusion. There is some spurring at the tibial tubercle. IMPRESSION: No acute abnormality of the right knee.
[2021-09-13 20:22] LABS: Albumin 4.1 g/dL (3.5-5.0); Calcium 10.1 mg/dL (8.4-10.2); Total Bilirubin 0.5 mg/dL (0.2-1.3); Total Protein 7.6 g/dL (6.3-8.2)
[2021-09-13 21:09] VITALS: BP 166/87; PULSE 105; RESP 18
== END 2021-09-13 22:01 | disposition other institution (70) ==
LOC: EC 14:39
DX: S72.321A Displaced transverse fracture of shaft of right femur, initial encounter for closed fracture (principal); E11.9 Type 2 diabetes mellitus without complications; I10 Essential (primary) hypertension; K21.9 Gastro-esophageal reflux disease without esophagitis; E78.5 Hyperlipidemia, unspecified; M19.90 Unspecified osteoarthritis, unspecified site; M10.9 Gout, unspecified; F17.200 Nicotine dependence, unspecified, uncomplicated; Z86.718 Personal history of other venous thrombosis and embolism; Z79.4 Long term (current) use of insulin; Z79.01 Long term (current) use of anticoagulants; Z79.84 Long term (current) use of oral hypoglycemic drugs; Z79.899 Other long term (current) drug therapy; X50.1XXA Overexertion from prolonged static or awkward postures, initial encounter
CPT/HCPCS: 36415; 86900; 86901; 80053; 85025; 85610; 85730; 86850; 87635; 72170; 73552; 73560; 71045; 29505; 99285; 96374; 96375 ×2; 96376 ×2; 96361 ×3; J2270; J3360; J2405

== ENCOUNTER → 2021-12-24 | Outpatient (CLI) | payer MEDICARE ==
--- NOTE | 2021-12-25 11:29 | PE ---
EXAMINATION TYPE: PET CT fusion skull to thigh DATE OF EXAM: 12/24/2021 CLINICAL INDICATION:Female, 71 years old with history of C34.11 Lung CA; TECHNIQUE: Following the intravenous administration of 12.5 mCi of F-18 FDG, whole body images are performed from the skull base to the midthigh. Images are reviewed on the computer in the coronal, a xial, and sagittal planes. Reconstructed rotating images are created on independent workstation and reviewed on the computer. A non-contrast CT is performed in conjunction with the PET scan. Glucose level 66 mg/dL COMPARISON: CT 07/24/2021, PET/CT 09/03/2021, FINDINGS: Mediastinal SUV maximum is 1.8. Hepatic parenchyma SUV maximum is 2.3. SKULL BASE AND NECK: * No suspicious FDG activity. * FDG uptake within the left neck max SUV 3.8 likely representing muscle strain/injury. * Increased FDG activity within the palatine tonsils bilaterally with max SUV 5.7 CHEST, MEDIASTINUM, AND HILAR REGION: * Right upper lobe nodule measuring 2.3 x 1.9 cm as a more rounded morphology in today's exam with m ax SUV of 1.4, previously hard to get an exact value given its close proximity to the rib lesion. * Focus of FDG uptake within the soft tissues of the back just slightly left of midline max SUV 2.0 previously 0.4. ABDOMEN AND PELVIS: No suspicious FDG activity. There remains no uptake within the adrenal glands. OSSEOUS STRUCTURES: * Uptake within the sternum with max SUV 2.7, previously 7.4. * Right Rib 3 Lesion on prior max SUV 1.4, previously 8.6. OTHER CT: Bilateral renal hyperdense cysts consistent with proteinaceous cyst. Right hip fixation ray dware which appears intact. Postsurgical changes to the lumbar spine. IMPRESSION: 1. Mixed response with decrease in FDG activity involving the sternum and right rib lesion however t here is an increase in size of the right upper lobe nodule with a more rounded morphology in today's exam. The nodule does not demonstrate increased FDG activity above background levels. Attention on ort-term follow-up CT of the chest. 2. Posterior upper back just left of midline, focus of increased FDG activity likely representing in fected sebaceous cyst. Correlate with physical exam. 3. Bilateral palatine tonsil FDG uptake likely representing tonsillitis.
== END | disposition home or self-care (01) ==
LOC: RADPETMAIN 11:13
PROVIDERS: ATTEND Internal Medicine Hematology & Oncology
DX: C34.11 Malignant neoplasm of upper lobe, right bronchus or lung (principal)
CPT/HCPCS: 78815; A9552

== ENCOUNTER → 2022-04-08 | Outpatient (CLI) | payer MEDICARE ==
--- NOTE | 2022-04-11 19:34 | PE ---
EXAMINATION TYPE: PET CT fusion skull to thigh DATE OF EXAM: 04/08/2022 CLINICAL INDICATION:Female, 71 years old with history of C34.11 lung ca; TECHNIQUE: Following the intravenous administration of 10.4 mCi of F-18 FDG, whole body images are performed from the skull base to the midthigh. Images are reviewed on the computer in the coronal, a xial, and sagittal planes. Reconstructed rotating images are created on independent workstation and reviewed on the computer. A non-contrast CT is performed in conjunction with the PET scan. Glucose level 91 mg/dL COMPARISON: CT None, PET/CT August 1921, FINDINGS: Mediastinal SUV mean is 1.6. Hepatic parenchyma SUV mean is 2.3. SKULL BASE AND NECK: No suspicious FDG activity. * FDG activity within the palatine tonsils max SUV 5.5. CHEST, MEDIASTINUM, AND HILAR REGION: * Right upper lobe peripheral pleural-based mass measuring similarly at 2.0 x 1.8 cm max SUV 1.8 pre viously 1.4. * Unchanged right 4 mm satellite nodules is below the sensitivity of PET/CT. ABDOMEN AND PELVIS: No suspicious FDG activity. OSSEOUS STRUCTURES: * Right rib 3 max SUV 1.7 previously 1.3. * Right rib 4 max SUV 1.9 previously 1.1. * Sternal FDG activity max SUV 3.0, previously 2.7. OTHER CT: Coronary artery atherosclerosis. Proteinaceous left renal cyst. Multiple gallstones. Few sc attered clonic diverticula present. Fat-containing Bochdalek hernia. IMPRESSION: Progressive disease with Mildly increased FDG activity within the osseous structures and right upper lobe peripheral mass compared to prior. The morphology of the osseous structures and the right upper lung nodules are stable.
== END | disposition home or self-care (01) ==
LOC: RADPETMAIN 10:38
PROVIDERS: ATTEND Internal Medicine Hematology & Oncology
DX: C34.11 Malignant neoplasm of upper lobe, right bronchus or lung (principal); R91.8 Other nonspecific abnormal finding of lung field
CPT/HCPCS: 78815; A9552

== ENCOUNTER → 2022-07-22 | Outpatient (CLI) | payer MEDICARE ==
--- NOTE | 2022-07-24 15:34 | PE ---
EXAMINATION TYPE: PET CT fusion skull to thigh DATE OF EXAM: 07/22/2022 CLINICAL INDICATION:Female, 72 years old with history of C34.11; lung cancer TECHNIQUE: Following the intravenous administration of 12.53 mCi of F-18 FDG, whole body images are performed from the skull base to the midthigh. Images are reviewed on the computer in the coronal, axial, and sagittal planes. Reconstructed rotating images are created on independent workstation and reviewed on the computer. A non-contrast CT is performed in conjunction with the PET scan. Glucose level 138 mg/dL COMPARISON: CT 04/22/2021, PET/CT most recent 04/08/2022 12/25/2021, FINDINGS: Mediastinal SUV mean is 1.6. Hepatic parenchyma SUV mean is 2.9 SKULL BASE AND NECK: * No suspicious FDG activity. * Physiologic uptake within the palatine tonsils max SUV 4.6, previously 5.5. * Presumably physiologic uptake within the larynx max SUV 4.7. CHEST, MEDIASTINUM, AND HILAR REGION: * Right upper lobe peripheral pleural-based mass again measures similarly at 2.0 x 1.8 cm max SUV 1. 6, previously 1.8 and 1.4. * Unchanged right 4 mm satellite nodule is below the sensitivity of PET/CT. ABDOMEN AND PELVIS: No suspicious FDG activity. OSSEOUS STRUCTURES: * Right rib 3 max SUV 1.4 previously 1.7 and 1.3. * Right rib 4 max SUV 1.2 previously 1.9 and 1.1. * Sternal FDG activity max SUV 2.3, previously 3.0, and 2.7. OTHER CT: Coronary artery atherosclerosis. Proteinaceous left renal cyst. Multiple gallstones. Few sc attered clonic diverticula present. Fat-containing Bochdalek hernia. IMPRESSION: 1. Similar size and FDG activity in the right upper lobe pulmonary nodule. 2. Rib lesions have slightly decreased in metabolic activity compared to prior. No new sites of meta static disease identified.
== END | disposition home or self-care (01) ==
LOC: RADPETMAIN 10:49
PROVIDERS: ATTEND Internal Medicine Hematology & Oncology
DX: C34.11 Malignant neoplasm of upper lobe, right bronchus or lung (principal); R91.1 Solitary pulmonary nodule
CPT/HCPCS: 78815; A9552

== ENCOUNTER → 2022-12-16 | Outpatient (CLI) | payer MEDICARE ==
--- NOTE | 2022-12-19 05:25 | PE ---
EXAMINATION TYPE: PET CT fusion skull to thigh DATE OF EXAM: 12/16/2022 COMPARISON: None Prior PET/CT: 07/22/2022 HISTORY: Lung cancer TECHNIQUE: Following the intravenous administration of 12.12 mCi of F-18 FDG, whole body images are performed from the skull base to the midthigh. Images are reviewed on the computer in the coronal, a xial, and sagittal planes. Reconstructed rotating images are created on independent workstation and reviewed on the computer. A localization and attenuation correction CT is performed in conjunction with the PET scan. DLP: 462.06 mGycm SCAN: Subsequent Blood glucose: 118 mg/dL Average Mediastinum SUV: 1.89 Average Liver SUV: 2.82 FINDINGS: NECK: No abnormal uptake THORAX: No suspicious focal uptake. There is a peripheral right upper lobe pleural-based mass with an SUV value of 1.1. Previous SUV 1.6. ABDOMEN: No abnormal uptake PELVIS: No abnormal uptake OSSEOUS STRUCTURES: No abnormal uptake. Previous rib uptake not appreciated on the current examinatio n. LOCALIZATION CT: Right upper lobe based mass currently measures 2.0 x 2.0 cm in size, prior measureme nt 2.0 x 1.8 cm. COMPARISON: No new findings. IMPRESSION: 1. Low uptake within a right upper lobe lung mass, diminished from comparison. 2. Prior rib uptake not appreciated currently.
== END | disposition home or self-care (01) ==
LOC: RADPETMAIN 10:31
PROVIDERS: ATTEND Internal Medicine Hematology & Oncology
DX: C34.11 Malignant neoplasm of upper lobe, right bronchus or lung (principal); R91.8 Other nonspecific abnormal finding of lung field
CPT/HCPCS: 78815; A9552

== ENCOUNTER 2023-03-06 04:12 | Inpatient (IN) | payer MEDICARE ==
[2023-03-06] MEDS ORDERED: SODIUM CHLORIDE 0.9% 500 ML 500 ML IV STA ×2 (04:29→06:26)
[2023-03-06] MEDS ORDERED: ACETAMINOPHEN TAB 325 MG TAB PO STA (04:29)
[2023-03-06 05:03] LABS: Basophils # (A) 0.1 k/uL (0-0.2); Basophils % (A) 1 %; Eosinophils # (A) 0.1 k/uL (0-0.7); Eosinophils % (A) 1 %; HCT 40.3 % (34.0-46.0); Lymphocytes # (A) 1.7 k/uL (1.0-4.8); Lymphocytes % (A) 10 %; MCH 28.4 pg (25.0-35.0); MCHC 32.2 g/dL (31.0-37.0); MCV 88.3 fL (80.0-100.0); Mean Platelet Volume 9.7; Monocytes # (A) 1.4 k/uL (0-1.0); Monocytes % (A) 8 %; Neutrophils # (A) 13.1 k/uL (1.3-7.7); Neutrophils % (A) 78 %; Platelet Count 242 k/uL (150-450); RBC 4.56 m/uL (3.80-5.40); RDW 14.7 % (11.5-15.5); WBC 16.8 k/uL (3.8-10.6)
--- NOTE | 2023-03-06 05:23 | ED ---
Fever HPI - General Chief Complaint: Fever Stated Complaint: Fall, Fever Time Seen by Provider: 03/06/23 04:14 Source: EMS Mode of arrival: EMS Limitations: no limitations - History of Present Illness Initial Comments: This patient is 72-year-old woman presenting to have evaluation for generalized weakness and fever. The patient had EMS come to her residence a couple of times in the past day for help with getting up. She also felt she had developed fever over the course the past night. Patient gives history of cancer receiving current treatment (last treatment approximately 2 weeks ago). She also notes she has had a cough over the past day. Denies sputum production. No chest pain or shortness of breath. MD Complaint: fever, weakness Onset/Timin -: days(s) Temperature Source: subjective Associated Symptoms: nasal congestion, cough Treatments Prior to Arrival: none - Related Data Home Medications Medication Instructions Recorded Confirmed Dulaglutide [Trulicity] 1.5 mg SQ SA 01/04/21 03/06/23 Ezetimibe [Zetia] 10 mg PO DAILY 01/04/21 03/06/23 Febuxostat [Uloric] 40 mg PO DAILY 01/04/21 03/06/23 Ferrous Sulfate [Iron (65 MG 325 mg PO DAILY 01/04/21 03/06/23 Elemental)] Glimepiride [Amaryl] 2 mg PO BID 01/04/21 03/06/23 Vitamin C/Biotin [Hair, Skin and 1 tab PO DAILY 01/04/21 03/06/23 Nails Chew] Vitamin E (Dl,Tocopheryl Acet) 1,000 unit PO BID 07/24/21 03/06/23 [Vitamin E (1000 Iu = 450 MG)] icosapent ethyL [Icosapent Ethyl] 2 gm PO BID 07/24/21 03/06/23 Insulin Glargine,Hum.rec.anlog 40 unit SQ HS 09/13/21 03/06/23 [Lantus Solostar Pen] Losartan [Cozaar] 50 mg PO DAILY 09/13/21 03/06/23 Apixaban [Eliquis] 2.5 mg PO BID 03/06/23 03/06/23 Cetirizine HCl [Zyrtec] 10 mg PO DAILY PRN 03/06/23 03/06/23 Cholecalciferol (Vitamin D3) 75 mcg PO DAILY 03/06/23 03/06/23 [Vitamin D3 (3000 Iu)] Docusate [Colace] 100 mg PO DAILY 03/06/23 03/06/23 Econazole Nitrate [Econazole 1 applic TOPICAL BID 03/06/23 03/06/23 Nitrate 1%] Magnesium Oxide [Magnesium] 500 mg PO DAILY 03/06/23 03/06/23 Previous Rx's Medication Instructions Recorded Acetaminophen Tab [Tylenol] 650 mg PO Q6HR PRN tab 03/10/23 INSULIN ASPART (NovoLOG) [NovoLOG 0 unit SQ ACHS each 03/10/23 (formulary)] Ipratropium-Albuterol Nebulize 3 ml INHALATION RT-Q2H PRN each 03/10/23 [Duoneb 0.5 mg-3 mg/3 ml Soln] Ipratropium-Albuterol Nebulize 3 ml INHALATION RT-QID each 03/10/23 [Duoneb 0.5 mg-3 mg/3 ml Soln] SUMAtriptan succinate [Imitrex] 25 mg PO DAILY PRN tab 03/10/23 traMADol HCl [Ultram] 50 mg PO QID PRN #8 tab 03/10/23 Allergies Allergy/AdvReac Type Severity Reaction Status Date / Time bee venom protein (honey bee) Allergy Rash/Hives Verified 03/06/23 09:11 clarithromycin [From Biaxin] Allergy Unknown Verified 03/06/23 09:11 omeprazole [From Prilosec] AdvReac Unknown unable to Verified 03/06/23 09:11 take due to kidneys. Antihistamines - Piperidine AdvReac lethargic Verified 03/06/23 09:11 codeine AdvReac lethargic/h Verified 03/06/23 09:11 ot metformin AdvReac lethargic Verified 03/06/23 09:11 Review of Systems ROS Statement: Those systems with pertinent positive or pertinent negative responses have been documented in the HPI. ROS Other: All systems not noted in ROS Statement are negative. Constitutional: Reports: fever, weakness Eyes: Denies: eye discharge ENT: Reports: congestion. Denies: ear pain, throat pain Respiratory: Reports: cough. Denies: dyspnea, wheezes, hemoptysis Cardiovascular: Denies: chest pain, palpitations, edema, syncope Gastrointestinal: Denies: abdominal pain, nausea, vomiting Genitourinary: Denies: dysuria, hematuria Musculoskeletal: Denies: back pain Skin: Denies: rash Neurological: Denies: headache, weakness, numbness Past Medical History Past Medical History: Cancer, Diabetes Mellitus, Deep Vein Thrombosis (DVT), GERD/Reflux, Hyperlipidemia, Hypertension, Osteoarthritis (OA), Renal Disease Additional Past Medical History / Comment(s): gout, DVT lower extremity December 2020 , states arthritis all over-knees,hips,shoulders & fingers, states kidney function 50%., spot on lung. History of non-small cell lung cancer with metastasis History of Any Multi-Drug Resistant Organisms: None Reported Past Surgical History: Section Additional Past Surgical History / Comment(s): D&C, Hemorrhoids, belly button operation as a baby., cataracts, eyelid surgery. 3 c sections Past Anesthesia/Blood Transfusion Reactions: No Reported Reaction Additional Past Anesthesia/Blood Transfusion Reaction / Comment(s): spinal with childbirth and paralized 36 hrs. Past Psychological History: No Psychological Hx Reported Smoking Status: Current every day smoker Past Alcohol Use History: None Reported Past Drug Use History: None Reported General Exam Limitations: no limitations General appearance: alert, in no apparent distress Head exam: Present: atraumatic, normocephalic Eye exam: Present: normal appearance. Absent: scleral icterus, conjunctival injection ENT exam: Present: mucous membranes dry Neck exam: Present: normal inspection, full ROM. Absent: meningismus Respiratory exam: Present: normal lung sounds bilaterally, rales (Bilateral bases). Absent: respiratory distress, wheezes, rhonchi, stridor, accessory muscle use Cardiovascular Exam: Present: normal rhythm, tachycardia, systolic murmur. Absent: diastolic murmur, rubs, gallop GI/Abdominal exam: Present: soft. Absent: distended, tenderness, guarding, rebound, rigid, mass Extremities exam: Present: normal inspection, normal capillary refill. Absent: pedal edema, calf tenderness Back exam: Present: normal inspection. Absent: CVA tenderness (R), CVA tenderness (L) Neurological exam: Present: alert Skin exam: Present: warm, dry, intact, normal color. Absent: rash Course Vital Signs 03/06/23 03/06/23 03/06/23 04:15 06:00 07:56 Temperature 101.8 F H 98.2 F Pulse Rate 122 H 110 H 97 Respiratory 18 18 18 Rate Blood Pressure 153/86 128/87 130/85 O2 Sat by Pulse 94 L 95 97 Oximetry 03/06/23 03/06/23 03/06/23 10:00 12:10 12:43 Temperature 102.4 F H 101.4 F H Pulse Rate 120 H 122 H 116 H Respiratory 24 18 Rate Blood Pressure 181/89 143/68 O2 Sat by Pulse 95 94 L Oximetry 03/06/23 03/06/23 03/06/23 12:52 13:00 14:00 Temperature 100.7 F H 98.8 F Pulse Rate 118 H 115 H 111 H Respiratory 20 20 Rate Blood Pressure 132/75 114/60 O2 Sat by Pulse 95 96 Oximetry 03/06/23 14:32 Temperature Pulse Rate 102 H Respiratory 20 Rate Blood Pressure 130/65 O2 Sat by Pulse 96 Oximetry Medical Decision Making - Medical Decision Making The patient had chest x-ray which I interpreted as showing right upper lobe infiltrate Was pt. sent in by a medical professional or institution (GERARDO Clark, WEB SERVICES PROFESSIONAL, urgent care, hospital, or fci...) When possible be specific @ -[No] Did you speak to anyone other than the patient for history (EMS, parent, family, police, friend...)? What history was obtained from this source @ -[No] Did you review nursing and triage notes (agree or disagree)? Why? @ -[I reviewed and agree with nursing and triage notes] Were old charts reviewed (outside hosp., previous admission, EMS record, old EKG, old radiological studies, urgent care reports/EKG's, fci records)? Report findings @ -[No old charts were reviewed] Differential Diagnosis (chest pain, altered mental status, abdominal pain women, abdominal pain men, vaginal bleeding, weakness, fever, dyspnea, syncope, headache, dizziness, GI bleed, back pain, seizure, CVA, palpatations, mental health, musculoskeletal)? @ -[Differential Fever: Pneumonia, viral URI, endocarditis, myocarditis, pericarditis, otitis, sinusitis, peritonsillar Abscess, retropharyngeal Abscess, epiglottitis, peritonitis, appendicitis, Vannesa cystitis, diverticulitis, hepatitis, colitis, UTI, PID, TOA, pyelonephritis, prostatitis, epididymitis, meningitis, encephalitis, pulmonary embolism, CVA, thyroid storm, pancreatitis, adrenal crisis, cavernous sinus thrombosis, this is not meant to be an all-inclusive list. EKG interpreted by me (3pts min.). @ -[As above] X-rays interpreted by me (1pt min.). @ -[I interpreted as above CT interpreted by me (1pt min.). @ -[None done] U/S interpreted by me (1pt. min.). @ -[None done] What testing was considered but not performed or refused? (CT, X-rays, U/S, labs)? Why? @ -[None] What meds were considered but not given or refused? Why? @ -[None] Did you discuss the management of the patient with other professionals (professionals i.e. , PA, WEB SERVICES PROFESSIONAL, lab, RT, psych nurse, social services specialist, fruit grading supervisor, teacher, human resource officer, case advocate)? Give summary @ -[Case discussed with admitting physician and treatment recommendations are incorporated Was smoking cessation discussed for >3mins.? @ -[No] Was critical care preformed (if so, how long)? @ -[No] Were there social determinants of health that impacted care today? How? (Homeles sness, low income, unemployed, alcoholism, drug addiction, transportation, low edu. Level, literacy, decrease access to med. care, [facility], rehab)? @ -[No] Was there de-escalation of care discussed even if they declined (Discuss DNR or withdrawal of care, Hospice)? DNR status @ -[No] What co-morbidities impacted this encounter? (DM, HTN, Smoking, COPD, CAD, Cancer, CVA, ARF, Chemo, Hep., AIDS, mental health diagnosis, sleep apnea, morbid obesity)? @ -[None] Was patient admitted / discharged? Hospital course, mention meds given and route, prescriptions, significant lab abnormalities, going to OR and other pertinent info. @ -[Patient is admitted to have coarse antibiotics and further consultation. Undiagnosed new problem with uncertain prognosis? @ -[No] Drug Therapy requiring intensive monitoring for toxicity (Heparin, Nitro, Insulin, Cardizem)? @ -[No] Were any procedures done? @ -[No] Diagnosis/symptom? @ -[Acute pneumonia Acute, or Chronic, or Acute on Chronic? @ -[Acute Uncomplicated (without systemic symptoms) or Complicated (systemic symptoms)? @ -[Uncomplicated Side effects of treatment? @ -[No] Exacerbation, Progression, or Severe Exacerbation? @ -[No] Poses a threat to life or bodily function? How? (Chest pain, [place], [place], pneumonia, PE, COPD, DKA, ARF, appy, cholecystitis, CVA, Diverticulitis, Homicidal, Suicidal, threat to staff... and all critical care pts) @ -[No] - Lab Data Result diagrams: 03/08/23 06:41 03/08/23 06:41 Lab Results 03/06/23 03/06/23 03/06/23 Range/Units 04:29 04:29 04:29 WBC 16.8 H (3.8-10.6) k/uL RBC 4.56 (3.80-5.40) m/uL Hgb 13.0 (11.4-16.0) gm/dL Hct 40.3 (34.0-46.0) % MCV 88.3 (80.0-100.0) fL MCH 28.4 (25.0-35.0) pg MCHC 32.2 (31.0-37.0) g/dL RDW 14.7 (11.5-15.5) % Plt Count 242 (150-450) k/uL MPV 9.7 Neutrophils % 78 % Lymphocytes % 10 % Monocytes % 8 % Eosinophils % 1 % Basophils % 1 % Neutrophils # 13.1 H (1.3-7.7) k/uL Lymphocytes # 1.7 (1.0-4.8) k/uL Monocytes # 1.4 H (0-1.0) k/uL Eosinophils # 0.1 (0-0.7) k/uL Basophils # 0.1 (0-0.2) k/uL Sodium 134 L (137-145) mmol/L Potassium 4.8 (3.5-5.1) mmol/L Chloride 99 (98-107) mmol/L Carbon Dioxide 24 (22-30) mmol/L Anion Gap 11 mmol/L BUN 27 H (7-17) mg/dL Creatinine 1.02 (0.52-1.04) mg/dL Est GFR (CKD-EPI)AfAm 64 (>60 ml/min/1.73 sqM) Est GFR (CKD-EPI)NonAf 56 (>60 ml/min/1.73 sqM) Glucose 220 H (74-99) mg/dL Plasma Lactic Acid Mario 1.6 (0.7-2.0) mmol/L Calcium 9.2 (8.4-10.2) mg/dL Total Bilirubin 0.6 (0.2-1.3) mg/dL AST 60 H (14-36) U/L ALT 36 H (4-34) U/L Alkaline Phosphatase 102 (38-126) U/L Total Protein 7.0 (6.3-8.2) g/dL Albumin 3.9 (3.5-5.0) g/dL Procalcitonin (0.02-0.09) ng/mL Coronavirus (PCR) (Not Detectd) 03/06/23 03/06/23 Range/Units 04:29 05:00 WBC (3.8-10.6) k/uL RBC (3.80-5.40) m/uL Hgb (11.4-16.0) gm/dL Hct (34.0-46.0) % MCV (80.0-100.0) fL MCH (25.0-35.0) pg MCHC (31.0-37.0) g/dL RDW (11.5-15.5) % Plt Count (150-450) k/uL MPV Neutrophils % % Lymphocytes % % Monocytes % % Eosinophils % % Basophils % % Neutrophils # (1.3-7.7) k/uL Lymphocytes # (1.0-4.8) k/uL Monocytes # (0-1.0) k/uL Eosinophils # (0-0.7) k/uL Basophils # (0-0.2) k/uL Sodium (137-145) mmol/L Potassium (3.5-5.1) mmol/L Chloride (98-107) mmol/L Carbon Dioxide (22-30) mmol/L Anion Gap mmol/L BUN (7-17) mg/dL Creatinine (0.52-1.04) mg/dL Est GFR (CKD-EPI)AfAm (>60 ml/min/1.73 sqM) Est GFR (CKD-EPI)NonAf (>60 ml/min/1.73 sqM) Glucose (74-99) mg/dL Plasma Lactic Acid Mario (0.7-2.0) mmol/L Calcium (8.4-10.2) mg/dL Total Bilirubin (0.2-1.3) mg/dL AST (14-36) U/L ALT (4-34) U/L Alkaline Phosphatase (38-126) U/L Total Protein (6.3-8.2) g/dL Albumin (3.5-5.0) g/dL Procalcitonin 0.56 H (0.02-0.09) ng/mL Coronavirus (PCR) Not Detected (Not Detectd) - EKG Data -: EKG Interpreted by Me EKG shows normal: sinus rhythm, intervals (Normal) Rate: tachycardia (Rate 121 bpm) Interpretation: nonspecific ST-T wave changes, other (Low voltage QRS complexes) Disposition Clinical Impression: Pneumonia Disposition: ADMITTED IP TO THIS [facility] Condition: Fair
[2023-03-06] MEDS ORDERED: traMADol 50 MG TAB PO STA ×2 (05:55→07:32)
[2023-03-06 06:14] LABS: ALT 36 U/L (4-34); AST 60 U/L (14-36); African American GFR (CKD) 64 (>60 ml/min/1.73 sqM); Albumin 3.9 g/dL (3.5-5.0); Alkaline Phosphatase 102 U/L (38-126); Anion Gap 11 mmol/L; Blood Urea Nitrogen 27 mg/dL (7-17); Calcium 9.2 mg/dL (8.4-10.2); Carbon Dioxide 24 mmol/L (22-30); Chloride 99 mmol/L (98-107); Glucose 220 mg/dL (74-99); Non-African American GFR(CKD) 56 (>60 ml/min/1.73 sqM); Potassium 4.8 mmol/L (3.5-5.1); Sodium 134 mmol/L (137-145); Total Bilirubin 0.6 mg/dL (0.2-1.3)
[2023-03-06] MEDS ORDERED: INSULIN REGULAR 100 UNIT/ML VIAL (IV) SQ STA (06:26)
--- NOTE | 2023-03-06 07:07 | XR ---
EXAM: XR Chest, 2 Views CLINICAL HISTORY: ITS.REASON XR Reason: fever/cough TECHNIQUE: Frontal and lateral views of the chest. COMPARISON: 09/13/2021. FINDINGS: Lungs: Right upper lobe consolidation with probable trace left pleural effusion. Pleural space: See above. Heart: Unremarkable. No cardiomegaly. Mediastinum: Unremarkable. Bones/joints: Unremarkable. IMPRESSION: Right upper lobe consolidation with probable trace left pleural effusion. CT of the chest with IV contrast recommended for further evaluation.
[2023-03-06] MEDS ORDERED: PNEUMONIA PROTOCOL UTILIZED 1 EACH MISC PO PRN (07:33)
[2023-03-06] MEDS: AZITHROMYCIN 500 MG TAB PO SCH (07:50)
[2023-03-06] MEDS: SODIUM CHLORIDE 0.9% 1,000 ML IV SCH (07:51)
[2023-03-06] MEDS ORDERED: HEPARIN SODIUM,PORCINE 5,000 UNIT/ML 1 ML VIAL SQ SCH (09:00)
[2023-03-06 10:47] LABS: Appearance,Urine Clear (Clear); Bilirubin,Urine Negative (Negative); Blood,Urine Negative (Negative); Color,Urine Yellow; Glucose,Urine (UA) Negative (Negative); Ketones,Urine Negative (Negative); Leukocyte Esterase,Urine Negative (Negative); Mucus,Urine Rare /hpf; Nitrite,Urine Negative (Negative); PH, Urine 5.5 (5.0-8.0); Protein,Urine 1+ (Negative); RBC,Urine 1 /hpf (0-5); Specific Gravity,Urine 1.025 (1.001-1.035); Squamous Epithelial Cell,Urine 3 /hpf (0-4); Urobilinogen,Urine <2.0 mg/dL (<2.0); WBC,Urine 1 /hpf (0-5)
[2023-03-06] MEDS ORDERED: RX INFO: IV CONTRAST WAS GIVEN 1 EACH MISC MISCELLANE PRN (11:00)
[2023-03-06] MEDS ORDERED: IPRATROPIUM-ALBUTEROL 3 ML NEB INHALATION PRN (11:01)
[2023-03-06] MEDS: ACETAMINOPHEN TAB 325 MG TAB PO PRN ×2 (11:05→19:46)
[2023-03-06] MEDS ORDERED: LORATADINE 10 MG TAB PO PRN (11:44)
[2023-03-06] MEDS ORDERED: ONDANSETRON 4 MG/2 ML VIAL IVP PRN (11:49)
[2023-03-06] MEDS ORDERED: DEXTROSE 50% SYRINGE 50 ML IVP PRN ×2 (11:49)
[2023-03-06 12:02] LABS: Glucose,Whole Blood 232 mg/dL (70-110)
--- NOTE | 2023-03-06 12:09 | P.HPIM ---
History of Present Illness H&P Date: 03/06/23 This is a 72-year-old female who presented to the emergency department via EMS for generalized weakness and fever. Per spouse at the bedside patient has been falling more frequently and having fevers. Patient follows with Dr. Mayi pan in the outpatient setting with past medical history of lung cancer with metastasis currently received keytruda 2 weeks ago. Patient has been having increased cough with fevers over the last few days and feeling generally more weak. Patient follows with Dr. Anayeli Turner in the outpatient setting with a past medical history of lung cancer, diabetes mellitus, DVT, GERD, hyperlipidemia, hypertension, osteoarthritis, gout, renal disease, continued sm oker, denies any other illicit drug use or alcohol use. Patient normally uses a walker or cane per spouse and has been falling more frequently. Patient has had to have EMS to the home multiple times for falls. Chest x-ray showed a right upper lobe consolidation with probable trace left pleural effusion recommending CT chest which has been ordered by pulmonary. Patient was admitted with fevers and placed on antibiotics with no consults placed initially. Patient will be admitted and will have oncology along with pulmonary evaluated the patient. Blood cultures along with sputum and Legionella are ordered and pending. EKG showed a sinus tachycardia with a heart rate of 1 21 bpm. Labs reviewed this morning showed an elevated white count of 16.8, hemoglobin 13.0, platelets 242, sodium 134, potassium 4.8, BUN 27, creatinine 1.02, blood sugar 220, AST mildly elevated at 60, ALT 36, urinalysis was completely negative and COVID-19 testing was negative as well. Patient was placed on Zithromax and ceftriaxone in the ER. Review Of Systems: Constitutional: Reports fever, no chills, no night sweats. No weight change. Reports increased weakness, fatigue or lethargy. Reports daytime sleepiness. EENT: No headache. No blurred vision or double vision, no loss of vision. No loss of Hearing, no ringing in the ears, no dizziness. No nasal drainage or congestion. No epistaxis. No sore throat. Lungs: No shortness of breath, reports dry hacking cough with no sputum production. No wheezing. Cardiovascular: No chest pain, no lower extremity edema. No palpitations. No paroxysmal nocturnal dyspnea. No orthopnea. No lightheadedness or dizziness. No syncopal episodes. Abdominal: No abdominal pain. No nausea, vomiting. No diarrhea. No constipation. No bloody or tarry stools.. No loss of appetite. Genitourinary: No dysuria, increased frequency, urgency. No urinary retention. Musculoskeletal: No myalgias. Reports increased muscle weakness, no gait dysfunction, reports more frequent falls over the last few weeks. No back pain. No neck pain. Integumentary: No wounds, no lesions. No rash or pruritus. No unusual bruising. No change in hair or nails. Neurologic: No aphasia. No facial droop. No change in mentation. No head injury. No headache. No paralysis. No paresthesia. Psychiatric: No depression. No anxiety. No mood swings. Endocrine: No abnormal blood sugars. No weight change. No excessive sweating or thirst. No cold intolerance. PHYSICAL EXAMINATION: GENERAL: The patient is lethargic although easily arousable, alert and oriented x2-3, poor historian, Well developed, ill-appearing, elderly appearing, obese HEENT: Pupils are round and equally reacting to light. EOMI. no scleral icterus. No conjunctival pallor. Normocephalic, atraumatic. No pharyngeal erythema. No thyromegaly. CARDIOVASCULAR: S1 and S2 muffled PULMONARY: diminished breath sounds bilaterally with no wheezing or rhonchi noted. Dry cough on exam ABDOMEN: soft. Nontender on exam. obese. non-distended, normoactive bowel sounds. No palpable organomegaly. MUSCULOSKELETAL: No joint swelling or deformity. EXTREMITIES: No cyanosis, clubbing, or pedal edema. NEUROLOGICAL: Gross neurological examination did not reveal any focal deficits. Diffuse weakness SKIN: No rashes. Assessment: Fever with concerns of right upper lobe pneumonia, community-acquired with fea tures of sepsis, present on admission Left pleural effusion noted on x-ray Generalized weakness with increased falls and gait dysfunction History of non-small cell lung carcinoma with metastasis, maintained on Keytruda, last dose 2 weeks ago History of diabetes mellitus, insulin-dependent, uncontrolled with hyperglycemia History of DVT of the left lower extremity GERD Hyperlipidemia Hypertension Osteoarthritis history Continued ongoing nicotine dependence, trying to quit Obesity with a BMI of 36.0 GI prophylaxis DVT prophylaxis Full code Plan: Patient was admitted with increasing weakness and has been having fevers and started on Zithromax and ceftriaxone as there is concerns of a right upper lobe consolidation. No consultations were initially placed and have consulted oncology along with pulmonary and appreciate input and recommendations Blood cultures along with sputum culture and pro-calcitonin ordered and pending Patient follows with Dr. See in the outpatient setting and maintained on Keytruda with her last dose being approximately 2-3 weeks ago Per spouse at the bedside patient has been having increased falls and weakness and will consult PT/OT therapy for evaluation along with case management for possible ECF Patient is afebrile with an elevated white count with concerns of sepsis, present on admission secondary to community-acquired pneumonia Will also add incentive spirometer and encourage the patient to use at least 10 times every hour while awake CT chest ordered and pending Patient is a diabetic will add Accu-Cheks before meals and at bedtime along with sliding scale Home medications reviewed and resumed as appropriate Due to multiple complex medical issues, prognosis is guarded The impression and plan of care has been dictated by Cathryn Villanueva, nurse practitioner as directed. Dr. Aileen MD I have performed a history and examination and MDM of this patient, discussed the same with the dictator, and agree with the dictator's assessment and plan as written ,documented as a scribe. Based on total visit time, I have performed more than 50% of the visit. Any additional findings or plans will be noted. Past Medical History Past Medical History: Cancer, Diabetes Mellitus, Deep Vein Thrombosis (DVT), GERD/Reflux, Hyperlipidemia, Hypertension, Osteoarthritis (OA), Renal Disease Additional Past Medical History / Comment(s): gout, DVT lower extremity December 2020 , states arthritis all over-knees,hips,shoulders & fingers, states kidney function 50%., spot on lung. History of non-small cell lung cancer with metastasis History of Any Multi-Drug Resistant Organisms: None Reported Past Surgical History: Section Additional Past Surgical History / Comment(s): D&C, Hemorrhoids, belly button operation as a baby., cataracts, eyelid surgery. 3 c sections Past Anesthesia/Blood Transfusion Reactions: No Reported Reaction Additional Past Anesthesia/Blood Transfusion Reaction / Comment(s): spinal with childbirth and paralized 36 hrs. Past Psychological History: No Psychological Hx Reported Smoking Status: Current every day smoker Past Alcohol Use History: None Reported Past Drug Use History: None Reported Medications and Allergies Home Medications Medication Instructions Recorded Confirmed Type Dulaglutide [Trulicity] 1.5 mg SQ SA 01/04/21 03/06/23 History Ezetimibe [Zetia] 10 mg PO DAILY 01/04/21 03/06/23 History Febuxostat [Uloric] 40 mg PO DAILY 01/04/21 03/06/23 History Ferrous Sulfate [Iron (65 MG 325 mg PO DAILY 01/04/21 03/06/23 History Elemental)] Glimepiride [Amaryl] 2 mg PO BID 01/04/21 03/06/23 History Vitamin C/Biotin [Hair, Skin and 1 tab PO DAILY 01/04/21 03/06/23 History Nails Chew] Vitamin E (Dl,Tocopheryl Acet) 1,000 unit PO BID 07/24/21 03/06/23 History [Vitamin E (1000 Iu = 450 MG)] icosapent ethyL [Icosapent Ethyl] 2 gm PO BID 07/24/21 03/06/23 History traMADol HCL 100 mg PO Q6H 07/24/21 03/06/23 History Insulin Glargine,Hum.rec.anlog 40 unit SQ HS 09/13/21 03/06/23 History [Lantus Solostar Pen] Losartan [Cozaar] 50 mg PO DAILY 09/13/21 03/06/23 History Apixaban [Eliquis] 2.5 mg PO BID 03/06/23 03/06/23 History Cetirizine HCl [Zyrtec] 10 mg PO DAILY PRN 03/06/23 03/06/23 History Cholecalciferol (Vitamin D3) 75 mcg PO DAILY 03/06/23 03/06/23 History [Vitamin D3 (3000 Iu)] Docusate [Colace] 100 mg PO DAILY 03/06/23 03/06/23 History Econazole Nitrate [Econazole 1 applic TOPICAL BID 03/06/23 03/06/23 History Nitrate 1%] Magnesium Oxide [Magnesium] 500 mg PO DAILY 03/06/23 03/06/23 History Pembrolizumab [Keytruda] 1 dose IV DIRECTED 03/06/23 03/06/23 History Allergies Allergy/AdvReac Type Severity Reaction Status Date / Time bee venom protein (honey bee) Allergy Rash/Hives Verified 03/06/23 09:11 clarithromycin [From Biaxin] Allergy Unknown Verified 03/06/23 09:11 omeprazole [From Prilosec] AdvReac Unknown unable to Verified 03/06/23 09:11 take due to kidneys. Antihistamines - Piperidine AdvReac lethargic Verified 03/06/23 09:11 codeine AdvReac lethargic/h Verified 03/06/23 09:11 ot metformin AdvReac lethargic Verified 03/06/23 09:11 Physical Exam Vitals: Vital Signs Temp Pulse Resp BP Pulse Ox 03/06/23 07:56 98.2 F 97 18 130/85 97 03/06/23 06:00 110 H 18 128/87 95 03/06/23 04:15 101.8 F H 122 H 18 153/86 94 L Intake and Output 03/05/23 03/06/23 03/06/23 22:59 06:59 14:59 Other: Weight 104.326 kg Results CBC & Chem 7: 03/06/23 04:29 03/06/23 04:29 Labs: Abnormal Lab Results - Last 24 Hours (Table) 03/06/23 03/06/23 Range/Units 04:29 04:29 WBC 16.8 H (3.8-10.6) k/uL Neutrophils # 13.1 H (1.3-7.7) k/uL Monocytes # 1.4 H (0-1.0) k/uL Sodium 134 L (137-145) mmol/L BUN 27 H (7-17) mg/dL Glucose 220 H (74-99) mg/dL AST 60 H (14-36) U/L ALT 36 H (4-34) U/L Thrombosis Risk Factor Assmnt - DVT/VTE Prophylaxis DVT/VTE Prophylaxis: Pharmacologic Prophylaxis ordered Assessment and Plan Time with Patient: Greater than 30
[2023-03-06] MEDS: INSULIN ASPART (NovoLOG) 100 UNIT/ML VIAL SQ SCH ×3 (12:13→21:52)
[2023-03-06] MEDS: DOCUSATE 100 MG CAP PO SCH (12:13)
[2023-03-06] MEDS: MAGNESIUM OXIDE 400 MG TAB PO SCH (12:13)
[2023-03-06] MEDS: CHOLECALCIFEROL 25 MCG (1000 IU) TABLET PO SCH (12:13)
[2023-03-06] MEDS: allopurinoL 100 MG TAB PO SCH (12:13)
[2023-03-06] MEDS: LOSARTAN 50 MG TAB PO SCH (12:13)
[2023-03-06] MEDS: traMADol 50 MG TAB PO PRN (12:39)
[2023-03-06] MEDS: IPRATROPIUM-ALBUTEROL 3 ML NEB INHALATION SCH ×3 (12:43→19:29)
--- NOTE | 2023-03-06 14:34 | CT ---
EXAMINATION TYPE: CT chest w con DATE OF EXAM: 03/06/2023 COMPARISON: PET CT scan 12/16/2022 HISTORY: TUMOR CT DLP: 445.1 mGycm Automated exposure control for dose reduction was used. TECHNIQUE: CT scan of the chest is performed with IV Contrast, patient injected with 100 mL of Isovue 370. MIP Images are created on CT scanner and reviewed. 3D reconstructed images are created on an independent workstation and reviewed. FINDINGS: LUNGS: there is a spiculated mass right upper lobe measuring 2.3 x 1.9 cm and previously measuring 2. 1 x 1.9 cm. There is a large area of consolidation seen in the right upper lobe with air bronchogram correspondin g to the chest x-ray abnormality. No definitive endobronchial lesion. Bilateral subsegmental areas of atelectasis are seen. No pneumothorax or pleural effusion MEDIASTINUM: There are no greater than 1 cm hilar or mediastinal lymph nodes. No pericardial effusi on is seen. Ascending aorta measures 3.9 cm and borderline for aneurysm. Mild atherosclerotic plaque . Coronary artery calcification noted OTHER: A low attenuation liver compatible hepatic steatosis. Perinephric fluid and stranding is nons pecific and may be on the basis of chronic medical renal disease or infection small hiatal hernia. Mi ld thickening of the adrenal glands can be associated with hyperplasia. Scoliotic curvature of the spine with multilevel degenerative disc disease. Remote right-sided rib fr actures seen which could be pathologic. There is sclerosis involving the right third and fourth ribs and posterior margin of the right fifth rib and left ninth rib. Underlying metastases in the differen tial diagnosis. There is multilevel hypertrophic and degenerative change with superior endplate compression deformiti es at multiple levels. There is focal areas of sclerosis involving a lower thoracic vertebral segment . There also is dense sclerosis involving the manubrium of the sternum. Metastasis in the differentia l diagnosis. IMPRESSION: 1. Stable 2.3 cm right upper lobe pulmonary mass suspicious for malignancy. 2. Large area of consolidation in the right upper lobe with air bronchogram. There is no diagnostic e vidence of endobronchial lesion. It could be on the basis of atelectasis or pneumonia. Occasionally b ronchoalveolar carcinoma can present with similar findings. 3. Sclerosis involving multiple osseous structures. Metastasis in the differential diagnosis.
--- NOTE | 2023-03-06 14:38 | P.CNPUL ---
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 She is been maintained on Keytruda. Most recent PET scan from 12/19/2022 revealed low uptake within the right upper lobe lung mass, diminished from previous PET scan on 07/22/2022. Prior rib uptake was not appreciated. She presented to the emergency room for generalized weakness and fever. She had been falling requiring EMS to come and assist her the last few days. She develo ped a cough and congestion. Final arrival she did have a temperature of 101.4. She is tachycardic. O2 saturation 94% on room air. White count 16.8. Hemoglobin 13.0. Platelets 242. Sodium 134. Potassium 4.8. Bicarb 24. BUN 27. Creatinine 1.02. Glucose 220. AST 60. ALT 36. Serna virus not detected. Urinalysis clean. Chest x-ray reveals a right upper lobe consolidation with probable trace left pleural effusion. He is seen today in the emergency department. Currently sitting up in a stretcher. Awake and alert. She is quite weak. Still febrile. She's been initiated on ceftriaxone, azithromycin, DuoNeb inhalations. Anticoagulated with Eliquis. Review of Systems REVIEW OF SYSTEMS: CONSTITUTIONAL: Positive for generalized weakness, fever. Denies any recent significant weight loss or weight gain. EYES: Denies change in vision. EARS, NOSE, MOUTH, THROAT: Denies headaches, denies sore throat. CARDIOVASCULAR: Denies chest pain, palpitations or syncopal episodes. RESPIRATORY: Positive for shortness of breath, cough, congestion no hemoptysis. GASTROINTESTINAL: Denies change in appetite, denies abdominal pain GENITOURINARY: Denies hematuria, denies infections. MUSKULOSKELETAL: Denies pain, denies swelling. INTEGUMENTARY: Denies rash, denies eczema. NEUROLOGICAL: Denies recent memory loss, no recent seizure activity. PSYCHIATRIC: Denies anxiety, denies depression. HEMATOLOGIC/LYMPHATIC: Denies anemia, denies enlarged lymph nodes. Past Medical History Past Medical History: Cancer, Diabetes Mellitus, Deep Vein Thrombosis (DVT), GERD/Reflux, Hyperlipidemia, Hypertension, Osteoarthritis (OA), Renal Disease Additional Past Medical History / Comment(s): gout, DVT lower extremity December 2020 , states arthritis all over-knees,hips,shoulders & fingers, states kidney function 50%., spot on lung. History of non-small cell lung cancer with metastasis History of Any Multi-Drug Resistant Organisms: None Reported Past Surgical History: Section Additional Past Surgical History / Comment(s): D&C, Hemorrhoids, belly button operation as a baby., cataracts, eyelid surgery. 3 c sections Past Anesthesia/Blood Transfusion Reactions: No Reported Reaction Additional Past Anesthesia/Blood Transfusion Reaction / Comment(s): spinal with childbirth and paralized 36 hrs. Past Psychological History: No Psychological Hx Reported Smoking Status: Current every day smoker Past Alcohol Use History: None Reported Past Drug Use History: None Reported Medications and Allergies Home Medications Medication Instructions Recorded Confirmed Type Dulaglutide [Trulicity] 1.5 mg SQ SA 01/04/21 03/06/23 History Ezetimibe [Zetia] 10 mg PO DAILY 01/04/21 03/06/23 History Febuxostat [Uloric] 40 mg PO DAILY 01/04/21 03/06/23 History Ferrous Sulfate [Iron (65 MG 325 mg PO DAILY 01/04/21 03/06/23 History Elemental)] Glimepiride [Amaryl] 2 mg PO BID 01/04/21 03/06/23 History Vitamin C/Biotin [Hair, Skin and 1 tab PO DAILY 01/04/21 03/06/23 History Nails Chew] Vitamin E (Dl,Tocopheryl Acet) 1,000 unit PO BID 07/24/21 03/06/23 History [Vitamin E (1000 Iu = 450 MG)] icosapent ethyL [Icosapent Ethyl] 2 gm PO BID 07/24/21 03/06/23 History traMADol HCL 100 mg PO Q6H 07/24/21 03/06/23 History Insulin Glargine,Hum.rec.anlog 40 unit SQ HS 09/13/21 03/06/23 History [Lantus Solostar Pen] Losartan [Cozaar] 50 mg PO DAILY 09/13/21 03/06/23 History Apixaban [Eliquis] 2.5 mg PO BID 03/06/23 03/06/23 History Cetirizine HCl [Zyrtec] 10 mg PO DAILY PRN 03/06/23 03/06/23 History Cholecalciferol (Vitamin D3) 75 mcg PO DAILY 03/06/23 03/06/23 History [Vitamin D3 (3000 Iu)] Docusate [Colace] 100 mg PO DAILY 03/06/23 03/06/23 History Econazole Nitrate [Econazole 1 applic TOPICAL BID 03/06/23 03/06/23 History Nitrate 1%] Magnesium Oxide [Magnesium] 500 mg PO DAILY 03/06/23 03/06/23 History Pembrolizumab [Keytruda] 200 dose IV Q21D 03/06/23 03/06/23 History Allergies Allergy/AdvReac Type Severity Reaction Status Date / Time bee venom protein (honey bee) Allergy Rash/Hives Verified 03/06/23 09:11 clarithromycin [From Biaxin] Allergy Unknown Verified 03/06/23 09:11 omeprazole [From Prilosec] AdvReac Unknown unable to Verified 03/06/23 09:11 take due to kidneys. Antihistamines - Piperidine AdvReac lethargic Verified 03/06/23 09:11 codeine AdvReac lethargic/h Verified 03/06/23 09:11 ot metformin AdvReac lethargic Verified 03/06/23 09:11 Physical Exam Vitals: Vital Signs Temp Pulse Resp BP Pulse Ox 03/06/23 14:00 98.8 F 111 H 20 114/60 96 03/06/23 13:00 100.7 F H 115 H 20 132/75 95 03/06/23 12:52 118 H 03/06/23 12:43 116 H 03/06/23 12:10 101.4 F H 122 H 18 143/68 94 L 03/06/23 10:00 102.4 F H 120 H 24 181/89 95 03/06/23 07:56 98.2 F 97 18 130/85 97 03/06/23 06:00 110 H 18 128/87 95 03/06/23 04:15 101.8 F H 122 H 18 153/86 94 L Intake and Output 03/05/23 03/06/2323 22:59 06:59 14:59 Other: Weight 104.326 kg GENERAL EXAM: Alert, weak, febrile, 72-year-old female, currently on room air, fairly comfortable in no acute distress. HEAD: Normocephalic. EYES: Normal reaction of pupils, equal size. NOSE: Clear with pink turbinates. THROAT: No erythema or exudates. NECK: No masses, no JVD. CHEST: No chest wall deformity. LUNGS: Equal air entry with bilateral scattered rhonchi right greater than left. CVS: S1 and S2 normal with no audible murmur, regular rhythm. ABDOMEN: No hepatosplenomegaly, normal bowel sounds, no guarding or rigidity. SPINE: No scoliosis or deformity SKIN: No rashes CENTRAL NERVOUS SYSTEM: No focal deficits, tone is normal in all 4 extremities. EXTREMITIES: There is no peripheral edema. No clubbing, no cyanosis. Peripheral pulses are intact. Results - Laboratory Findings CBC and BMP: 03/06/23 04:29 03/06/23 04:29 Abnormal lab findings: Abnormal Labs 03/06/23 03/06/23 03/06/23 04:29 04:29 10:08 WBC 16.8 H Neutrophils # 13.1 H Monocytes # 1.4 H Sodium 134 L BUN 27 H Glucose 220 H POC Glucose (mg/dL) AST 60 H ALT 36 H Urine Protein 1+ H Urine Mucus Rare H 03/06/23 12:00 WBC Neutrophils # Monocytes # Sodium BUN Glucose POC Glucose (mg/dL) 232 H AST ALT Urine Protein Urine Mucus - Diagnostic Findings Chest x-ray: image reviewed Assessment and Plan Assessment: Acute febrile illness secondary to suspected community acquired pneumonia Non-small cell carcinoma lung cancer with metastasis to the spine diagnosed in July 2021. Currently on Keytruda Chronic and ongoing tobacco dependence of 50 years Frequent falls History of DVT, anticoagulated with Eliquis Diabetes mellitus Hyperlipidemia Hypertension History of gout Plan: The patient was seen and evaluated Chest x-ray, labs and medications reviewed Continue ceftriaxone and azithromycin Continue bronchodilators Obtain sputum, blood cultures Check a Legionella urine antigen Obtain a computed tomography scan of the chest with contrast Educated regarding the importance of complete smoking cessation NicoDerm patch will be offered May need subacute rehabilitation post discharge We will continue to follow and make further recommendations based on her clinical status I have personally seen and examined the patient, performed the documentation and the assessment and plan as written. Number of minutes spent on the visit: 20.
[2023-03-06] MEDS ORDERED: ACETAMINOPHEN IV (For NPO) 1,000 MG in EMPTY BAG 1 BAG IVPB PRN (15:00)
[2023-03-06 17:04] LABS: Glucose,Whole Blood 214 mg/dL (70-110)
--- NOTE | 2023-03-06 17:04 | P.CONS ---
History of Present Illness - Reason for Consult Consult date: 03/06/23 lung cancer Requesting physician: Cathryn Villanueva - Chief Complaint Fever, weakness, pneumonia - History of Present Illness The patient is a 71-year-old female well known to our service. She follows with Dr. See in the office. Her oncology history is as follows: She initially presented with extensive LLE DVT in 12/2020,at that time,she had a CT scan of chest which revealed a suspicious RUL lung nodule. PET scan done on 04/09/2021 revealed suspicious uptake in 5.9 cm RUL mass,which increased in size compared to 01/07/2021 CT scan of chest, with a suspicious uptake in a small right hilar node. On 04/22/2021,she had navigational bronchoscopy,transbronchial biopsy of RUL was positive for poorly differentiated carcinoma consistent with lung primary. She was evaluated by Dr Crespo and felt not a surgical candidate due to co- morbidities and PS. Brain MRI on 05/20/2021 was negative for metastatic disease. PDL-1 was 99%. NGS revealed KRAS G12C mutation. On 06/03/2021,she started concurrent chemoradiation therapy with weekly taxol/carboplatin. However,on 06/09/2021,she developed significant acute lower back pain after her XRT,went to ER on 06/10/2021,had a CT of lumbar spine which revealed degenerative disc disease,CT scan of abdomen/pelvis revealed new small bilateral adrenal lesions.(were not present on prior PET scan). Chemoradiation was subsequently stopped. Repeat PET scan on 06/25/2021 revealed evidence of disease progression, multiple osseous lesions, and bilateral adrenal gland lesions. She started Keytruda on 07/16/21, and has tolerated treatment well. Repeat PET scan on 12/16/2022 revealed mild residual uptake in lung. She continues on Keytruda, and completed cycle 27 on 03/01/23. Patient presented to the emergency room with complaints of fever and generalized weakness over the last couple days. She also complains about increasing produ ctive cough. Denies SOB and CP. states patient has had 2 falls over the last couple days at home due to weakness. Upon presentation patient was noted to have a fever of 101.8. Chest x-ray revealed right upper lobe consolidation with probable trace left pleural effusion. Covid testing negative. Patient has been started on Rocephin and azithromycin for likely pneumonia. UA pending. Blood cultures ordered. CBC revealed WBC 16.8, hemoglobin 13.0, platelets 242,000. Review of Systems 10 point ROS is negative except as stated in the HPI Past Medical History Past Medical History: Cancer, Diabetes Mellitus, Deep Vein Thrombosis (DVT), GERD/Reflux, Hyperlipidemia, Hypertension, Osteoarthritis (OA), Renal Disease Additional Past Medical History / Comment(s): gout, DVT left lower extremity , states arthritis all over-knees,hips,shoulders & fingers, states kidney function 50%., spot on lung. History of non-small cell lung cancer History of Any Multi-Drug Resistant Organisms: None Reported Past Surgical History: Section Additional Past Surgical History / Comment(s): D&C, Hemorrhoids, belly button operation as a baby., cataracts, eyelid surgery. 3 c sections Past Anesthesia/Blood Transfusion Reactions: No Reported Reaction Additional Past Anesthesia/Blood Transfusion Reaction / Comm: spinal with childbirth and paralized 36 hrs. Past Psychological History: No Psychological Hx Reported Smoking Status: Current every day smoker Past Alcohol Use History: None Reported Additional Past Alcohol Use History / Comment(s): quit smoking this year, hx of 8 cigarettes /day, started smoking as teenager Past Drug Use History: None Reported Medications and Allergies Home Medications Medication Instructions Recorded Confirmed Type Dulaglutide [Trulicity] 1.5 mg SQ SA 01/04/21 03/06/23 History Ezetimibe [Zetia] 10 mg PO DAILY 01/04/21 03/06/23 History Febuxostat [Uloric] 40 mg PO DAILY 01/04/21 03/06/23 History Ferrous Sulfate [Iron (65 MG 325 mg PO DAILY 01/04/21 03/06/23 History Elemental)] Glimepiride [Amaryl] 2 mg PO BID 01/04/21 03/06/23 History Vitamin C/Biotin [Hair, Skin and 1 tab PO DAILY 01/04/21 03/06/23 History Nails Chew] Vitamin E (Dl,Tocopheryl Acet) 1,000 unit PO BID 07/24/21 03/06/23 History [Vitamin E (1000 Iu = 450 MG)] icosapent ethyL [Icosapent Ethyl] 2 gm PO BID 07/24/21 03/06/23 History traMADol HCL 100 mg PO Q6H 07/24/21 03/06/23 History Insulin Glargine,Hum.rec.anlog 40 unit SQ HS 09/13/21 03/06/23 History [Lantus Solostar Pen] Losartan [Cozaar] 50 mg PO DAILY 09/13/21 03/06/23 History Apixaban [Eliquis] 2.5 mg PO BID 03/06/23 03/06/23 History Cetirizine HCl [Zyrtec] 10 mg PO DAILY PRN 03/06/23 03/06/23 History Cholecalciferol (Vitamin D3) 75 mcg PO DAILY 03/06/23 03/06/23 History [Vitamin D3 (3000 Iu)] Docusate [Colace] 100 mg PO DAILY 03/06/23 03/06/23 History Econazole Nitrate [Econazole 1 applic TOPICAL BID 03/06/23 03/06/23 History Nitrate 1%] Magnesium Oxide [Magnesium] 500 mg PO DAILY 03/06/23 03/06/23 History Pembrolizumab [Keytruda] 200 dose IV Q21D 03/06/23 03/06/23 History Allergies Allergy/AdvReac Type Severity Reaction Status Date / Time bee venom protein (honey bee) Allergy Rash/Hives Verified 03/06/23 09:11 clarithromycin [From Biaxin] Allergy Unknown Verified 03/06/23 09:11 omeprazole [From Prilosec] AdvReac Unknown unable to Verified 03/06/23 09:11 take due to kidneys. Antihistamines - Piperidine AdvReac lethargic Verified 03/06/23 09:11 codeine AdvReac lethargic/h Verified 03/06/23 09:11 ot metformin AdvReac lethargic Verified 03/06/23 09:11 Physical Exam Vitals: Vital Signs Temp Pulse Pulse Resp BP BP Pulse Ox 03/06/23 16:37 97.9 F 67 17 124/61 99 03/06/23 15:13 108 H 03/06/23 15:02 108 H 03/06/23 15:01 101 F H 112 H 18 118/74 97 03/06/23 14:32 102 H 20 130/65 96 03/06/23 14:00 98.8 F 111 H 20 114/60 96 03/06/23 13:00 100.7 F H 115 H 20 132/75 95 03/06/23 12:52 118 H 03/06/23 12:43 116 H 03/06/23 12:10 101.4 F H 122 H 18 143/68 94 L 03/06/23 10:00 102.4 F H 120 H 24 181/89 95 03/06/23 07:56 98.2 F 97 18 130/85 97 03/06/23 06:00 110 H 18 128/87 95 03/06/23 04:15 101.8 F H 122 H 18 153/86 94 L Intake and Output 03/06/23 03/06/23 03/06/23 06:59 14:59 22:59 Other: # Voids 1 Weight 104.326 kg 104.326 kg - Constitutional General appearance: average body habitus, no acute distress - EENT Eyes: anicteric sclerae, EOMI ENT: hearing grossly normal - Respiratory Respiratory: right: rales (mild rales in RUL), left: CTA - Cardiovascular tachycardic Rhythm: regular Heart sounds: normal: S1, S2 leg Peripheral Edema: bilateral: None - Gastrointestinal General gastrointestinal: soft, no tenderness - Integumentary Integumentary: no cyanotic - Musculoskeletal Musculoskeletal: generalized weakness - Psychiatric Psychiatric: A&O x's 3, appropriate affect, intact judgment & insight Results CBC & Chem 7: 03/06/23 04:29 03/06/23 04:29 Labs: Abnormal Lab Results - Last 24 Hours (Table) 03/06/23 03/06/23 03/06/23 Range/Units 04:29 04:29 04:29 WBC 16.8 H (3.8-10.6) k/uL Neutrophils # 13.1 H (1.3-7.7) k/uL Monocytes # 1.4 H (0-1.0) k/uL Sodium 134 L (137-145) mmol/L BUN 27 H (7-17) mg/dL Glucose 220 H (74-99) mg/dL POC Glucose (mg/dL) (70-110) mg/dL AST 60 H (14-36) U/L ALT 36 H (4-34) U/L Procalcitonin 0.56 H (0.02-0.09) ng/mL Urine Protein (Negative) Urine Mucus (None) /hpf 03/06/23 03/06/23 Range/Units 10:08 12:00 WBC (3.8-10.6) k/uL Neutrophils # (1.3-7.7) k/uL Monocytes # (0-1.0) k/uL Sodium (137-145) mmol/L BUN (7-17) mg/dL Glucose (74-99) mg/dL POC Glucose (mg/dL) 232 H (70-110) mg/dL AST (14-36) U/L ALT (4-34) U/L Procalcitonin (0.02-0.09) ng/mL Urine Protein 1+ H (Negative) Urine Mucus Rare H (None) /hpf Chest x-ray: report reviewed Assessment and Plan (1) Pneumonia Current Visit: Yes Status: Acute Priority: High Code(s): J18.9 - PNEUMONIA, UNSPECIFIED ORGANISM SNOMED Code(s): 605942296 (2) Fever Current Visit: Yes Status: Acute Priority: High Code(s): R50.9 - FEVER, UNSPECIFIED SNOMED Code(s): 798876485 (3) Non-small cell carcinoma of right lung, stage 4 Current Visit: Yes Status: Chronic Priority: High Code(s): C34.91 - MALIGNANT NEOPLASM OF UNSP PART OF RIGHT BRONCHUS OR LUNG SNOMED Code(s): 474228996 (4) Weakness Current Visit: Yes Status: Acute Priority: Medium Code(s): R53.1 - WEAKNESS SNOMED Code(s): 42603253 Plan: Fever/Pneumonia: -Fever 101.8 upon admission. CXR showed right upper lobe consolidation with probable trace left pleural effusion. Covid testing negative. Patient has been started on Rocephin and azithromycin for likely pneumonia -Pulmonology consulted -UA pending. Blood cultures ordered. CBC revealed leukocytosis, WBC 16.8. Hemoglobin 13.0, platelets 242,000 Weakness: -Progressive weakness, multiple falls -PT/OT ordered -Spoke with IM team, agree with recommendation for possible rehab upon discharge Metastatic NSCLC: -Full history in HPI -She continues on Keytruda, and completed cycle 27 on 03/01/23. Not due for next treatment till 03/22 -Treatment will be held until patient acutely recovers and pending rehabilitation -Will schedule clinic f/u prior to proceeding to next cycle attests: I have performed H&P and developed impression and plan of care for patient, discussed with dictator. I agree with dictated note, documented as a scribe
[2023-03-06 20:34] LABS: Glucose,Whole Blood 223 mg/dL (70-110)
[2023-03-06] MEDS: APIXABAN 2.5 MG TABLET PO SCH (21:51)
[2023-03-06] MEDS: INSULIN DETEMIR (LEVEMIR) 100 UNIT/ML SYR SQ SCH (21:51)
[2023-03-06] MEDS: NON FORMULARY DRUG (Icosapent Ethyl [Icosapent Ethyl] 1 GM Capsule) PO SCH (22:12)
[2023-03-06] MEDS: VITAMIN E (DL,TOCOPHERYL ACET) 400 UNIT (180 MG) CAP PO SCH (22:25)
[2023-03-06] MEDS: GLIMEPIRIDE 2 MG TAB PO SCH (22:25)
[2023-03-06] MEDS: CLOTRIMAZOLE 1% CREAM 30 GM TUBE TOPICAL SCH (22:26)
[2023-03-07] MEDS: traMADol 50 MG TAB PO PRN ×3 (02:06→19:44)
[2023-03-07 07:04] LABS: Glucose,Whole Blood 90 mg/dL (70-110)
[2023-03-07] MEDS: IPRATROPIUM-ALBUTEROL 3 ML NEB INHALATION SCH ×5 (07:21→19:19)
[2023-03-07] MEDS: INSULIN ASPART (NovoLOG) 100 UNIT/ML VIAL SQ SCH ×4 (08:17→20:38)
--- NOTE | 2023-03-07 08:49 | XR ---
EXAMINATION TYPE: XR chest 2V DATE OF EXAM: 03/07/2023 COMPARISON: 03/06/2023 TECHNIQUE: PA and lateral views submitted. HISTORY: Pneumonia FINDINGS: Stable right upper lobe area of consolidation. 2 cm mass in the right upper lobe not as well seen by x-ray relative to CT scan. Osseous structures stable. Atherosclerotic change aorta. IMPRESSION: 1. Right lower lobe and upper lobe area of consolidation is stable. Mass noted by CT scan is not as w ell seen by standard x-ray.
[2023-03-07] MEDS: CHOLECALCIFEROL 25 MCG (1000 IU) TABLET PO SCH (08:51)
[2023-03-07] MEDS: AZITHROMYCIN 500 MG TAB PO SCH (08:51)
[2023-03-07] MEDS: ACETAMINOPHEN TAB 325 MG TAB PO PRN ×2 (08:52→19:44)
[2023-03-07] MEDS: EZETIMIBE 10 MG TAB PO SCH (08:56)
[2023-03-07] MEDS: APIXABAN 2.5 MG TABLET PO SCH ×2 (08:56→20:37)
[2023-03-07] MEDS: LOSARTAN 50 MG TAB PO SCH (08:56)
[2023-03-07] MEDS: GLIMEPIRIDE 2 MG TAB PO SCH ×2 (08:56→20:37)
[2023-03-07] MEDS: MAGNESIUM OXIDE 400 MG TAB PO SCH (08:56)
[2023-03-07] MEDS: allopurinoL 100 MG TAB PO SCH ×2 (08:56→09:52)
[2023-03-07] MEDS: FERROUS SULFATE 325 MG TAB PO SCH (08:56)
[2023-03-07] MEDS: ASCORBIC ACID 500 MG TAB PO SCH (08:56)
[2023-03-07] MEDS: DOCUSATE 100 MG CAP PO SCH (08:56)
[2023-03-07] MEDS: CLOTRIMAZOLE 1% CREAM 30 GM TUBE TOPICAL SCH ×2 (09:16→20:46)
[2023-03-07] MEDS: VITAMIN E (DL,TOCOPHERYL ACET) 400 UNIT (180 MG) CAP PO SCH ×2 (09:37→20:37)
[2023-03-07] MEDS: NON FORMULARY DRUG (Icosapent Ethyl [Icosapent Ethyl] 1 GM Capsule) PO SCH ×2 (09:56→22:19)
[2023-03-07 11:15] LABS: ALT 35 U/L (8-44); AST 56 U/L (13-35); Albumin 3.2 d/dL (3.8-4.9); Albumin/Globulin Ratio 1.23 Ratio (1.60-3.17); Alkaline Phosphatase 91 U/L (41-126); Basophils # (A) 0.14 X 10*3/uL (0.00-0.10); Basophils % (A) 1.1 %; Calcium 8.5 mg/dL (8.7-10.3); Carbon Dioxide 25.2 mmol/L (21.6-31.8); Chloride 99 mmol/L (96-109); Eosinophils # (A) 0.44 X 10*3/uL (0.04-0.35); Eosinophils % (A) 3.5 %; Globulin 2.6 d/dL (1.6-3.3); Glucose 83 mg/dL (70-110); HCT 35.4 % (37.2-46.3); HGB 10.9 d/dL (12.0-15.0); Lymphocytes # (A) 1.58 X 10*3/uL (0.90-5.00); Lymphocytes % (A) 12.5 %; MCH 27.4 pg (27.0-32.0); MCHC 30.8 d/dL (32.0-37.0); MCV 88.9 FL (80.0-97.0); Magnesium 2.2 mg/dL (1.5-2.4); Mean Platelet Volume 11.7 FL (9.5-12.2); Monocytes # (A) 1.27 X 10*3/uL (0.20-1.00); NRBC Per 100 WBC 0 X 10*3/uL (0.00-0.01); Neutrophils # (A) 9.14 X 10*3/uL (1.80-7.70); Neutrophils % (A) 72.3 %; Platelet Count 247 X 10*3/uL (140-440); Potassium 4.1 mmol/L (3.5-5.5); RBC 3.98 X 10*6/uL (4.10-5.20); RDW 15.9 % (11.5-14.5); Sodium 136 mmol/L (135-145); Total Bilirubin 0.3 mg/dL (0.3-1.2); Total Protein 5.8 d/dL (6.2-8.2); WBC 12.65 X 10*3/uL (4.50-10.00)
[2023-03-07 11:47] LABS: Glucose,Whole Blood 164 mg/dL (70-110)
--- NOTE | 2023-03-07 12:45 | P.PN ---
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 She is been maintained on Keytruda. Most recent PET scan from 12/19/2022 revealed low uptake within the right upper lobe lung mass, diminished from previous PET scan on 07/22/2022. Prior rib uptake was not appreciated. She presented to the emergency room for generalized weakness and fever. She had been falling requiring EMS to come and assist her the last few days. She developed a cough and congestion. Final arrival she did have a temperature of 101.4. She is tachycardic. O2 saturation 94% on room air. White count 16.8. Hemoglobin 13.0. Platelets 242. Sodium 134. Potassium 4.8. Bicarb 24. BUN 27. Creatinine 1.02. Glucose 220. AST 60. ALT 36. Serna virus not detected. Urinalysis clean. Chest x-ray reveals a right upper lobe consolidation with probable trace left pleural effusion. He is seen today in the emergency department. Currently sitting up in a stretcher. Awake and alert. She is quite weak. Still febrile. She's been initiated on ceftriaxone, azithromycin, DuoNeb inhalations. Anticoagulated with Eliquis. The patient is seen today 03/07/2023 in follow-up on the regular medical floor. She is currently resting fairly comfortable in bed. She is maintaining O2 saturations in the 90s on room air. She denies any significant weight loss. No hemoptysis. Temperature 100.2. Slightly tachycardic. Chest x-ray reveals stable right lower lobe and upper lobe area of consolidation. Sputum culture pending. White count 12.6. Hemoglobin 10.9. Platelets 247. Sodium 136. Potassium 4.1. Bicarb 25. BUN 19. Creatinine 1.0. Glucose 83. AST 56. ALT 35. Albumin 3.2. She remains on DuoNeb inhalations. Antibiotics in the form of ceftriaxone and azithromycin. Anticoagulated with Eliquis. Objective - Vital Signs Vital signs: Vital Signs Temp 99.1 F 03/07/23 11:46 Pulse 104 H 03/07/23 11:46 Resp 18 03/07/23 11:46 BP 110/69 03/07/23 11:46 Pulse Ox 94 L 03/07/23 11:46 FiO2 Intake & Output 03/06/23 03/07/23 03/07/23 18:59 06:59 18:59 Intake Total 590 Output Total 50 500 Balance -50 90 Weight 104.326 kg Intake: Oral 590 Output: Urine 50 500 Other: Voiding Method External Catheter External Catheter # Voids 1 1 - Exam GENERAL EXAM: Alert, pleasant 72-year-old female, resting in bed, on room air, fairly comfortable in no acute distress. HEAD: Normocephalic. EYES: Normal reaction of pupils, equal size. NOSE: Clear with pink turbinates. THROAT: No erythema or exudates. NECK: No masses, no JVD. CHEST: No chest wall deformity. LUNGS: Equal air entry with bilateral scattered rhonchi right greater than left. CVS: S1 and S2 normal with no audible murmur, regular rhythm. ABDOMEN: No hepatosplenomegaly, normal bowel sounds, no guarding or rigidity. SPINE: No scoliosis or deformity SKIN: No rashes CENTRAL NERVOUS SYSTEM: No focal deficits, tone is normal in all 4 extremities. EXTREMITIES: There is no peripheral edema. No clubbing, no cyanosis. Peripheral pulses are intact. - Labs CBC & Chem 7: 03/07/23 06:16 03/07/23 06:16 Labs: Abnormal Lab Results - Last 24 Hours (Table) 03/06/23 03/06/23 03/06/23 Range/Units 04:29 17:02 20:34 WBC (4.50-10.00) X 10*3/uL RBC (4.10-5.20) X 10*6/uL Hgb (12.0-15.0) d/dL Hct (37.2-46.3) % MCHC (32.0-37.0) d/dL RDW (11.5-14.5) % Neutrophils # (1.80-7.70) X 10*3/uL Monocytes # (0.20-1.00) X 10*3/uL Eosinophils # (0.04-0.35) X 10*3/uL Basophils # (0.00-0.10) X 10*3/uL POC Glucose (mg/dL) 214 H 223 H (70-110) mg/dL Hemoglobin A1c (<=6.0) % Calcium (8.7-10.3) mg/dL AST (13-35) U/L Total Protein (6.2-8.2) d/dL Albumin (3.8-4.9) d/dL Albumin/Globulin Ratio (1.60-3.17) Ratio Procalcitonin 0.56 H (0.02-0.09) ng/mL 03/07/23 03/07/23 03/07/23 Range/Units 06:16 06:16 06:16 WBC 12.65 H (4.50-10.00) X 10*3/uL RBC 3.98 L (4.10-5.20) X 10*6/uL Hgb 10.9 L (12.0-15.0) d/dL Hct 35.4 L (37.2-46.3) % MCHC 30.8 L (32.0-37.0) d/dL RDW 15.9 H (11.5-14.5) % Neutrophils # 9.14 H (1.80-7.70) X 10*3/uL Monocytes # 1.27 H (0.20-1.00) X 10*3/uL Eosinophils # 0.44 H (0.04-0.35) X 10*3/uL Basophils # 0.14 H (0.00-0.10) X 10*3/uL POC Glucose (mg/dL) (70-110) mg/dL Hemoglobin A1c 9.3 H (<=6.0) % Calcium 8.5 L (8.7-10.3) mg/dL AST 56 H (13-35) U/L Total Protein 5.8 L (6.2-8.2) d/dL Albumin 3.2 L (3.8-4.9) d/dL Albumin/Globulin Ratio 1.23 L (1.60-3.17) Ratio Procalcitonin (0.02-0.09) ng/mL 03/07/23 Range/Units 11:45 WBC (4.50-10.00) X 10*3/uL RBC (4.10-5.20) X 10*6/uL Hgb (12.0-15.0) d/dL Hct (37.2-46.3) % MCHC (32.0-37.0) d/dL RDW (11.5-14.5) % Neutrophils # (1.80-7.70) X 10*3/uL Monocytes # (0.20-1.00) X 10*3/uL Eosinophils # (0.04-0.35) X 10*3/uL Basophils # (0.00-0.10) X 10*3/uL POC Glucose (mg/dL) 164 H (70-110) mg/dL Hemoglobin A1c (<=6.0) % Calcium (8.7-10.3) mg/dL AST (13-35) U/L Total Protein (6.2-8.2) d/dL Albumin (3.8-4.9) d/dL Albumin/Globulin Ratio (1.60-3.17) Ratio Procalcitonin (0.02-0.09) ng/mL Microbiology - Last 24 Hours (Table) 03/06/23 10:08 Gram Stain - Preliminary Sputum Assessment and Plan Assessment: Acute febrile illness secondary to suspected community acquired pneumonia. Chest x-ray shows right mid and lower lung infiltrates. Computed tomography scan of the chest reveals a stable 2.3 cm right upper lobe pulmonary mass. Large area of consolidation in the right upper lobe with air bronchogram. No evidence of endobronchial lesion. Suspect atelectasis versus pneumonia. Currently on ceftriaxone and azithromycin. Non-small cell carcinoma lung cancer with metastasis to the spine diagnosed in July 2021. Currently on Keytruda Chronic and ongoing tobacco dependence of 50 years Frequent falls History of DVT, anticoagulated with Eliquis Diabetes mellitus Hyperlipidemia Hypertension History of gout Plan: The patient was seen and evaluated Computed tomography scan of the chest, chest x-ray, labs and medications reviewed Continue antibiotics Continue bronchodilators Sputum culture pending Legionella urine antigen pending May need subacute rehabilitation post discharge We will continue to follow I have personally seen and examined the patient, performed the documentation and the assessment and plan as written. Number of minutes spent on the visit: 10.
[2023-03-07] MEDS ORDERED: KETOROLAC 15 MG/ML 1 ML VIAL IVP PRN (13:32)
[2023-03-07] MEDS ORDERED: SUMAtriptan succinate 50 MG TAB PO STA (14:03)
[2023-03-07 17:22] LABS: Glucose,Whole Blood 197 mg/dL (70-110)
[2023-03-07 20:05] LABS: Glucose,Whole Blood 169 mg/dL (70-110)
[2023-03-07] MEDS: INSULIN DETEMIR (LEVEMIR) 100 UNIT/ML SYR SQ SCH (20:37)
[2023-03-08] MEDS: ACETAMINOPHEN TAB 325 MG TAB PO PRN ×2 (00:46→07:42)
[2023-03-08] MEDS: SODIUM CHLORIDE 0.9% 1,000 ML IV SCH ×2 (00:47→09:42)
[2023-03-08] MEDS: traMADol 50 MG TAB PO PRN ×4 (03:06→23:16)
--- NOTE | 2023-03-08 06:52 | P.PN ---
Subjective Progress Note Date: 03/07/23 This is a 72-year-old female who presented to the emergency department via EMS for generalized weakness and fever. Per spouse at the bedside patient has been falling more frequently and having fevers. Patient follows with Dr. Mayi pan in the outpatient setting with past medical history of lung cancer with metastasis currently received keytruda 2 weeks ago. Patient has been having increased cough with fevers over the last few days and feeling generally more weak. Patient follows with Dr. Anayeli Turner in the outpatient setting with a past medical history of lung cancer, diabetes mellitus, DVT, GERD, hyperlipidemia, hypertension, osteoarthritis, gout, renal disease, continued smoker, denies any other illicit drug use or alcohol use. Patient normally uses a walker or cane per spouse and has been falling more frequently. Patient has had to have EMS to the home multiple times for falls. Chest x-ray showed a right upper lobe consolidation with probable trace left pleural effusion recommending CT chest which has been ordered by pulmonary. Patient was admitted with fevers and placed on antibiotics with no consults placed initially. Patient will be admitted and will have oncology along with pulmonary evaluated the patient. Blood cultures along with sputum and Legionella are ordered and pending. EKG showed a sinus tachycardia with a heart rate of 1 21 bpm. Labs reviewed this morning showed an elevated white count of 16.8, hemoglobin 13.0, platelets 242, sodium 134, potassium 4.8, BUN 27, creatinine 1.02, blood sugar 220, AST mildly elevated at 60, ALT 36, urinalysis was completely negative and COVID-19 testing was negative as well. Patient was placed on Zithromax and ceftriaxone in the ER. 03/07/2023 Patient is seen and evaluated in follow-up today continues to have fevers low- grade although is more awake and alert today. Patient continues to have headache with no relief from Tylenol or Ultram. Patient being followed by pulmonary and oncology maintained on ceftriaxone and Zithromax. Pro-calcitonin was 0.56 and will continue on antibiotic regimen. Patient encouraged to increase activity as tolerated was seen and evaluated by physical therapy recommending rehab and patient is agreeable. Discussed with case management and will require insurance authorization. Follow-up chest x-ray continues to show some right upper lobe consolidation as well as some atelectasis. Incentive spirometer ordered and encourage the patient may use at least 10 times every hour while awake. Review of systems: Constitutional: No reports of fatigue, reports fever, or chills Cardiovascular: No reports of chest pain or palpitations Respiratory: No reports of worsening shortness of breath, reports cough GI: No reports of nausea, vomiting, or diarrhea : No reports of dysuria or retention Neurovascular: reports of generalized weakness and reports headache All medications have been reviewed PHYSICAL EXAMINATION: GENERAL: The patient is more awake today, alert and oriented x2-3, poor historian, Well developed, ill-appearing, elderly appearing, obese HEENT: Pupils are round and equally reacting to light. EOMI. no scleral icterus. No conjunctival pallor. Normocephalic, atraumatic. No pharyngeal erythema. No thyromegaly. CARDIOVASCULAR: S1 and S2 muffled PULMONARY: diminished breath sounds bilaterally with no wheezing or rhonchi noted. ABDOMEN: soft. Nontender on exam. obese. non-distended, normoactive bowel sounds. No palpable organomegaly. MUSCULOSKELETAL: No joint swelling or deformity. EXTREMITIES: No cyanosis, clubbing, or pedal edema. NEUROLOGICAL: Gross neurological examination did not reveal any focal deficits. Diffuse weakness SKIN: No rashes. Assessment: Fever with concerns of right upper lobe pneumonia, community-acquired with features of sepsis, present on admission Left pleural effusion noted on x-ray Generalized weakness with increased falls and gait dysfunction History of non-small cell lung carcinoma with metastasis, maintained on Keytruda, last dose 2 weeks ago History of diabetes mellitus, insulin-dependent, uncontrolled with hyperglycemia History of DVT of the left lower extremity GERD Hyperlipidemia Hypertension Osteoarthritis history Continued ongoing nicotine dependence, trying to quit Obesity with a BMI of 36.0 GI prophylaxis DVT prophylaxis Full code Plan: Patient was admitted with increasing weakness and has been having fevers and started on Zithromax and ceftriaxone as there is concerns of a right upper lobe consolidation. Pulmonary following and patient is maintaining and breathing treatments along with antibiotics and will continue Blood cultures along with sputum culture sent and pending at this time and pro- calcitonin mildly elevated at 0.[address] See in the outpatient setting and maintained on Keytruda with her last dose being approximately 2-3 weeks ago. Oncology following PT/OT therapy evaluated the patient recommending rehab and patient is agreeable. Case management following and awaiting ECF choices and patient will also require insurance authorization Encouraged incentive spirometer use at least 10 times every hour while awake Continue Accu-Cheks before meals and at bedtime with sliding scale Home medications reviewed and resumed as appropriate Due to multiple complex medical issues, prognosis is guarded The impression and plan of care has been dictated by Cathryn Villanueva, nurse practitioner as directed. Dr. Aileen MD I have performed a history and examination and MDM of this patient, discussed the same with the dictator, and agree with the dictator's assessment and plan as written ,documented as a scribe. Based on total visit time, I have performed more than 50% of the visit. Any additional findings or plans will be noted. Objective - Vital Signs Vital signs: Vital Signs Temp 99.6 F 03/07/23 09:58 Pulse 108 H 03/07/23 08:43 Resp 18 03/07/23 07:04 BP 129/74 03/07/23 07:04 Pulse Ox 93 L 03/07/23 07:04 FiO2 Intake & Output 03/06/23 03/07/23 03/07/23 18:59 06:59 18:59 Intake Total 590 Output Total 50 500 Balance -50 90 Weight 104.326 kg Intake: Oral 590 Output: Urine 50 500 Other: Voiding Method External Catheter External Catheter # Voids 1 1 - Labs CBC & Chem 7: 03/07/23 06:16 03/07/23 06:16 Labs: Abnormal Lab Results - Last 24 Hours (Table) 03/06/23 03/06/23 03/06/23 Range/Units 04:29 10:08 12:00 POC Glucose (mg/dL) 232 H (70-110) mg/dL Procalcitonin 0.56 H (0.02-0.09) ng/mL Urine Protein 1+ H (Negative) Urine Mucus Rare H (None) /hpf 03/06/23 03/06/23 Range/Units 17:02 20:34 POC Glucose (mg/dL) 214 H 223 H (70-110) mg/dL Procalcitonin (0.02-0.09) ng/mL Urine Protein (Negative) Urine Mucus (None) /hpf Microbiology - Last 24 Hours (Table) 03/06/23 10:08 Gram Stain - Preliminary Sputum
--- NOTE | 2023-03-08 07:00 | P.PN ---
Subjective Progress Note Date: 03/07/23 Principal diagnosis: hx NSCLC At todays visit pt is working with PT. Able to walk only short distances but reports feeling improved since admission. Reporting generalized weakness Objective - Vital Signs Vital signs: Vital Signs Temp 100.7 F H 03/07/23 19:01 Pulse 101 H 03/07/23 19:30 Resp 18 03/07/23 19:01 BP 147/76 03/07/23 19:01 Pulse Ox 91 L 03/07/23 19:01 FiO2 Intake & Output 03/07/23 03/07/23 03/08/23 06:59 18:59 06:59 Intake Total 590 Output Total 500 Balance 90 Intake: Oral 590 Output: Urine 500 Other: Voiding Method External Catheter External Catheter # Voids 1 - Constitutional General appearance: Present: no acute distress - EENT Eyes: Present: anicteric sclerae, EOMI ENT: Present: hearing grossly normal - Respiratory Details: breathing even and unlabored - Cardiovascular Details: skin warm and dry - Integumentary Integumentary: Absent: cyanotic - Musculoskeletal Musculoskeletal: Present: generalized weakness - Psychiatric Psychiatric: Present: A&O x's 3, appropriate affect, intact judgment & insight - Labs CBC & Chem 7: 03/07/23 06:16 03/07/23 06:16 Labs: Abnormal Lab Results - Last 24 Hours (Table) 03/06/23 03/07/23 03/07/23 Range/Units 20:34 06:16 06:16 WBC 12.65 H (4.50-10.00) X 10*3/uL RBC 3.98 L (4.10-5.20) X 10*6/uL Hgb 10.9 L (12.0-15.0) d/dL Hct 35.4 L (37.2-46.3) % MCHC 30.8 L (32.0-37.0) d/dL RDW 15.9 H (11.5-14.5) % Neutrophils # 9.14 H (1.80-7.70) X 10*3/uL Monocytes # 1.27 H (0.20-1.00) X 10*3/uL Eosinophils # 0.44 H (0.04-0.35) X 10*3/uL Basophils # 0.14 H (0.00-0.10) X 10*3/uL POC Glucose (mg/dL) 223 H (70-110) mg/dL Hemoglobin A1c 9.3 H (<=6.0) % Calcium (8.7-10.3) mg/dL AST (13-35) U/L Total Protein (6.2-8.2) d/dL Albumin (3.8-4.9) d/dL Albumin/Globulin Ratio (1.60-3.17) Ratio 03/07/23 03/07/23 03/07/23 Range/Units 06:16 11:45 17:20 WBC (4.50-10.00) X 10*3/uL RBC (4.10-5.20) X 10*6/uL Hgb (12.0-15.0) d/dL Hct (37.2-46.3) % MCHC (32.0-37.0) d/dL RDW (11.5-14.5) % Neutrophils # (1.80-7.70) X 10*3/uL Monocytes # (0.20-1.00) X 10*3/uL Eosinophils # (0.04-0.35) X 10*3/uL Basophils # (0.00-0.10) X 10*3/uL POC Glucose (mg/dL) 164 H 197 H (70-110) mg/dL Hemoglobin A1c (<=6.0) % Calcium 8.5 L (8.7-10.3) mg/dL AST 56 H (13-35) U/L Total Protein 5.8 L (6.2-8.2) d/dL Albumin 3.2 L (3.8-4.9) d/dL Albumin/Globulin Ratio 1.23 L (1.60-3.17) Ratio Microbiology - Last 24 Hours (Table) 03/06/23 04:29 Blood Culture - Preliminary Blood 03/06/23 04:29 Blood Culture - Preliminary Blood 03/06/23 10:08 Gram Stain - Preliminary Sputum Assessment and Plan (1) Pneumonia Current Visit: Yes Status: Acute Priority: High Code(s): J18.9 - PNEUMONIA, UNSPECIFIED ORGANISM SNOMED Code(s): 849140179 (2) Fever Current Visit: Yes Status: Acute Priority: High Code(s): R50.9 - FEVER, UNSPECIFIED SNOMED Code(s): 868331178 (3) Non-small cell carcinoma of right lung, stage 4 Current Visit: Yes Status: Chronic Priority: High Code(s): C34.91 - MALIGNANT NEOPLASM OF UNSP PART OF RIGHT BRONCHUS OR LUNG SNOMED Code(s): 891036761 (4) Weakness Current Visit: Yes Status: Acute Priority: Medium Code(s): R53.1 - WEAKNES S SNOMED Code(s): 43701427 Plan: Fever/Pneumonia: -Fever 101.8 upon admission. CXR showed right upper lobe consolidation with probable trace left pleural effusion. Covid testing negative. Continues on Rocephin and azithromycin for likely pneumonia -Pulmonology following -UA negative. Blood cultures negative thus far. CBC revealed leukocytosis. WBC improved to 12.6 today. Weakness: -Progressive weakness, multiple falls -PT/OT ordered -Spoke with IM team, agree with recommendation for possible rehab upon discharge Metastatic NSCLC: -Full history in HPI -She continues on Keytruda, and completed cycle 27 on 03/01/23. Not due for next treatment till 03/22 -Treatment will be held until patient acutely recovers and pending rehabili tation -Will schedule clinic f/u prior to proceeding to next cycle
[2023-03-08 07:17] LABS: Basophils % (A) 0 %; Eosinophils # (A) 0.6 k/uL (0-0.7); Eosinophils % (A) 5 %; HCT 35.1 % (34.0-46.0); HGB 11.2 gm/dL (11.4-16.0); Lymphocytes # (A) 1.1 k/uL (1.0-4.8); Lymphocytes % (A) 10 %; MCHC 31.9 g/dL (31.0-37.0); MCV 87.9 fL (80.0-100.0); Mean Platelet Volume 8.6; Monocytes # (A) 0.7 k/uL (0-1.0); Monocytes % (A) 6 %; Neutrophils # (A) 8.2 k/uL (1.3-7.7); Neutrophils % (A) 75 %; Platelet Count 263 k/uL (150-450); RBC 3.99 m/uL (3.80-5.40); RDW 14.6 % (11.5-15.5); WBC 10.9 k/uL (3.8-10.6)
[2023-03-08 07:19] LABS: African American GFR (CKD) >90 (>60 ml/min/1.73 sqM); Anion Gap 8 mmol/L; Blood Urea Nitrogen 17 mg/dL (7-17); Calcium 8.4 mg/dL (8.4-10.2); Carbon Dioxide 25 mmol/L (22-30); Chloride 98 mmol/L (98-107); Glucose 134 mg/dL (74-99); Magnesium 2.1 mg/dL (1.6-2.3); Non-African American GFR(CKD) 82 (>60 ml/min/1.73 sqM); Potassium 4.3 mmol/L (3.5-5.1); Sodium 131 mmol/L (137-145)
[2023-03-08] MEDS: IPRATROPIUM-ALBUTEROL 3 ML NEB INHALATION SCH ×4 (07:27→18:18)
[2023-03-08 07:59] LABS: Glucose,Whole Blood 146 mg/dL (70-110)
[2023-03-08] MEDS: APIXABAN 2.5 MG TABLET PO SCH ×2 (09:17→20:57)
[2023-03-08] MEDS: FERROUS SULFATE 325 MG TAB PO SCH (09:18)
[2023-03-08] MEDS: GLIMEPIRIDE 2 MG TAB PO SCH ×2 (09:19→20:57)
[2023-03-08] MEDS: VITAMIN E (DL,TOCOPHERYL ACET) 400 UNIT (180 MG) CAP PO SCH ×2 (09:19→20:57)
[2023-03-08] MEDS: ASCORBIC ACID 500 MG TAB PO SCH (09:19)
[2023-03-08] MEDS: EZETIMIBE 10 MG TAB PO SCH (09:19)
[2023-03-08] MEDS: LOSARTAN 50 MG TAB PO SCH (09:19)
[2023-03-08] MEDS: allopurinoL 100 MG TAB PO SCH (09:19)
[2023-03-08] MEDS: DOCUSATE 100 MG CAP PO SCH (09:19)
[2023-03-08] MEDS: MAGNESIUM OXIDE 400 MG TAB PO SCH (09:20)
[2023-03-08] MEDS: CHOLECALCIFEROL 25 MCG (1000 IU) TABLET PO SCH (09:20)
[2023-03-08] MEDS: AZITHROMYCIN 500 MG TAB PO SCH (09:27)
[2023-03-08] MEDS: NON FORMULARY DRUG (Icosapent Ethyl [Icosapent Ethyl] 1 GM Capsule) PO SCH ×2 (09:42→20:59)
[2023-03-08] MEDS: INSULIN ASPART (NovoLOG) 100 UNIT/ML VIAL SQ SCH ×4 (09:43→20:57)
[2023-03-08] MEDS: CLOTRIMAZOLE 1% CREAM 30 GM TUBE TOPICAL SCH ×2 (09:53→20:59)
[2023-03-08 11:59] LABS: Glucose,Whole Blood 150 mg/dL (70-110)
--- NOTE | 2023-03-08 12:27 | P.PN ---
Subjective Progress Note Date: 03/08/23 Principal diagnosis: hx NSCLC At todays visit pt is resting comfortably in bed. Decline PT today due to fatgue. Denies SOB, continues on incentive spirometer and IV abx. Pt afebrile today Objective - Vital Signs Vital signs: Vital Signs Temp 98.3 F 03/08/23 11:10 Pulse 102 H 03/08/23 11:23 Resp 20 03/08/23 11:10 BP 146/82 03/08/23 11:10 Pulse Ox 93 L 03/08/23 11:10 FiO2 Intake & Output 03/07/23 03/08/23 03/08/23 18:59 06:59 18:59 Output Total 1000 Balance -1000 Output: Urine 1000 Other: Voiding Method External Catheter External Catheter External Catheter # Voids 1 - Constitutional General appearance: Present: no acute distress, obese - EENT Eyes: Present: EOMI ENT: Present: hearing grossly normal - Respiratory Details: breathing even and unlabored - Cardiovascular Details: skin warm and dry - Integumentary Integumentary: Absent: cyanotic - Musculoskeletal Musculoskeletal: Present: generalized weakness - Psychiatric Psychiatric: Present: A&O x's 3, appropriate affect, intact judgment & insight - Labs CBC & Chem 7: 03/08/23 06:41 03/08/23 06:41 Labs: Abnormal Lab Results - Last 24 Hours (Table) 03/07/23 03/07/23 03/08/23 Range/Units 17:20 20:04 06:41 WBC 10.9 H (3.8-10.6) k/uL Hgb 11.2 L (11.4-16.0) gm/dL Neutrophils # 8.2 H (1.3-7.7) k/uL Sodium (137-145) mmol/L Glucose (74-99) mg/dL POC Glucose (mg/dL) 197 H 169 H (70-110) mg/dL 03/08/23 03/08/23 03/08/23 Range/Units 06:41 07:56 11:57 WBC (3.8-10.6) k/uL Hgb (11.4-16.0) gm/dL Neutrophils # (1.3-7.7) k/uL Sodium 131 L (137-145) mmol/L Glucose 134 H (74-99) mg/dL POC Glucose (mg/dL) 146 H 150 H (70-110) mg/dL Microbiology - Last 24 Hours (Table) 03/06/23 04:29 Blood Culture - Preliminary Blood 03/06/23 04:29 Blood Culture - Preliminary Blood 03/06/23 10:08 Gram Stain - Preliminary Sputum Assessment and Plan (1) Pneumonia Current Visit: Yes Status: Acute Priority: High Code(s): J18.9 - PNEUMONI A, UNSPECIFIED ORGANISM SNOMED Code(s): 896822838 (2) Fever Current Visit: Yes Status: Acute Priority: High Code(s): R50.9 - FEVER, UNSPECIFIED SNOMED Code(s): 298029072 (3) Non-small cell carcinoma of right lung, stage 4 Current Visit: Yes Status: Chronic Priority: High Code(s): C34.91 - MALIGNANT NEOPLASM OF UNSP PART OF RIGHT BRONCHUS OR LUNG SNOMED Code(s): 175271319 (4) Weakness Current Visit: Yes Status: Acute Priority: Medium Code(s): R53.1 - WEAKNESS SNOMED Code(s): 02374878 Plan: Fever/Pneumonia: -Fever 101.8 upon admission. CXR showed right upper lobe consolidation with p robable trace left pleural effusion. Covid testing negative. Continues on abx for likely pneumonia -Pulmonology following -UA negative. Blood cultures negative thus far. Sputum culture pending. Weakness: -Progressive weakness, multiple falls -PT/OT ordered -Spoke with IM team, agree with recommendation for possible rehab upon discharge Metastatic NSCLC: -Full history in HPI -She continues on Keytruda, and completed cycle 27 on 03/01/23. Not due for next treatment till 03/22 -Treatment will be held until patient acutely recovers and pending rehabilitation -Will schedule clinic f/u prior to proceeding to next cycle
--- NOTE | 2023-03-08 12:43 | P.PN ---
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 She is been maintained on Keytruda. Most recent PET scan from 12/19/2022 revealed low uptake within the right upper lobe lung mass, diminished from previous PET scan on 07/22/2022. Prior rib uptake was not appreciated. She presented to the emergency room for generalized weakness and fever. She had been falling requiring EMS to come and assist her the last few days. She developed a cough and congestion. Final arrival she did have a temperature of 101.4. She is tachycardic. O2 saturation 94% on room air. White count 16.8. Hemoglobin 13.0. Platelets 242. Sodium 134. Potassium 4.8. Bicarb 24. BUN 27. Creatinine 1.02. Glucose 220. AST 60. ALT 36. Serna virus not detected. Urinalysis clean. Chest x-ray reveals a right upper lobe consolidation with probable trace left pleural effusion. He is seen today in the emergency department. Currently sitting up in a stretcher. Awake and alert. She is quite weak. Still febrile. She's been initiated on ceftriaxone, azithromycin, DuoNeb inhalations. Anticoagulated with Eliquis. The patient is seen today 03/07/2023 in follow-up on the regular medical floor. She is currently resting fairly comfortable in bed. She is maintaining O2 saturations in the 90s on room air. She denies any significant weight loss. No hemoptysis. Temperature 100.2. Slightly tachycardic. Chest x-ray reveals stable right lower lobe and upper lobe area of consolidation. Sputum culture pending. White count 12.6. Hemoglobin 10.9. Platelets 247. Sodium 136. Potassium 4.1. Bicarb 25. BUN 19. Creatinine 1.0. Glucose 83. AST 56. ALT 35. Albumin 3.2. She remains on DuoNeb inhalations. Antibiotics in the form of ceftriaxone and azithromycin. Anticoagulated with Eliquis. The patient is seen today 03/08/2023 in follow-up on the regular medical floor. She is awake and alert in no acute distress. Her main complaint is that of a headache. She did have a temperature last evening of 100.7. Currently afebrile. She is maintaining good O2 saturations in the 90s on room air. White count 10.9. Hemoglobin 11.2. Platelets 263. Sodium 131. Potassium 4.3. Bicarb 17. Creatinine 0.74. Glucose 134. She is continued on DuoNeb inhalations, antibiotics in the form of ceftriaxone. Completed azithromycin. Objective - Vital Signs Vital signs: Vital Signs Temp 98.3 F 03/08/23 11:10 Pulse 102 H 03/08/23 11:23 Resp 20 03/08/23 11:10 BP 146/82 03/08/23 11:10 Pulse Ox 93 L 03/08/23 11:10 FiO2 Intake & Output 03/07/23 03/08/23 03/08/23 18:59 06:59 18:59 Output Total 1000 Balance -1000 Output: Urine 1000 Other: Voiding Method External Catheter External Catheter External Catheter # Voids 1 - Exam GENERAL EXAM: Alert, 72-year-old female, on room air, fairly comfortable in no acute distress. HEAD: Normocephalic. EYES: Normal reaction of pupils, equal size. NOSE: Clear with pink turbinates. THROAT: No erythema or exudates. NECK: No masses, no JVD. CHEST: No chest wall deformity. LUNGS: Equal air entry with bilateral scattered rhonchi right greater than left. CVS: S1 and S2 normal with no audible murmur, regular rhythm. ABDOMEN: No hepatosplenomegaly, normal bowel sounds, no guarding or rigidity. SPINE: No scoliosis or deformity SKIN: No rashes CENTRAL NERVOUS SYSTEM: No focal deficits, tone is normal in all 4 extremities. EXTREMITIES: There is no peripheral edema. No clubbing, no cyanosis. P eripheral pulses are intact. - Labs CBC & Chem 7: 03/08/23 06:41 03/08/23 06:41 Labs: Abnormal Lab Results - Last 24 Hours (Table) 03/07/23 03/07/23 03/08/23 Range/Units 17:20 20:04 06:41 WBC 10.9 H (3.8-10.6) k/uL Hgb 11.2 L (11.4-16.0) gm/dL Neutrophils # 8.2 H (1.3-7.7) k/uL Sodium (137-145) mmol/L Glucose (74-99) mg/dL POC Glucose (mg/dL) 197 H 169 H (70-110) mg/dL 03/08/23 03/08/23 03/08/23 Range/Units 06:41 07:56 11:57 WBC (3.8-10.6) k/uL Hgb (11.4-16.0) gm/dL Neutrophils # (1.3-7.7) k/uL Sodium 131 L (137-145) mmol/L Glucose 134 H (74-99) mg/dL POC Glucose (mg/dL) 146 H 150 H (70-110) mg/dL Microbiology - Last 24 Hours (Table) 03/06/23 04:29 Blood Culture - Preliminary Blood 03/06/23 04:29 Blood Culture - Preliminary Blood Assessment and Plan Assessment: Acute febrile illness secondary to suspected community acquired pneumonia. Chest x-ray shows right mid and lower lung infiltrates. Computed tomography scan of the chest reveals a stable 2.3 cm right upper lobe pulmonary mass. Large area of consolidation in the right upper lobe with air bronchogram. No evidence of endobronchial lesion. Suspect atelectasis versus pneumonia. Currently on ceftriaxone and completed azithromycin. Non-small cell carcinoma lung cancer with metastasis to the spine diagnosed in July 2021. Currently on Keytruda Chronic and ongoing tobacco dependence of 50 years Frequent falls History of DVT, anticoagulated with Eliquis Diabetes mellitus Hyperlipidemia Hypertension History of gout Plan: The patient was seen and evaluated Labs and medications reviewed Continue antibiotics Continue bronchodilators Sputum culture pending Legionella negative Follow-up chest x-ray in a.m. We will continue to follow I have personally seen and examined the patient, performed the documentation and the assessment and plan as written. Number of minutes spent on the visit: 10.
[2023-03-08 15:52] VITALS: BMI 36.0
[2023-03-08] MEDS ORDERED: SUMAtriptan succinate 50 MG TAB PO STA (16:04)
[2023-03-08 17:13] LABS: Glucose,Whole Blood 148 mg/dL (70-110)
[2023-03-08 20:38] LABS: Glucose,Whole Blood 203 mg/dL (70-110)
[2023-03-08] MEDS: INSULIN DETEMIR (LEVEMIR) 100 UNIT/ML SYR SQ SCH (20:57)
[2023-03-08] MEDS: SUMAtriptan succinate 25 MG TAB PO PRN (21:52)
[2023-03-09] MEDS: ACETAMINOPHEN TAB 325 MG TAB PO PRN (00:51)
[2023-03-09] MEDS: traMADol 50 MG TAB PO PRN ×2 (05:20→10:58)
[2023-03-09 07:06] LABS: Glucose,Whole Blood 104 mg/dL (70-110)
[2023-03-09] MEDS: INSULIN ASPART (NovoLOG) 100 UNIT/ML VIAL SQ SCH ×4 (07:36→21:14)
[2023-03-09] MEDS: IPRATROPIUM-ALBUTEROL 3 ML NEB INHALATION SCH ×4 (08:37→20:43)
--- NOTE | 2023-03-09 08:44 | XR ---
EXAMINATION TYPE: XR chest 1V portable DATE OF EXAM: 03/09/2023 COMPARISON: 03/07/2023 HISTORY: Shortness of breath TECHNIQUE: Single frontal view of the chest is obtained. FINDINGS: Right perihilar area of consolidation stable. Mass in the right upper lobe is not as well seen by x-ray. Left lung clear. Limited inspiration. Heart size normal. Atherosclerotic change aorta. Arthropathy of the shoulders. IMPRESSION: 1. Right perihilar infiltrate stable. Right upper lobe lung mass not well-seen by standard x-ray.
--- NOTE | 2023-03-09 08:48 | P.PN ---
Subjective Progress Note Date: 03/08/23 This is a 72-year-old female who presented to the emergency department via EMS for generalized weakness and fever. Per spouse at the bedside patient has been falling more frequently and having fevers. Patient follows with Dr. Mayi pan in the outpatient setting with past medical history of lung cancer with metastasis currently received keytruda 2 weeks ago. Patient has been having increased cough with fevers over the last few days and feeling generally more weak. Patient follows with Dr. Anayeli Turner in the outpatient setting with a past medical history of lung cancer, diabetes mellitus, DVT, GERD, hyperlipidemia, hypertension, osteoarthritis, gout, renal disease, continued smoker, denies any other illicit drug use or alcohol use. Patient normally uses a walker or cane per spouse and has been falling more frequently. Patient has had to have EMS to the home multiple times for falls. Chest x-ray showed a right upper lobe consolidation with probable trace left pleural effusion recommending CT chest which has been ordered by pulmonary. Patient was admitted with fevers and placed on antibiotics with no consults placed initially. Patient will be admitted and will have oncology along with pulmonary evaluated the patient. Blood cultures along with sputum and Legionella are ordered and pending. EKG showed a sinus tachycardia with a heart rate of 1 21 bpm. Labs reviewed this morning showed an elevated white count of 16.8, hemoglobin 13.0, platelets 242, sodium 134, potassium 4.8, BUN 27, creatinine 1.02, blood sugar 220, AST mildly elevated at 60, ALT 36, urinalysis was completely negative and COVID-19 testing was negative as well. Patient was placed on Zithromax and ceftriaxone in the ER. 03/07/2023 Patient is seen and evaluated in follow-up today continues to have fevers low- grade although is more awake and alert today. Patient continues to have headache with no relief from Tylenol or Ultram. Patient being followed by pulmonary and oncology maintained on ceftriaxone and Zithromax. Pro-calcitonin was 0.56 and will continue on antibiotic regimen. Patient encouraged to increase activity as tolerated was seen and evaluated by physical therapy recommending rehab and patient is agreeable. Discussed with case management and will require insurance authorization. Follow-up chest x-ray continues to show some right upper lobe consolidation as well as some atelectasis. Incentive spirometer ordered and encourage the patient may use at least 10 times every hour while awake. 03/08/2023 Patient is seen and evaluated in follow-up today denies any worsening shortness of breath and continues with cough. Pulmonary following patient maintained on ceftriaxone and will continue. Follow-up chest x-ray ordered for a.m. Patient still reporting headache and will add a dose of Imitrex and use as needed as she reports the first dose helped. Patient is afebrile and currently maintained on room air. Patient tolerating diet although not much of an appetite. Patient working on going to [facility] and would recommend physical therapy daily. Review of systems: Constitutional: No reports of fatigue, reports fever, or chills Cardiovascular: No reports of chest pain or palpitations Respiratory: No reports of worsening shortness of breath, reports cough GI: No reports of nausea, vomiting, or diarrhea : No reports of dysuria or retention Neurovascular: reports of generalized weakness and reports dull headache All medications have been reviewed PHYSICAL EXAMINATION: GENERAL: The patient is more awake today, alert and oriented x3, poor historian, Well developed, ill-appearing, elderly appearing, obese HEENT: Pupils are round and equally reacting to light. EOMI. no scleral icterus. No conjunctival pallor. Normocephalic, atraumatic. No pharyngeal erythema. No thyromegaly. CARDIOVASCULAR: S1 and S2 muffled PULMONARY: diminished breath sounds bilaterally with no wheezing or rhonchi noted. ABDOMEN: soft. Nontender on exam. obese. non-distended, normoactive bowel sounds. No palpable organomegaly. MUSCULOSKELETAL: No joint swelling or deformity. EXTREMITIES: No cyanosis, clubbing, or pedal edema. NEUROLOGICAL: Gross neurological examination did not reveal any focal deficits. Diffuse weakness SKIN: No rashes. Assessment: Fever with concerns of right upper lobe pneumonia, community-acquired with features of sepsis, present on admission Left pleural effusion noted on x-ray Generalized weakness with increased falls and gait dysfunction History of non-small cell lung carcinoma with metastasis, maintained on Keytruda, last dose 2 weeks ago History of diabetes mellitus, insulin-dependent, uncontrolled with hyperglycemia History of DVT of the left lower extremity GERD Hyperlipidemia Hypertension Osteoarthritis history Continued ongoing nicotine dependence, trying to quit Obesity with a BMI of 36.0 GI prophylaxis DVT prophylaxis Full code Plan: Patient was admitted with increasing weakness and has been having fevers and has completed Zithromax and maintained on ceftriaxone as there is concerns of a right upper lobe consolidation. Pulmonary following and patient is maintaining and breathing treatments along with antibiotics and will continue. Follow-up chest x-ray ordered for a.m. Blood cultures along with sputum culture sent and pending at this time and pro- calcitonin mildly elevated at 0.[address] See in the outpatient setting and maintained on Keytruda with her last dose being approximately 2-3 weeks ago. Oncology following PT/OT therapy evaluated the patient recommending rehab and patient is agreeable. Case management following and awaiting ECF choices and patient will also requi re insurance authorization Patient having continued dull headache will add Imitrex as needed Encouraged incentive spirometer use at least 10 times every hour while awake Continue Accu-Cheks before meals and at bedtime with sliding scale Home medications reviewed and resumed as appropriate Due to multiple complex medical issues, prognosis is guarded The impression and plan of care has been dictated by Cathryn Villanueva, nurse practitioner as directed. Dr. Aileen MD I have performed a history and examination and MDM of this patient, discussed the same with the dictator, and agree with the dictator's assessment and plan as written ,documented as a scribe. Based on total visit time, I have performed more than 50% of the visit. Any additional findings or plans will be noted. Objective - Vital Signs Vital signs: Vital Signs Temp 99 F 03/08/23 07:14 Pulse 103 H 03/08/23 07:40 Resp 22 03/08/23 07:14 BP 166/93 03/08/23 07:14 Pulse Ox 95 03/08/23 07:14 FiO2 Intake & Output 03/07/23 03/08/23 03/08/23 18:59 06:59 18:59 Other: Voiding Method External Catheter External Catheter # Voids 1 - Labs CBC & Chem 7: 03/08/23 06:41 03/08/23 06:41 Labs: Abnormal Lab Results - Last 24 Hours (Table) 03/07/23 03/07/23 03/07/23 Range/Units 06:16 06:16 06:16 WBC 12.65 H (4.50-10.00) X 10*3/uL RBC 3.98 L (4.10-5.20) X 10*6/uL Hgb 10.9 L (12.0-15.0) d/dL Hct 35.4 L (37.2-46.3) % MCHC 30.8 L (32.0-37.0) d/dL RDW 15.9 H (11.5-14.5) % Neutrophils # 9.14 H (1.80-7.70) X 10*3/uL Monocytes # 1.27 H (0.20-1.00) X 10*3/uL Eosinophils # 0.44 H (0.04-0.35) X 10*3/uL Basophils # 0.14 H (0.00-0.10) X 10*3/uL Sodium (137-145) mmol/L Glucose (74-99) mg/dL POC Glucose (mg/dL) (70-110) mg/dL Hemoglobin A1c 9.3 H (<=6.0) % Calcium 8.5 L (8.7-10.3) mg/dL AST 56 H (13-35) U/L Total Protein 5.8 L (6.2-8.2) d/dL Albumin 3.2 L (3.8-4.9) d/dL Albumin/Globulin Ratio 1.23 L (1.60-3.17) Ratio 03/07/23 03/07/23 03/07/23 Range/Units 11:45 17:20 20:04 WBC (4.50-10.00) X 10*3/uL RBC (4.10-5.20) X 10*6/uL Hgb (12.0-15.0) d/dL Hct (37.2-46.3) % MCHC (32.0-37.0) d/dL RDW (11.5-14.5) % Neutrophils # (1.80-7.70) X 10*3/uL Monocytes # (0.20-1.00) X 10*3/uL Eosinophils # (0.04-0.35) X 10*3/uL Basophils # (0.00-0.10) X 10*3/uL Sodium (137-145) mmol/L Glucose (74-99) mg/dL POC Glucose (mg/dL) 164 H 197 H 169 H (70-110) mg/dL Hemoglobin A1c (<=6.0) % Calcium (8.7-10.3) mg/dL AST (13-35) U/L Total Protein (6.2-8.2) d/dL Albumin (3.8-4.9) d/dL Albumin/Globulin Ratio (1.60-3.17) Ratio 03/08/23 03/08/23 03/08/23 Range/Units 06:41 06:41 07:56 WBC 10.9 H (4.50-10.00) X 10*3/uL RBC (4.10-5.20) X 10*6/uL Hgb 11.2 L (12.0-15.0) d/dL Hct (37.2-46.3) % MCHC (32.0-37.0) d/dL RDW (11.5-14.5) % Neutrophils # 8.2 H (1.80-7.70) X 10*3/uL Monocytes # (0.20-1.00) X 10*3/uL Eosinophils # (0.04-0.35) X 10*3/uL Basophils # (0.00-0.10) X 10*3/uL Sodium 131 L (137-145) mmol/L Glucose 134 H (74-99) mg/dL POC Glucose (mg/dL) 146 H (70-110) mg/dL Hemoglobin A1c (<=6.0) % Calcium (8.7-10.3) mg/dL AST (13-35) U/L Total Protein (6.2-8.2) d/dL Albumin (3.8-4.9) d/dL Albumin/Globulin Ratio (1.60-3.17) Ratio Microbiology - Last 24 Hours (Table) 03/06/23 04:29 Blood Culture - Preliminary Blood 03/06/23 04:29 Blood Culture - Preliminary Blood 03/06/23 10:08 Gram Stain - Preliminary Sputum
[2023-03-09] MEDS: allopurinoL 100 MG TAB PO SCH (08:51)
[2023-03-09] MEDS: VITAMIN E (DL,TOCOPHERYL ACET) 400 UNIT (180 MG) CAP PO SCH ×2 (08:51→21:07)
[2023-03-09] MEDS: GLIMEPIRIDE 2 MG TAB PO SCH ×2 (08:51→21:07)
[2023-03-09] MEDS: EZETIMIBE 10 MG TAB PO SCH (08:51)
[2023-03-09] MEDS: MAGNESIUM OXIDE 400 MG TAB PO SCH (08:51)
[2023-03-09] MEDS: DOCUSATE 100 MG CAP PO SCH (08:51)
[2023-03-09] MEDS: LOSARTAN 50 MG TAB PO SCH (08:52)
[2023-03-09] MEDS: ASCORBIC ACID 500 MG TAB PO SCH (08:52)
[2023-03-09] MEDS: FERROUS SULFATE 325 MG TAB PO SCH (08:52)
[2023-03-09] MEDS: APIXABAN 2.5 MG TABLET PO SCH ×2 (08:52→21:07)
[2023-03-09] MEDS: CHOLECALCIFEROL 25 MCG (1000 IU) TABLET PO SCH (08:52)
[2023-03-09] MEDS: CLOTRIMAZOLE 1% CREAM 30 GM TUBE TOPICAL SCH ×2 (08:53→21:09)
[2023-03-09] MEDS: NON FORMULARY DRUG (Icosapent Ethyl [Icosapent Ethyl] 1 GM Capsule) PO SCH ×2 (08:59→21:10)
[2023-03-09] MEDS: SODIUM CHLORIDE 0.9% 1,000 ML IV SCH (09:27)
--- NOTE | 2023-03-09 11:35 | P.PN ---
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 She is been maintained on Keytruda. Most recent PET scan from 12/19/2022 revealed low uptake within the right upper lobe lung mass, diminished from previous PET scan on 07/22/2022. Prior rib uptake was not appreciated. She presented to the emergency room for generalized weakness and fever. She had been falling requiring EMS to come and assist her the last few days. She developed a cough and congestion. Final arrival she did have a temperature of 101.4. She is tachycardic. O2 saturation 94% on room air. White count 16.8. Hemoglobin 13.0. Platelets 242. Sodium 134. Potassium 4.8. Bicarb 24. BUN 27. Creatinine 1.02. Glucose 220. AST 60. ALT 36. Serna virus not detected. Urinalysis clean. Chest x-ray reveals a right upper lobe consolidation with probable trace left pleural effusion. He is seen today in the emergency department. Currently sitting up in a stretcher. Awake and alert. She is quite weak. Still febrile. She's been initiated on ceftriaxone, azithromycin, DuoNeb inhalations. Anticoagulated with Eliquis. The patient is seen today 03/07/2023 in follow-up on the regular medical floor. She is currently resting fairly comfortable in bed. She is maintaining O2 saturations in the 90s on room air. She denies any significant weight loss. No hemoptysis. Temperature 100.2. Slightly tachycardic. Chest x-ray reveals stable right lower lobe and upper lobe area of consolidation. Sputum culture pending. White count 12.6. Hemoglobin 10.9. Platelets 247. Sodium 136. Potassium 4.1. Bicarb 25. BUN 19. Creatinine 1.0. Glucose 83. AST 56. ALT 35. Albumin 3.2. She remains on DuoNeb inhalations. Antibiotics in the form of ceftriaxone and azithromycin. Anticoagulated with Eliquis. The patient is seen today 03/08/2023 in follow-up on the regular medical floor. She is awake and alert in no acute distress. Her main complaint is that of a headache. She did have a temperature last evening of 100.7. Currently afebrile. She is maintaining good O2 saturations in the 90s on room air. White count 10.9. Hemoglobin 11.2. Platelets 263. Sodium 131. Potassium 4.3. Bicarb 17. Creatinine 0.74. Glucose 134. She is continued on DuoNeb inhalations, antibiotics in the form of ceftriaxone. Completed azithromycin. The patient is seen today 03/09/2023 in follow-up on the regular medical floor. She is sitting up in a chair at the bedside. Awake and alert in no acute distress. She is maintaining O2 saturations in the 90s on room air. Follow-up chest x-ray reveals stable right perihilar infiltrate. Right upper lobe lung mass not seen by standard x-ray. Computed tomography scan previously had measured a stable 2.3 cm right upper lobe pulmonary mass. Blood culture reveals no growth. Sputum culture reveals no growth. Glucose 104. She remains on antibiotics in the form of ceftriaxone. Continued on bronchodilators. Anticoagulated with Eliquis. She was initiated on Imitrex for her headache. Feeling better today. Objective - Vital Signs Vital signs: Vital Signs Temp 98.1 F 03/09/23 07:08 Pulse 106 H 03/09/23 08:49 Resp 20 03/09/23 07:08 BP 151/81 03/09/23 07:08 Pulse Ox 92 L 03/09/23 08:39 FiO2 Intake & Output 03/08/23 03/09/23 03/09/23 18:59 06:59 18:59 Intake Total 1050 1800 Output Total 2800 2400 Balance -1750 -600 Weight 104.326 kg Intake: Intake, IV Titration 50 Amount cefTRIAXone 2 gm In 50 Sodium Chloride 0.9% 50 ml @ 100 mls/hr IVPB Q24HR [facility] Rx#:[id number] Oral 1000 1800 Output: Urine 2800 2400 Other: Voiding Method External Catheter External Catheter External Catheter # Voids 1 - Exam GENERAL EXAM: Alert, pleasant 72-year-old female, on room air, sitting up in a chair, comfortable in no acute distress. HEAD: Normocephalic. EYES: Normal reaction of pupils, equal size. NOSE: Clear with pink turbinates. THROAT: No erythema or exudates. NECK: No masses, no JVD. CHEST: No chest wall deformity. LUNGS: Equal air entry with bilateral scattered rhonchi right greater than left. CVS: S1 and S2 normal with no audible murmur, regular rhythm. ABDOMEN: No hepatosplenomegaly, normal bowel sounds, no guarding or rigidity. SPINE: No scoliosis or deformity SKIN: No rashes CENTRAL NERVOUS SYSTEM: No focal deficits, tone is normal in all 4 extremities. EXTREMITIES: There is no peripheral edema. No clubbing, no cyanosis. Peripheral pulses are intact. - Labs CBC & Chem 7: 03/08/23 06:41 03/08/23 06:41 Labs: Abnormal Lab Results - Last 24 Hours (Table) 03/08/23 03/08/23 03/08/23 Range/Units 11:57 17:02 20:36 POC Glucose (mg/dL) 150 H 148 H 203 H (70-110) mg/dL Microbiology - Last 24 Hours (Table) 03/06/23 04:29 Blood Culture - Preliminary Blood 03/06/23 04:29 Blood Culture - Preliminary Blood Assessment and Plan Assessment: Acute febrile illness secondary to suspected community acquired pneumonia. Chest x-ray shows right mid and lower lung infiltrates. Computed tomography scan of the chest reveals a stable 2.3 cm right upper lobe pulmonary mass. Large area of consolidation in the right upper lobe with air bronchogram. No evidence of endobronchial lesion. Suspect atelectasis versus pneumonia. Currently on ceftriaxone and completed azithromycin. Follow-up chest x-ray reveals stable right perihilar consolidation. Non-small cell carcinoma lung cancer with metastasis to the spine diagnosed in July 2021. Currently on Keytruda. Computed tomography scan revealed stable right upper lobe 2.3 cm mass. Chronic and ongoing tobacco dependence of 50 years Frequent falls History of DVT, anticoagulated with Eliquis Diabetes mellitus Hyperlipidemia Hypertension History of gout Plan: The patient was seen and evaluated Labs and medications reviewed Remains stable and on room air Afebrile for greater than 24 hours Continue bronchodilators Could be transitioned to oral diuretic antibiotics This patient was seen independently by the nurse practitioner I have personally seen and examined the patient, performed the documentation and the assessment and plan as written. Number of minutes spent on the visit: 22.
[2023-03-09 12:14] LABS: Glucose,Whole Blood 127 mg/dL (70-110)
--- NOTE | 2023-03-09 12:24 | CT ---
EXAMINATION TYPE: CT brain wo con DATE OF EXAM: 03/09/2023 COMPARISON: MR brain 05/20/2021 HISTORY: headache CT DLP: 1129.2 mGycm Automated exposure control for dose reduction was used. FINDINGS: Moderate generalized degenerative change is seen. Hypoattenuation in the white matter compatible with remote microvascular ischemia. Severe artifact across the skull base and limits assessment of the po sterior fossa. Grossly no acute intraparenchymal hemorrhage. Calvarium appears intact. Craniocervical junction is maintained. Sella turcica normal. Orbits are symmetric. Hyperostosis of the frontal calvarium. Very minimal changes of chronic ethmoida l sinusitis. IMPRESSION: DEGENERATIVE AND REMOTE ISCHEMIC CHANGE WITH NO ACUTE HEMORRHAGE OR MASS EFFECT.
--- NOTE | 2023-03-09 16:34 | P.PN ---
Subjective Progress Note Date: 03/09/23 This is a 72-year-old female who presented to the emergency department via EMS for generalized weakness and fever. Per spouse at the bedside patient has been falling more frequently and having fevers. Patient follows with Dr. Mayi pan in the outpatient setting with past medical history of lung cancer with metastasis currently received keytruda 2 weeks ago. Patient has been having increased cough with fevers over the last few days and feeling generally more weak. Patient follows with Dr. Anayeli Turner in the outpatient setting with a past medical history of lung cancer, diabetes mellitus, DVT, GERD, hyperlipidemia, hypertension, osteoarthritis, gout, renal disease, continued smoker, denies any other illicit drug use or alcohol use. Patient normally uses a walker or cane per spouse and has been falling more frequently. Patient has had to have EMS to the home multiple times for falls. Chest x-ray showed a right upper lobe consolidation with probable trace left pleural effusion recommending CT chest which has been ordered by pulmonary. Patient was admitted with fevers and placed on antibiotics with no consults placed initially. Patient will be admitted and will have oncology along with pulmonary evaluated the patient. Blood cultures along with sputum and Legionella are ordered and pending. EKG showed a sinus tachycardia with a heart rate of 1 21 bpm. Labs reviewed this morning showed an elevated white count of 16.8, hemoglobin 13.0, platelets 242, sodium 134, potassium 4.8, BUN 27, creatinine 1.02, blood sugar 220, AST mildly elevated at 60, ALT 36, urinalysis was completely negative and COVID-19 testing was negative as well. Patient was placed on Zithromax and ceftriaxone in the ER. 03/07/2023 Patient is seen and evaluated in follow-up today continues to have fevers low- grade although is more awake and alert today. Patient continues to have headache with no relief from Tylenol or Ultram. Patient being followed by pulmonary and oncology maintained on ceftriaxone and Zithromax. Pro-calcitonin was 0.56 and will continue on antibiotic regimen. Patient encouraged to increase activity as tolerated was seen and evaluated by physical therapy recommending rehab and patient is agreeable. Discussed with case management and will require insurance authorization. Follow-up chest x-ray continues to show some right upper lobe consolidation as well as some atelectasis. Incentive spirometer ordered and encourage the patient may use at least 10 times every hour while awake. 03/08/2023 Patient is seen and evaluated in follow-up today denies any worsening shortness of breath and continues with cough. Pulmonary following patient maintained on ceftriaxone and will continue. Follow-up chest x-ray ordered for a.m. Patient still reporting headache and will add a dose of Imitrex and use as needed as she reports the first dose helped. Patient is afebrile and currently maintained on room air. Patient tolerating diet although not much of an appetite. Patient working on going to [facility] and would recommend physical therapy daily. 03/09/2023 Patient is seen and evaluated in follow-up today maintained on room air denies any worsening shortness of breath. Patient is afebrile and pulmonary is following. Oncology following as well recommend an outpatient follow-up once discharged from ECF. Patient was not receiving any oncological care during ECF. Patient continues to report headache but is somewhat relieved with Imitrex and family at bedside concerned as patient had been falling more often and now reporting this headache. CT brain ordered and pending at this time. Patient is tolerating diet although reports not much of an appetite. Physical therapy evaluating the patient daily and continues with weakness and will be going ECF. Review of systems: Constitutional: No reports of fatigue, reports fever, or chills Cardiovascular: No reports of chest pain or palpitations Respiratory: No reports of worsening shortness of breath, reports cough GI: No reports of nausea, vomiting, or diarrhea : No reports of dysuria or retention Neurovascular: reports of generalized weakness and reports continued dull headache All medications have been reviewed PHYSICAL EXAMINATION: GENERAL: The patient is awake today, alert and oriented x3, poor historian, Well developed, ill-appearing, elderly appearing, obese HEENT: Pupils are round and equally reacting to light. EOMI. no scleral icterus. No conjunctival pallor. Normocephalic, atraumatic. No pharyngeal erythema. No thyromegaly. CARDIOVASCULAR: S1 and S2 muffled PULMONARY: diminished breath sounds bilaterally with no wheezing or rhonchi noted. ABDOMEN: soft. Nontender on exam. obese. non-distended, normoactive bowel sounds. No palpable organomegaly. MUSCULOSKELETAL: No joint swelling or deformity. EXTREMITIES: No cyanosis, clubbing, or pedal edema. NEUROLOGICAL: Gross neurological examination did not reveal any focal deficits. Diffuse weakness SKIN: No rashes. Assessment: Fever with concerns of right upper lobe pneumonia, community-acquired with features of sepsis, present on admission Left pleural effusion noted on x-ray Generalized weakness with increased falls and gait dysfunction Headache, CT negative for acute process History of non-small cell lung carcinoma with metastasis, maintained on Keytruda, last dose 2 weeks ago History of diabetes mellitus, insulin-dependent, uncontrolled with hyperglycemia History of DVT of the left lower extremity GERD Hyperlipidemia Hypertension Osteoarthritis history Continued ongoing nicotine dependence, trying to quit Obesity with a BMI of 36.0 GI prophylaxis DVT prophylaxis Full code Plan: Patient was admitted with increasing weakness and has been having fevers and now remains afebrile for over 48 hours maintained on ceftriaxone with concerns of pneumonia, present on admission. Pulmonary following and patient is maintained on breathing treatments along with antibiotics and will continue. Blood cultures along with sputum culture are negative Patient follows with Dr. See in the outpatient setting and maintained on Keytruda with her last dose being approximately 2-3 weeks ago. Oncology follow ing. Patient is aware and agreeable there will be no oncological treatments while at rehab and patient will follow-up with oncology Dr. See in the outpatient setting when discharged from [facility] PT/OT therapy evaluated the patient recommending rehab and patient is agreeable. Case management following and patient has been accepted at [facility] awaiting insurance authorization Patient having continued dull headache will continue Imitrex as needed. at the bedside concerned as patient has been having more falls and reporting this headache and CT brain was done which was negative for any acute process. Likely a combination as patient has not been having her routine coffee throughout the day and has not been smoking and she normally smokes daily. Encouraged incentive spirometer use at least 10 times every hour while awake Continue Accu-Cheks before meals and at bedtime with sliding scale Home medications reviewed and resumed as appropriate Possible discharge planning to [facility] in the next 24 hours currently awaiting insurance authorization The impression and plan of care has been dictated by Cathryn Villanueva, nurse practitioner as directed. Dr. Naun MD I have performed a history and examination and MDM of this patient, discussed the same with the dictator, and agree with the dictator's assessment and plan as written ,documented as a scribe. Based on total visit time, I have performed more than 50% of the visit. Any additional findings or plans will be noted. Objective - Vital Signs Vital signs: Vital Signs Temp 98.1 F 03/09/23 07:08 Pulse 106 H 03/09/23 08:49 Resp 20 03/09/23 07:08 BP 151/81 03/09/23 07:08 Pulse Ox 92 L 03/09/23 08:39 FiO2 Intake & Output 03/08/23 03/09/23 03/09/23 18:59 06:59 18:59 Intake Total 1050 1800 Output Total 2800 2400 Balance -1750 -600 Weight 104.326 kg Intake: Intake, IV Titration 50 Amount cefTRIAXone 2 gm In 50 Sodium Chloride 0.9% 50 ml @ 100 mls/hr IVPB Q24HR [facility] Rx#:[id number] Oral 1000 1800 Output: Urine 2800 2400 Other: Voiding Method External Catheter External Catheter External Catheter # Voids 1 - Labs CBC & Chem 7: 03/08/23 06:41 03/08/23 06:41 Labs: Abnormal Lab Results - Last 24 Hours (Table) 03/08/23 03/08/23 03/08/23 Range/Units 11:57 17:02 20:36 POC Glucose (mg/dL) 150 H 148 H 203 H (70-110) mg/dL Microbiology - Last 24 Hours (Table) 03/06/23 04:29 Blood Culture - Preliminary Blood 03/06/23 04:29 Blood Culture - Preliminary Blood
[2023-03-09 17:06] LABS: Glucose,Whole Blood 92 mg/dL (70-110)
[2023-03-09 21:00] LABS: Glucose,Whole Blood 217 mg/dL (70-110)
[2023-03-09] MEDS: INSULIN DETEMIR (LEVEMIR) 100 UNIT/ML SYR SQ SCH (21:07)
[2023-03-10] MEDS: traMADol 50 MG TAB PO PRN ×2 (00:27→11:27)
[2023-03-10 07:03] LABS: Glucose,Whole Blood 88 mg/dL (70-110)
[2023-03-10] MEDS: INSULIN ASPART (NovoLOG) 100 UNIT/ML VIAL SQ SCH ×2 (07:54→12:25)
[2023-03-10] MEDS: NON FORMULARY DRUG (Icosapent Ethyl [Icosapent Ethyl] 1 GM Capsule) PO SCH (09:00)
[2023-03-10] MEDS: IPRATROPIUM-ALBUTEROL 3 ML NEB INHALATION SCH ×3 (09:03→16:51)
[2023-03-10] MEDS: FERROUS SULFATE 325 MG TAB PO SCH (09:04)
[2023-03-10] MEDS: MAGNESIUM OXIDE 400 MG TAB PO SCH (09:04)
[2023-03-10] MEDS: DOCUSATE 100 MG CAP PO SCH (09:05)
[2023-03-10] MEDS: CHOLECALCIFEROL 25 MCG (1000 IU) TABLET PO SCH (09:05)
[2023-03-10] MEDS: GLIMEPIRIDE 2 MG TAB PO SCH (09:05)
[2023-03-10] MEDS: APIXABAN 2.5 MG TABLET PO SCH (09:05)
[2023-03-10] MEDS: ASCORBIC ACID 500 MG TAB PO SCH (09:05)
[2023-03-10] MEDS: EZETIMIBE 10 MG TAB PO SCH (09:05)
[2023-03-10] MEDS: LOSARTAN 50 MG TAB PO SCH (09:05)
[2023-03-10] MEDS: VITAMIN E (DL,TOCOPHERYL ACET) 400 UNIT (180 MG) CAP PO SCH (09:05)
[2023-03-10] MEDS: allopurinoL 100 MG TAB PO SCH (09:05)
[2023-03-10] MEDS: CLOTRIMAZOLE 1% CREAM 30 GM TUBE TOPICAL SCH (09:06)
--- NOTE | 2023-03-10 10:39 | P.PN ---
Subjective Progress Note Date: 03/10/23 This is a 72-year-old female patient with a known history of metastatic non- small cell lung cancer with metastatic disease to the spine, chronic and ongoing tobacco dependence, hypertension, hyperlipidemia, diabetes mellitus, DVT maintained on Eliquis. She is been maintained on Keytruda. Most recent PET scan from 12/19/2022 revealed low uptake within the right upper lobe lung mass, diminished from previous PET scan on 07/22/2022. Prior rib uptake was not appreciated. She presented to the emergency room for generalized weakness and fever. She had been falling requiring EMS to come and assist her the last few days. She developed a cough and congestion. Final arrival she did have a temperature of 101.4. She is tachycardic. O2 saturation 94% on room air. White count 16.8. Hemoglobin 13.0. Platelets 242. Sodium 134. Potassium 4.8. Bicarb 24. BUN 27. Creatinine 1.02. Glucose 220. AST 60. ALT 36. Serna virus not detected. Urinalysis clean. Chest x-ray reveals a right upper lobe consolidation with probable trace left pleural effusion. He is seen today in the emergency department. Currently sitting up in a stretcher. Awake and alert. She is quite weak. Still febrile. She's been initiated on ceftriaxone, azithromycin, DuoNeb inhalations. Anticoagulated with Eliquis. The patient is seen today 03/07/2023 in follow-up on the regular medical floor. She is currently resting fairly comfortable in bed. She is maintaining O2 saturations in the 90s on room air. She denies any significant weight loss. No hemoptysis. Temperature 100.2. Slightly tachycardic. Chest x-ray reveals stable right lower lobe and upper lobe area of consolidation. Sputum culture pending. White count 12.6. Hemoglobin 10.9. Platelets 247. Sodium 136. Potassium 4.1. Bicarb 25. BUN 19. Creatinine 1.0. Glucose 83. AST 56. ALT 35. Albumin 3.2. She remains on DuoNeb inhalations. Antibiotics in the form of ceftriaxone and azithromycin. Anticoagulated with Eliquis. The patient is seen today 03/08/2023 in follow-up on the regular medical floor. She is awake and alert in no acute distress. Her main complaint is that of a headache. She did have a temperature last evening of 100.7. Currently afebrile. She is maintaining good O2 saturations in the 90s on room air. White count 10.9. Hemoglobin 11.2. Platelets 263. Sodium 131. Potassium 4.3. Bicarb 17. Creatinine 0.74. Glucose 134. She is continued on DuoNeb inhalations, antibiotics in the form of ceftriaxone. Completed azithromycin. The patient is seen today 03/09/2023 in follow-up on the regular medical floor. She is sitting up in a chair at the bedside. Awake and alert in no acute distress. She is maintaining O2 saturations in the 90s on room air. Follow-up chest x-ray reveals stable right perihilar infiltrate. Right upper lobe lung mass not seen by standard x-ray. Computed tomography scan previously had measured a stable 2.3 cm right upper lobe pulmonary mass. Blood culture reveals no growth. Sputum culture reveals no growth. Glucose 104. She remains on antibiotics in the form of ceftriaxone. Continued on bronchodilators. Anticoagulated with Eliquis. She was initiated on Imitrex for her headache. Feeling better today. The patient is seen today 03/10/2023 in follow-up on the regular medical floor. She is resting comfortably in bed. Awake and alert in no acute distress. She continues to maintain good O2 saturations in the 90s on room air. She's been afebrile. Hemodynamically stable. She did undergo a computed tomography scan of the brain for her complaints of headaches. She was found to have degenerative and remote ischemic changes but no acute hemorrhage or mass effect. Sputum culture revealed no growth. Blood cultures revealed no growth. Blood glucose 88. She remains on DuoNeb inhalations. Anticoagulated with Eliquis. She completed a course of ceftriaxone. Objective - Vital Signs Vital signs: Vital Signs Temp 98.5 F 03/10/23 07:03 Pulse 94 03/10/23 09:05 Resp 20 03/10/23 07:03 BP 138/79 03/10/23 07:03 Pulse Ox 96 03/10/23 09:05 FiO2 Intake & Output 03/09/23 03/10/23 03/10/23 18:59 06:59 18:59 Intake Total 590 Output Total 1200 1500 Balance -1200 -910 Intake: Oral 590 Output: Urine 1200 1500 Other: Voiding Method External Catheter External Catheter # Bowel Movements 1 - Exam GENERAL EXAM: Alert, oriented 72-year-old female, on room air, resting in bed, comfortable in no acute distress. HEAD: Normocephalic. EYES: Normal reaction of pupils, equal size. NOSE: Clear with pink turbinates. THROAT: No erythema or exudates. NECK: No masses, no JVD. CHEST: No chest wall deformity. LUNGS: Equal air entry with bilateral scattered rhonchi right greater than left. CVS: S1 and S2 normal with no audible murmur, regular rhythm. ABDOMEN: No hepatosplenomegaly, normal bowel sounds, no guarding or rigidity. SPINE: No scoliosis or deformity SKIN: No rashes CENTRAL NERVOUS SYSTEM: No focal deficits, tone is normal in all 4 extremities. EXTREMITIES: There is no peripheral edema. No clubbing, no cyanosis. Peripheral pulses are intact. - Labs CBC & Chem 7: 03/08/23 06:41 03/08/23 06:41 Labs: Abnormal Lab Results - Last 24 Hours (Table) 03/09/23 03/09/23 Range/Units 12:13 20:56 POC Glucose (mg/dL) 127 H 217 H (70-110) mg/dL Microbiology - Last 24 Hours (Table) 03/06/23 10:08 Gram Stain - Final Sputum Sputum Culture - Final 03/06/23 04:29 Blood Culture - Preliminary Blood 03/06/23 04:29 Blood Culture - Preliminary Blood Assessment and Plan Assessment: Acute febrile illness secondary to suspected community acquired pneumonia. Chest x-ray shows right mid and lower lung infiltrates. Computed tomography scan of the chest reveals a stable 2.3 cm right upper lobe pulmonary mass. Large area of consolidation in the right upper lobe with air bronchogram. No evidence of endobronchial lesion. Suspect atelectasis versus pneumonia. Completed ceftriaxone and completed azithromycin. Follow-up chest x-ray reveals stable right perihilar consolidation. Non-small cell carcinoma lung cancer with metastasis to the spine diagnosed in July 2021. Currently on Keytruda. Computed tomography scan revealed stable right upper lobe 2.3 cm mass. Chronic and ongoing tobacco dependence of 50 years Frequent falls History of DVT, anticoagulated with Eliquis Diabetes mellitus Hyperlipidemia Hypertension History of gout Plan: The patient was seen and evaluated Computed tomography scan of the brain, labs and medications reviewed Remains stable and on room air Completed antibiotics Continue bronchodilators Plan is for subacute rehab at discharge This patient was seen independently by the nurse practitioner I have personally seen and examined the patient, performed the documentation and the assessment and plan as written. Number of minutes spent on the visit: 24.
[2023-03-10] MEDS: SODIUM CHLORIDE 0.9% 1,000 ML IV SCH (11:22)
[2023-03-10 11:48] LABS: Glucose,Whole Blood 148 mg/dL (70-110)
[2023-03-10] MEDS: SUMAtriptan succinate 25 MG TAB PO PRN (13:33)
[2023-03-10 14:31] VITALS: BP 108/51; RESP 15; TEMP 98.1
--- NOTE | 2023-03-10 14:51 | P.DS ---
Providers Date of admission: 03/06/23 07:36 Expected date of discharge: 03/10/23 Attending physician: Freddy Stearns MD Consults: 03/06/23 09:14 Consult Physician Routine Consulting Provider: Coy Miguel Consult Reason/Comments: lung ca, currently receiving tx, PNA Do you want consulting provider notified?: Yes Consult Physician Urgent Consulting Provider: Jason Wiggins Consult Reason/Comments: pNA, hx of lung ca Do you want consulting provider notified?: Yes Primary care physician: Ángel Turner [facility] Hospital Course: Final diagnosis Fever with concerns of right upper lobe pneumonia, community-acquired with features of sepsis, present on admission Left pleural effusion noted on x-ray Generalized weakness with increased falls and gait dysfunction Headache, CT negative for acute process History of non-small cell lung carcinoma with metastasis, maintained on Keytruda, last dose 2 weeks ago History of diabetes mellitus, insulin-dependent, uncontrolled with hyperglycemia History of DVT of the left lower extremity GERD Hyperlipidemia Hypertension Osteoarthritis history Continued ongoing nicotine dependence, trying to quit Obesity with a BMI of 36.0 GI prophylaxis DVT prophylaxis Full code Discharge disposition Patient is being discharged in a stable condition with guarded prognosis to [facility]. Patient will follow-up with Dr. Turner in the outpatient setting upon discharge. Patient is to follow-up with oncology Dr. See outpatient once discharged from [facility]. Total time taken is greater than 35 minutes. Hospital course This is a 72-year-old female who was recently admitted with generalized weakness and fevers with significant falling and becoming progressively more weak at home. Patient having increased cough with fevers with decreased appetite with concerns of right upper lobe consolidation and pneumonia. Patient was maintained on antibiotics and has completed the course and doing well off antibiotic therapy. Patient having headache and has been afebrile for over 72 hours. Patient is currently on room air with no reporting of forcing shortness of breath. Patient is a smoker as well as coffee drinker and has not been having that in a few days either which could be contributing to headache. Brain CT was done which was negative for any acute process. Patient is using Imitrex as needed daily with some relief. Patient normally takes Ultram at home with relief and has been continued. Patient being followed by oncology as well as pulmonary and has been cleared by consultations for discharge. Please refer to consultation notes for further HPI. Patient was seen and evaluated by physical therapy recommending a rehab and patient is agreeable. Insurance authorization has been obtained and patient will be going to [facility]. Patient currently maintained on keytruda and received her last dose a few weeks ago. Patient is agreeable and understanding that she will not receive oncological care or treatment while at [facility]. Oncology is aware of this as well. Currently no reports of chest pain, shortness of breath, or palpitations. Patient is afebrile. No reports of nausea or vomiting and patient is tolerating diet. Patient will be going to [facility] today. Physical exam: Gen: This is a 72-year-old female who is awake, alert and oriented 3, well- developed, well-nourished, obese HEENT: Head is atraumatic, normocephalic. Pupils equal, round. Sclerae is anicteric. NECK: Supple. No JVD. No lymphadenopathy. No thyromegaly. LUNGS: Diminished breath sounds bilaterally with no wheezes or rhonchi. No intercostal retractions. HEART: Regular rate and rhythm. No murmur. ABDOMEN: Soft. Obese. Bowel sounds are present. No masses. No tenderness. EXTREMITIES: No pedal edema. No calf tenderness. NEUROLOGICAL: Patient is awake, alert and oriented x3. Cranial nerves 2 through 12 are grossly intact. Diffusely weak Please refer to medication reconciliation sheet for a list of medications. The impression and plan of care has been dictated by Cathryn Villanueva, Nurse Practitioner as directed. Dr. Naun MD I have performed a history and examination and MDM of this patient, discussed the same with the dictator, and agree with the dictator's assessment and plan as written ,documented as a scribe. Based on total visit time, I have performed more than 50% of the visit. Patient Condition at Discharge: Fair Plan - Discharge Summary New Discharge Prescriptions: New INSULIN ASPART (NovoLOG) [NovoLOG (formulary)] 0 unit SQ ACHS each Ipratropium-Albuterol Nebulize [Duoneb 0.5 mg-3 mg/3 ml Soln] 3 ml INHALATION RT-QID each Ipratropium-Albuterol Nebulize [Duoneb 0.5 mg-3 mg/3 ml Soln] 3 ml INHALATION RT-Q2H PRN each PRN Reason: Shortness Of Breath Or Wheezing SUMAtriptan succinate [Imitrex] 25 mg PO DAILY PRN tab PRN Reason: Migraine Headache Acetaminophen Tab [Tylenol] 650 mg PO Q6HR PRN tab PRN Reason: Fever And/ Or Pain traMADol HCl [Ultram] 50 mg PO QID PRN #8 tab PRN Reason: Pain Continue Dulaglutide [Trulicity] 1.5 mg SQ SA Ezetimibe [Zetia] 10 mg PO DAILY Glimepiride [Amaryl] 2 mg PO BID Vitamin C/Biotin [Hair, Skin and Nails Chew] 1 tab PO DAILY icosapent ethyL [Icosapent Ethyl] 2 gm PO BID Vitamin E (Dl,Tocopheryl Acet) [Vitamin E (1000 Iu = 450 MG)] 1,000 unit PO BID Losartan [Cozaar] 50 mg PO DAILY Insulin Glargine,Hum.rec.anlog [Lantus Solostar Pen] 40 unit SQ HS Apixaban [Eliquis] 2.5 mg PO BID Econazole Nitrate [Econazole Nitrate 1%] 1 applic TOPICAL BID Magnesium Oxide [Magnesium] 500 mg PO DAILY Febuxostat [Uloric] 40 mg PO DAILY Ferrous Sulfate [Iron (65 MG Elemental)] 325 mg PO DAILY Docusate [Colace] 100 mg PO DAILY Cholecalciferol (Vitamin D3) [Vitamin D3 (3000 Iu)] 75 mcg PO DAILY Cetirizine HCl [Zyrtec] 10 mg PO DAILY PRN PRN Reason: Allergy Symptoms Discontinued traMADol HCL 100 mg PO Q6H Pembrolizumab [Keytruda] 200 dose IV Q21D Discharge Medication List Dulaglutide [Trulicity] 1.5 mg SQ SA 01/04/21 [History] Ezetimibe [Zetia] 10 mg PO DAILY 01/04/21 [History] Febuxostat [Uloric] 40 mg PO DAILY 01/04/21 [History] Ferrous Sulfate [Iron (65 MG Elemental)] 325 mg PO DAILY 01/04/21 [History] Glimepiride [Amaryl] 2 mg PO BID 01/04/21 [History] Vitamin C/Biotin [Hair, Skin and Nails Chew] 1 tab PO DAILY 01/04/21 [History] Vitamin E (Dl,Tocopheryl Acet) [Vitamin E (1000 Iu = 450 MG)] 1,000 unit PO BID 07/24/21 [History] icosapent ethyL [Icosapent Ethyl] 2 gm PO BID 07/24/21 [History] Insulin Glargine,Hum.rec.anlog [Lantus Solostar Pen] 40 unit SQ HS 09/13/21 [History] Losartan [Cozaar] 50 mg PO DAILY 09/13/21 [History] Apixaban [Eliquis] 2.5 mg PO BID 03/06/23 [History] Cetirizine HCl [Zyrtec] 10 mg PO DAILY PRN 03/06/23 [History] Cholecalciferol (Vitamin D3) [Vitamin D3 (3000 Iu)] 75 mcg PO DAILY 03/06/23 [History] Docusate [Colace] 100 mg PO DAILY 03/06/23 [History] Econazole Nitrate [Econazole Nitrate 1%] 1 applic TOPICAL BID 03/06/23 [History] Magnesium Oxide [Magnesium] 500 mg PO DAILY 03/06/23 [History] Acetaminophen Tab [Tylenol] 650 mg PO Q6HR PRN tab 03/10/23 [Rx] INSULIN ASPART (NovoLOG) [NovoLOG (formulary)] 0 unit SQ ACHS each 03/10/23 [Rx] Ipratropium-Albuterol Nebulize [Duoneb 0.5 mg-3 mg/3 ml Soln] 3 ml INHALATION RT-Q2H PRN each 03/10/23 [Rx] Ipratropium-Albuterol Nebulize [Duoneb 0.5 mg-3 mg/3 ml Soln] 3 ml INHALATION RT-QID each 03/10/23 [Rx] SUMAtriptan succinate [Imitrex] 25 mg PO DAILY PRN tab 03/10/23 [Rx] traMADol HCl [Ultram] 50 mg PO QID PRN #8 tab 03/10/23 [Rx] Follow up Appointment(s)/Referral(s): Dudley Samuel NPC [Nurse Practitioner] - 03/21/23 10:30 am ([facility] office, [address], behind [facility] Follow-up ) Ángel Turnre DO [Primary Care Provider] - 1-2 days Activity/Diet/Wound Care/Special Instructions: Patient is going to [facility] Activity as tolerated Patient follow-up with primary care provider on discharge Follow-up with oncology once discharged from ECF Continue heart healthy diabetic diet Discharge Disposition: TRANSFER TO SNF/ECF
[2023-03-10 17:03] VITALS: PULSE 86
[2023-03-11] MEDS ORDERED: NON FORMULARY DRUG (Dulaglutide [Trulicity] 1.5 MG/0.5 ML Each) SQ SCH (09:00)
== END 2023-03-10 17:06 | DRG 871 ==
LOC: EC 04:12 → 5NMEDONC 07:36
PROVIDERS: ADMIT Internal Medicine; ATTEND Internal Medicine
DX: A41.9 Sepsis, unspecified organism (principal); J18.9 Pneumonia, unspecified organism; C79.51 Secondary malignant neoplasm of bone; J90 Pleural effusion, not elsewhere classified; C34.11 Malignant neoplasm of upper lobe, right bronchus or lung; J98.11 Atelectasis; E11.65 Type 2 diabetes mellitus with hyperglycemia; Z79.4 Long term (current) use of insulin; I10 Essential (primary) hypertension; E78.5 Hyperlipidemia, unspecified; M15.9 Polyosteoarthritis, unspecified; M51.36 Other intervertebral disc degeneration, lumbar region; K21.9 Gastro-esophageal reflux disease without esophagitis; R51.9 Headache, unspecified; E66.9 Obesity, unspecified; Z68.36 Body mass index [BMI] 36.0-36.9, adult; R29.6 Repeated falls; M10.9 Gout, unspecified; R26.9 Unspecified abnormalities of gait and mobility; F17.210 Nicotine dependence, cigarettes, uncomplicated; Z71.6 Tobacco abuse counseling; Z79.01 Long term (current) use of anticoagulants; Z79.85 Long-term (current) use of injectable non-insulin antidiabetic drugs; Z79.84 Long term (current) use of oral hypoglycemic drugs; Z79.899 Other long term (current) drug therapy; Z86.718 Personal history of other venous thrombosis and embolism; Z71.3 Dietary counseling and surveillance; Z88.5 Allergy status to narcotic agent; Z88.8 Allergy status to other drugs, medicaments and biological substances
CPT/HCPCS: 36415; 70450; 71045; 71046; 71260; 80048; 80053; 81001; 83036; 83605; 83735; 84145; 85025; 87040; 87070; 87205; 87449; 87635; 93005; 94640; 94760; 96361; 96365; 99285

== ENCOUNTER → 2023-05-11 | Outpatient (CLI) | payer MEDICARE ==
--- NOTE | 2023-05-14 21:16 | PE ---
EXAMINATION TYPE: PET CT fusion skull to thigh DATE OF EXAM: 05/11/2023 CLINICAL INDICATION:Female, 72 years old with history of Lung Ca; TECHNIQUE: Following the intravenous administration of 9.1 mCi of F-18 FDG, whole body images are p erformed from the skull base to the midthigh. Images are reviewed on the computer in the coronal, ax ial, and sagittal planes. Reconstructed rotating images are created on independent workstation and r eviewed on the computer. A non-contrast CT is performed in conjunction with the PET scan. Glucose l evel 120 mg/dL CT DLP: 80 mGycm, Automated exposure control for dose reduction was used. COMPARISON: CT 03/09/2023, 03/06/2023, PET/CT 12/16/2022, FINDINGS: Mediastinal SUV mean is 3.2. Hepatic parenchyma SUV mean is 4.3. SKULL BASE AND NECK: * Uptake within the palatine tonsils bilaterally max SUV on the right and 26 and on the left 10.2. P reviously 4.8 on the right hand 5.4 on the left. CHEST, MEDIASTINUM, AND HILAR REGION: * 17 x 16 mm nodule in the right upper lung. Not significantly changed in size compared to 04/08/2022 Max SUV in today's exam 4.5, previously 1.1. * No adjacent sclerotic bone in the ribs is not significantly changed in morphology compared to prio r ABDOMEN AND PELVIS: No suspicious radiotracer activity. MUSCULOSKELETAL STRUCTURES: No suspicious radiotracer activity. Scattered areas of sclerotic lesions throughout osseous structures are not significantly changed. No abnormal FDG activity within the osse ous structures on today's exam. OTHER CT: Bilateral aphakia. Atherosclerosis of the arterial vasculature. Obtained tonsil calcificati ons bilaterally. Coronary artery atherosclerosis. Lipomatous hypertrophy of interatrial septum. Hypod ense left renal cyst compatible with proteinaceous/hemorrhagic cyst as 74 Hounsfield units. Right hip fixation hardware is partially visualized. Hardware appears intact. Kyphoplasty changes to the lower spine. Fat-containing umbilical hernia. IMPRESSION: Interval increase in metabolic activity within the right upper lobe pulmonary nodule compared to prio r. Size remains relatively unchanged. Adjacent osseous sclerosis not significantly changed. Close mon itoring recommended to rule out re-recurrence. Scattered metastatic disease throughout the osseous structures without evidence for elevated FDG acti vity.
== END | disposition home or self-care (01) ==
LOC: RADPETMAIN 10:36
PROVIDERS: ATTEND Internal Medicine Hematology & Oncology
DX: C34.11 Malignant neoplasm of upper lobe, right bronchus or lung (principal); C79.9 Secondary malignant neoplasm of unspecified site; R91.1 Solitary pulmonary nodule
CPT/HCPCS: 78815; A9552

== ENCOUNTER → 2023-11-02 | Outpatient (CLI) | payer MEDICARE ==
--- NOTE | 2023-11-04 12:42 | PE ---
EXAMINATION TYPE: PET CT fusion skull to thigh DATE OF EXAM: 11/02/2023 CLINICAL INDICATION:Female, 73 years old with history of Lung ca C34.11; TECHNIQUE: Following the intravenous administration of 11.42 mCi of F-18 FDG, whole body images are performed from the skull base to the midthigh. Images are reviewed on the computer in the coronal, axial, and sagittal planes. Reconstructed rotating images are created on independent workstation and reviewed on the computer. A non-contrast CT is performed in conjunction with the PET scan. Glucose level 189 mg/dL CT DLP: 927 mGycm, Automated exposure control for dose reduction was used. COMPARISON: CT 03/09/2023, 03/06/2023, PET/CT on 05/11/2023 12/16/2022, FINDINGS: Mediastinal SUV mean is 2.5. Hepatic parenchyma SUV mean is 4.3. SKULL BASE AND NECK: * Uptake within the palatine tonsils bilaterally max SUV on the right and 26 and on the left 10.2. P reviously 4.8 on the right hand 5.4 on the left. CHEST, MEDIASTINUM, AND HILAR REGION: * Similar 17 x 16 mm nodule in the right upper lung. Not significantly changed in size compared to and 04/08/2022 Max SUV in today's exam 3.6, previously 4.5, 1.1. * No adjacent sclerotic bone in the ribs is not significantly changed in morphology compared to prio r. ABDOMEN AND PELVIS: No suspicious radiotracer activity. MUSCULOSKELETAL STRUCTURES: Scattered areas of sclerotic lesions throughout osseous structures . Right sacrum max SUV 5.5 previou sly 5.0 which is stable given differences in technique. OTHER CT: Bilateral aphakia. Atherosclerosis of the arterial vasculature. Obtained tonsil calcificati ons bilaterally. Coronary artery atherosclerosis. Lipomatous hypertrophy of interatrial septum. Hypod ense left renal cyst compatible with proteinaceous/hemorrhagic cyst as 74 Hounsfield units. Right hip fixation hardware is partially visualized. Hardware appears intact. Kyphoplasty changes to the lower spine. Fat-containing umbilical hernia. IMPRESSION: 1. Interval decrease in metabolic activity within the right upper lobe pulmonary nodule compared to prior. Size remains relatively unchanged. Adjacent osseous sclerosis not significantly changed. 2. Scattered metastatic disease throughout the osseous structures: FDG activity.
== END | disposition home or self-care (01) ==
LOC: RADPETMAIN 10:39
PROVIDERS: ATTEND Internal Medicine Hematology & Oncology
DX: C79.51 Secondary malignant neoplasm of bone (principal); C34.11 Malignant neoplasm of upper lobe, right bronchus or lung; R91.1 Solitary pulmonary nodule
CPT/HCPCS: 78815; A9552

== ENCOUNTER → 2024-01-24 | Outpatient (CLI) | payer MEDICARE ==
[2024-01-24 13:24] LABS: African American GFR (CKD) 61 (>60 ml/min/1.73 sqM); Blood Urea Nitrogen 21 mg/dL (7-17); Non-African American GFR(CKD) 53 (>60 ml/min/1.73 sqM)
--- NOTE | 2024-01-25 09:57 | CA ---
Transthoracic Echo Report Name: Luz Elena Jensen Age: 73 Gender: F : 1950 Exam Date: 01/24/2024 13:34 Exam Location: [facility] Ht (in): 67 Wt (lb): 235 Ordering Physician: Ángel Turner DO Attending/Referring Phys: Lorraine Beverly [facility] Extrusion Engineer Brittany Nguyen RDCS Procedure CPT: Indications: R00.0 TACHYCARDIA I26.99 PE Cardiac Hx: Technical Quality: Technically difficult study Contrast 1: Definity Total Dose (mL): 2 Contrast 2: Total Dose (mL): MEASUREMENTS (Male / Female) Normal Values 2D ECHO LV Diastolic Diameter PLAX 3.7 cm 4.2 - 5.9 / 3.9 - 5.3 cm LV Systolic Diameter PLAX 2.4 cm IVS Diastolic Thickness 1.0 cm 0.6 - 1.0 / 0.6 - 0.9 cm LVPW Diastolic Thickness 1.3 cm 0.6 - 1.0 / 0.6 - 0.9 cm LV Relative Wall Thickness 0.6 LVOT Diameter 2.2 cm Aortic Root Diameter 3.4 cm LV Diastolic Volume MOD BP 42.8 cm??? 67 - 155 / 56 - 104 cm??? LV Systolic Volume MOD BP 15.7 cm??? 22 - 58 / 19 - 49 cm??? LV Ejection Fraction MOD BP 63.3 % >= 55 % LV Cardiac Index MOD BP 1324.5 cm???/min???m??? LV Diastolic Volume MOD 4C 47.8 cm??? LV Systolic Volume MOD 4C 13.9 cm??? LV Ejection Fraction MOD 4C 70.9 % LV Cardiac Index MOD 4C 1658.3 cm???/min???m??? LV Diastolic Length 4C 7.4 cm LV Systolic Length 4C 5.2 cm LV Diastolic Volume MOD 2C 37.4 cm??? LV Systolic Volume MOD 2C 15.7 cm??? LV Ejection Fraction MOD 2C 58.1 % LV Cardiac Index MOD 2C 1063.3 cm???/min???m??? LV Diastolic Length 2C 7.2 cm LV Systolic Length 2C 6.0 cm DOPPLER AV Peak Velocity 124.4 cm/s AV Peak Gradient 6.2 mmHg AV Mean Velocity 91.2 cm/s AV Mean Gradient 3.7 mmHg AV Velocity Time Integral 18.9 cm LVOT Peak Velocity 92.0 cm/s LVOT Peak Gradient 3.4 mmHg LVOT Velocity Time Integral 12.6 cm LVOT Stroke Volume 48.7 cm??? LVOT Stroke Volume Index 22.5 ml/m??? LVOT Cardiac Index 2383.2 cm???/min???m??? AV Area Cont Eq vti 2.6 cm??? AV Area Cont Eq pk 2.9 cm??? FINDINGS Left Ventricle Left ventricular ejection fraction is estimated at 60-65 %. Mildly increased posterior wall thickness. Left ventricular cavity size normal. No obvious regional wall motion abnormalities. Right Ventricle Normal right ventricular size and function. Unable to estimate the right ventricular systolic pressure. Right Atrium Normal right atrial size. Left Atrium Normal left atrial size. Mitral Valve Structurally normal mitral valve. No mitral stenosis, regurgitation or prolapse. Aortic Valve Aortic valve not well visualized. No aortic valve stenosis or regurgitation. Tricuspid Valve Structurally normal tricuspid valve. No tricuspid stenosis, regurgitation or prolapse. Pulmonic Valve Pulmonic valve not well visualized. Pericardium No pericardial effusion. Aorta Aortic annulus normal. CONCLUSIONS Diagnosis abnormal rhythm/tachycardia, pulmonary embolism Normal RV size and function Normal LV size and function No significant tricuspid regurgitation Previewed by: Dr. Shawn Graves MD (Electronically Signed) Final Date: 25 January 2024 09:56
--- NOTE | 2024-01-25 13:14 | CT ---
EXAMINATION TYPE: CT angio chest CT DLP: 610 mGycm, Automated exposure control for dose reduction was used. DATE OF EXAM: 01/24/2024 4:32 PM COMPARISON: 03/06/2023 11/02/2023. CLINICAL INDICATION: Female, 73 years old with history of R00.0 TACHYCARDIA I26.99 PE; Tachycardia TECHNIQUE/CONTRAST: CTA scan of the thorax is performed with IV Contrast, patient injected with 80 mL of Isovue 370, MIP images are created and reviewed these are created on a separate workstation.. FINDINGS: Pulmonary Artery: There is no evidence for a filling defect within the pulmonary vasculature to sugge st acute pulmonary embolism. The pulmonary artery is of normal size. Lungs/Pleura: No evidence of focal consolidation, pleural effusion or pneumothorax. Right lateral upp er lung consolidation along the pleural not significantly changed from prior measuring 16 x 15 mm Airway: Large airways are patent. Heart: Heart is within normal limits for size. Lipomatous hypertrophy of interatrial septum. Vasculature: No evidence of aortic aneurysm. Slitlike appearance of the superior vena cava series 5 i mage 91. Mediastinum: No gross evidence of adenopathy. Musculoskeletal: No acute osseous abnormalities Soft Tissues/lymph nodes: Unremarkable. Lower neck: No significant findings. Upper Abdomen: No significant findings. IMPRESSION: 1. Slitlike appearance of the superior vena cava secondary to lipomatous tissue possibly represent li maria d which may be increased in size from 04/22/2021. This could theoretically be due to poor venous r eturn. Consider vascular surgery consultation. 2. No evidence of pulmonary embolism. 3. No evidence for acute process involving the thorax. 4. Right upper lung consolidation not significantly changed from prior PET/CT. No lymphadenopathy marbella ntified. [facility], , 01/25/2024 1:11 PM
== END | disposition home or self-care (01) ==
LOC: RADECHMAIN 12:44
PROVIDERS: ATTEND Family Medicine
DX: I26.99 Other pulmonary embolism without acute cor pulmonale (principal); R00.0 Tachycardia, unspecified
CPT/HCPCS: 36415; 71275; 82565; 84520; 93306

== ENCOUNTER → 2024-03-18 | Outpatient (CLI) | payer MEDICARE ==
[2024-03-18 15:09] LABS: African American GFR (CKD) 70 (>60 ml/min/1.73 sqM); Blood Urea Nitrogen 22 mg/dL (7-17); Non-African American GFR(CKD) 60 (>60 ml/min/1.73 sqM)
--- NOTE | 2024-03-18 15:59 | CT ---
EXAMINATION TYPE: CT chest w con DATE OF EXAM: 03/18/2024 3:41 PM COMPARISON: Chest radiograph from same day. 01/24/2024 CLINICAL INDICATION: Female, 73 years old with history of C34.11 MALIGNANT NEOPLASM OF UPPER LOBE, RI GHT BRO, Lung CA. TECHNIQUE: Multiple axial images were obtained through the chest. Sagittal and coronal reformats were created for review. MIP was performed on a separate workstation. Contrast used:100ml mL of Isovue 300 with IV Contrast (None if empty) Oral contrast used: (None if empty) CT DLP: 611 mGycm, Automated exposure control for dose reduction was used. FINDINGS: Pulmonary Artery: There is no evidence for a filling defect within the pulmonary vasculature to sugge st acute pulmonary embolism. The pulmonary artery is of normal size. Lungs/Pleura: No evidence of focal consolidation, pleural effusion or pneumothorax. Right lateral upp er lung consolidation along the pleural not significantly changed from prior measuring 16 x 15 mm Airway: Large airways are patent. Heart: Heart is within normal limits for size. Lipomatous hypertrophy of interatrial septum. Vasculature: No evidence of aortic aneurysm. Slitlike appearance of the superior vena cava series 3 image 33. Mediastinum: No gross evidence of adenopathy. Musculoskeletal: No acute osseous abnormalities Soft Tissues/lymph nodes: Unremarkable. Lower neck: No significant findings. Upper Abdomen: No significant findings. IMPRESSION: 1. Slitlike appearance of the superior vena cava secondary to lipomatous tissue possibly represent li maria d which is similar to prior 01/24/2024. This could theoretically be lead to poor venous return. Con bounty trapper vascular surgery consultation. 2. No evidence of pulmonary embolism. 3. No evidence for acute process involving the thorax. 4. Right upper lung consolidation not significantly changed from prior PET/CT. No lymphadenopathy marbella ntified. [facility], , 03/18/2024 3:57 PM
== END | disposition home or self-care (01) ==
LOC: RADCTMAIN 14:15
PROVIDERS: ATTEND Internal Medicine Hematology & Oncology
DX: C34.11 Malignant neoplasm of upper lobe, right bronchus or lung (principal); J16.8 Pneumonia due to other specified infectious organisms; Z03.89 Encounter for observation for other suspected diseases and conditions ruled out
CPT/HCPCS: 82565; 84520; 71260; 36415; Q9967

== ENCOUNTER → 2024-05-09 | Outpatient (CLI) | payer MEDICARE ==
--- NOTE | 2024-05-13 11:29 | PE ---
EXAMINATION TYPE: PET CT fusion skull to thigh DATE OF EXAM: 05/09/2024 COMPARISON: CT chest 03/18/2024 Prior PET/CT: 11/02/2023 CLINICAL INDICATION: Female, 73 years old with history of C34.11 LUNG CANCER, TECHNIQUE: Following the intravenous administration of 13.0 mCi of F-18 FDG, whole body images are p erformed from the skull base to the midthigh. Images are reviewed on the computer in the coronal, ax ial, and sagittal planes. Reconstructed rotating images are created on independent workstation and r eviewed on the computer. A localization and attenuation correction CT is performed in conjunction w ith the PET scan. DLP: 891.54 mGycm SCAN: Subsequent Blood glucose: 201 mg/dL Average Mediastinum SUV: 2.59 Average Liver SUV: 2.42 FINDINGS: NECK: No abnormal uptake THORAX: No suspicious uptake. Uptake within the right peripheral lung mass measures 2.31 SUV. Image 9 4. Intermediate uptake may be within the chest wall. No suspicious mediastinal adenopathy evident. Th ere is a tiny area of increased signal within the right hilar region, image 101 with an SUV of 3.97. Image 101. Artifact is favored given similar scattered areas within the liver and additional arterial structures. Small lymph node is not entirely excluded. ABDOMEN: No suspicious uptake PELVIS: No suspicious uptake OSSEOUS STRUCTURES: There is sclerosis of an anterior lateral left lower rib, image 143 with an SUV o f 2.45. There is confluent uptake within the right sacral alar image 196 with an SUV of 4.67, diminis hed from comparison. LOCALIZATION CT: Chest wall nodule measures 1.5 cm, stable. COMPARISON: The abnormal uptake within the right sacral alar appears larger and more confluent than t he prior examination. However, the SUV value has diminished from 5 to 4.67. IMPRESSION: 1. Stable appearing radiotracer distribution. 2. Sclerotic osseous metastasis most notable in the right sacrum with abnormal uptake improving SUV f rom comparison of the lung volume appears more confluent on the current exam. [facility], , 05/13/2024 11:27 AM
== END | disposition home or self-care (01) ==
LOC: RADPETMAIN 09:40
PROVIDERS: ATTEND Internal Medicine Hematology & Oncology
DX: C34.11 Malignant neoplasm of upper lobe, right bronchus or lung (principal); C79.51 Secondary malignant neoplasm of bone
CPT/HCPCS: 78815; A9552

== ENCOUNTER 2024-08-01 21:02 | Emergency (ER) | payer MEDICARE ==
[2024-08-02 00:56] LABS: Appearance,Urine Cloudy (Clear); Bacteria,Urine Occasional /hpf; Bilirubin,Urine Negative (Negative); Blood,Urine Negative (Negative); Budding Yeast,Urine Few /hpf; Color,Urine Colorless; Glucose,Urine (UA) 3+ (Negative); Hyaline Casts,Urine 10 /lpf (0-2); Ketones,Urine 1+ (Negative); Leukocyte Esterase,Urine Small (Negative); Mucus,Urine Rare /hpf; Nitrite,Urine Negative (Negative); Protein,Urine Trace (Negative); RBC,Urine <1 /hpf (0-5); Squamous Epithelial Cell,Urine 21 /hpf (0-4); Urobilinogen,Urine <2.0 mg/dL (<2.0); WBC,Urine 7 /hpf (0-5)
--- NOTE | 2024-08-02 01:16 | ED ---
Lower Extremity Injury HPI - General Chief Complaint: Extremity Injury, Lower Stated Complaint: foot pain Time Seen by Provider: 08/01/24 22:37 Source: patient Mode of arrival: wheelchair Limitations: no limitations - History of Present Illness Initial Comments: 74-year-old female presenting with chief complaint of athlete's foot. Patient reports she has had recurrent athlete's foot for over a year. She is having irritation between the toes. No fever. Patient also thinks she has a UTI. She states that she has a UTI because her blood sugar is elevated and typically when that happens she ends up getting a UTI. She is having no dysuria or hematuria. No flank pain or abdominal pain. No nausea or vomiting. No fevers or chills. - Related Data Home Medications Medication Instructions Recorded Confirmed Dulaglutide [Trulicity] 1.5 mg SQ SA 01/04/21 03/06/23 Ezetimibe [Zetia] 10 mg PO DAILY 01/04/21 03/06/23 Febuxostat [Uloric] 40 mg PO DAILY 01/04/21 03/06/23 Ferrous Sulfate [Iron (65 MG 325 mg PO DAILY 01/04/21 03/06/23 Elemental)] Glimepiride [Amaryl] 2 mg PO BID 01/04/21 03/06/23 Vitamin C/Biotin [Hair, Skin and 1 tab PO DAILY 01/04/21 03/06/23 Nails Chew] Vitamin E (Dl,Tocopheryl Acet) 1,000 unit PO BID 07/24/21 03/06/23 [Vitamin E (1000 Iu = 450 MG)] icosapent ethyL [Icosapent Ethyl] 2 gm PO BID 07/24/21 03/06/23 Insulin Glargine,Hum.rec.anlog 40 unit SQ HS 09/13/21 03/06/23 [Lantus Solostar Pen] Losartan [Cozaar] 50 mg PO DAILY 09/13/21 03/06/23 Apixaban [Eliquis] 2.5 mg PO BID 03/06/23 03/06/23 Cetirizine HCl [Zyrtec] 10 mg PO DAILY PRN 03/06/23 03/06/23 Cholecalciferol (Vitamin D3) 75 mcg PO DAILY 03/06/23 03/06/23 [Vitamin D3 (3000 Iu)] Docusate [Colace] 100 mg PO DAILY 03/06/23 03/06/23 Econazole Nitrate [Econazole 1 applic TOPICAL BID 03/06/23 03/06/23 Nitrate 1%] Magnesium Oxide [Magnesium] 500 mg PO DAILY 03/06/23 03/06/23 Previous Rx's Medication Instructions Recorded Acetaminophen Tab [Tylenol] 650 mg PO Q6HR PRN tab 03/10/23 INSULIN ASPART (NovoLOG) [NovoLOG 0 unit SQ ACHS each 03/10/23 (formulary)] Ipratropium-Albuterol Nebulize 3 ml INHALATION RT-Q2H PRN each 03/10/23 [Duoneb 0.5 mg-3 mg/3 ml Soln] Ipratropium-Albuterol Nebulize 3 ml INHALATION RT-QID each 03/10/23 [Duoneb 0.5 mg-3 mg/3 ml Soln] SUMAtriptan succinate [Imitrex] 25 mg PO DAILY PRN tab 03/10/23 traMADol HCl [Ultram] 50 mg PO QID PRN #8 tab 03/10/23 Terbinafine 1% Cream [LamISIL] 1 applic TOPICAL BID #15 gm 08/02/24 Allergies Allergy/AdvReac Type Severity Reaction Status Date / Time bee venom protein (honey bee) Allergy Rash/Hives Verified 08/01/24 21:27 clarithromycin [From Biaxin] Allergy Unknown Verified 08/01/24 21:27 omeprazole [From Prilosec] AdvReac Unknown unable to Verified 08/01/24 21:27 take due to kidneys. Antihistamines - Piperidine AdvReac lethargic Verified 08/01/24 21:27 codeine AdvReac lethargic/h Verified 08/01/24 21:27 ot metformin AdvReac lethargic Verified 08/01/24 21:27 Review of Systems ROS Statement: Those systems with pertinent positive or pertinent negative responses have been documented in the HPI. ROS Other: All systems not noted in ROS Statement are negative. Past Medical History Past Medical History: Cancer, Diabetes Mellitus, Deep Vein Thrombosis (DVT), GE RD/Reflux, Hyperlipidemia, Hypertension, Osteoarthritis (OA), Renal Disease Additional Past Medical History / Comment(s): gout, DVT left lower extremity , states arthritis all over-knees,hips,shoulders & fingers, states kidney function 50%., spot on lung. History of non-small cell lung cancer History of Any Multi-Drug Resistant Organisms: None Reported Past Surgical History: Section Additional Past Surgical History / Comment(s): D&C, Hemorrhoids, belly button operation as a baby., cataracts, eyelid surgery. 3 c sections Past Anesthesia/Blood Transfusion Reactions: No Reported Reaction Additional Past Anesthesia/Blood Transfusion Reaction / Comment(s): spinal with childbirth and paralized 36 hrs. Past Psychological History: No Psychological Hx Reported Smoking Status: Current every day smoker Past Alcohol Use History: None Reported Past Drug Use History: None Reported General Exam Limitations: no limitations General appearance: alert, in no apparent distress Head exam: Present: atraumatic, normocephalic, normal inspection Eye exam: Present: normal appearance, EOMI Neck exam: Present: normal inspection. Absent: meningismus Respiratory exam: Present: normal lung sounds bilaterally. Absent: respiratory distress, wheezes, rales, rhonchi, stridor Cardiovascular Exam: Present: regular rate, normal rhythm, normal heart sounds. Absent: systolic murmur, diastolic murmur, rubs, gallop, clicks GI/Abdominal exam: Present: soft. Absent: distended, tenderness, guarding, rebound, rigid Neurological exam: Present: alert, oriented X3 Psychiatric exam: Present: normal affect, normal mood Skin exam: Present: erythema Course Vital Signs 08/01/24 08/02/24 21:22 01:32 Temperature 98.2 F 97.7 F Pulse Rate 79 81 Respiratory 20 18 Rate Blood Pressure 121/81 124/87 O2 Sat by Pulse 95 98 Oximetry Medical Decision Making - Medical Decision Making Was pt. sent in by a medical professional or institution (, PA, RECORDER OF DEEDS, urgent care, hospital, or detention...) When possible be specific @ -No Did you speak to anyone other than the patient for history (EMS, parent, family, police, friend...)? What history was obtained from this source @ -No Did you review nursing and triage notes (agree or disagree)? Why? @ -I reviewed and agree with nursing and triage notes Were old charts reviewed (outside hosp., previous admission, EMS record, old EKG, old radiological studies, urgent care reports/EKG's, detention records)? Report findings @ -No old charts were reviewed Differential Diagnosis (chest pain, altered mental status, abdominal pain women, abdominal pain men, vaginal bleeding, weakness, fever, dyspnea, syncope, headache, dizziness, GI bleed, back pain, seizure, CVA, palpatations, mental health, musculoskeletal)? @ -Differential includes athlete's foot, cellulitis, allergic reaction, not an all-inclusive list EKG interpreted by me (3pts min.). @ -As above X-rays interpreted by me (1pt min.). @ -None done CT interpreted by me (1pt min.). @ -None done U/S interpreted by me (1pt. min.). @ -None done What testing was considered but not performed or refused? (CT, X-rays, U/S, labs)? Why? @ -None What meds were considered but not given or refused? Why? @ -None Did you discuss the management of the patient with other professionals (professionals i.e. , PA, RECORDER OF DEEDS, lab, RT, psych nurse, social work lecturer, day care attendant, teacher, protection officer, home health care case manager)? Give summary @ -No Was smoking cessation discussed for >3mins.? @ -No Was critical care preformed (if so, how long)? @ -No Were there social determinants of health that impacted care today? How? (Homelessness, low income, unemployed, alcoholism, drug addiction, transportation, low edu. Level, literacy, decrease access to med. care, snf, r ehab)? @ -No Was there de-escalation of care discussed even if they declined (Discuss DNR or withdrawal of care, Hospice)? DNR status @ -No What co-morbidities impacted this encounter? (DM, HTN, Smoking, COPD, CAD, Cancer, CVA, ARF, Chemo, Hep., AIDS, mental health diagnosis, sleep apnea, morbid obesity)? @ -None Was patient admitted / discharged? Hospital course, mention meds given and route, prescriptions, significant lab abnormalities, going to OR and other pertinent info. @ -74-year-old female presenting with chief complaint of athlete's foot and possible UTI. History and physical examination are conducted. Urine is contaminated with 21 squamous cells. No strong evidence for UTI. Patient will be treated for athlete's foot with terninafine cream. Follow-up with PCP. Report back to ER with any new or worsening symptoms. Discussed return parameters and answered all questions. Patient conveyed verbal understanding and agreed to the plan. I discussed this case in detail with my attending Dr. Cole Undiagnosed new problem with uncertain prognosis? @ -No Drug Therapy requiring intensive monitoring for toxicity (Heparin, Nitro, Insulin, Cardizem)? @ -No Were any procedures done? @ -No Diagnosis/symptom? @ -Athlete's foot Acute, or Chronic, or Acute on Chronic? @ -Acute Uncomplicated (without systemic symptoms) or Complicated (systemic symptoms)? @ -Uncomplicated Side effects of treatment? @ -No Exacerbation, Progression, or Severe Exacerbation? @ -No Poses a threat to life or bodily function? How? (Chest pain, [place], [place], pneumonia, PE, COPD, DKA, ARF, appy, cholecystitis, CVA, Diverticulitis, Homicidal, Suicidal, threat to staff... and all critical care pts) @ -Low likelihood - Lab Data Lab Results 08/01/24 Range/Units 23:57 Urine Color Colorless Urine Appearance Cloudy H (Clear) Urine pH 5.0 (5.0-8.0) Ur Specific [place] 1.020 (1.001-1.035) Urine Protein Trace H (Negative) Urine Glucose (UA) 3+ H (Negative) Urine Ketones 1+ H (Negative) Urine Blood Negative (Negative) Urine Nitrite Negative (Negative) Urine Bilirubin Negative (Negative) Urine Urobilinogen <2.0 (<2.0) mg/dL Ur Leukocyte Esterase Small H (Negative) Urine RBC <1 (0-5) /hpf Urine WBC 7 H (0-5) /hpf Ur Squamous Epith Cells 21 H (0-4) /hpf Urine Bacteria Occasional H (None) /hpf Hyaline Casts 10 H (0-2) /lpf Urine Mucus Rare H (None) /hpf Urine Yeast (Budding) Few H (None) /hpf Disposition Clinical Impression: Athletes foot Disposition: HOME SELF-CARE Condition: Good Instructions (If sedation given, give patient instructions): Athlete's Foot (ED) Additional Instructions: Follow-up with PCP. Report back to ER with any new or worsening symptoms. Prescriptions: Terbinafine 1% Cream [LamISIL] 1 applic TOPICAL BID #15 gm Is patient prescribed a controlled substance at d/c from ED?: No Referrals: Ángel Turner DO [Primary Care Provider] - 1-2 days Time of Disposition: 01:16
[2024-08-02 01:33] VITALS: BP 124/87; PULSE 81; RESP 18; TEMP 97.7
== END 2024-08-02 01:35 | disposition home or self-care (01) ==
LOC: EC 21:02
DX: B35.3 Tinea pedis (principal); F17.200 Nicotine dependence, unspecified, uncomplicated; Z91.030 Bee allergy status; Z88.5 Allergy status to narcotic agent; Z88.1 Allergy status to other antibiotic agents; Z88.8 Allergy status to other drugs, medicaments and biological substances
CPT/HCPCS: 81001; 99283

== ENCOUNTER → 2024-09-02 | Outpatient (CLI) | payer MEDICARE ==
--- NOTE | 2024-09-02 15:23 | MR ---
EXAMINATION TYPE: MR brain wo/w con DATE OF EXAM: 09/02/2024 COMPARISON: CT brain March 09, 2023 HISTORY: Lung cancer. TECHNIQUE: Multiplanar, multisequence images of the brain and brainstem is performed without and with IV contras t, utilizing 10 mL intravenous Gadobutrol . FINDINGS: Diffusion weighted images demonstrate no evidence of a recent infarct or other diffusion ab normality. Mild ventricular and sulcal prominence redemonstrated. There are multifocal and confluent areas of T2 hyperintensity scattered throughout the superficial, deep, and periventricular white vaughn er. Lesions are nonspecific in appearance and distribution. Midline structures demonstrate normal morphology. The craniocervical junction appears within normal limits. Post contrast images demonstrate no abnormal enhancement or enhancing masses. The dural veno us sinuses appear patent. Bilateral aphakia is seen. There is 2.1 cm mucous retention cyst or polyp i n the inferior right maxillary sinus. IMPRESSION: 1. No suspicious enhancing masses to suggest metastatic disease to the brain. 2. Moderate to borderline severe nonspecific white matter changes most likely on basis of product of chronic small vessel ischemic change in patient of this age. [facility], , 09/02/2024 3:21 PM
== END | disposition home or self-care (01) ==
LOC: RADMRIMAIN 12:54
PROVIDERS: ATTEND Internal Medicine Hematology & Oncology
DX: C34.11 Malignant neoplasm of upper lobe, right bronchus or lung (principal); I82.5Z9 Chronic embolism and thrombosis of unspecified deep veins of unspecified distal lower extremity; E11.9 Type 2 diabetes mellitus without complications; E78.5 Hyperlipidemia, unspecified; R90.82 White matter disease, unspecified
CPT/HCPCS: 70553; A9585

== ENCOUNTER → 2024-09-05 | Outpatient (CLI) | payer MEDICARE | END | disposition home or self-care (01) | LOC: RADPETMAIN 12:20 | PROVIDERS: ATTEND Internal Medicine Hematology & Oncology | DX: Z53.9 Procedure and treatment not carried out, unspecified reason (principal) ==

== ENCOUNTER → 2024-09-13 | Outpatient (CLI) | payer MEDICARE ==
--- NOTE | 2024-09-13 12:18 | PE ---
EXAMINATION TYPE: PET CT fusion skull to thigh DATE OF EXAM: 09/13/2024 COMPARISON: CT chest 03/18/2024 Prior PET/CT: 05/09/2024. CLINICAL INDICATION: Female, 74 years old with history of C34.11 Lung ca, TECHNIQUE: Following the intravenous administration of 10.8 mCi of F-18 FDG, whole body images are p erformed PET CT fusion skull to thigh. Images are reviewed on the computer in the coronal, axial, an d sagittal planes. Reconstructed rotating images are created on independent workstation and reviewed on the computer. A localization and attenuation correction CT is performed in conjunction with the PET scan. DLP: 1252.5 mGycm SCAN: Subsequent Blood glucose: 164 mg/dL Average Mediastinum SUV: 2.84 Average Liver SUV: 3.87 FINDINGS: NECK: No suspicious uptake. THORAX: Uptake within the anterior lateral pleural-based density image 87, SUV 1.8. Previous uptake 2 .31 This could be inflammatory or posttreatment. No suspicious uptake. No suspicious right hilar upta ke previous. ABDOMEN: Liver is somewhat heterogenous limiting evaluation. Suspicious focal nodules identified. No suspicious uptake within the abdomen. PELVIS: No suspicious uptake OSSEOUS STRUCTURES: Right sacral uptake remains present in the sclerotic region. Image 196, SUV 3.78. Previous 4.67. No suspicious uptake within the previous sclerotic rib. LOCALIZATION CT: Degenerative changes through the lumbar spine sclerosis may be within the manubrium. COMPARISON: No significant interval changes. Improving uptake within the right sacral alar. IMPRESSION: 1. No suspicious uptake to suggest new metastatic foci. 2. 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 3. Stable appearance of small right anterolateral pleural-based lung density. [facility], , 09/13/2024 12:16 PM
== END | disposition home or self-care (01) ==
LOC: RADPETMAIN 08:34
PROVIDERS: ATTEND Internal Medicine Hematology & Oncology
DX: C34.11 Malignant neoplasm of upper lobe, right bronchus or lung (principal); C79.51 Secondary malignant neoplasm of bone
CPT/HCPCS: 78815; A9552